=== PATIENT | female | born 1960 | race Caucasian/White ===

== ENCOUNTER 2018-04-06 11:15 | Outpatient (RCR) | payer OTHER, MEDICAID, SELFPAY ==
--- NOTE | 2018-02-08 11:19 | PT.OTN ---
Current Diagnoses Other intervertebral disc degeneration, lumbar region (02/08/18) Pain in left leg (02/08/18) Other abnormalities of gait and mobility (02/08/18) Repeated falls (02/08/18) Transition note: On February 06, 2018 our therapy services consisting of Speech, Occupational, and Physical Therapy transitioned from the [employer] electronic documentation system to a new [employer] electronic documentation system.?? All documentation prior to February 06 can be found under [employer] saved data. From February 06 forward all medical record documentation will be in [employer] 6.1.
--- NOTE | 2018-02-08 13:12 | PT.OTN ---
Current Diagnoses Other intervertebral disc degeneration, lumbar region (02/08/18) Pain in left leg (02/08/18) Other abnormalities of gait and mobility (02/08/18) Repeated falls (02/08/18) Physical Therapy Treatment Note PT-OP-A Visit Information Start: 02/08/18 12:54 Freq: Status: Active Protocol: Activity Type Activity Date Activity User E-Sign Co-Sign Detail Recorded Client Recorded Date Recorded By Document 02/08/18 11:45 [facility] [id number] 02/08/18 13:12 [facility] 02/08/18 11:45 Out-Patient Physical Therapy Visit Information [Visit Information] -Visit Type Treatment Note -Visit Start Time 11:15 -Visit Stop Time 12:00 -Total Visit Minutes 45 -Visit Number 4 -Number of CONSTRUCTION CARPENTER Visits 0 [Evaluation Information] -Evaluation Date 01/24/18 PT-OP-C Subjective Start: 02/08/18 12:54 Freq: Status: Active Protocol: Activity Type Activity Date Activity User E-Sign Co-Sign Detail Recorded Client Recorded Date Recorded By Document 02/08/18 11:45 [facility] [id number] 02/08/18 13:12 [facility] 02/08/18 11:45 OP-PT Subjective [Patient Comments] -Patient Comments My left leg hurt for about two days after my last visit, but I'm not sure if it was something we did here or not . It feels better now, though -Patient Reported Progress Improving PT-OP-Q Treatments Start: 02/08/18 12:54 Freq: Status: Active Protocol: Activity Type Activity Date Activity User E-Sign Co-Sign Detail Recorded Client Recorded Date Recorded By Document 02/08/18 11:45 [facility] [id number] 02/08/18 13:12 [facility] 02/08/18 11:45 Cardio Equipment [Recumbent Elliptical (Biode[employer])] -Duration (Minutes) 5 -Resistance 5 -Seat Position 4 Gym Equipment [Cable Column (Body Solid)] Hip Abduction -Resistance 4 plates -Reps/Time x40 Hip Adduction -Resistance 4 plates -Reps/Time x40 [Shuttle Recovery] Unilateral Squats -Resistance 50# -Shuttle Recovery Platform Stable -Reps/Time x40 Bilateral Squats -Resistance 87# -Shuttle Recovery Platform Stable -Reps/Time x40 Therapeutic Exercises [Supine Exercises] 4 -Supine Exercise Name PPT /c TrA activation - flexed knee raise-> extension-> flexion->down -Side bilateral -Reps/Minutes 2x15 3 -Supine Exercise Name PPT /c TrA activation - Marching in hook-lying -Side bilateral -Reps/Minutes 2x15 2 -Supine Exercise Name Adductor ball squeeze in hook -lying -Side bilateral -Equipment Used Small ball -Reps/Minutes 5 sec hold 1 -Supine Exercise Name Figure-4 Piriformis stretch -Side bilateral -Reps/Minutes 40 sec hold x3 [Sidelying Exercises] 1 -Sidelying Exercise Name SLR - Adduction -Side bilateral -Reps/Minutes 2x10 [Standing Exercises] 1 -Standing Exercise Name Hamstring step- stretch -Side left -Reps/Minutes 40 sec hold PT-OP-T Assessment and Plan Start: 02/08/18 12:54 Freq: Status: Active Protocol: Activity Type Activity Date Activity User E-Sign Co-Sign Detail Recorded Client Recorded Date Recorded By Document 02/08/18 11:45 [facility] [id number] 02/08/18 13:12 [facility] 02/08/18 11:45 Physical Therapy Assessment [Rehab Potential] -Rehabilitation Potential Good [Impairments] -Impairments Activity Tolerance Balance Functional Activities Pain ROM Soft Tissue Mobility Strength Tone [Progress Towards Goals] -Progress Towards Goals Progressing Toward Goals [Assessment Summary] -Assessment Patient's left knee pain, secondary to arthritis/DJD, limits her ability to tolerate to some TherEx. Pt reports she may be going to her PCP to get an injection she she can participate more fully in therapy. Physical Therapy Plan [Frequency and Duration] -Frequency of Treatment 2x/Week -Plan of Care Start Date 01/24/18 -Plan of Care End Date 04/03/18 [Therapeutic Interventions] -Therapeutic Interventions Aquatic Therapy Gait Training Home Exercise Program Joint Mobilizations Manual Therapy Neuromuscular Re-education Self-Care/Home Management Soft Tissue Mobilization Therapeutic Activities Therapeutic Exercises -Modalities Cold Pack/Ice Massage Electric Stimulation Hot Packs Ultrasound [Next Visit Focus/Plan] -Next Visit Plan Continued focus on strengthening and pain- control of her LE L>R, as well as core strengthening and balance training.
--- NOTE | 2018-02-12 12:07 | PT.OTN ---
Current Diagnoses Other intervertebral disc degeneration, lumbar region (02/12/18) Pain in left leg (02/12/18) Other abnormalities of gait and mobility (02/12/18) Repeated falls (02/12/18) Physical Therapy Treatment Note PT-OP-A Visit Information Start: 02/08/18 12:54 Freq: Status: Active Protocol: Activity Type Activity Date Activity User E-Sign Co-Sign Detail Recorded Client Recorded Date Recorded By Document 02/12/18 11:15 [facility] [id number] 02/12/18 12:07 [facility] 02/12/18 11:15 Out-Patient Physical Therapy Visit Information [Visit Information] -Visit Type Treatment Note -Visit Start Time 11:15 -Visit Stop Time 12:00 -Total Visit Minutes 45 -Visit Number 5 -Number of SAMPLE FINISHER Visits 0 [Evaluation Information] -Evaluation Date 01/24/18 PT-OP-C Subjective Start: 02/08/18 12:54 Freq: Status: Active Protocol: Activity Type Activity Date Activity User E-Sign Co-Sign Detail Recorded Client Recorded Date Recorded By Document 02/12/18 11:15 [facility] [id number] 02/12/18 12:07 [facility] 02/12/18 11:15 OP-PT Subjective [Patient Comments] -Patient Comments Both my knees really hurt today for some reason, so we need to take it easy. My right elbow has also been bothering me for some reason recently . -Patient Reported Progress Same PT-OP-Q Treatments Start: 02/08/18 12:54 Freq: Status: Active Protocol: Activity Type Activity Date Activity User E-Sign Co-Sign Detail Recorded Client Recorded Date Recorded By Document 02/12/18 11:15 [facility] [id number] 02/12/18 12:07 [facility] 02/12/18 11:15 Cardio Equipment [Recumbent Elliptical (Biodex)] -Duration (Minutes) 5 -Resistance 5 -Seat Position 4 Gym Equipment [Cable Column (Body Solid)] Hip Abduction -Resistance 4 plates -Reps/Time x40 Hip Adduction -Resistance 4 plates -Reps/Time x40 [Shuttle Recovery] Unilateral Squats -Resistance 50# -Shuttle Recovery Platform Stable -Reps/Time x40 Bilateral Squats -Resistance 87# -Shuttle Recovery Platform Stable -Reps/Time x40 [Shuttle Balance] 1 -Details Red - Wide JIMMY, Staggered Stance, Lateral Weight Shift -Reps/Duration 10 min Therapeutic Exercises [Supine Exercises] 5 -Supine Exercise Name PPT /c TrA activation - Air Bicycle -Side bilateral -Reps/Minutes 1x15 3 -Supine Exercise Name PPT /c TrA activation - Marching in hook-lying -Side bilateral -Reps/Minutes 2x15 [Sidelying Exercises] 2 -Sidelying Exercise Name [id number]-Iakl -Side bilateral -Reps/Minutes x10 each side [Standing Exercises] 1 -Standing Exercise Name Hamstring step- stretch -Side left -Reps/Minutes 40 sec hold PT-OP-T Assessment and Plan Start: 02/08/18 12:54 Freq: Status: Active Protocol: Activity Type Activity Date Activity User E-Sign Co-Sign Detail Recorded Client Recorded Date Recorded By Document 02/12/18 11:15 [facility] [id number] 02/12/18 12:07 [facility] 02/12/18 11:15 Physical Therapy Assessment [Rehab Potential] -Rehabilitation Potential Good [Impairments] -Impairments Activity Tolerance Balance Functional Activities Pain ROM Soft Tissue Mobility Strength Tone [Progress Towards Goals] -Progress Towards Goals Progressing Toward Goals [Assessment Summary] -Assessment Pt has not received her steroid injection for knee pain yet, although she is still planning to request one to help with her ongoing pain. This should allow pt to participate more fully in her therapy sessions. Physical Therapy Plan [Frequency and Duration] -Frequency of Treatment 2x/Week -Plan of Care Start Date 01/24/18 -Plan of Care End Date 04/03/18 [Therapeutic Interventions] -Therapeutic Interventions Aquatic Therapy Gait Training Home Exercise Program Joint Mobilizations Manual Therapy Neuromuscular Re-education Self-Care/Home Management Soft Tissue Mobilization Therapeutic Activities Therapeutic Exercises -Modalities Cold Pack/Ice Massage Electric Stimulation Hot Packs Ultrasound [Next Visit Focus/Plan] -Next Visit Plan Core strengthening, balance, LE strengthening.
--- NOTE | 2018-02-15 13:32 | PT.OTN ---
Current Diagnoses Other intervertebral disc degeneration, lumbar region (02/15/18) Pain in left leg (02/15/18) Other abnormalities of gait and mobility (02/15/18) Repeated falls (02/15/18) Physical Therapy Treatment Note PT-OP-A Visit Information Start: 02/08/18 12:54 Freq: Status: Active Protocol: Document 02/15/18 12:00 DCW (Rec: 02/15/18 13:32 DCW [id number]) Out-Patient Physical Therapy Visit Information Visit Information Visit Type Treatment Note Visit Start Time 12:00 Visit Stop Time 12:45 Total Visit Minutes 45 Visit Number 6 Number of SUPERVISOR TAN ROOM Visits 0 Evaluation Information Evaluation Date 01/24/18 PT-OP-C Subjective Start: 02/08/18 12:54 Freq: Status: Active Protocol: Document 02/15/18 12:00 DCW (Rec: 02/15/18 13:32 DCW [id number]) OP-PT Subjective Patient Comments Patient Comments Pt reports that she went to her doctor's office earlier this week, and was diagnosed with golfers elbow. PT-OP-Q Treatments Start: 02/08/18 12:54 Freq: Status: Active Protocol: Document 02/15/18 12:00 DCW (Rec: 02/15/18 13:32 DCW [id number]) Cardio Equipment Recumbent Elliptical (Biodex) Duration (Minutes) 5 Resistance 5 Seat Position 4 Gym Equipment Cable Column (Body Solid) Hip Abduction Resistance 4 plates Reps/Time x40 Hip Adduction Resistance 4 plates Reps/Time x40 Shuttle Recovery Unilateral Squats Resistance 50# Shuttle Recovery Platform Stable Reps/Time x40 Bilateral Squats Resistance 87# Shuttle Recovery Platform Stable Reps/Time x40 Shuttle Balance 1 Details Red - Wide JIMMY, Staggered Stance, Lateral Weight Shift Reps/Duration 10 min Therapeutic Exercises Supine Exercises 6 Supine Exercise Name Lower trunk rotation with T- ball under lower legs Side bilateral Equipment Used 45 cm T-ball Reps/Minutes x20 5 Supine Exercise Name PPT /c TrA activation - Air Bicycle Side bilateral Reps/Minutes 1x15 3 Supine Exercise Name PPT /c TrA activation - Marching in hook-lying Side bilateral Reps/Minutes 2x15 Sidelying Exercises 2 Sidelying Exercise Name Bqliu-tjo-Pqoh Side bilateral Reps/Minutes x10 each side Standing Exercises 2 Standing Exercise Name Gastroc Stretch Equipment Used FELTON PT-OP-T Assessment and Plan Start: 02/08/18 12:54 Freq: Status: Active Protocol: Document 02/15/18 12:00 DCW (Rec: 02/15/18 13:32 DCW [id number]) Physical Therapy Assessment Rehab Potential Rehabilitation Potential Good Impairments Impairments Activity Tolerance Balance Functional Activities Pain ROM Soft Tissue Mobility Strength Tone Progress Towards Goals Progress Towards Goals Progressing Toward Goals Assessment Summary Assessment Pt able to tolerate more core strengthening exercises today, however still experiences knee pain. Physical Therapy Plan Frequency and Duration Frequency of Treatment 2x/Week Plan of Care Start Date 01/24/18 Plan of Care End Date 04/03/18 Therapeutic Interventions Therapeutic Interventions Aquatic Therapy Gait Training Home Exercise Program Joint Mobilizations Manual Therapy Neuromuscular Re-education Self-Care/Home Management Soft Tissue Mobilization Therapeutic Activities Therapeutic Exercises Modalities Cold Pack/Ice Massage Electric Stimulation Hot Packs Ultrasound Next Visit Focus/Plan Next Visit Plan Core strengthening, balance, LE strengthening.
--- NOTE | 2018-02-26 11:57 | PT.OTN ---
Current Diagnoses Other intervertebral disc degeneration, lumbar region (02/26/18) Pain in left leg (02/26/18) Other abnormalities of gait and mobility (02/26/18) Repeated falls (02/26/18) Physical Therapy Treatment Note PT-OP-A Visit Information Start: 02/08/18 12:54 Freq: Status: Active Protocol: Document 02/26/18 11:15 DCW (Rec: 02/26/18 11:57 DCW [id number]) Out-Patient Physical Therapy Visit Information Visit Information Visit Type Treatment Note Visit Start Time 11:15 Visit Stop Time 12:00 Total Visit Minutes 45 Visit Number 7 Number of SUPERVISOR PREPRESS Visits 0 Evaluation Information Evaluation Date 01/24/18 PT-OP-C Subjective Start: 02/08/18 12:54 Freq: Status: Active Protocol: Document 02/26/18 11:15 DCW (Rec: 02/26/18 11:57 DCW [id number]) OP-PT Subjective Patient Comments Patient Comments Pt is feeling better after having a stomach bug last week . PT-OP-Q Treatments Start: 02/08/18 12:54 Freq: Status: Active Protocol: Document 02/26/18 11:15 DCW (Rec: 02/26/18 11:57 DCW [id number]) Cardio Equipment Recumbent Elliptical ([employer] Duration (Minutes) 5 Resistance 5 Seat Position 3 Gym Equipment Cable Column (Body Solid) Hip Abduction Resistance 4 plates Reps/Time x50 Hip Adduction Resistance 4 plates Reps/Time x50 Shuttle Recovery Unilateral Squats Resistance 50# Shuttle Recovery Platform Stable Reps/Time x40 Bilateral Squats Resistance 87# Shuttle Recovery Platform Stable Reps/Time x40 Shuttle Balance 1 Details Red - Wide JIMMY, Staggered Stance, Lateral Weight Shift Reps/Duration 10 min Therapeutic Exercises Supine Exercises 6 Supine Exercise Name Lower trunk rotation with T- ball under lower legs Side bilateral Equipment Used 45 cm T-ball Reps/Minutes x20 3 Supine Exercise Name PPT /c TrA activation - Marching in hook-lying Side bilateral Reps/Minutes 2x15 Sidelying Exercises 2 Sidelying Exercise Name Orcqi-evm-Vwfv Side bilateral Reps/Minutes x10 each side 1 Sidelying Exercise Name SLR - Adduction Side bilateral Reps/Minutes 2x10 Standing Exercises 2 Standing Exercise Name Gastroc Stretch Equipment Used FELTON 1 Standing Exercise Name Hamstring step-stretch Side left Reps/Minutes 40 sec hold PT-OP-T Assessment and Plan Start: 02/08/18 12:54 Freq: Status: Active Protocol: Document 02/26/18 11:15 DCW (Rec: 02/26/18 11:57 DCW [id number]) Physical Therapy Assessment Rehab Potential Rehabilitation Potential Good Impairments Impairments Activity Tolerance Balance Functional Activities Pain ROM Soft Tissue Mobility Strength Tone Progress Towards Goals Progress Towards Goals Progressing Toward Goals Assessment Summary Assessment Fewer complaints of knee pain today, able to tolerate more TherEx without taking a break. Physical Therapy Plan Frequency and Duration Frequency of Treatment 2x/Week Plan of Care Start Date 01/24/18 Plan of Care End Date 04/03/18 Therapeutic Interventions Therapeutic Interventions Aquatic Therapy Gait Training Home Exercise Program Joint Mobilizations Manual Therapy Neuromuscular Re-education Self-Care/Home Management Soft Tissue Mobilization Therapeutic Activities Therapeutic Exercises Modalities Cold Pack/Ice Massage Electric Stimulation Hot Packs Ultrasound Next Visit Focus/Plan Next Visit Plan Increased weight on weight machines, continued core strengthening.
--- NOTE | 2018-03-02 11:56 | PT.OTN ---
Current Diagnoses Other intervertebral disc degeneration, lumbar region (03/02/18) Pain in left leg (03/02/18) Other abnormalities of gait and mobility (03/02/18) Repeated falls (03/02/18) Physical Therapy Treatment Note PT-OP-A Visit Information Start: 02/08/18 12:54 Freq: Status: Active Protocol: Document 03/02/18 11:15 DCW (Rec: 03/02/18 11:56 DCW [id number]) Out-Patient Physical Therapy Visit Information Visit Information Visit Type Treatment Note Visit Start Time 11:15 Visit Stop Time 12:00 Total Visit Minutes 45 Visit Number 8 Number of PARAMEDIC RN Visits 0 Evaluation Information Evaluation Date 01/24/18 PT-OP-C Subjective Start: 02/08/18 12:54 Freq: Status: Active Protocol: Document 03/02/18 11:15 DCW (Rec: 03/02/18 11:56 DCW [id number]) OP-PT Subjective Patient Comments Patient Comments Pt notes that everything is feeling pretty good today. PT-OP-Q Treatments Start: 02/08/18 12:54 Freq: Status: Active Protocol: Document 03/02/18 11:15 DCW (Rec: 03/02/18 11:56 DCW [id number]) Cardio Equipment Recumbent Elliptical ([employer]) Duration (Minutes) 5 Resistance 5 Seat Position 4 Gym Equipment Cable Column (Body Solid) Hip Abduction Resistance 4 plates Reps/Time x50 Hip Adduction Resistance 4 plates Reps/Time x50 Shuttle Recovery Unilateral Squats Resistance 62# R, 50# L Shuttle Recovery Platform Stable Reps/Time x40 Bilateral Squats Resistance 100# Shuttle Recovery Platform Stable Reps/Time x40 Shuttle Balance 1 Details Red - Wide JIMMY, Staggered Stance, Lateral Weight Shift Reps/Duration 10 min Therapeutic Exercises Supine Exercises 6 Supine Exercise Name Lower trunk rotation with T- ball under lower legs Side bilateral Equipment Used 45 cm T-ball Reps/Minutes x20 3 Supine Exercise Name PPT /c TrA activation - Marching in hook-lying Side bilateral Reps/Minutes 2x15 Sidelying Exercises 2 Sidelying Exercise Name Ybpve-abi-Elsc Side bilateral Reps/Minutes x10 each side Standing Exercises 2 Standing Exercise Name Gastroc Stretch Equipment Used FELTON 1 Standing Exercise Name Hamstring step-stretch Side left Reps/Minutes 40 sec hold PT-OP-T Assessment and Plan Start: 02/08/18 12:54 Freq: Status: Active Protocol: Document 03/02/18 11:15 DCW (Rec: 03/02/18 11:56 DCW [id number]) Physical Therapy Assessment Rehab Potential Rehabilitation Potential Good Impairments Impairments Activity Tolerance Balance Functional Activities Pain ROM Soft Tissue Mobility Strength Tone Progress Towards Goals Progress Towards Goals Progressing Toward Goals Assessment Summary Assessment Pt continues to show progress, reports her back has not been hurting nearly as often. Physical Therapy Plan Frequency and Duration Frequency of Treatment 2x/Week Plan of Care Start Date 01/24/18 Plan of Care End Date 04/03/18 Therapeutic Interventions Therapeutic Interventions Aquatic Therapy Gait Training Home Exercise Program Joint Mobilizations Manual Therapy Neuromuscular Re-education Self-Care/Home Management Soft Tissue Mobilization Therapeutic Activities Therapeutic Exercises Modalities Cold Pack/Ice Massage Electric Stimulation Hot Packs Ultrasound Next Visit Focus/Plan Next Note Type Treatment Note Next Visit Plan Core strengthening, Balance training. Continue ongoing plan of care
--- NOTE | 2018-03-06 12:47 | PT.OTN ---
Current Diagnoses Other intervertebral disc degeneration, lumbar region (03/06/18) Pain in left leg (03/06/18) Other abnormalities of gait and mobility (03/06/18) Repeated falls (03/06/18) Physical Therapy Treatment Note PT-OP-A Visit Information Start: 02/08/18 12:54 Freq: Status: Active Protocol: Document 03/06/18 11:15 DCW (Rec: 03/06/18 12:47 DCW [id number]) Out-Patient Physical Therapy Visit Information Visit Information Visit Type Treatment Note Visit Start Time 11:15 Visit Stop Time 12:00 Total Visit Minutes 45 Visit Number 9 Number of CLOTH DOUBLING MACHINE OPERATOR Visits 0 Evaluation Information Evaluation Date 01/24/18 PT-OP-C Subjective Start: 02/08/18 12:54 Freq: Status: Active Protocol: Document 03/06/18 11:15 DCW (Rec: 03/06/18 12:47 DCW [id number]) OP-PT Subjective Patient Comments Patient Comments I feel fine today. PT-OP-Q Treatments Start: 02/08/18 12:54 Freq: Status: Active Protocol: Document 03/06/18 11:15 DCW (Rec: 03/06/18 12:47 DCW [id number]) Gym Equipment Cable Column (Body Solid) Hip Abduction Resistance 5 plates Reps/Time x40 Hip Adduction Resistance 5 plates Reps/Time x40 Shuttle Recovery Unilateral Squats Resistance 62# Shuttle Recovery Platform Stable Reps/Time x40 Bilateral Squats Resistance 100# Shuttle Recovery Platform Stable Reps/Time x40 Shuttle Balance 1 Details Red - Wide JIMMY, Staggered Stance, Lateral Weight Shift Reps/Duration 10 min Therapeutic Ball 1 Exercise Details T-ball - Hip/knee flexion and extension /c resistance Ball Size/Color Blue - 45 cm Body Position Supine Comments Lv 4 T-band resistance Therapeutic Exercises Supine Exercises 8 Supine Exercise Name Hamstring Stretch Side bilateral 7 Supine Exercise Name Piriformis Stretch Side bilateral 6 Supine Exercise Name Lower trunk rotation with T- ball under lower legs Side bilateral Equipment Used 45 cm T-ball Reps/Minutes x20 3 Supine Exercise Name PPT /c TrA activation - Marching in hook-lying Side bilateral Reps/Minutes 2x15 Sidelying Exercises 2 Sidelying Exercise Name Jkxna-rmx-Jbcs Side bilateral Reps/Minutes x10 each side Standing Exercises 5 Standing Exercise Name Resisted Walking - Backward Side bilateral Resistance Yellow Equipment Used T-band 4 Standing Exercise Name Resisted Walking - Forward Side bilateral Resistance Yellow Equipment Used T-band 3 Standing Exercise Name Resisted Walking - Side- stepping Side bilateral Resistance Yellow Equipment Used T-band 2 Standing Exercise Name Gastroc Stretch Equipment Used FELTON PT-OP-T Assessment and Plan Start: 02/08/18 12:54 Freq: Status: Active Protocol: Document 03/06/18 11:15 DCW (Rec: 03/06/18 12:47 DCW [id number]) Physical Therapy Assessment Rehab Potential Rehabilitation Potential Good Impairments Impairments Activity Tolerance Balance Functional Activities Pain ROM Soft Tissue Mobility Strength Tone Progress Towards Goals Progress Towards Goals Progressing Toward Goals Assessment Summary Assessment Pt had no complaints of back or leg pain during today's session Physical Therapy Plan Frequency and Duration Frequency of Treatment 2x/Week Plan of Care Start Date 01/24/18 Plan of Care End Date 04/03/18 Therapeutic Interventions Therapeutic Interventions Aquatic Therapy Gait Training Home Exercise Program Joint Mobilizations Manual Therapy Neuromuscular Re-education Self-Care/Home Management Soft Tissue Mobilization Therapeutic Activities Therapeutic Exercises Modalities Cold Pack/Ice Massage Electric Stimulation Hot Packs Ultrasound Next Visit Focus/Plan Next Note Type Treatment Note Next Visit Plan Core strengthening, Balance training. Continue ongoing plan of care
--- NOTE | 2018-03-09 12:01 | PT.OTN ---
Current Diagnoses Other intervertebral disc degeneration, lumbar region (03/09/18) Pain in left leg (03/09/18) Other abnormalities of gait and mobility (03/09/18) Repeated falls (03/09/18) Physical Therapy Treatment Note PT-OP-A Visit Information Start: 02/08/18 12:54 Freq: Status: Active Protocol: Document 03/09/18 11:15 DCW (Rec: 03/09/18 12:01 DCW [id number]) Out-Patient Physical Therapy Visit Information Visit Information Visit Type Treatment Note Visit Start Time 11:15 Visit Stop Time 12:00 Total Visit Minutes 45 Visit Number 10 Number of TAX ECONOMIST Visits 0 Evaluation Information Evaluation Date 01/24/18 PT-OP-C Subjective Start: 02/08/18 12:54 Freq: Status: Active Protocol: Document 03/09/18 11:15 DCW (Rec: 03/09/18 12:01 DCW [id number]) OP-PT Subjective Patient Comments Patient Comments My left side is hurting today . PT-OP-Q Treatments Start: 02/08/18 12:54 Freq: Status: Active Protocol: Document 03/09/18 11:15 DCW (Rec: 03/09/18 12:01 DCW [id number]) Cardio Equipment Recumbent Elliptical (Biodex) Duration (Minutes) 7 Resistance 5 Seat Position 4 Gym Equipment Cable Column (Body Solid) Hip Abduction Resistance 5 plates Reps/Time x30 Hip Adduction Resistance 5 plates Reps/Time x30 Shuttle Recovery Unilateral Squats Resistance 62# R, 50# L Shuttle Recovery Platform Stable Reps/Time x40 Bilateral Squats Resistance 100# Shuttle Recovery Platform Stable Reps/Time x40 Shuttle Balance 1 Details Red - Wide JIMMY, Staggered Stance, Lateral Weight Shift Reps/Duration 10 min Therapeutic Exercises Supine Exercises 8 Supine Exercise Name Hamstring Stretch Side bilateral 7 Supine Exercise Name Piriformis Stretch Side bilateral 6 Supine Exercise Name Lower trunk rotation with T- ball under lower legs Side bilateral Equipment Used 45 cm T-ball Reps/Minutes x20 Sidelying Exercises 2 Sidelying Exercise Name Niipy-wbf-Whwp Side bilateral Reps/Minutes x10 each side Standing Exercises 2 Standing Exercise Name Gastroc Stretch Equipment Used FELTON PT-OP-T Assessment and Plan Start: 02/08/18 12:54 Freq: Status: Active Protocol: Document 03/09/18 11:15 DCW (Rec: 03/09/18 12:01 DCW [id number]) Physical Therapy Assessment Rehab Potential Rehabilitation Potential Good Impairments Impairments Activity Tolerance Balance Functional Activities Pain ROM Soft Tissue Mobility Strength Tone Progress Towards Goals Progress Towards Goals Progressing Toward Goals Assessment Summary Assessment Pt felt her legs had loosened up quite a bit following treatment, reporting feeling much better. Physical Therapy Plan Frequency and Duration Frequency of Treatment 2x/Week Plan of Care Start Date 01/24/18 Plan of Care End Date 04/03/18 Therapeutic Interventions Therapeutic Interventions Aquatic Therapy Gait Training Home Exercise Program Joint Mobilizations Manual Therapy Neuromuscular Re-education Self-Care/Home Management Soft Tissue Mobilization Therapeutic Activities Therapeutic Exercises Modalities Cold Pack/Ice Massage Electric Stimulation Hot Packs Ultrasound Next Visit Focus/Plan Next Note Type Treatment Note Next Visit Plan Balance training. Continue ongoing plan of care
--- NOTE | 2018-03-14 16:45 | PT.OTN ---
Current Diagnoses Other intervertebral disc degeneration, lumbar region (03/14/18) Pain in left leg (03/14/18) Other abnormalities of gait and mobility (03/14/18) Repeated falls (03/14/18) Physical Therapy Treatment Note PT-OP-A Visit Information Start: 02/08/18 12:54 Freq: Status: Active Protocol: Document 03/14/18 16:00 DCW (Rec: 03/14/18 16:44 DCW [id number]) Out-Patient Physical Therapy Visit Information Visit Information Visit Type Treatment Note Visit Start Time 16:00 Visit Stop Time 16:45 Total Visit Minutes 45 Visit Number 11 Number of METAL TEMPERER Visits 0 Evaluation Information Evaluation Date 01/24/18 PT-OP-C Subjective Start: 02/08/18 12:54 Freq: Status: Active Protocol: Document 03/14/18 16:00 DCW (Rec: 03/14/18 16:44 DCW [id number]) OP-PT Subjective Patient Comments Patient Comments I've been taking it easy, so I'm feeling alright. PT-OP-Q Treatments Start: 02/08/18 12:54 Freq: Status: Active Protocol: Document 03/14/18 16:00 DCW (Rec: 03/14/18 16:44 DCW [id number]) Cardio Equipment Recumbent Elliptical (Biodex) Duration (Minutes) 6 Resistance 5 Seat Position 4 Gym Equipment Cable Column (Body Solid) Hip Abduction Resistance 5 plates Reps/Time x30 Hip Adduction Resistance 5 plates Reps/Time x30 Shuttle Recovery Unilateral Squats Resistance 62# R, 50# L Shuttle Recovery Platform Stable Reps/Time x40 Bilateral Squats Resistance 100# Shuttle Recovery Platform Stable Reps/Time x40 Shuttle Balance 1 Details Red - Wide JIMMY, Staggered Stance, Lateral Weight Shift Reps/Duration 10 min Therapeutic Exercises Supine Exercises 8 Supine Exercise Name Hamstring Stretch Side bilateral 7 Supine Exercise Name Piriformis Stretch Side bilateral 6 Supine Exercise Name Lower trunk rotation with T- ball under lower legs Side bilateral Equipment Used 45 cm T-ball Reps/Minutes x20 Sidelying Exercises 2 Sidelying Exercise Name Qzyjr-taf-Mhwt Side bilateral Reps/Minutes x10 each side Standing Exercises 2 Standing Exercise Name Gastroc Stretch Equipment Used FELTON PT-OP-T Assessment and Plan Start: 02/08/18 12:54 Freq: Status: Active Protocol: Document 03/14/18 16:00 DCW (Rec: 03/14/18 16:44 DCW [id number]) Physical Therapy Assessment Rehab Potential Rehabilitation Potential Good Impairments Impairments Activity Tolerance Balance Functional Activities Pain ROM Soft Tissue Mobility Strength Tone Progress Towards Goals Progress Towards Goals Progressing Toward Goals Assessment Summary Assessment Pt appeared to be more sore today, increased complaints with the higher-weight activities. Physical Therapy Plan Frequency and Duration Frequency of Treatment 2x/Week Plan of Care Start Date 01/24/18 Plan of Care End Date 04/03/18 Therapeutic Interventions Therapeutic Interventions Aquatic Therapy Gait Training Home Exercise Program Joint Mobilizations Manual Therapy Neuromuscular Re-education Self-Care/Home Management Soft Tissue Mobilization Therapeutic Activities Therapeutic Exercises Modalities Cold Pack/Ice Massage Electric Stimulation Hot Packs Ultrasound Next Visit Focus/Plan Next Note Type Treatment Note Next Visit Plan Balance training. Continue ongoing plan of care
--- NOTE | 2018-03-20 17:26 | PT.OTN ---
Current Diagnoses Other intervertebral disc degeneration, lumbar region (03/20/18) Pain in left leg (03/20/18) Other abnormalities of gait and mobility (03/20/18) Repeated falls (03/20/18) Physical Therapy Treatment Note PT-OP-A Visit Information Start: 02/08/18 12:54 Freq: Status: Active Protocol: Document 03/20/18 16:45 DCW (Rec: 03/20/18 17:26 DCW [id number]) Out-Patient Physical Therapy Visit Information Visit Information Visit Type Treatment Note Visit Start Time 16:45 Visit Stop Time 17:30 Total Visit Minutes 45 Visit Number 12 Number of VISUAL COMMUNICATIONS INSTRUCTOR Visits 0 Evaluation Information Evaluation Date 01/24/18 PT-OP-C Subjective Start: 02/08/18 12:54 Freq: Status: Active Protocol: Document 03/20/18 16:45 DCW (Rec: 03/20/18 17:26 DCW [id number]) OP-PT Subjective Patient Comments Patient Comments Everything is feeling better now, this morning I wasn't feeling so great. PT-OP-Q Treatments Start: 02/08/18 12:54 Freq: Status: Active Protocol: Document 03/20/18 16:45 DCW (Rec: 03/20/18 17:26 DCW [id number]) Cardio Equipment Recumbent Elliptical (BiodBomgar) Duration (Minutes) 6 Resistance 5 Seat Position 4 Gym Equipment Cable Column (Body Solid) Hip Abduction Resistance 5 plates Reps/Time x50 Hip Adduction Resistance 5 plates Reps/Time x50 Shuttle Recovery Unilateral Squats Resistance 62# R, 50# L Shuttle Recovery Platform Stable Reps/Time x40 Bilateral Squats Resistance 100# Shuttle Recovery Platform Stable Reps/Time x40 Therapeutic Ball 2 Exercise Details Bridging /c feet on ball Ball Size/Color Blue - 45 cm Body Position Supine 1 Exercise Details T-ball - Hip/knee flexion and extension /c resistance Ball Size/Color Blue - 45 cm Body Position Supine Comments Lv 4 T-band resistance Therapeutic Exercises Supine Exercises 8 Supine Exercise Name Hamstring Stretch Side bilateral 7 Supine Exercise Name Piriformis Stretch Side bilateral 6 Supine Exercise Name Lower trunk rotation with T- ball under lower legs Side bilateral Equipment Used 45 cm T-ball Reps/Minutes x20 Sidelying Exercises 2 Sidelying Exercise Name Dnssu-xep-Nhlm Side bilateral Reps/Minutes x10 each side Standing Exercises 5 Standing Exercise Name Resisted Walking - Backward Side bilateral Resistance Yellow Equipment Used T-band 4 Standing Exercise Name Resisted Walking - Forward Side bilateral Resistance Yellow Equipment Used T-band 3 Standing Exercise Name Resisted Walking - Side- stepping Side bilateral Resistance Yellow Equipment Used T-band 2 Standing Exercise Name Gastroc Stretch Equipment Used FELTON PT-OP-T Assessment and Plan Start: 02/08/18 12:54 Freq: Status: Active Protocol: Document 03/20/18 16:45 DCW (Rec: 03/20/18 17:26 DCW [id number]) Physical Therapy Assessment Rehab Potential Rehabilitation Potential Good Impairments Impairments Activity Tolerance Balance Functional Activities Pain ROM Soft Tissue Mobility Strength Tone Progress Towards Goals Progress Towards Goals Progressing Toward Goals Assessment Summary Assessment Pt improved today vs last week , increased reps with hip abd/ add and Shuttle Recovery. Physical Therapy Plan Frequency and Duration Frequency of Treatment 2x/Week Plan of Care Start Date 01/24/18 Plan of Care End Date 04/03/18 Therapeutic Interventions Therapeutic Interventions Aquatic Therapy Gait Training Home Exercise Program Joint Mobilizations Manual Therapy Neuromuscular Re-education Self-Care/Home Management Soft Tissue Mobilization Therapeutic Activities Therapeutic Exercises Modalities Cold Pack/Ice Massage Electric Stimulation Hot Packs Ultrasound Next Visit Focus/Plan Next Note Type Treatment Note Next Visit Plan Balance training. Continue ongoing plan of care
--- NOTE | 2018-04-03 17:59 | PT.OTN ---
Current Diagnoses Other intervertebral disc degeneration, lumbar region (04/03/18) Pain in left leg (04/03/18) Other abnormalities of gait and mobility (04/03/18) Repeated falls (04/03/18) Physical Therapy Treatment Note PT-OP-A Visit Information Start: 02/08/18 12:54 Freq: Status: Active Protocol: Document 04/03/18 13:45 DCW (Rec: 04/03/18 17:59 DCW [id number]) Out-Patient Physical Therapy Visit Information Visit Information Visit Type Progress Note Visit Start Time 13:45 Visit Stop Time 14:30 Total Visit Minutes 45 Visit Number 13 Number of OBSTETRICIAN GYNECOLOGIST Visits 0 Evaluation Information Evaluation Date 01/24/18 PT-OP-B Current Condition Start: 04/03/18 17:38 Freq: Status: Active Protocol: Document 04/03/18 13:45 DCW (Rec: 04/03/18 17:59 DCW [id number]) Current Condition History of Current Condition History of Current Condition Please see patient's chart in Therapy Source for complete history and initial evaluation Current Functional Impairments (Reported) Functional Limitations- ADL's Pt unable to stand for more than five minutes at sink to wash dishes Functional Limitations- Mobility/Gait Pt describes moderate difficulty getting off the floor by herself. PT-OP-C Subjective Start: 02/08/18 12:54 Freq: Status: Active Protocol: Document 04/03/18 13:45 DCW (Rec: 04/03/18 17:59 DCW [id number]) OP-PT Subjective Patient Comments Patient Comments I'm feeling much better than I was last week. The week off from therapy really helped. OP-PT Pain Assessment Location Lower Back Intensity 0 Scale Used Numeric (1 - 10) Left Knee Intensity 6 Scale Used Numeric (1 - 10) PT-OP-E Functional Tests Start: 04/03/18 17:38 Freq: Status: Active Protocol: Document 04/03/18 13:45 DCW (Rec: 04/03/18 17:59 DCW [id number]) Functional Tests 6 Minute Walk Test Distance 1077' Device Used none PT-OP-K Range of Motion Start: 04/03/18 17:38 Freq: Status: Active Protocol: Document 04/03/18 13:45 DCW (Rec: 04/03/18 17:59 DCW [id number]) Knee Goniometric Range of Motion Knee Measured in Degrees Right Patient Position Supine Flexion Active (degrees) 123 Flexion Passive (degrees) 128 Left Patient Position Supine Flexion Active (degrees) 115 Flexion Passive (degrees) 120 PT-OP-M Strength Start: 04/03/18 17:38 Freq: Status: Active Protocol: Document 04/03/18 13:45 DCW (Rec: 04/03/18 17:59 WIW [id number]) Trunk Strength Trunk Manual Muscle Testing Core Stabilization Transverse Abdominal: 4-/5 Hip Strength Hip Manual Muscle Testing Right Flexion (L2) 4+ Good+ Abduction 4 Good Adduction 5 Normal External Rotation 4 Good Internal Rotation 4 Good Left Flexion (L2) 4 Good Abduction 4 Good Adduction 5 Normal External Rotation 4 Good Internal Rotation 4 Good Knee Strength Knee Manual Muscle Testing Right Flexion (S2) 4 Good Extension (L3) 5 Normal Left Flexion (S2) 4 Good Extension (L3) 4+ Good+ PT-OP-Q Treatments Start: 02/08/18 12:54 Freq: Status: Active Protocol: Document 04/03/18 13:45 DCW (Rec: 04/03/18 17:59 DCW [id number]) Cardio Equipment Recumbent Elliptical (BiodStatus Overload) Duration (Minutes) 6 Resistance 5 Seat Position 4 Gym Equipment Shuttle Recovery Unilateral Squats Resistance 62# R, 50# L Shuttle Recovery Platform Stable Reps/Time x40 Bilateral Squats Resistance 100# Shuttle Recovery Platform Stable Reps/Time x40 PT-OP-T Assessment and Plan Start: 02/08/18 12:54 Freq: Status: Active Protocol: Document 04/03/18 13:45 DCW (Rec: 04/03/18 17:59 WIW [id number]) Physical Therapy Assessment Rehab Potential Rehabilitation Potential Good Impairments Impairments Activity Tolerance Balance Functional Activities Pain ROM Soft Tissue Mobility Strength Tone Goals Four Impairment 6 Minute Walk Test Short Term Goal (STG) Pt to ambulate 900 with least restrictive assistive device in six minutes STG Duration MET Three Impairment LE Strength Detention Goal (LTG) LE MMT Grossly 4/5 LTG Duration 05/08/18 Two Impairment Pain Short Term Goal (STG) Pt low back pain to 4/10 at worst - MET (0/10) Pt knee pain to 6/10 at worst - MET (6/10) STG Duration Met Detention Goal (LTG) Pt knee pain to 2/10 at worst LTG Duration 05/08/18 One Impairment Activity Participation Short Term Goal (STG) Pt to rise from floor with SBA without using object to pull herself up STG Duration 04/17/18 Entrance Guard Goal (LTG) Pt to stand at her sink for 35 minutes without increased back pain LTG Duration 05/08/18 Progress Towards Goals Progress Towards Goals Progressing Toward Goals Assessment Summary Assessment Pt progressed toward all goals , and met both her pain goals and her 6 MWT goals. Pt has an appointment with an orthopedic surgeon regarding her knee in two weeks, and is planning on scheduling more therapy sessions following that appointment, pending his recommendation Physical Therapy Plan Frequency and Duration Frequency of Treatment 2x/Week Duration of Treatment 12 weeks Plan of Care Start Date 04/03/18 Plan of Care End Date 06/26/18 Therapeutic Interventions Therapeutic Interventions Aquatic Therapy Gait Training Home Exercise Program Joint Mobilizations Manual Therapy Neuromuscular Re-education Self-Care/Home Management Soft Tissue Mobilization Therapeutic Activities Therapeutic Exercises Modalities Cold Pack/Ice Massage Electric Stimulation Hot Packs Ultrasound Next Visit Focus/Plan Next Note Type Treatment Note Next Visit Plan Balance training. Continue ongoing plan of care
--- NOTE | 2018-04-03 18:00 | PT.OPPOC ---
Current Diagnoses Other intervertebral disc degeneration, lumbar region (04/03/18) Pain in left leg (04/03/18) Other abnormalities of gait and mobility (04/03/18) Repeated falls (04/03/18) Provider Visit Care Team Role Provider Type Shalom Mari MD Family Provider Non-Staff Primary Care Provider Specialty: Medical Address: [address] [place] [address], [phone] Email: FOREST Bonilla Attending Provider Non-Staff Specialty: Medical Address: [address] [place], [address] Email: Plan Of Care PT-OP-T Assessment and Plan Start: 02/08/18 12:54 Freq: Status: Active Protocol: Document 04/03/18 13:45 DCW (Rec: 04/03/18 17:59 DCW [id number]) Physical Therapy Assessment Rehab Potential Rehabilitation Potential Good Impairments Impairments Activity Tolerance Balance Functional Activities Pain ROM Soft Tissue Mobility Strength Tone Goals Four Impairment 6 Minute Walk Test Short Term Goal (STG) Pt to ambulate 900 with least restrictive assistive device in six minutes STG Duration MET Three Impairment LE Strength Group Home Goal (LTG) LE MMT Grossly 4/5 LTG Duration 05/08/18 Two Impairment Pain Short Term Goal (STG) Pt low back pain to 4/10 at worst - MET (0/10) Pt knee pain to 6/10 at worst - MET (6/10) STG Duration Met Engineering Group Manager Goal (LTG) Pt knee pain to 2/10 at worst LTG Duration 05/08/18 One Impairment Activity Participation Short Term Goal (STG) Pt to rise from floor with SBA without using object to pull herself up STG Duration 04/17/18 Group Home Goal (LTG) Pt to stand at her sink for 35 minutes without increased back pain LTG Duration 05/08/18 Progress Towards Goals Progress Towards Goals Progressing Toward Goals Assessment Summary Assessment Pt progressed toward all goals , and met both her pain goals and her 6 MWT goals. Pt has an appointment with an orthopedic surgeon regarding her knee in two weeks, and is planning on scheduling more therapy sessions following that appointment, pending his recommendation Physical Therapy Plan Frequency and Duration Frequency of Treatment 2x/Week Duration of Treatment 12 weeks Plan of Care Start Date 04/03/18 Plan of Care End Date 06/26/18 Therapeutic Interventions Therapeutic Interventions Aquatic Therapy Gait Training Home Exercise Program Joint Mobilizations Manual Therapy Neuromuscular Re-education Self-Care/Home Management Soft Tissue Mobilization Therapeutic Activities Therapeutic Exercises Modalities Cold Pack/Ice Massage Electric Stimulation Hot Packs Ultrasound Next Visit Focus/Plan Next Note Type Treatment Note Next Visit Plan Balance training. Continue ongoing plan of care Plan of Care Dates Plan of Care Start Date 04/03/18 Plan of Care End Date 06/26/18 Please Sign and Return: I have reviewed this Plan of Care and certify that the skilled therapy services above are required to meet the patient?s needs. Physician Signature Date Printed Name and Credentials Clinical Instructor Signature Printed Name and Credentials
--- NOTE | 2018-04-06 11:59 | PT.OTN ---
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 Evaluation Information Evaluation Date 01/24/18 PT-OP-B Current Condition Start: 04/03/18 17:38 Freq: Status: Active Protocol: Document 04/03/18 13:45 DCW (Rec: 04/03/18 17:59 DCW [id number]) Current Condition History of Current Condition History of Current Condition Please see patient's chart in Therapy Source for complete history and initial evaluation Current Functional Impairments (Reported) Functional Limitations- ADL's Pt unable to stand for more than five minutes at sink to wash dishes Functional Limitations- Mobility/Gait Pt describes moderate difficulty getting off the floor by herself. PT-OP-C Subjective Start: 02/08/18 12:54 Freq: Status: Active Protocol: Document 04/06/18 11:20 DCW (Rec: 04/06/18 11:59 DCW [id number]) OP-PT Subjective Patient Comments Patient Comments Pt unsure if she will continue therapy, waiting to determine if she should continue after seeing her surgeon PT-OP-E Functional Tests Start: 04/03/18 17:38 Freq: Status: Active Protocol: Document 04/03/18 13:45 DCW (Rec: 04/03/18 17:59 DCW [id number]) Functional Tests 6 Minute Walk Test Distance 1077' Device Used none PT-OP-K Range of Motion Start: 04/03/18 17:38 Freq: Status: Active Protocol: Document 04/03/18 13:45 DCW (Rec: 04/03/18 17:59 DCW [id number]) Knee Goniometric Range of Motion Knee Measured in Degrees Right Patient Position Supine Flexion Active (degrees) 123 Flexion Passive (degrees) 128 Left Patient Position Supine Flexion Active (degrees) 115 Flexion Passive (degrees) 120 PT-OP-M Strength Start: 04/03/18 17:38 Freq: Status: Active Protocol: Document 04/03/18 13:45 DCW (Rec: 04/03/18 17:59 DCW [id number]) Trunk Strength Trunk Manual Muscle Testing Core Stabilization Transverse Abdominal: 4-/5 Hip Strength Hip Manual Muscle Testing Right Flexion (L2) 4+ Good+ Abduction 4 Good Adduction 5 Normal External Rotation 4 Good Internal Rotation 4 Good Left Flexion (L2) 4 Good Abduction 4 Good Adduction 5 Normal External Rotation 4 Good Internal Rotation 4 Good Knee Strength Knee Manual Muscle Testing Right Flexion (S2) 4 Good Extension (L3) 5 Normal Left Flexion (S2) 4 Good Extension (L3) 4+ Good+ PT-OP-Q Treatments Start: 02/08/18 12:54 Freq: Status: Active Protocol: Document 04/06/18 11:20 DCW (Rec: 04/06/18 11:59 DCW [id number]) Gym Equipment Cable Column (Body Solid) Hip Abduction Resistance 5 plates Reps/Time x50 Hip Adduction Resistance 6 plates Reps/Time x50 Shuttle Recovery Unilateral Squats Resistance 75# R, 62# L Shuttle Recovery Platform Stable Reps/Time x40 Bilateral Squats Resistance 125# Shuttle Recovery Platform Stable Reps/Time x40 Shuttle Balance 1 Details Red - Wide JIMMY, Staggered Stance, Lateral Weight Shift Reps/Duration 10 min Therapeutic Exercises Standing Exercises 6 Standing Exercise Name Lunge onto BOSU Equipment Used BOSU 5 Standing Exercise Name Resisted Walking - Backward Side bilateral Resistance Yellow Equipment Used T-band 4 Standing Exercise Name Resisted Walking - Forward Side bilateral Resistance Yellow Equipment Used T-band 3 Standing Exercise Name Resisted Walking - Side- stepping Side bilateral Resistance Yellow Equipment Used T-band 2 Standing Exercise Name Gastroc Stretch Equipment Used FELTON PT-OP-T Assessment and Plan Start: 02/08/18 12:54 Freq: Status: Active Protocol: Document 04/06/18 11:20 DCW (Rec: 04/06/18 11:59 DCW [id number]) Physical Therapy Assessment Rehab Potential Rehabilitation Potential Good Impairments Impairments Activity Tolerance Balance Functional Activities Pain ROM Soft Tissue Mobility Strength Tone Goals Four Impairment 6 Minute Walk Test Short Term Goal (STG) Pt to ambulate 900 with least restrictive assistive device in six minutes STG Duration MET Three Impairment LE Strength Consulting Services Project Manager Goal (LTG) LE MMT Grossly 4/5 LTG Duration 05/08/18 Two Impairment Pain Short Term Goal (STG) Pt low back pain to 4/10 at worst - MET (0/10) Pt knee pain to 6/10 at worst - MET (6/10) STG Duration Met Penitentiary Goal (LTG) Pt knee pain to 2/10 at worst LTG Duration 05/08/18 One Impairment Activity Participation Short Term Goal (STG) Pt to rise from floor with SBA without using object to pull herself up STG Duration 04/17/18 Consulting Services Project Manager Goal (LTG) Pt to stand at her sink for 35 minutes without increased back pain LTG Duration 05/08/18 Progress Towards Goals Progress Towards Goals Progressing Toward Goals Assessment Summary Assessment Pt should resume therapy per instructions from her surgeon following her appointment next week. Physical Therapy Plan Frequency and Duration Frequency of Treatment 2x/Week Duration of Treatment 12 weeks Plan of Care Start Date 04/03/18 Plan of Care End Date 06/26/18 Therapeutic Interventions Therapeutic Interventions Aquatic Therapy Gait Training Home Exercise Program Joint Mobilizations Manual Therapy Neuromuscular Re-education Self-Care/Home Management Soft Tissue Mobilization Therapeutic Activities Therapeutic Exercises Modalities Cold Pack/Ice Massage Electric Stimulation Hot Packs Ultrasound Next Visit Focus/Plan Next Note Type Treatment Note Next Visit Plan Balance training. Continue ongoing plan of care
--- NOTE | 2018-07-16 11:45 | PT.OPDS ---
Current Diagnoses Other intervertebral disc degeneration, lumbar region (04/06/18) Pain in left leg (04/06/18) Other abnormalities of gait and mobility (04/06/18) Repeated falls (04/06/18) Provider Visit Care Team Role Provider Type Shalom Mari MD Family Provider Non-Staff Primary Care Provider Specialty: Medical Address: [address] [place] [address], [phone] Email: FOREST Bonilla Attending Provider Non-Staff Specialty: Medical Address: [address] [place], [address] Email: Visit Number Visit Number 14 Discharge Summary PT-OP-B Current Condition Start: 04/03/18 17:38 Freq: Status: Active Protocol: Document 04/03/18 13:45 DCW (Rec: 04/03/18 17:59 DCW [id number]) Current Condition History of Current Condition History of Current Condition Please see patient's chart in Therapy Source for complete history and initial evaluation Current Functional Impairments (Reported) Functional Limitations- ADL's Pt unable to stand for more than five minutes at sink to wash dishes Functional Limitations- Mobility/Gait Pt describes moderate difficulty getting off the floor by herself. PT-OP-C Subjective Start: 02/08/18 12:54 Freq: Status: Active Protocol: Document 04/06/18 11:20 DCW (Rec: 04/06/18 11:59 DCW [id number]) OP-PT Subjective Patient Comments Patient Comments Pt unsure if she will continue therapy, waiting to determine if she should continue after seeing her surgeon PT-OP-E Functional Tests Start: 04/03/18 17:38 Freq: Status: Active Protocol: Document 04/03/18 13:45 DCW (Rec: 04/03/18 17:59 DCW [id number]) Functional Tests 6 Minute Walk Test Distance 1077' Device Used none PT-OP-K Range of Motion Start: 04/03/18 17:38 Freq: Status: Active Protocol: Document 04/03/18 13:45 DCW (Rec: 04/03/18 17:59 DCW [id number]) Knee Goniometric Range of Motion Knee Measured in Degrees Right Patient Position Supine Flexion Active (degrees) 123 Flexion Passive (degrees) 128 Left Patient Position Supine Flexion Active (degrees) 115 Flexion Passive (degrees) 120 PT-OP-M Strength Start: 04/03/18 17:38 Freq: Status: Active Protocol: Document 04/03/18 13:45 DCW (Rec: 04/03/18 17:59 [facility] [id number]) Trunk Strength Trunk Manual Muscle Testing Core Stabilization Transverse Abdominal: 4-/5 Hip Strength Hip Manual Muscle Testing Right Flexion (L2) 4+ Good+ Abduction 4 Good Adduction 5 Normal External Rotation 4 Good Internal Rotation 4 Good Left Flexion (L2) 4 Good Abduction 4 Good Adduction 5 Normal External Rotation 4 Good Internal Rotation 4 Good Knee Strength Knee Manual Muscle Testing Right Flexion (S2) 4 Good Extension (L3) 5 Normal Left Flexion (S2) 4 Good Extension (L3) 4+ Good+ PT-OP-T Assessment and Plan Start: 02/08/18 12:54 Freq: Status: Active Protocol: Document 07/16/18 11:43 DCW (Rec: 07/16/18 11:45 [facility] [id number]) Physical Therapy Assessment Goals Four Impairment 6 Minute Walk Test Short Term Goal (STG) Pt to ambulate 900 with least restrictive assistive device in six minutes STG Duration MET Three Impairment LE Strength Fdc Goal (LTG) LE MMT Grossly 4/5 LTG Duration 05/08/18 Two Impairment Pain Short Term Goal (STG) Pt low back pain to 4/10 at worst - MET (0/10) Pt knee pain to 6/10 at worst - MET (6/10) STG Duration Met Fdc Goal (LTG) Pt knee pain to 2/10 at worst LTG Duration 05/08/18 One Impairment Activity Participation Short Term Goal (STG) Pt to rise from floor with SBA without using object to pull herself up STG Duration 04/17/18 Machinery Repair Maintenance Supervisor Goal (LTG) Pt to stand at her sink for 35 minutes without increased back pain LTG Duration 05/08/18 Physical Therapy Plan Discharge Physical Therapy Discharge Reasons No Longer Attending PT Discharge Comments At pt's last appointment, she reported she was seeing a surgeon the following week, and would continue therapy based on their suggestion. Pt has now not been seen in more than three months, and has no upcoming appointments scheduled. Pt will be discharged from skilled therapy at this time.
== END 2018-07-19 15:20 ==
LOC: PHYS 11:15
PROVIDERS: Family Provider Family Medicine; PCP Family Medicine; Visit Provider Nurse Practitioner Family
DX: M51.36 Other intervertebral disc degeneration, lumbar region (principal); M79.605 Pain in left leg; R29.6 Repeated falls; R26.89 Other abnormalities of gait and mobility
CPT/HCPCS: 97110; 97112; 97530

== ENCOUNTER 2019-02-19 15:24 | Emergency (ER) | payer OTHER, MEDICAID, SELFPAY ==
[2019-02-19 15:30] VITALS: BP 121/79; PULSE 78; RESP 17; TEMP 36.4; O2SAT 96
--- NOTE | 2019-02-19 15:45 | DI.RAD.S_ITS ---
PROCEDURE: XR CHEST 1V INDICATIONS: CP TECHNIQUE: One view of the chest was acquired. COMPARISON: [facility], , CHEST 1 VIEW, 04/24/2017, 0:31. FINDINGS: Surgical changes and devices: None. Lungs and pleura: There is mild pulmonary vascular congestion. No pleural effusions or pneumothorax. Mediastinum: Mediastinal contours appear normal. Heart size is mildly enlarged. Bones and chest wall: No suspicious bony lesions. Overlying soft tissues appear unremarkable. IMPRESSION: Cardiomegaly and mild congestion. No definite focal infiltrate. Dictated by: Fred Nixon M.D. on 02/19/2019 at 16:00 Approved by: Fred Nixon M.D. on 02/19/2019 at 16:00
--- NOTE | 2019-02-19 15:49 | ED.CHESTPAIN ---
HPI - Chest Pain General Chief Complaint: Chest Pain Stated Complaint: CHEST PAINS ON RIGHT SIDE Time Seen by Provider: 02/19/19 15:43 Source: patient Mode of arrival: ambulatory Limitations: no limitations History of Present Illness HPI narrative: 58-year-old female with multiple noncontributory medical problems presents with a chief complaint of right-sided sharp and stabbing chest pain which radiates into her right shoulder and is worse with motion and deep breath. She denies any injury or overuse. She denies any shortness of breath, exertional pain, diaphoresis or vomiting. She has not been recently ill. She denies any sneezing or cough productive of sputum or blood. MD complaint: chest pain Onset (ago): day(s) Duration: intermittent Pain location: right chest Severity: moderate Quality: sharp Pain radiation: RUE Relieving factors: rest Exacerbating factors: inspiration Treatments prior to arrival chest pain: none Related Data On Oral Contraceptives: No Home Medications Medication Instructions Recorded Confirmed levothyroxine 88 mcg PO DAILY 02/19/19 02/19/19 sumatriptan succinate 50 mg PO PRN PRN 02/19/19 02/19/19 tizanidine 02/19/19 Allergies Allergy/AdvReac Type Severity Reaction Status Date / Time Penicillins Allergy Unknown Verified 02/19/19 15:37 Review of Systems Constitutional Denies chills, Denies fever(s), Denies lethargy and Denies weakness Eyes Denies change in vision, Denies eye discharge, Denies irritation and Denies loss of vision ENT Ears, Nose, Mouth, and Throat: Denies change in voice, Denies neck pain and Denies sore throat Cardiovascular Reports chest pain, Denies irregular heart rhythm, Denies lightheadedness, Denies palpitations, Denies dyspnea on exertion and Denies orthopnea Respiratory Denies cough, Denies dyspnea on exertion and Denies wheezing Gastrointestinal Gastrointestinal: Denies abdominal pain, Denies change in bowel habits, Denies diarrhea, Denies nausea and Denies vomiting Genitourinary Denies hematuria, Denies flank pain, Denies urinary incontinence and Denies urinary urgency Musculoskeletal Denies neck pain Integumentary/Breasts Denies pruritus, Denies erythema, Denies rash and Denies wounds Neurologic Denies confusion, Denies loss of vision and Denies weakness Psychiatric Denies anxiety, Denies confusion, Denies depression, Denies homicidal ideation and Denies suicidal ideation Endocrine Denies palpitations Hematologic/Lymphatic Denies easy bruising Allergic/Immunologic Denies wheezing PFSH Social History Smoking Status: Former smoker Social History Smoking Status: Former smoker Exam Narrative Exam Narrative: GENERAL: This is a well-nourished, well-developed patient, in mild distress. HEAD: Atraumatic. Normocephalic. No temporal or scalp tenderness. EYES: Pupils equal round and reactive. Extraocular motions intact. No scleral icterus. No injection or drainage. ENT: Nose without bleeding, purulent drainage or septal hematoma. Throat without erythema, tonsillar hypertrophy or exudate. Uvula midline. Airway patent. NECK: Trachea midline. No JVD or lymphadenopathy. Supple, nontender, no meningeal signs. CARDIOVASCULAR: Regular rate and rhythm without murmurs, gallops, or rubs. Reproducible sharp right anterior chest pain RESPIRATORY: Clear to auscultation. Breath sounds equal bilaterally. No wheezes, rales, or rhonchi. GASTROINTESTINAL: Abdomen soft, non-tender, nondistended. No hepato-splenomegaly, or palpable masses. No guarding. EXTREMITIES: No clubbing, cyanosis, or edema. No joint tenderness, effusion, or edema noted. BACK: Nontender without deformity or crepitance. No flank tenderness. NEURO: AOx3. SKIN: No rash or erythema. Initial Vital Signs Initial Vital Signs: Vital Signs Temperature 97.5 F L 02/19/19 15:30 Pulse Rate 78 02/19/19 15:30 Respiratory Rate 17 02/19/19 15:30 Blood Pressure 121/79 02/19/19 15:30 Pulse Oximetry 96 02/19/19 15:30 Scores HEART Score Heart Score history: Slightly Suspicious Heart Score EKG: Normal Heart Score Age: 45-64 years old Heart Score risk factors: 1-2 risk factors Heart Score troponin: < or = to normal limit Heart Score Total: 2 Course Orders Ordered: ED Orders 02/19/19 15:45 XR chest 1V Stat EKG-12 Lead Stat 02/19/19 16:10 Complete Blood Count AUTO DIFF Stat Comprehensive Metabolic Panel Stat Lipase Stat Troponin & CK Cardiac Panel Stat Discontinued Medications Aspirin (Aspirin Chew) 324 mg PO NOW ONE Stop: 02/19/19 15:46 Last Admin: 02/19/19 16:25 Dose: 324 mg Sodium Chloride (Normal Saline 0.9%) 1,000 mls @ 150 mls/hr IV CONT FAM Last Infusion: 02/19/19 17:26 Dose: 0 mls/hr Admin: 02/19/19 16:26 Dose: 150 mls/hr Ketorolac Tromethamine (Toradol) 15 mg IV NOW ONE Stop: 02/19/19 15:53 Last Admin: 02/19/19 16:26 Dose: 15 mg Vital Signs - 8 hr 02/19/19 15:30 02/19/19 17:00 Temperature 97.5 F L Pulse Rate 78 70 Respiratory Rate 17 13 Blood Pressure 121/79 Blood Pressure [Right Arm] 128/66 Pulse Oximetry 96 99 MDM - Chest Pain Medical Records Data Attestation: I reviewed the patient's medical records. Lab Data Result diagrams: 02/19/19 16:10 02/19/19 16:10 Lab Results 02/19/19 02/19/19 Range/Units 16:10 16:10 WBC 7.4 (4.5-11.0) X10^3/uL RBC 4.89 (4.0-5.2) X10^6/uL Hgb 14.1 (12.0-16.0) g/dL Hct 42.6 (36-46) % MCV 87.2 (80-100) fL MCH 28.8 (26-34) PG MCHC 33.0 (30-36) % RDW 13.9 (11.6-14.8) % Plt Count 191 (150-400) X10^3/uL Neut % (Auto) 53.6 (50-75) % Lymph % (Auto) 33.5 (25-40) % Boundary % (Auto) 7.9 (3-14) % Eos % (Auto) 4.2 H (2-4) % Baso % (Auto) 0.8 (0-2) % Neut # (Auto) 4000 (6283-4243) /uL Lymph # (Auto) 2500 (6857-6369) /uL Boundary # (Auto) 600 (0-900) /uL Eos # (Auto) 300 (0-450) /uL Baso # (Auto) 100 (0-100) /uL Sodium 140 (137-145) mmol/L Potassium 3.7 (3.4-5.1) mmol/L Chloride 104 (98-107) mmol/L Carbon Dioxide 26 (22-32) mmol/L BUN 18 H (7-17) mg/dL Creatinine 0.70 (0.52-1.04) mg/dL Estimated GFR > 60.0 (>60) mL/min BUN/Creatinine Ratio 25.7 H (6-22) Glucose 94 (80-110) mg/dL Calcium 9.5 (8.4-10.2) mg/dL Total Bilirubin 0.9 (0.2-1.3) mg/dL AST 55 H (14-36) IU/L ALT 71 H (9-52) IU/L Alkaline Phosphatase 71 (38-126) U/L Total Creatine Kinase 77 (30-135) U/L CK-MB (CK-2) TNP CK-MB (CK-2) Rel Index TNP Troponin I < 0.012 (0.01-0.034) ng/mL Total Protein 7.1 (6.3-8.2) g/dL Albumin 4.1 (3.5-5.0) g/dL Globulin 3.0 (1.7-4.1) g/dL Albumin/Globulin Ratio 1.4 (1.0-2.8) Lipase 131 (23-300) U/L ECG Data Attestation: I personally reviewed and interpreted this ECG as follows: Interpretation: EKG is normal sinus rhythm rate [76 ] and free of any signs of ischemia or ectopy. No ST segmental elevation or depression. No T wave inversions MDM Narrative Medical decision making narrative: Multiple causes of chest pain considered including GA, PE, pneumothorax, pneumonia, aortic dissection, and pleurisy. Patient reports no radiation, no diaphoresis, no provocation with exertion, and no vomiting. Pain is completely reproducible with range of motion and palpation. Heart score 2. EKG nonischemic and troponin normal greater than 6 hours into patient's symptoms Discharge Plan Departure Patient Disposition: Home Clinical Impression: Atypical chest pain, Acute costochondritis Discharge Date/Time: 02/19/19 17:25 Interventions: ED Discharge Assessment Last Done: 02/19/19 17:25 Instructions: DI for Atypical Chest Pain Activity Restrictions/Additional Instructions: *You have been diagnosed with [atypical chest pain, likely costochondritis] *What to do: *Take medications as directed: [id number] Tylenol and Motrin *Follow up with your primary care provider in 2-3 days, call for an appointment. Let them know you were seen in the Emergency Department and that we ask that you be seen in follow up *Return to ER if you should have any new, worsening or concerning symptoms Prescriptions: No Action tizanidine 2 mg tablet RF: 0 sumatriptan succinate 50 mg tablet 50 mg PO PRN PRN (Reason: Migraine Headache) RF: 0 levothyroxine 88 mcg tablet 88 mcg PO DAILY RF: 0 Referrals: Shalom Mari MD [Primary Care Provider] -
[2019-02-19 16:19] LABS: Add Manual Diff / Slide Review NO; Basophils Absolute Auto 100 /uL (0-100); Basophils Percent Auto 0.8 % (0-2); Eosinophils Absolute Auto 300 /uL (0-450); Eosinophils Percent Auto 4.2 % (2-4); Hematocrit 42.6 % (36-46); Hemoglobin 14.1 g/dL (12.0-16.0); Lymphocytes Absolute Auto 2500 /uL (1100-4500); Lymphocytes Percent Auto 33.5 % (25-40); Mean Corpuscular Hemoglobin 28.8 PG (26-34); Mean Corpuscular Volume 87.2 fL (80-100); Monocytes Absolute Auto 600 /uL (0-900); Monocytes Percent Auto 7.9 % (3-14); Neutrophils Absolute Auto 4000 /uL (1500-7000); Neutrophils Percent Auto 53.6 % (50-75); Platelet Count 191 X10^3/uL (150-400); Red Blood Cell Count 4.89 X10^6/uL (4.0-5.2); Red Cell Distribution Width 13.9 % (11.6-14.8); White Blood Cell Count 7.4 X10^3/uL (4.5-11.0)
[2019-02-19] MEDS: ASPIRIN 81 MG TAB 324 MG PO (16:25)
[2019-02-19] MEDS: SODIUM CHLORIDE 0.9% 1,000 ML 150 ML IV (16:26)
[2019-02-19] MEDS: KETOROLAC 60 MG/2 ML VIAL 15 MG IV (16:26)
[2019-02-19 16:33] LABS: Alanine Aminotransferase 71 IU/L (9-52); Albumin 4.1 g/dL (3.5-5.0); Albumin Globulin Ratio 1.4 (1.0-2.8); Alkaline Phosphatase 71 U/L (38-126); Aspartate Aminotransferase 55 IU/L (14-36); BUN Creatinine Ratio 25.7 (6-22); Bilirubin Total 0.9 mg/dL (0.2-1.3); Blood Urea Nitrogen 18 mg/dL (7-17); Calcium 9.5 mg/dL (8.4-10.2); Carbon Dioxide 26 mmol/L (22-32); Chloride 104 mmol/L (98-107); Creatine Kinase 77 U/L (30-135); Estimated Glomerular Filt Rate > 60.0 mL/min (>60); Glucose 94 mg/dL (80-110); HEMOLYSIS < 15 (0-50); Lipase 131 U/L (23-300); Potassium 3.7 mmol/L (3.4-5.1); Sodium 140 mmol/L (137-145); Total Protein 7.1 g/dL (6.3-8.2)
[2019-02-19 16:44] LABS: Troponin I < 0.012 ng/mL (0.01-0.034)
[2019-02-19 17:00] VITALS: BP 128/66; PULSE 70; RESP 13; O2SAT 99
== END 2019-02-19 17:25 | disposition home or self-care (01) ==
PROVIDERS: Emergency Provider Emergency Medicine; Family Provider Family Medicine; PCP Family Medicine
DX: R07.89 Other chest pain (principal); M94.0 Chondrocostal junction syndrome [Tietze]
CPT/HCPCS: 36591; 71045; 80053; 82550; 83690; 84484; 85025; 93005; 93010; 96361; 96374; 99283; 99285; J1885

== ENCOUNTER 2019-11-07 15:47 | Emergency (ER) | payer OTHER, MEDICAID, SELFPAY ==
[2019-11-07 15:56] VITALS: BP 119/80; PULSE 79; RESP 17; TEMP 36.6; O2SAT 98
--- NOTE | 2019-11-07 16:02 | DI.RAD.S_ITS ---
PROCEDURE: XR CHEST 1V INDICATIONS: chest pain TECHNIQUE: One view of the chest was acquired. COMPARISON: [facility], , XR CHEST 1V, 02/19/2019, 15:49. FINDINGS: Surgical changes and devices: Surgical clips in the lower neck are again noted. Lungs and pleura: Lungs are clear. No pleural effusions or pneumothorax. Mediastinum: Mediastinal contours appear normal. Heart size is normal. Bones and chest wall: No suspicious bony lesions. Overlying soft tissues appear unremarkable. IMPRESSION: Stable radiographic evaluation of the chest without acute cardiopulmonary abnormalities or focal airspace disease. Dictated by: Alexis West M.D. on 11/07/2019 at 17:35 Approved by: Alexis West M.D. on 11/07/2019 at 17:35
[2019-11-07 17:24] LABS: Basophils Absolute Auto 0 /uL (0-100); Eosinophils Absolute Auto 200 /uL (0-450); Lymphocytes Absolute Auto 1800 /uL (1100-4500); Monocytes Absolute Auto 500 /uL (0-900)
[2019-11-07 17:29] LABS: INR 1.1 (0.9-1.3); Prothrombin Time 12.5 SECONDS (10.1-12.7)
[2019-11-07 17:31] LABS: Add Manual Diff / Slide Review NO; Basophils Percent Auto 0.2 % (0-2); Eosinophils Percent Auto 3.2 % (2-4); Hematocrit 43.6 % (36-46); Hemoglobin 14.5 g/dL (12.0-16.0); Lymphocytes Percent Auto 26.7 % (25-40); Mean Corpuscular HGB Conc 33.2 % (30-36); Mean Corpuscular Hemoglobin 29.1 PG (26-34); Mean Corpuscular Volume 87.8 fL (80-100); Monocytes Percent Auto 7.7 % (3-14); Neutrophils Absolute Auto 4200 /uL (1500-7000); Neutrophils Percent Auto 62.2 % (50-75); Platelet Count 209 X10^3/uL (150-400); Red Blood Cell Count 4.96 X10^6/uL (4.0-5.2); Red Cell Distribution Width 14.1 % (11.6-14.8); White Blood Cell Count 6.8 X10^3/uL (4.5-11.0)
[2019-11-07 17:32] LABS: PTT Partial Thromboplastin Tim 34 SECONDS (26.4-36.2)
[2019-11-07 17:33] LABS: Alanine Aminotransferase 51 IU/L (<35); Albumin 4.2 g/dL (3.5-5.0); Albumin Globulin Ratio 1.2 (1.0-2.8); Alkaline Phosphatase 73 U/L (38-126); Aspartate Aminotransferase 51 IU/L (14-36); BUN Creatinine Ratio 21.4 (6-22); Bilirubin Total 1.4 mg/dL (0.2-1.3); Blood Urea Nitrogen 15 mg/dL (7-17); Calcium 9.9 mg/dL (8.4-10.2); Carbon Dioxide 29 mmol/L (22-32); Chloride 101 mmol/L (98-107); Creatine Kinase 84 U/L (30-135); Estimated Glomerular Filt Rate > 60.0 mL/min (>60); Globulin 3.6 g/dL (1.7-4.1); Glucose 101 mg/dL (80-110); HEMOLYSIS < 15 (0-50); Lipase 84 U/L (23-300); Potassium 4.4 mmol/L (3.4-5.1); Sodium 139 mmol/L (137-145); Total Protein 7.8 g/dL (6.3-8.2)
[2019-11-07 17:45] LABS: Troponin I < 0.012 ng/mL (0.01-0.034)
[2019-11-07 18:00] VITALS: BP 152/67; PULSE 63; O2SAT 95
[2019-11-07 18:30] VITALS: BP 188/80; PULSE 64; RESP 23; O2SAT 98
--- NOTE | 2019-11-07 19:14 | PC.NURSE ---
pt reports, left chest heaviness, with left forearm pain worsen when holding a phone, denies shortness of breath, denies traveling, denies hx of pe,dvt. +anxious for left knee replacement schedules for 06 december. denies fever,chills,coughing,uri sxs, denies nausea,vomiting, diarrhea, denies uti sxs.+bm yesterday, taking miralax. pt states, she is hungry and has not eaten. turkey sandwich and apple juice provided.
[2019-11-07 19:30] VITALS: BP 124/60; PULSE 68; RESP 18; O2SAT 98
--- NOTE | 2019-11-07 20:01 | ED_ITS ---
HPI - Chest Pain General Chief Complaint: Chest Pain Stated Complaint: chest pains Time Seen by Provider: 11/07/19 16:38 Source: patient Mode of arrival: Ambulatory Limitations: no limitations History of Present Illness HPI narrative: 59-year-old female comes in with complaint of chest pain. Patient states it started about 8 hours ago. She states just feels like someone is stepping on her chest it is a constant pressure and has not wax or wane and has been without change. She does not feel short of breath, she has not been sweaty, she has not been nauseated, she has not any vomiting. She does have any abdominal pain. Patient denies any back pain. She states she has had some tingling in her left arm but that is been intermittent for about a week and it is always when she lays on her back with her cellphone Um in her hands either texting or scrolling. The tingling does not seem to be associated with her chest discomfort. Patient has not had similar symptoms in the past. She takes medication for anxiety, depression and hypothyroid. She denies any diabetes, hypertension, dyslipidemia. She has had a stress test several years ago which she states was negative. Patient has had several abdominal surgeries including hysterectomy, tubal ligation, appendectomy. She does not smoke, she rarely has alcohol, no illicit. She has a half sister has a ?hole in her heart? but denies any other family history or medical issues. Dr. Mari is her primary care. Related Data Home Medications Medication Instructions Recorded Confirmed levothyroxine 88 mcg PO DAILY 02/19/19 02/19/19 sumatriptan succinate 50 mg PO PRN PRN 02/19/19 02/19/19 tizanidine 02/19/19 Allergies Allergy/AdvReac Type Severity Reaction Status Date / Time codeine AdvReac Mild Verified 11/07/19 16:01 Penicillins AdvReac Mild Nausea Verified 11/07/19 16:01 Review of Systems Review of Systems ROS Unobtainable: All systems reviewed & are unremarkable except as noted in HPI and below Patient History Medical History (Updated 11/07/19 @ 21:26 by Imani Marie DO) Hypothyroid (Acute) Social History Smoking Status: Former smoker Smoking Status: Former smoker alcohol intake frequency: holidays/special occasions only Substance Use Type: does not use Exam Narrative Exam Narrative: GENERAL: Alert and oriented x three, obese female in mild distress. HEENT: Head normocephalic, atraumatic, EOMI, pupils reactive, face symmetric, moist mucous membranes NECK: Supple, full range of motion CARDIOVASCULAR: Regular rate and rhythm without murmurs, rubs or gallops. No skin changes. No reproducible chest pain with palpation. RESPIRATORY: Breath sounds equal bilaterally, no wheezes rales or rhonchi. ABDOMEN: Soft, nontender. Normoactive bowel sounds all 4 quadrants. No guarding or rebound, rigidity, no mass : No CVA tenderness EXTREMITIES: Normal range of motion, no clubbing or edema. Neurovascularly intact NEUROLOGICAL: Cranial nerves II through XII grossly intact. Moving all extremities SKIN: Warm, dry, no petechiae, no rashes or lesions. Initial Vital Signs Initial Vital Signs: Vital Signs Temperature 97.8 F 11/07/19 15:56 Pulse Rate 79 11/07/19 15:56 Respiratory Rate 17 11/07/19 15:56 Blood Pressure 119/80 11/07/19 15:56 Pulse Oximetry 98 11/07/19 15:56 Scores HEART Score Heart Score history: Slightly Suspicious Heart Score EKG: Non-Specific repolarization disturbance Heart Score Age: 45-64 years old Heart Score risk factors: No known risk factors Heart Score troponin: < or = to normal limit Heart Score Total: 2 Course Orders Ordered: ED Orders 11/07/19 21:12 EKG-12 Lead Stat Discontinued Medications Aspirin (Aspirin Chew) 324 mg PO NOW ONE Stop: 11/07/19 20:21 Last Admin: 11/07/19 20:25 Dose: 324 mg [facility] Vital Signs Vital signs: Vital Signs - 8 hr 11/07/19 15:56 11/07/19 18:00 11/07/19 18:30 Temperature 97.8 F Pulse Rate 79 63 64 Respiratory Rate 17 23 Blood Pressure 119/80 Blood Pressure [Left Arm] 152/67 H 188/80 H Pulse Oximetry 98 95 98 11/07/19 19:30 11/07/19 20:40 Temperature Pulse Rate 68 66 Respiratory Rate 18 21 Blood Pressure Blood Pressure [Left Arm] 124/60 120/62 Pulse Oximetry 98 98 MDM - Chest Pain Lab Data Attestation: I reviewed the patient's lab results. Result diagrams: 11/07/19 17:15 11/07/19 17:15 Labs: Lab Results 11/07/19 11/07/19 11/07/19 Range/Units 17:15 17:15 17:15 WBC 6.8 (4.5-11.0) X10^3/uL RBC 4.96 (4.0-5.2) X10^6/uL Hgb 14.5 (12.0-16.0) g/dL Hct 43.6 (36-46) % MCV 87.8 (80-100) fL MCH 29.1 (26-34) PG MCHC 33.2 (30-36) % RDW 14.1 (11.6-14.8) % Plt Count 209 (150-400) X10^3/uL Neut % (Auto) 62.2 (50-75) % Lymph % (Auto) 26.7 (25-40) % [place] % (Auto) 7.7 (3-14) % Eos % (Auto) 3.2 (2-4) % Baso % (Auto) 0.2 (0-2) % Neut # (Auto) 4200 (7509-7624) /uL Lymph # (Auto) 1800 (8689-9410) /uL [place] # (Auto) 500 (0-900) /uL Eos # (Auto) 200 (0-450) /uL Baso # (Auto) 0 (0-100) /uL PT 12.5 (10.1-12.7) SECONDS INR 1.1 (0.9-1.3) APTT 34 (26.4-36.2) SECONDS Sodium 139 (137-145) mmol/L Potassium 4.4 (3.4-5.1) mmol/L Chloride 101 (98-107) mmol/L Carbon Dioxide 29 (22-32) mmol/L BUN 15 (7-17) mg/dL Creatinine 0.70 (0.52-1.04) mg/dL Estimated GFR > 60.0 (>60) mL/min BUN/Creatinine Ratio 21.4 (6-22) Glucose 101 (80-110) mg/dL Calcium 9.9 (8.4-10.2) mg/dL Total Bilirubin 1.4 H (0.2-1.3) mg/dL AST 51 H (14-36) IU/L ALT 51 H (<35) IU/L Alkaline Phosphatase 73 (38-126) U/L Total Creatine Kinase 84 (30-135) U/L CK-MB (CK-2) TNP CK-MB (CK-2) Rel Index TNP Troponin I < 0.012 (0.01-0.034) ng/mL Total Protein 7.8 (6.3-8.2) g/dL Albumin 4.2 (3.5-5.0) g/dL Globulin 3.6 (1.7-4.1) g/dL Albumin/Globulin Ratio 1.2 (1.0-2.8) Lipase 84 (23-300) U/L 11/07/19 Range/Units 20:30 WBC (4.5-11.0) X10^3/uL RBC (4.0-5.2) X10^6/uL Hgb (12.0-16.0) g/dL Hct (36-46) % MCV (80-100) fL MCH (26-34) PG MCHC (30-36) % RDW (11.6-14.8) % Plt Count (150-400) X10^3/uL Neut % (Auto) (50-75) % Lymph % (Auto) (25-40) % [place] % (Auto) (3-14) % Eos % (Auto) (2-4) % Baso % (Auto) (0-2) % Neut # (Auto) (2191-0403) /uL Lymph # (Auto) (1487-8194) /uL [place] # (Auto) (0-900) /uL Eos # (Auto) (0-450) /uL Baso # (Auto) (0-100) /uL PT (10.1-12.7) SECONDS INR (0.9-1.3) APTT (26.4-36.2) SECONDS Sodium (137-145) mmol/L Potassium (3.4-5.1) mmol/L Chloride (98-107) mmol/L Carbon Dioxide (22-32) mmol/L BUN (7-17) mg/dL Creatinine (0.52-1.04) mg/dL Estimated GFR (>60) mL/min BUN/Creatinine Ratio (6-22) Glucose (80-110) mg/dL Calcium (8.4-10.2) mg/dL Total Bilirubin (0.2-1.3) mg/dL AST (14-36) IU/L ALT (<35) IU/L Alkaline Phosphatase (38-126) U/L Total Creatine Kinase 75 (30-135) U/L CK-MB (CK-2) TNP CK-MB (CK-2) Rel Index TNP Troponin I < 0.012 (0.01-0.034) ng/mL Total Protein (6.3-8.2) g/dL Albumin (3.5-5.0) g/dL Globulin (1.7-4.1) g/dL Albumin/Globulin Ratio (1.0-2.8) Lipase (23-300) U/L Imaging Data Chest x-ray: Radiologist's Impression: [address] [address] XRay Report Signed Patient: Ada Iverson [facility]#: [id number] : 8Acct:[id number] Age/Sex: 59 / FDate of Service: 11/07/19 Loc: ED Accession Number: [id number] Procedure: XR chest 1V Ordering Provider: Dewayne Anderson MD PROCEDURE: XR CHEST 1V INDICATIONS: chest pain TECHNIQUE: One view of the chest was acquired. COMPARISON: [facility], , XR CHEST 1V, 02/19/2019, 15:49. FINDINGS: Surgical changes and devices: Surgical clips in the lower neck are again noted. Lungs and pleura: Lungs are clear. No pleural effusions or pneumothorax. Mediastinum: Mediastinal contours appear normal. Heart size is normal. Bones and chest wall: No suspicious bony lesions. Overlying soft tissues appear unremarkable. IMPRESSION: Stable radiographic evaluation of the chest without acute cardiopulmonary abnormalities or focal airspace disease. Dictated by: Alexis West M.D. on 11/07/2019 at 17:35 Approved by: Alexis West M.D. on 11/07/2019 at 17:35 ECG Data Attestation: I personally reviewed and interpreted this ECG as follows: Interpretation: Sinus rhythm. Rate of 74, MA 173 QRS of 94 the QTC of 421. No ST elevation or depression. Patient has a prior EKG from 02/19/2019 which appears similar. Sinus rhythm, rate of 65, P are 187 QRS 89 and QTC of 401. No ST elevation depression. EKG appears similar to prior from today and in February. MDM Narrative Medical decision making narrative: Patient comes in with complaint of chest pain as well as tingling in her left upper extremity. The tingling is very specifically associated with when she is lying on her back with her cell phones texting or scrolling. We discussed she may be getting a little ulnar nerve impingement causing the tingling in her fingers. Her chest pain has been constant with no EKG or troponin changes. Patient does have a slightly elevated bilirubin. Discussed I would recommend stress testing as an outpatient based on risk factors for age but she otherwise does not have any other medical risk factors, family history or clear cause is. Patient I discussed potential causes reasons to return if she is having any worsening or changing symptoms. We did discuss observation but she deferred this. Discharge Plan Departure Patient Disposition: Home Clinical Impression: Chest pain, Elevated bilirubin Discharge Date/Time: 11/07/19 21:39 Instructions: DI for Chest Pain Activity Restrictions/Additional Instructions: Follow-up with your primary care in the next 24 hours for recheck. Call for an appointment. Discussed with your physician regarding repeat stress testing. Continue home medications as prescribed. Your bilirubin and liver enzymes are slightly elevated today, discussed this with your physician so they may recheck. Return to the ER for new or worsening symptoms, lightheadedness, passing out, n ew shortness of breath, sweating, persistent nausea or vomiting, new or changing chest pain, swelling in your lower extremities or other new or concerning symptoms. Prescriptions: No Action tizanidine 2 mg tablet RF: 0 sumatriptan succinate 50 mg tablet 50 mg PO PRN PRN (Reason: Migraine Headache) RF: 0 levothyroxine 88 mcg tablet 88 mcg PO DAILY RF: 0 Referrals: Shalom Mari MD [Primary Care Provider] -
[2019-11-07] MEDS: ASPIRIN 81 MG CHEW TAB 324 MG PO (20:25)
[2019-11-07 20:40] VITALS: BP 120/62; PULSE 66; RESP 21; O2SAT 98
[2019-11-07 20:50] LABS: Creatine Kinase 75 U/L (30-135)
[2019-11-07 21:03] LABS: Troponin I < 0.012 ng/mL (0.01-0.034)
[2019-11-07 21:38] VITALS: BP 127/64; PULSE 65; O2SAT 95
== END 2019-11-07 21:39 | disposition home or self-care (01) ==
PROVIDERS: Emergency Medicine; Emergency Provider Emergency Medicine; PCP Family Medicine
DX: R07.9 Chest pain, unspecified (principal); R17 Unspecified jaundice; E03.9 Hypothyroidism, unspecified
CPT/HCPCS: 36415; 71045; 80053; 82550; 83690; 84484; 85025; 85610; 85730; 93005; 99284; 99285

== ENCOUNTER 2020-06-02 17:09 | Emergency (ER) | payer OTHER, MEDICAID, SELFPAY ==
[2020-06-02 17:31] VITALS: BP 129/72; PULSE 76; RESP 18; TEMP 36.6; O2SAT 96; BMI 41.0
--- NOTE | 2020-06-02 19:58 | ED_ITS ---
HPI - Headache General Chief Complaint: Headache Stated Complaint: MIGRAINE FOR 4 DAYS Time Seen by Provider: 06/02/20 19:29 Source: patient Mode of arrival: Ambulatory Limitations: no limitations History of Present Illness HPI Narrative: Patient complains of her typical migraine headache flaring up 4 days ago. Home migraine medication not helping. This is the same migraine pattern and intensity as in the past. Nothing different. Onset of migraine headaches in her 40s. Nausea but no vomiting. Light and sound sensitive. No neck pain. No recent illness. No fever chills. Patient agrees no CT scan or laboratory studies at this time as this is not any different from typical migraines. She usually gets Toradol intramuscular at the doctor's office or in the emergency department and discharged home. No numbness tingling or weakness. No neck pain. Related Data Home Medications Medication Instructions Recorded Confirmed levothyroxine 88 mcg PO DAILY 02/19/19 02/19/19 sumatriptan succinate 50 mg PO PRN PRN 02/19/19 02/19/19 tizanidine 02/19/19 Allergies Allergy/AdvReac Type Severity Reaction Status Date / Time codeine AdvReac Mild Verified 06/02/20 17:29 Penicillins AdvReac Mild Nausea Verified 06/02/20 17:29 Review of Systems Review of Systems Narrative: GENERAL: Denies chills, fatigue, malaise, fever, sweats. HEENT: Denies sinus pain, ear pain, sore throat, difficulty swallowing, dizz iness. RESPIRATORY: Denies dyspnea, cough, wheezing, hemoptysis, sputum. CARDIOVASCULAR: Denies chest pain, palpitations, orthopnea, edema, GASTROINTESTINAL: Complains of nausea, denies vomiting, abdominal pain, diarrhea, constipation, melena. : Denies dysuria, frequency, incontinence, hematuria, urinary retention. MUSCULOSKELETAL: denies weakness, joint pain, or bony pain SKIN: Denies rash, skin lesions, or other NEUROLOGIC: Denies weakness, complains headache, denies numbness, change in speech, confusion, seizures, incoordination. PSYCHIATRIC: No concerning psychosocial issues. ROS Unobtainable: All systems reviewed & are unremarkable except as noted in HPI and below Patient History Medical History Hypothyroid (Acute) Social History Smoking Status: Former smoker Smoking Status: Former smoker alcohol intake frequency: holidays/special occasions only Substance Use Type: does not use Exam Narrative Exam Narrative: GENERAL: patient appears stated age. Well-nourished, well- developed patient, in no distress, not toxic HEAD: Atraumatic. Normocephalic. EYES: Pupils equal round and reactive. Extraocular motions intact. No scleral icterus. No injection or drainage. No papilledema, no photophobia ENT: Nose without bleeding, purulent drainage. Throat without erythema, tonsillar hypertrophy or exudate. Airway patent. NECK: Trachea midline. Non tender no meningeal signs CARDIOVASCULAR: Regular rate and rhythm without murmurs, gallops, or rubs. RESPIRATORY: Clear to auscultation. Breath sounds equal bilaterally. No wheezes, rales, or rhonchi. GASTROINTESTINAL: Abdomen soft, non-tender, nondistended. EXTREMITIES: No edema or joint tenderness. BACK: Nontender without deformity or crepitance. No flank tenderness. NEURO: AOx4. Clear speech no facial droop light touch intact to bilateral face hands and legs with strong equal gas appliance installer. Studies of gait no ataxia. Strong bilateral patellar reflexes ankle flexion and extension. SKIN: No rash or erythema of visible areas PSYCH: Not anxious, is cooperative Initial Vital Signs Initial Vital Signs: Vital Signs Temperature 97.8 F 06/02/20 17:31 Pulse Rate 76 06/02/20 17:31 Respiratory Rate 18 06/02/20 17:31 Blood Pressure 129/72 06/02/20 17:31 Pulse Oximetry 96 06/02/20 17:31 Course Orders Ordered: Discontinued Medications Ketorolac Tromethamine (Toradol) 30 mg IM NOW ONE Stop: 06/02/20 19:58 Last Admin: 06/02/20 20:08 Dose: 30 mg Documented by: TIEN Ketorolac Tromethamine (Toradol) 30 mg IM NOW ONE Stop: 06/02/20 21:05 Last Admin: 06/02/20 21:08 Dose: 30 mg Documented by: TIEN Ondansetron HCl (Zofran Odt) 4 mg SL NOW ONE Stop: 06/02/20 19:58 Last Admin: 06/02/20 20:07 Dose: 4 mg Documented by: TIEN Reevaluation(s) Reevaluation #1: Patient feels much better now. Toradol given. Patient up and walking around. She states to pain is 2/10. She desires discharge home because it is loud here and her family keeps on calling her on the phone. She would like to go home and sleep Time: 22:02 Vital Signs Vital signs: Vital Signs - 8 hr 06/02/20 22:04 06/02/20 22:07 Pulse Rate 75 70 Blood Pressure 116/76 116/69 Pulse Oximetry 99 94 MDM - Headache MDM Narrative Medical decision making narrative: Appropriate for discharge home. Not toxic. No fever no recent illness. Patient states this is her typical migraine flare. She agrees no indication for laboratory studies or imaging. Discharge Plan Departure Patient Disposition: Home Clinical Impression: Migraine Qualifiers: Migraine type: unspecified Status migrainosus presence: without status migrainosus Intractability: not intractable Qualified Code(s): G43.909 - Migraine, unspecified, not intractable, without status migrainosus Discharge Date/Time: 06/02/20 22:08 Instructions: DI for Migraine Activity Restrictions/Additional Instructions: Return if worse or for any questions or concerns. See family doctor this week for recheck. Get plenty of sleep and rest Prescriptions: No Action tizanidine 2 mg tablet RF: 0 sumatriptan succinate 50 mg tablet 50 mg PO PRN PRN (Reason: Migraine Headache) RF: 0 levothyroxine 88 mcg tablet 88 mcg PO DAILY RF: 0 Referrals: Shalom Mari MD [Primary Care Provider] -
[2020-06-02] MEDS: ONDANSETRON 4 MG ODT SL (20:07)
[2020-06-02] MEDS: KETOROLAC 60 MG/2 ML VIAL 30 MG IM ×2 (20:08→21:08)
[2020-06-02 22:04] VITALS: BP 116/76; PULSE 75; O2SAT 99
[2020-06-02 22:07] VITALS: BP 116/69; PULSE 70; O2SAT 94
== END 2020-06-02 22:08 | disposition home or self-care (01) ==
PROVIDERS: Emergency Provider Emergency Medicine; PCP Family Medicine
DX: G43.909 Migraine, unspecified, not intractable, without status migrainosus (principal)
CPT/HCPCS: 96372; 99283; J1885

== ENCOUNTER 2021-02-15 05:01 | Emergency (ER) | payer OTHER, MEDICAID, SELFPAY ==
[2021-02-15] VITALS (7 sets, daily range): BP systolic 125–138; BP diastolic 70–76; PULSE 66–72; RESP 16–24; TEMP 36.8; O2SAT 93–98; BMI 41.1
--- NOTE | 2021-02-15 05:15 | ED.HA ---
HPI - Headache General Chief Complaint: Headache Stated Complaint: states nausea, vomiting, headache x 3 days Time Seen by Provider: 02/15/21 05:15 Source: patient Mode of arrival: Ambulatory Limitations: no limitations History of Present Illness HPI Narrative: This is a 60-year-old female comes with complaint of headache. Patient has a history of migraines. She states this is worse than her typical migraines but is not the worst headache of her life. She states it has been lasting 3 days which is atypical. Patient states she has had migraines in the past she did try her home migraine medication without any improvement. She denies any fevers or chills. She has not had any vision changes. She denies any chest pain or shortness of breath. No active vomiting currently but she has been nauseated and had vomiting last night. She has had some loud gurgling sounds on the left side of her abdomen and had some abdominal discomfort which she believes is unrelated. She denies any urinary symptoms. No black or bloody stools, no diarrhea constipation. 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 Patient states she has some decreased sensation of the foot and foot drop after her surgery 6 weeks ago but has not had any new changes Related Data Home Medications Medication Instructions Recorded Confirmed levothyroxine 88 mcg PO DAILY 02/19/19 02/19/19 sumatriptan succinate 50 mg PO PRN PRN 02/19/19 02/19/19 tizanidine 02/19/19 Allergies Allergy/AdvReac Type Severity Reaction Status Date / Time codeine AdvReac Mild Verified 06/02/20 17:29 Penicillins AdvReac Mild Nausea Verified 06/02/20 17:29 Review of Systems Review of Systems ROS Unobtainable: All systems reviewed & are unremarkable except as noted in HPI and below Patient History Medical History (Updated 02/15/21 @ 05:53 by Imani Marie DO) Hypothyroid Social History Smoking Status: Former smoker Smoking Status: Former smoker alcohol intake frequency: holidays/special occasions only Substance Use Type: does not use Exam Narrative Exam Narrative: GEN: well nourished, well appearing elderly female, alert and oriented x 3, patient appears to be in mild distress. HEENT: Atraumatic, pupils are equal round reactive to light, extraocular movements are intact, no photophobia, nares are clear, TMs are clear with no fluid, there is no conjunctival pallor. Throat is clear without any exudates, erythema, tonsillar enlargement or uvular deviation HEART: Regular rate and rhythm without murmur, clicks, rubs. LUNGS:Lungs clear to auscultation, no wheezes, rales, crackles, chest moves symmetrically ABD:bowel sounds normal, soft, non-tender, no guarding, rebound, rigidity, no masses noted, no hepatosplenomegaly :No CVA tenderness MSCL: Non-tender, no muscle atrophy, full range of motion of upper extremities. NEURO:CN 2-12 intact, sensation normal. SKIN: No rash, erythema other skin changes noted. Initial Vital Signs Initial Vital Signs: Vital Signs Temperature 98.3 F 02/15/21 05:11 Pulse Rate 70 02/15/21 05:11 Respiratory Rate 24 02/15/21 05:11 Blood Pressure 138/70 02/15/21 05:11 Pulse Oximetry 98 02/15/21 05:11 Scores GCS [place] coma scale eye opening: Spontaneous Romi coma scale verbal response: Orientated Romi coma scale motor response: Obey commands [place] coma scale total score: 15 Course Orders Ordered: Discontinued Medications Dexamethasone (Dexamethasone 10 Mg/Ml Vial) 10 mg IV NOW ONE Stop: 02/15/21 05:39 Last Admin: 02/15/21 05:46 Dose: 10 mg Documented by: NITHIN Sodium Chloride (Normal Saline 0.9%) 1,000 mls @ 1,000 mls/hr IV BOLUS ONE Stop: 02/15/21 08:50 Last Admin: 02/15/21 07:55 Dose: 1,000 mls/hr Documented by: DAVID Ketorolac Tromethamine (Ketorolac 30 Mg/Ml Vial) 15 mg IV NOW ONE Stop: 02/15/21 05:39 Last Admin: 02/15/21 05:45 Dose: 15 mg Documented by: NITHIN Ondansetron HCl (Ondansetron 4 Mg/2 Ml Inj) 4 mg IV NOW ONE Stop: 02/15/21 05:39 Last Admin: 02/15/21 05:45 Dose: 4 mg Documented by: NTIHIN Vital Signs Vital signs: Vital Signs - 8 hr 02/15/21 05:11 Temperature 98.3 F Pulse Rate 70 Respiratory Rate 24 Blood Pressure 138/70 Pulse Oximetry 98 MDM - Headache Lab Data Result diagrams: 02/15/21 05:13 02/15/21 05:13 Labs: Lab Results 02/15/21 02/15/21 02/15/21 Range/Units 05:13 05:13 05:13 WBC 8.7 (4.5-11.0) X10^3/uL RBC 4.52 (4.0-5.2) X10^6/uL Hgb 13.1 (12.0-16.0) g/dL Hct 40.2 (36-46) % MCV 89.0 (80-100) fL MCH 29.1 (26-34) PG MCHC 32.6 (30-36) % RDW 15.5 H (11.6-14.8) % Plt Count 219 (150-400) X10^3/uL Neut % (Auto) 58.4 (50-75) % Lymph % (Auto) 28.3 (25-40) % [place] % (Auto) 9.0 (3-14) % Eos % (Auto) 3.2 (2-4) % Baso % (Auto) 1.1 (0-2) % Neut # (Auto) 5100 (3430-6324) /uL Lymph # (Auto) 2500 (7363-8401) /uL [place] # (Auto) 800 (0-900) /uL Eos # (Auto) 300 (0-450) /uL Baso # (Auto) 100 (0-100) /uL PT 14.6 H (10.1-12.7) SECONDS INR 1.3 (0.9-1.3) APTT 36 (26.4-36.2) SECONDS Sodium 141 (137-145) mmol/L Potassium 3.7 (3.4-5.1) mmol/L Chloride 103 (98-107) mmol/L Carbon Dioxide 30 (22-32) mmol/L BUN 17 (7-17) mg/dL Creatinine 0.73 (0.52-1.04) mg/dL Estimated GFR > 60.0 (>60) mL/min BUN/Creatinine Ratio 23.3 H (6-22) Glucose 104 (80-110) mg/dL Calcium 9.7 (8.4-10.2) mg/dL Total Bilirubin 0.9 (0.2-1.3) mg/dL AST 53 H (14-36) IU/L ALT 53 H (<35) IU/L Alkaline Phosphatase 77 (38-126) U/L Total Protein 7.5 (6.3-8.2) g/dL Albumin 3.9 (3.5-5.0) g/dL Globulin 3.6 (1.7-4.1) g/dL Albumin/Globulin Ratio 1.1 (1.0-2.8) Lipase 107 (23-300) U/L SARS-CoV-2 (PCR) (Negative) 02/15/21 Range/Units 05:55 WBC (4.5-11.0) X10^3/uL RBC (4.0-5.2) X10^6/uL Hgb (12.0-16.0) g/dL Hct (36-46) % MCV (80-100) fL MCH (26-34) PG MCHC (30-36) % RDW (11.6-14.8) % Plt Count (150-400) X10^3/uL Neut % (Auto) (50-75) % Lymph % (Auto) (25-40) % [place] % (Auto) (3-14) % Eos % (Auto) (2-4) % Baso % (Auto) (0-2) % Neut # (Auto) (4646-1034) /uL Lymph # (Auto) (8964-5656) /uL [place] # (Auto) (0-900) /uL Eos # (Auto) (0-450) /uL Baso # (Auto) (0-100) /uL PT (10.1-12.7) SECONDS INR (0.9-1.3) APTT (26.4-36.2) SECONDS Sodium (137-145) mmol/L Potassium (3.4-5.1) mmol/L Chloride (98-107) mmol/L Carbon Dioxide (22-32) mmol/L BUN (7-17) mg/dL Creatinine (0.52-1.04) mg/dL Estimated GFR (>60) mL/min BUN/Creatinine Ratio (6-22) Glucose (80-110) mg/dL Calcium (8.4-10.2) mg/dL Total Bilirubin (0.2-1.3) mg/dL AST (14-36) IU/L ALT (<35) IU/L Alkaline Phosphatase (38-126) U/L Total Protein (6.3-8.2) g/dL Albumin (3.5-5.0) g/dL Globulin (1.7-4.1) g/dL Albumin/Globulin Ratio (1.0-2.8) Lipase (23-300) U/L SARS-CoV-2 (PCR) Negative (Negative) MDM Narrative Medical decision making narrative: 60-year-old female with headache x3 day with nausea and vomiting. Patient does have a history of migraines but she states this is lasting longer than her normal, not been responsive to her medications and she states it has been worse more in length but also intensity although she states this has not been the worst headache of her life. She is on Eliquis for a known DVT in her lower extremities status post lower extremity surgery 6 weeks ago. She has not had any new neurologic changes in last week. Patient has not had any trauma or head injuries. Head CT was obtained as patient is currently on anticoagulation. Patient is feeling improved after medications and would like to return home. Discharge Plan Departure Patient Disposition: Home Clinical Impression: Headache Instructions: DI for Headache Prescriptions: No Action tizanidine 2 mg tablet RF: 0 sumatriptan succinate 50 mg tablet 50 mg PO PRN PRN (Reason: Migraine Headache) RF: 0 levothyroxine 88 mcg tablet 88 mcg PO DAILY RF: 0 Referrals: Shalom Mari MD [Primary Care Provider] -
--- NOTE | 2021-02-15 05:39 | DI.CT.S_ITS ---
PROCEDURE: CT HEAD/BRAIN WO CON INDICATIONS: headache, different then usual migraine, +n/v TECHNIQUE: Noncontrast 4.5 mm thick angled axial sections acquired from the foramen magnum to the vertex, with coronal and sagittal reformats. For radiation dose reduction, the following was used: automated exposure control, adjustment of mA and/or kV according to patient size. COMPARISON: [facility], CT, HEAD WITHOUT CONTRAST, 09/19/2015, 15:15. FINDINGS: Image quality: Excellent. CSF spaces: Basal cisterns are patent. No extra-axial fluid collections. The ventricles are symmetric in size and shape. Brain: No intracranial bleeds or masses. There is cerebral volume loss for age, with resultant ventricular and sulcal prominence. There are periventricular and deep white matter chronic small vessel ischemic changes. There is intracranial internal carotid artery atherosclerosis. Skull and face: Calvarium and visualized facial bones appear intact, without suspicious lesions. Sinuses: Mucosal thickening noted in the anterior right ethmoid air cells. The mastoids are clear. IMPRESSION: No acute intracranial disease process. Dictated by: Shanta Jiménez MD, PhD on 02/15/2021 at 7:22 Approved by: Shanta Jiménez MD, PhD on 02/15/2021 at 7:23
[2021-02-15] MEDS: KETOROLAC 30 MG/ML VIAL 15 MG IV (05:45)
[2021-02-15] MEDS: ONDANSETRON 4 MG/2 ML INJ IV (05:45)
[2021-02-15] MEDS: DEXAMETHASONE 10 MG/ML VIAL IV (05:46)
[2021-02-15 05:53] LABS: Add Manual Diff / Slide Review NO; Basophils Absolute Auto 100 /uL (0-100); Basophils Percent Auto 1.1 % (0-2); Eosinophils Absolute Auto 300 /uL (0-450); Eosinophils Percent Auto 3.2 % (2-4); Hematocrit 40.2 % (36-46); Hemoglobin 13.1 g/dL (12.0-16.0); Lymphocytes Absolute Auto 2500 /uL (1100-4500); Lymphocytes Percent Auto 28.3 % (25-40); Mean Corpuscular HGB Conc 32.6 % (30-36); Mean Corpuscular Hemoglobin 29.1 PG (26-34); Monocytes Absolute Auto 800 /uL (0-900); Neutrophils Absolute Auto 5100 /uL (1500-7000); Neutrophils Percent Auto 58.4 % (50-75); Platelet Count 219 X10^3/uL (150-400); Red Blood Cell Count 4.52 X10^6/uL (4.0-5.2); Red Cell Distribution Width 15.5 % (11.6-14.8); White Blood Cell Count 8.7 X10^3/uL (4.5-11.0)
[2021-02-15 06:03] LABS: INR 1.3 (0.9-1.3); Prothrombin Time 14.6 SECONDS (10.1-12.7)
[2021-02-15 06:06] LABS: PTT Partial Thromboplastin Tim 36 SECONDS (26.4-36.2)
[2021-02-15 06:34] LABS: COVID19 -Nasal RAPID Negative (Negative)
[2021-02-15 07:05] LABS: Alanine Aminotransferase 53 IU/L (<35); Albumin 3.9 g/dL (3.5-5.0); Albumin Globulin Ratio 1.1 (1.0-2.8); Alkaline Phosphatase 77 U/L (38-126); Aspartate Aminotransferase 53 IU/L (14-36); BUN Creatinine Ratio 23.3 (6-22); Bilirubin Total 0.9 mg/dL (0.2-1.3); Blood Urea Nitrogen 17 mg/dL (7-17); Calcium 9.7 mg/dL (8.4-10.2); Carbon Dioxide 30 mmol/L (22-32); Chloride 103 mmol/L (98-107); Estimated Glomerular Filt Rate > 60.0 mL/min (>60); Globulin 3.6 g/dL (1.7-4.1); Glucose 104 mg/dL (80-110); HEMOLYSIS < 15 (0-50); Lipase 107 U/L (23-300); Potassium 3.7 mmol/L (3.4-5.1); Sodium 141 mmol/L (137-145); Total Protein 7.5 g/dL (6.3-8.2)
--- NOTE | 2021-02-15 07:52 | PC.NURSE ---
entered patient room to discharge. patient stated she did not receive any fluids. stated they were up there, pointing to the IV pole, but she never received it due to going to CT. There is an empty liter bag in the room garbage can. No NS ordered or in the MAR documented in intake. Provider notified and gave verbal order for one liter bolus Normal saline.
[2021-02-15] MEDS: SODIUM CHLORIDE 0.9% 1,000 ML 1000 ML IV (07:55)
--- NOTE | 2021-02-27 07:27 | PC.NURSE ---
late entry, one liter Normal Saline infused 1000.
== END 2021-02-15 09:14 | disposition home or self-care (01) ==
PROVIDERS: Emergency Provider Emergency Medicine; Family Provider Family Medicine; PCP Family Medicine
DX: R51.9 Headache, unspecified (principal); R11.2 Nausea with vomiting, unspecified; Z20.822 Contact with and (suspected) exposure to COVID-19
CPT/HCPCS: 36415; 70450; 80053; 83690; 85025; 85610; 85730; 87635; 96361; 96374; 96375; 99284; C9803; J1100; J1885; J2405

== ENCOUNTER 2021-05-24 12:00 | Outpatient (RCR) | payer OTHER, MEDICAID, SELFPAY ==
--- NOTE | 2021-01-05 16:00 | PT.OPPOC ---
Physical, Occupational & Speech Therapy At [facility] Current Diagnoses Unilateral primary osteoarthritis, left knee (01/05/21) Visit Care Team Role Provider Type Shalom Mari MD Family Provider Non-Staff Primary Care Provider Specialty: Medical Address: [address] [place] [address], [phone] Email: Quinn Carreon DO Attending Provider Non-Staff Referring Provider Specialty: Orthopedics Address: [address] [place] [address] [address], [place], [address] opt2 Email: Plan Of Care PT-OP-T Assessment and Plan Start: 01/05/21 17:54 Freq: Status: Active Protocol: Document 01/05/21 15:15 DCW (Rec: 01/06/21 10:10 DCW [id number]) Physical Therapy Assessment Rehab Potential Rehabilitation Potential Good Evaluation Complexity Number of Personal Factors/Comorbidities 1-2 Clinical Presentation at Evaluation Stable Impairments Impairments Activity Tolerance,Edema, Functional Activities, Functional Mobility,Gait,Pain, ROM,Strength Goals Four Impairment Knee ROM limited 16?-32? Mcc Goal (LTG) Pt to show improved ROM with < 3? extension and >116? flexion LTG Duration 03/07/21 Three Impairment Pt shows increased falls risk with time of 27.9 sec during TUG Infant Nanny Goal (LTG) Pt to complete TUG <13 seconds without an assistive device to demonstrate a decreased falls risk LTG Duration 03/07/21 Two Impairment Pt ambulates using FWW with step-to gait Mcc Goal (LTG) Pt to ambulate independently without an assistive device with a step-through gait pattern to improve community ambulation LTG Duration 03/07/21 One Impairment Pt does not have an appropriate home exercise program Short Term Goal (STG) Pt to be independent and compliant with an appropriate HEP STG Duration 02/05/21 Assessment Summary Assessment Pt presents as expected four days s/p left TKA. Unfortunately, pt reports she has not done any walking since discharging from the hospital , but has been compliant with her post-op HEP. Pt shows fairly expected left knee effusion and soft tissue edema , limited knee ROM 16?-91?, LE weakness, and difficulty walking following surgery. Pt should benefit from skilled therapy focusing on strengthening, ROM, and gait training. Physical Therapy Plan Frequency and Duration Frequency of Treatment 2x/Week Duration of Treatment Two months Plan of Care Start Date 01/05/21 Plan of Care End Date 03/07/21 Therapeutic Interventions Therapeutic Interventions Aquatic Therapy,Gait Training, Home Exercise Program,Joint Mobilizations,Manual Therapy, Neuromuscular Re-education, Patient/Caregiver Education, Self-Care/Home Management,Soft Tissue Mobilization, Therapeutic Activities, Therapeutic Exercises Modalities Cold Pack/Ice Massage,Electric Stimulation,Hot Packs, Ultrasound Next Visit Focus/Plan Next Note Type Treatment Note Next Visit Plan ROM, strengthening, gait, improving activity tolerance Plan of Care Dates Plan of Care Start Date 01/05/21 Plan of Care End Date 03/07/21 Electronically Signed by: Leobardo Rashid, PT 01/06/21 1011 Please Sign and Return: I have reviewed this Plan of Care and certify that the skilled therapy services above are required to meet the patient?s needs. Physician Signature Date Printed Name and Credentials Clinical Instructor Signature Printed Name and Credentials
--- NOTE | 2021-01-05 16:00 | PT.OIE ---
Current Diagnoses Unilateral primary osteoarthritis, left knee (01/05/21) Past Medical History (Last Reviewed 06/02/20 @ 20:00 by Graham Lowry MD) Hypothyroid Visit Care Team Role Provider Type Shalom Mari MD Family Provider Non-Staff Primary Care Provider Specialty: Medical Address: [address] [place] [address], [phone] Email: Quinn Carreon DO Attending Provider Non-Staff Referring Provider Specialty: Orthopedics Address: [address] [place] [address] [address], [place], [address] opt2 Email: Physical Therapy Initial Evaluation PT-OP-A Visit Information Start: 01/05/21 17:54 Freq: Status: Active Protocol: Document 01/05/21 15:15 DCW (Rec: 01/05/21 17:56 DCW [id number]) Out-Patient Physical Therapy Visit Information Visit Information Visit Type Initial Evaluation Visit Start Time 15:15 Visit Stop Time 15:55 Total Visit Minutes 40 Visit Number 1 Number of HR SYSTEMS ANALYST Visits 0 Evaluation Information Evaluation Date 01/05/21 PT-OP-B Current Condition Start: 01/05/21 17:54 Freq: Status: Active Protocol: Document 01/05/21 15:15 DCW (Rec: 01/06/21 10:10 DCW [id number]) Current Condition History of Current Condition Onset Date 01/01/21 Current Complaints L TKA History of Current Condition Pt is a 60 year old female presenting four days s/p left TKA. Pt was supposed to undergo this surgery ~1 year ago, until elective surgeries were stopped secondary to Covid-19 shut-down. Pt admits she has not walked since she was discharged from the hospital three days previous, because she lives alone and does not feel safe without someone there to help her use the walker. Pt notes her pain is a 2/10, and she only used a pain pill for the first time prior to her eval today. Pt has been doing well overall with her post-op home exercises. PT-OP-C Subjective Start: 01/05/21 17:54 Freq: Status: Active Protocol: Document 01/05/21 15:15 DCW (Rec: 01/06/21 10:10 DC [id number]) OP-PT Subjective Patient Comments Patient Comments Maybe I can get my neighbor's son to come help me walk. He' s 14, he should be able to keep ahold of me. Patient Questionnaires Lower Extremity Functional Scale LEFS Score 1580 = 18.75% LEFS Impairment 80 to 99% Impaired (Score 1-16 ) PT-OP-E Functional Tests Start: 01/05/21 17:54 Freq: Status: Active Protocol: Document 01/05/21 15:15 DCW (Rec: 01/06/21 10:10 DCW [id number]) Functional Tests Timed Up and Go (TUG) Score 27.9 seconds TUG Impairment Rating 100% Impaired (Score 20) PT-OP-F Manual Assessment Start: 01/05/21 17:54 Freq: Status: Active Protocol: Document 01/05/21 15:15 DCW (Rec: 01/06/21 10:10 [facility] [id number]) Manual Assessments Joint Mobility Assessment Joint Mobility Assessment Post-op joint effusion, joint stiffness PT-OP-G Mobility & Gait Start: 01/05/21 17:54 Freq: Status: Active Protocol: Document 01/05/21 15:15 DCW (Rec: 01/06/21 10:10 DC [id number]) OP Gait Assessment Gait Gait Assistance Required: Standby Assistance Distance (Feet) 40 Able to Maintain Weight Bearing Status Yes During Gait Assistive Devices Assistive Device Gait Belt,Front Wheeled Walker Orthotic/Prosthetic Devices or Brace: No Gait Deviations General Gait Pattern Antalgic,Decreased Stride Length,Decreased Feet Clearance,Step-to Gait Factors Limiting Gait Function Factors Limiting Gait Function Decreased Activity Tolerance, Decreased Strength,Limited Range of Motion,Pain PT-OP-J Posture/Palpation/Skin Start: 01/05/21 17:54 Freq: Status: Active Protocol: Document 01/05/21 15:15 DCW (Rec: 01/06/21 10:10 DCW [id number]) Skin Assessment Circumference Measurement 3 Location 10 cm superior of left joint line Measurement (Centimeters) 53.8 Comments 10 cm superior of right joint line: 48.4 cm 2 Location Left joint line Measurement (Centimeters) 44.2 Comments Right joint line: 40.0 cm 1 Location 10 cm inferior of left joint line Measurement (Centimeters) 45.6 Comments 10 cm inferior of right joint line: 40.9 cm PT-OP-K Range of Motion Start: 01/05/21 17:54 Freq: Status: Active Protocol: Document 01/05/21 15:15 DCW (Rec: 01/06/21 10:10 DCW [id number]) Knee Goniometric Range of Motion Knee Left Patient Position Supine Flexion Active (degrees) 91 Extension Active (degrees) 16 Comments 32? ext lag PT-OP-M Strength Start: 01/05/21 17:54 Freq: Status: Active Protocol: Document 01/05/21 15:15 DCW (Rec: 01/06/21 10:10 DCW [id number]) Knee Strength Knee Manual Muscle Testing Left Flexion (S2) 3 Fair Extension (L3) 3- Fair- PT-OP-Q Treatments Start: 01/05/21 17:54 Freq: Status: Active Protocol: Document 01/05/21 15:15 DCW (Rec: 01/06/21 10:10 DCW [id number]) Cardio Equipment Recumbent Bicycle Duration (Minutes) 5 Resistance 0 Seat Position 2 Therapeutic Exercises Supine Exercises 2 Supine Exercise Name Heel slide Side left 1 Supine Exercise Name SLR Side left PT-OP-T Assessment and Plan Start: 01/05/21 17:54 Freq: Status: Active Protocol: Document 01/05/21 15:15 DCW (Rec: 01/06/21 10:10 DCW [id number]) Physical Therapy Assessment Rehab Potential Rehabilitation Potential Good Evaluation Complexity Number of Personal Factors/Comorbidities 1-2 Clinical Presentation at Evaluation Stable Impairments Impairments Activity Tolerance,Edema, Functional Activities, Functional Mobility,Gait,Pain, ROM,Strength Goals Four Impairment Knee ROM limited 16?-32? Road Machine Operator Goal (LTG) Pt to show improved ROM with < 3? extension and >116? flexion LTG Duration 03/07/21 Three Impairment Pt shows increased falls risk with time of 27.9 sec during TUG Road Machine Operator Goal (LTG) Pt to complete TUG <13 seconds without an assistive device to demonstrate a decreased falls risk LTG Duration 03/07/21 Two Impairment Pt ambulates using FWW with step-to gait Road Machine Operator Goal (LTG) Pt to ambulate independently without an assistive device with a step-through gait pattern to improve community ambulation LTG Duration 03/07/21 One Impairment Pt does not have an appropriate home exercise program Short Term Goal (STG) Pt to be independent and compliant with an appropriate HEP STG Duration 02/05/21 Assessment Summary Assessment Pt presents as expected four days s/p left TKA. Unfortunately, pt reports she has not done any walking since discharging from the hospital , but has been compliant with her post-op HEP. Pt shows fairly expected left knee effusion and soft tissue edema , limited knee ROM 16?-91?, LE weakness, and difficulty walking following surgery. Pt should benefit from skilled therapy focusing on strengthening, ROM, and gait training. Physical Therapy Plan Frequency and Duration Frequency of Treatment 2x/Week Duration of Treatment Two months Plan of Care Start Date 01/05/21 Plan of Care End Date 03/07/21 Therapeutic Interventions Therapeutic Interventions Aquatic Therapy,Gait Training, Home Exercise Program,Joint Mobilizations,Manual Therapy, Neuromuscular Re-education, Patient/Caregiver Education, Self-Care/Home Management,Soft Tissue Mobilization, Therapeutic Activities, Therapeutic Exercises Modalities Cold Pack/Ice Massage,Electric Stimulation,Hot Packs, Ultrasound Next Visit Focus/Plan Next Note Type Treatment Note Next Visit Plan ROM, strengthening, gait, improving activity tolerance
--- NOTE | 2021-01-12 15:59 | PT.OTN ---
Current Diagnoses Unilateral primary osteoarthritis, left knee (01/12/21) Physical Therapy Treatment Note PT-OP-A Visit Information Start: 01/05/21 17:54 Freq: Status: Active Protocol: Document 01/12/21 15:15 DCW (Rec: 01/12/21 15:58 DCW [id number]) Out-Patient Physical Therapy Visit Information Visit Information Visit Type Treatment Note Visit Start Time 15:15 Visit Stop Time 16:00 Total Visit Minutes 45 Visit Number 2 Number of EMD TEACHER Visits 0 Evaluation Information Evaluation Date 01/05/21 PT-OP-B Current Condition Start: 01/05/21 17:54 Freq: Status: Active Protocol: Document 01/05/21 15:15 DCW (Rec: 01/06/21 10:10 DCW [id number]) Current Condition History of Current Condition Onset Date 01/01/21 Current Complaints L TKA History of Current Condition Pt is a 60 year old female presenting four days s/p left TKA. Pt was supposed to undergo this surgery ~1 year ago, until elective surgeries were stopped secondary to Covid-19 shut-down. Pt admits she has not walked since she was discharged from the hospital three days previous, because she lives alone and does not feel safe without someone there to help her use the walker. Pt notes her pain is a 2/10, and she only used a pain pill for the first time prior to her eval today. Pt has been doing well overall with her post-op home exercises. PT-OP-C Subjective Start: 01/05/21 17:54 Freq: Status: Active Protocol: Document 01/12/21 15:15 DCW (Rec: 01/12/21 15:58 DCW [id number]) OP-PT Subjective Patient Comments Patient Comments Pt notes that this knee replacement is hurting much more than her other surgery. Pt notes she was seen in the ER last week, had a blood clot in her knee and got placed on blood thinners. Pt cleared for return to PT. PT-OP-E Functional Tests Start: 01/05/21 17:54 Freq: Status: Active Protocol: Document 01/05/21 15:15 DCW (Rec: 01/06/21 10:10 DCW [id number]) Functional Tests Timed Up and Go (TUG) Score 27.9 seconds TUG Impairment Rating 100% Impaired (Score 20) PT-OP-F Manual Assessment Start: 01/05/21 17:54 Freq: Status: Active Protocol: Document 01/05/21 15:15 DCW (Rec: 01/06/21 10:10 DCW [id number]) Manual Assessments Joint Mobility Assessment Joint Mobility Assessment Post-op joint effusion, joint stiffness PT-OP-G Mobility & Gait Start: 01/05/21 17:54 Freq: Status: Active Protocol: Document 01/05/21 15:15 DCW (Rec: 01/06/21 10:10 DCW [id number]) OP Gait Assessment Gait Gait Assistance Required: Standby Assistance Distance (Feet) 40 Able to Maintain Weight Bearing Status Yes During Gait Assistive Devices Assistive Device Gait Belt,Front Wheeled Walker Orthotic/Prosthetic Devices or Brace: No Gait Deviations General Gait Pattern Antalgic,Decreased Stride Length,Decreased Feet Clearance,Step-to Gait Factors Limiting Gait Function Factors Limiting Gait Function Decreased Activity Tolerance, Decreased Strength,Limited Range of Motion,Pain PT-OP-J Posture/Palpation/Skin Start: 01/05/21 17:54 Freq: Status: Active Protocol: Document 01/05/21 15:15 DCW (Rec: 01/06/21 10:10 DCW [id number]) Skin Assessment Circumference Measurement 3 Location 10 cm superior of left joint line Measurement (Centimeters) 53.8 Comments 10 cm superior of right joint line: 48.4 cm 2 Location Left joint line Measurement (Centimeters) 44.2 Comments Right joint line: 40.0 cm 1 Location 10 cm inferior of left joint line Measurement (Centimeters) 45.6 Comments 10 cm inferior of right joint line: 40.9 cm PT-OP-K Range of Motion Start: 01/05/21 17:54 Freq: Status: Active Protocol: Document 01/05/21 15:15 DCW (Rec: 01/06/21 10:10 DCW [id number]) Knee Goniometric Range of Motion Knee Left Patient Position Supine Flexion Active (degrees) 91 Extension Active (degrees) 16 Comments 32? ext lag PT-OP-M Strength Start: 01/05/21 17:54 Freq: Status: Active Protocol: Document 01/05/21 15:15 DCW (Rec: 01/06/21 10:10 DCW [id number]) Knee Strength Knee Manual Muscle Testing Left Flexion (S2) 3 Fair Extension (L3) 3- Fair- PT-OP-Q Treatments Start: 01/05/21 17:54 Freq: Status: Active Protocol: Document 01/12/21 15:15 DCW (Rec: 01/12/21 15:58 DCW [id number]) Cardio Equipment Recumbent Bicycle Duration (Minutes) 5 Resistance 0 Seat Position 2 Therapeutic Exercises Supine Exercises 5 Supine Exercise Name Knee extension stretch Side left 4 Supine Exercise Name Heel slides 3 Supine Exercise Name SAQ Side left 1 Supine Exercise Name SLR Side left Sitting Exercises 2 Sitting Exercise Name LAQ Side left 1 Sitting Exercise Name Hamstring Curl Side left Resistance Lv 2 Equipment Used T-band Reps/Minutes x15 Standing Exercises 1 Standing Exercise Name TKA Side left Resistance Lv 2 Equipment Used T-band Gait Training Gait Activity 1 Description FWW Ambulation Device Used FWW Level of Assistance CGA Surface 150' PT-OP-R Modalities Start: 01/05/21 17:54 Freq: Status: Active Protocol: Document 01/12/21 15:15 DCW (Rec: 01/12/21 15:59 DCW [id number]) Hot Pack/Cold Pack Treatment Cold Pack Location Left Patient Position Hooklying Treatment Duration (minutes) 10 Patient Tolerance Good PT-OP-T Assessment and Plan Start: 01/05/21 17:54 Freq: Status: Active Protocol: Document 01/12/21 15:15 DCW (Rec: 01/12/21 15:58 DCW [id number]) Physical Therapy Assessment Impairments Impairments Activity Tolerance,Edema, Functional Activities, Functional Mobility,Gait,Pain, ROM,Strength Goals Four Impairment Knee ROM limited 16?-32? Manager Strategic Sourcing Goal (LTG) Pt to show improved ROM with < 3? extension and >116? flexion LTG Duration 03/07/21 Three Impairment Pt shows increased falls risk with time of 27.9 sec during TUG Manager Strategic Sourcing Goal (LTG) Pt to complete TUG <13 seconds without an assistive device to demonstrate a decreased falls risk LTG Duration 03/07/21 Two Impairment Pt ambulates using FWW with step-to gait Manager Strategic Sourcing Goal (LTG) Pt to ambulate independently without an assistive device with a step-through gait pattern to improve community ambulation LTG Duration 03/07/21 One Impairment Pt does not have an appropriate home exercise program Short Term Goal (STG) Pt to be independent and compliant with an appropriate HEP STG Duration 02/05/21 Assessment Summary Assessment Pt admits she has not been able to walk much, has no one to help her out. Doing pretty well overall, small improvements in extension. Physical Therapy Plan Frequency and Duration Frequency of Treatment 2x/Week Duration of Treatment Two months Plan of Care Start Date 01/05/21 Plan of Care End Date 03/07/21 Therapeutic Interventions Therapeutic Interventions Aquatic Therapy,Gait Training, Home Exercise Program,Joint Mobilizations,Manual Therapy, Neuromuscular Re-education, Patient/Caregiver Education, Self-Care/Home Management,Soft Tissue Mobilization, Therapeutic Activities, Therapeutic Exercises Modalities Cold Pack/Ice Massage,Electric Stimulation,Hot Packs, Ultrasound Next Visit Focus/Plan Next Note Type Treatment Note Next Visit Plan ROM, strengthening, gait, improving activity tolerance
--- NOTE | 2021-01-15 16:02 | PT.OTN ---
Current Diagnoses Unilateral primary osteoarthritis, left knee (01/15/21) Physical Therapy Treatment Note PT-OP-A Visit Information Start: 01/05/21 17:54 Freq: Status: Active Protocol: Document 01/15/21 15:15 DCW (Rec: 01/15/21 16:02 DCW [id number]) Out-Patient Physical Therapy Visit Information Visit Information Visit Type Treatment Note Visit Start Time 15:15 Visit Stop Time 16:00 Total Visit Minutes 45 Visit Number 3 Number of AUTO FORMER MACHINE OPERATOR Visits 0 Evaluation Information Evaluation Date 01/05/21 PT-OP-B Current Condition Start: 01/05/21 17:54 Freq: Status: Active Protocol: Document 01/05/21 15:15 DCW (Rec: 01/06/21 10:10 DCW [id number]) Current Condition History of Current Condition Onset Date 01/01/21 Current Complaints L TKA History of Current Condition Pt is a 60 year old female presenting four days s/p left TKA. Pt was supposed to undergo this surgery ~1 year ago, until elective surgeries were stopped secondary to Covid-19 shut-down. Pt admits she has not walked since she was discharged from the hospital three days previous, because she lives alone and does not feel safe without someone there to help her use the walker. Pt notes her pain is a 2/10, and she only used a pain pill for the first time prior to her eval today. Pt has been doing well overall with her post-op home exercises. PT-OP-C Subjective Start: 01/05/21 17:54 Freq: Status: Active Protocol: Document 01/15/21 15:15 DCW (Rec: 01/15/21 16:02 DCW [id number]) OP-PT Subjective Patient Comments Patient Comments Pt reports her knee pain at night is a killer. PT-OP-E Functional Tests Start: 01/05/21 17:54 Freq: Status: Active Protocol: Document 01/05/21 15:15 DCW (Rec: 01/06/21 10:10 DCW [id number]) Functional Tests Timed Up and Go (TUG) Score 27.9 seconds TUG Impairment Rating 100% Impaired (Score 20) PT-OP-F Manual Assessment Start: 01/05/21 17:54 Freq: Status: Active Protocol: Document 01/05/21 15:15 DCW (Rec: 01/06/21 10:10 DCW [id number]) Manual Assessments Joint Mobility Assessment Joint Mobility Assessment Post-op joint effusion, joint stiffness PT-OP-G Mobility & Gait Start: 01/05/21 17:54 Freq: Status: Active Protocol: Document 01/05/21 15:15 DCW (Rec: 01/06/21 10:10 DCW [id number]) OP Gait Assessment Gait Gait Assistance Required: Standby Assistance Distance (Feet) 40 Able to Maintain Weight Bearing Status Yes During Gait Assistive Devices Assistive Device Gait Belt,Front Wheeled Walker Orthotic/Prosthetic Devices or Brace: No Gait Deviations General Gait Pattern Antalgic,Decreased Stride Length,Decreased Feet Clearance,Step-to Gait Factors Limiting Gait Function Factors Limiting Gait Function Decreased Activity Tolerance, Decreased Strength,Limited Range of Motion,Pain PT-OP-J Posture/Palpation/Skin Start: 01/05/21 17:54 Freq: Status: Active Protocol: Document 01/05/21 15:15 DCW (Rec: 01/06/21 10:10 [facility] [id number]) Skin Assessment Circumference Measurement 3 Location 10 cm superior of left joint line Measurement (Centimeters) 53.8 Comments 10 cm superior of right joint line: 48.4 cm 2 Location Left joint line Measurement (Centimeters) 44.2 Comments Right joint line: 40.0 cm 1 Location 10 cm inferior of left joint line Measurement (Centimeters) 45.6 Comments 10 cm inferior of right joint line: 40.9 cm PT-OP-K Range of Motion Start: 01/05/21 17:54 Freq: Status: Active Protocol: Document 01/05/21 15:15 DCW (Rec: 01/06/21 10:10 [facility] [id number]) Knee Goniometric Range of Motion Knee Left Patient Position Supine Flexion Active (degrees) 91 Extension Active (degrees) 16 Comments 32? ext lag PT-OP-M Strength Start: 01/05/21 17:54 Freq: Status: Active Protocol: Document 01/05/21 15:15 DCW (Rec: 01/06/21 10:10 DCW [id number]) Knee Strength Knee Manual Muscle Testing Left Flexion (S2) 3 Fair Extension (L3) 3- Fair- PT-OP-Q Treatments Start: 01/05/21 17:54 Freq: Status: Active Protocol: Document 01/15/21 15:15 DCW (Rec: 01/15/21 16:02 DCW [id number]) Cardio Equipment Recumbent Bicycle Duration (Minutes) 5 Resistance 0 Seat Position 2 Therapeutic Exercises Sitting Exercises 1 Sitting Exercise Name Hamstring Curl Side left Resistance Lv 2 Equipment Used T-band Reps/Minutes x15 Standing Exercises 1 Standing Exercise Name TKA Side left Resistance Lv 2 Equipment Used T-band Gait Training Gait Activity 1 Description FWW Ambulation Device Used FWW Level of Assistance CGA Surface 150' PT-OP-R Modalities Start: 01/05/21 17:54 Freq: Status: Active Protocol: Document 01/12/21 15:15 DCW (Rec: 01/12/21 15:59 DCW [id number]) Hot Pack/Cold Pack Treatment Cold Pack Location Left Patient Position Hooklying Treatment Duration (minutes) 10 Patient Tolerance Good PT-OP-T Assessment and Plan Start: 01/05/21 17:54 Freq: Status: Active Protocol: Document 01/15/21 15:15 DCW (Rec: 01/15/21 16:02 DCW [id number]) Physical Therapy Assessment Assessment Summary Assessment During today's treatment session, pt noticed she had no left ankle dorsiflexion, which was a change since her last visit. Therapist decided to call to discuss with surgeon's office, had to leave message, and this took up remainder of session. Pt has a previously scheduled appointment with her surgeon on Monday. Will update as necessary. Physical Therapy Plan Frequency and Duration Frequency of Treatment 2x/Week Duration of Treatment Two months Plan of Care Start Date 01/05/21 Plan of Care End Date 03/07/21 Therapeutic Interventions Therapeutic Interventions Aquatic Therapy,Gait Training, Home Exercise Program,Joint Mobilizations,Manual Therapy, Neuromuscular Re-education, Patient/Caregiver Education, Self-Care/Home Management,Soft Tissue Mobilization, Therapeutic Activities, Therapeutic Exercises Modalities Cold Pack/Ice Massage,Electric Stimulation,Hot Packs, Ultrasound Next Visit Focus/Plan Next Note Type Treatment Note Next Visit Plan ROM, strengthening, gait, improving activity tolerance
--- NOTE | 2021-01-19 16:02 | PT.OTN ---
Current Diagnoses Unilateral primary osteoarthritis, left knee (01/19/21) Physical Therapy Treatment Note PT-OP-A Visit Information Start: 01/05/21 17:54 Freq: Status: Active Protocol: Document 01/19/21 15:15 DCW (Rec: 01/19/21 16:02 [facility] [id number]) Out-Patient Physical Therapy Visit Information Visit Information Visit Type Treatment Note Visit Start Time 15:15 Visit Stop Time 16:00 Total Visit Minutes 45 Visit Number 4 Number of TIN TIE MACHINE OPERATOR AUTOMATIC Visits 0 Evaluation Information Evaluation Date 01/05/21 PT-OP-B Current Condition Start: 01/05/21 17:54 Freq: Status: Active Protocol: Document 01/05/21 15:15 DCW (Rec: 01/06/21 10:10 [facility] [id number]) Current Condition History of Current Condition Onset Date 01/01/21 Current Complaints L TKA History of Current Condition Pt is a 60 year old female presenting four days s/p left TKA. Pt was supposed to undergo this surgery ~1 year ago, until elective surgeries were stopped secondary to Covid-19 shut-down. Pt admits she has not walked since she was discharged from the hospital three days previous, because she lives alone and does not feel safe without someone there to help her use the walker. Pt notes her pain is a 2/10, and she only used a pain pill for the first time prior to her eval today. Pt has been doing well overall with her post-op home exercises. PT-OP-C Subjective Start: 01/05/21 17:54 Freq: Status: Active Protocol: Document 01/19/21 15:15 DCW (Rec: 01/19/21 16:02 RIW [id number]) OP-PT Subjective Patient Comments Patient Comments Pt reports she saw both her surgeon and PCP yesterday, neither one was worried about her left leg, so she is ready to get to work PT-OP-E Functional Tests Start: 01/05/21 17:54 Freq: Status: Active Protocol: Document 01/05/21 15:15 DCW (Rec: 01/06/21 10:10 DCW [id number]) Functional Tests Timed Up and Go (TUG) Score 27.9 seconds TUG Impairment Rating 100% Impaired (Score 20) PT-OP-F Manual Assessment Start: 01/05/21 17:54 Freq: Status: Active Protocol: Document 01/05/21 15:15 DCW (Rec: 01/06/21 10:10 DCW [id number]) Manual Assessments Joint Mobility Assessment Joint Mobility Assessment Post-op joint effusion, joint stiffness PT-OP-G Mobility & Gait Start: 01/05/21 17:54 Freq: Status: Active Protocol: Document 01/05/21 15:15 DCW (Rec: 01/06/21 10:10 DCW [id number]) OP Gait Assessment Gait Gait Assistance Required: Standby Assistance Distance (Feet) 40 Able to Maintain Weight Bearing Status Yes During Gait Assistive Devices Assistive Device Gait Belt,Front Wheeled Walker Orthotic/Prosthetic Devices or Brace: No Gait Deviations General Gait Pattern Antalgic,Decreased Stride Length,Decreased Feet Clearance,Step-to Gait Factors Limiting Gait Function Factors Limiting Gait Function Decreased Activity Tolerance, Decreased Strength,Limited Range of Motion,Pain PT-OP-J Posture/Palpation/Skin Start: 01/05/21 17:54 Freq: Status: Active Protocol: Document 01/05/21 15:15 DCW (Rec: 01/06/21 10:10 DCW [id number]) Skin Assessment Circumference Measurement 3 Location 10 cm superior of left joint line Measurement (Centimeters) 53.8 Comments 10 cm superior of right joint line: 48.4 cm 2 Location Left joint line Measurement (Centimeters) 44.2 Comments Right joint line: 40.0 cm 1 Location 10 cm inferior of left joint line Measurement (Centimeters) 45.6 Comments 10 cm inferior of right joint line: 40.9 cm PT-OP-K Range of Motion Start: 01/05/21 17:54 Freq: Status: Active Protocol: Document 01/05/21 15:15 DCW (Rec: 01/06/21 10:10 DCW [id number]) Knee Goniometric Range of Motion Knee Left Patient Position Supine Flexion Active (degrees) 91 Extension Active (degrees) 16 Comments 32? ext lag PT-OP-M Strength Start: 01/05/21 17:54 Freq: Status: Active Protocol: Document 01/05/21 15:15 DCW (Rec: 01/06/21 10:10 DCW [id number]) Knee Strength Knee Manual Muscle Testing Left Flexion (S2) 3 Fair Extension (L3) 3- Fair- PT-OP-Q Treatments Start: 01/05/21 17:54 Freq: Status: Active Protocol: Document 01/19/21 15:15 DCW (Rec: 01/19/21 16:02 DCW [id number]) Cardio Equipment Recumbent Bicycle Duration (Minutes) 5 Resistance 0 Seat Position 2 Other Full rotation x1 Therapeutic Exercises Supine Exercises 5 Supine Exercise Name Knee extension stretch Side left 4 Supine Exercise Name Heel slides 3 Supine Exercise Name SAQ Side left 1 Supine Exercise Name SLR Side left Sitting Exercises 2 Sitting Exercise Name LAQ Side left Resistance 2# 1 Sitting Exercise Name Hamstring Curl Side left Resistance Lv 2 Equipment Used T-band Reps/Minutes x15 Standing Exercises 1 Standing Exercise Name TKA Side left Resistance Lv 2 Equipment Used T-band Gait Training Gait Activity 1 Description FWW Ambulation Device Used FWW Level of Assistance CGA Surface 150' Manual Therapy Treatment Joint Mobilizations 1 Joint L Knee Direction P->A Grade III Body Position Supine PT-OP-R Modalities Start: 01/05/21 17:54 Freq: Status: Active Protocol: Document 01/12/21 15:15 DCW (Rec: 01/12/21 15:59 DCW [id number]) Hot Pack/Cold Pack Treatment Cold Pack Location Left Patient Position Hooklying Treatment Duration (minutes) 10 Patient Tolerance Good PT-OP-T Assessment and Plan Start: 01/05/21 17:54 Freq: Status: Active Protocol: Document 01/19/21 15:15 DCW (Rec: 01/19/21 16:02 DCW [id number]) Physical Therapy Assessment Impairments Impairments Activity Tolerance,Edema, Functional Activities, Functional Mobility,Gait,Pain, ROM,Strength Goals Four Impairment Knee ROM limited 16?-32? Jail Goal (LTG) Pt to show improved ROM with < 3? extension and >116? flexion LTG Duration 03/07/21 Three Impairment Pt shows increased falls risk with time of 27.9 sec during TUG Jail Goal (LTG) Pt to complete TUG <13 seconds without an assistive device to demonstrate a decreased falls risk LTG Duration 03/07/21 Two Impairment Pt ambulates using FWW with step-to gait Gelatin Dynamite Packing Operator Goal (LTG) Pt to ambulate independently without an assistive device with a step-through gait pattern to improve community ambulation LTG Duration 03/07/21 One Impairment Pt does not have an appropriate home exercise program Short Term Goal (STG) Pt to be independent and compliant with an appropriate HEP STG Duration 02/05/21 Assessment Summary Assessment Pt struggled some today, but better than last week. Still limited with ROM and strength, improving gait with FWW. Physical Therapy Plan Frequency and Duration Frequency of Treatment 2x/Week Duration of Treatment Two months Plan of Care Start Date 01/05/21 Plan of Care End Date 03/07/21 Therapeutic Interventions Therapeutic Interventions Aquatic Therapy,Gait Training, Home Exercise Program,Joint Mobilizations,Manual Therapy, Neuromuscular Re-education, Patient/Caregiver Education, Self-Care/Home Management,Soft Tissue Mobilization, Therapeutic Activities, Therapeutic Exercises Modalities Cold Pack/Ice Massage,Electric Stimulation,Hot Packs, Ultrasound Next Visit Focus/Plan Next Note Type Treatment Note Next Visit Plan ROM, strengthening, gait, improving activity tolerance
--- NOTE | 2021-01-22 16:00 | PT.OTN ---
Current Diagnoses Unilateral primary osteoarthritis, left knee (01/22/21) Physical Therapy Treatment Note PT-OP-A Visit Information Start: 01/05/21 17:54 Freq: Status: Active Protocol: Document 01/22/21 15:15 DCW (Rec: 01/22/21 15:59 DCW [id number]) Out-Patient Physical Therapy Visit Information Visit Information Visit Type Treatment Note Visit Start Time 15:15 Visit Stop Time 16:05 Total Visit Minutes 50 Visit Number 5 Number of LACQUER SIZER Visits 0 Evaluation Information Evaluation Date 01/05/21 PT-OP-B Current Condition Start: 01/05/21 17:54 Freq: Status: Active Protocol: Document 01/05/21 15:15 DCW (Rec: 01/06/21 10:10 DCW [id number]) Current Condition History of Current Condition Onset Date 01/01/21 Current Complaints L TKA History of Current Condition Pt is a 60 year old female presenting four days s/p left TKA. Pt was supposed to undergo this surgery ~1 year ago, until elective surgeries were stopped secondary to Covid-19 shut-down. Pt admits she has not walked since she was discharged from the hospital three days previous, because she lives alone and does not feel safe without someone there to help her use the walker. Pt notes her pain is a 2/10, and she only used a pain pill for the first time prior to her eval today. Pt has been doing well overall with her post-op home exercises. PT-OP-C Subjective Start: 01/05/21 17:54 Freq: Status: Active Protocol: Document 01/22/21 15:15 DCW (Rec: 01/22/21 15:59 DCW [id number]) OP-PT Subjective Patient Comments Patient Comments Pt still using her wheelchair most of the time, has been having some opportunity to get up and walk with her FWW. PT-OP-E Functional Tests Start: 01/05/21 17:54 Freq: Status: Active Protocol: Document 01/05/21 15:15 DCW (Rec: 01/06/21 10:10 DCW [id number]) Functional Tests Timed Up and Go (TUG) Score 27.9 seconds TUG Impairment Rating 100% Impaired (Score 20) PT-OP-F Manual Assessment Start: 01/05/21 17:54 Freq: Status: Active Protocol: Document 01/05/21 15:15 DCW (Rec: 01/06/21 10:10 DCW [id number]) Manual Assessments Joint Mobility Assessment Joint Mobility Assessment Post-op joint effusion, joint stiffness PT-OP-G Mobility & Gait Start: 01/05/21 17:54 Freq: Status: Active Protocol: Document 01/05/21 15:15 DCW (Rec: 01/06/21 10:10 DCW [id number]) OP Gait Assessment Gait Gait Assistance Required: Standby Assistance Distance (Feet) 40 Able to Maintain Weight Bearing Status Yes During Gait Assistive Devices Assistive Device Gait Belt,Front Wheeled Walker Orthotic/Prosthetic Devices or Brace: No Gait Deviations General Gait Pattern Antalgic,Decreased Stride Length,Decreased Feet Clearance,Step-to Gait Factors Limiting Gait Function Factors Limiting Gait Function Decreased Activity Tolerance, Decreased Strength,Limited Range of Motion,Pain PT-OP-J Posture/Palpation/Skin Start: 01/05/21 17:54 Freq: Status: Active Protocol: Document 01/05/21 15:15 DCW (Rec: 01/06/21 10:10 DCW [id number]) Skin Assessment Circumference Measurement 3 Location 10 cm superior of left joint line Measurement (Centimeters) 53.8 Comments 10 cm superior of right joint line: 48.4 cm 2 Location Left joint line Measurement (Centimeters) 44.2 Comments Right joint line: 40.0 cm 1 Location 10 cm inferior of left joint line Measurement (Centimeters) 45.6 Comments 10 cm inferior of right joint line: 40.9 cm PT-OP-K Range of Motion Start: 01/05/21 17:54 Freq: Status: Active Protocol: Document 01/05/21 15:15 DCW (Rec: 01/06/21 10:10 DCW [id number]) Knee Goniometric Range of Motion Knee Left Patient Position Supine Flexion Active (degrees) 91 Extension Active (degrees) 16 Comments 32? ext lag PT-OP-M Strength Start: 01/05/21 17:54 Freq: Status: Active Protocol: Document 01/05/21 15:15 DCW (Rec: 01/06/21 10:10 DCW [id number]) Knee Strength Knee Manual Muscle Testing Left Flexion (S2) 3 Fair Extension (L3) 3- Fair- PT-OP-Q Treatments Start: 01/05/21 17:54 Freq: Status: Active Protocol: Document 01/22/21 15:15 DCW (Rec: 01/22/21 15:59 DCW [id number]) Cardio Equipment Recumbent Bicycle Duration (Minutes) 5 Resistance 0 Seat Position 2 Gym Equipment Shuttle Recovery Unilateral Squats Resistance 37# Shuttle Recovery Platform Stable Reps/Time x20 Bilateral Squats Resistance 75# Shuttle Recovery Platform Stable Reps/Time x25 Therapeutic Exercises Supine Exercises 5 Supine Exercise Name Knee extension stretch Side left 4 Supine Exercise Name Heel slides 3 Supine Exercise Name SAQ Side left Reps/Minutes x20 1 Supine Exercise Name SLR Side left Reps/Minutes x20 Sitting Exercises 2 Sitting Exercise Name LAQ Side bilateral Resistance 2# 1 Sitting Exercise Name Hamstring Curl Side bilateral Resistance Lv 2 Equipment Used T-band Reps/Minutes x15 Gait Training Gait Activity 1 Description FWW Ambulation Device Used FWW Level of Assistance CGA Surface 150' PT-OP-R Modalities Start: 01/05/21 17:54 Freq: Status: Active Protocol: Document 01/22/21 15:15 DCW (Rec: 01/22/21 16:00 DCW [id number]) Hot Pack/Cold Pack Treatment Cold Pack Location Left Patient Position Hooklying Treatment Duration (minutes) 10 Patient Tolerance Good PT-OP-T Assessment and Plan Start: 01/05/21 17:54 Freq: Status: Active Protocol: Document 01/22/21 15:15 DCW (Rec: 01/22/21 15:59 DCW [id number]) Physical Therapy Assessment Impairments Impairments Activity Tolerance,Edema, Functional Activities, Functional Mobility,Gait,Pain, ROM,Strength Goals Four Impairment Knee ROM limited 16?-32? Body Former Goal (LTG) Pt to show improved ROM with < 3? extension and >116? flexion LTG Duration 03/07/21 Three Impairment Pt shows increased falls risk with time of 27.9 sec during TUG Halfway Goal (LTG) Pt to complete TUG <13 seconds without an assistive device to demonstrate a decreased falls risk LTG Duration 03/07/21 Two Impairment Pt ambulates using FWW with step-to gait Body Former Goal (LTG) Pt to ambulate independently without an assistive device with a step-through gait pattern to improve community ambulation LTG Duration 03/07/21 One Impairment Pt does not have an appropriate home exercise program Short Term Goal (STG) Pt to be independent and compliant with an appropriate HEP STG Duration 02/05/21 Assessment Summary Assessment Pt doing somewhat better today with activity level and mobility, but still has no left dorsiflexion, and significant edema throughout her left leg. Physical Therapy Plan Frequency and Duration Frequency of Treatment 2x/Week Duration of Treatment Two months Plan of Care Start Date 01/05/21 Plan of Care End Date 03/07/21 Therapeutic Interventions Therapeutic Interventions Aquatic Therapy,Gait Training, Home Exercise Program,Joint Mobilizations,Manual Therapy, Neuromuscular Re-education, Patient/Caregiver Education, Self-Care/Home Management,Soft Tissue Mobilization, Therapeutic Activities, Therapeutic Exercises Modalities Cold Pack/Ice Massage,Electric Stimulation,Hot Packs, Ultrasound Next Visit Focus/Plan Next Note Type Treatment Note Next Visit Plan ROM, strengthening, gait, improving activity tolerance
--- NOTE | 2021-01-26 16:02 | PT.OTN ---
Current Diagnoses Unilateral primary osteoarthritis, left knee (01/26/21) Physical Therapy Treatment Note PT-OP-A Visit Information Start: 01/05/21 17:54 Freq: Status: Active Protocol: Document 01/26/21 15:15 DCW (Rec: 01/26/21 16:02 DCW [id number]) Out-Patient Physical Therapy Visit Information Visit Information Visit Type Treatment Note Visit Start Time 15:15 Visit Stop Time 16:00 Total Visit Minutes 45 Visit Number 6 Number of TRACK MOVING MACHINE OPERATOR Visits 0 Evaluation Information Evaluation Date 01/05/21 PT-OP-B Current Condition Start: 01/05/21 17:54 Freq: Status: Active Protocol: Document 01/05/21 15:15 DCW (Rec: 01/06/21 10:10 DCW [id number]) Current Condition History of Current Condition Onset Date 01/01/21 Current Complaints L TKA History of Current Condition Pt is a 60 year old female presenting four days s/p left TKA. Pt was supposed to undergo this surgery ~1 year ago, until elective surgeries were stopped secondary to Covid-19 shut-down. Pt admits she has not walked since she was discharged from the hospital three days previous, because she lives alone and does not feel safe without someone there to help her use the walker. Pt notes her pain is a 2/10, and she only used a pain pill for the first time prior to her eval today. Pt has been doing well overall with her post-op home exercises. PT-OP-C Subjective Start: 01/05/21 17:54 Freq: Status: Active Protocol: Document 01/26/21 15:15 DCW (Rec: 01/26/21 16:02 DCW [id number]) OP-PT Subjective Patient Comments Patient Comments Pt reports that her swelling seems to be reducing, has been able to get up and walk with her walker more frequently. Admits she still has no dorsiflexion in her left foot. PT-OP-E Functional Tests Start: 01/05/21 17:54 Freq: Status: Active Protocol: Document 01/05/21 15:15 DCW (Rec: 01/06/21 10:10 DCW [id number]) Functional Tests Timed Up and Go (TUG) Score 27.9 seconds TUG Impairment Rating 100% Impaired (Score 20) PT-OP-F Manual Assessment Start: 01/05/21 17:54 Freq: Status: Active Protocol: Document 01/05/21 15:15 DCW (Rec: 01/06/21 10:10 DCW [id number]) Manual Assessments Joint Mobility Assessment Joint Mobility Assessment Post-op joint effusion, joint stiffness PT-OP-G Mobility & Gait Start: 01/05/21 17:54 Freq: Status: Active Protocol: Document 01/05/21 15:15 DCW (Rec: 01/06/21 10:10 DCW [id number]) OP Gait Assessment Gait Gait Assistance Required: Standby Assistance Distance (Feet) 40 Able to Maintain Weight Bearing Status Yes During Gait Assistive Devices Assistive Device Gait Belt,Front Wheeled Walker Orthotic/Prosthetic Devices or Brace: No Gait Deviations General Gait Pattern Antalgic,Decreased Stride Length,Decreased Feet Clearance,Step-to Gait Factors Limiting Gait Function Factors Limiting Gait Function Decreased Activity Tolerance, Decreased Strength,Limited Range of Motion,Pain PT-OP-J Posture/Palpation/Skin Start: 01/05/21 17:54 Freq: Status: Active Protocol: Document 01/05/21 15:15 DCW (Rec: 01/06/21 10:10 DCW [id number]) Skin Assessment Circumference Measurement 3 Location 10 cm superior of left joint line Measurement (Centimeters) 53.8 Comments 10 cm superior of right joint line: 48.4 cm 2 Location Left joint line Measurement (Centimeters) 44.2 Comments Right joint line: 40.0 cm 1 Location 10 cm inferior of left joint line Measurement (Centimeters) 45.6 Comments 10 cm inferior of right joint line: 40.9 cm PT-OP-K Range of Motion Start: 01/05/21 17:54 Freq: Status: Active Protocol: Document 01/05/21 15:15 DCW (Rec: 01/06/21 10:10 DCW [id number]) Knee Goniometric Range of Motion Knee Left Patient Position Supine Flexion Active (degrees) 91 Extension Active (degrees) 16 Comments 32? ext lag PT-OP-M Strength Start: 01/05/21 17:54 Freq: Status: Active Protocol: Document 01/05/21 15:15 DCW (Rec: 01/06/21 10:10 DCW [id number]) Knee Strength Knee Manual Muscle Testing Left Flexion (S2) 3 Fair Extension (L3) 3- Fair- PT-OP-Q Treatments Start: 01/05/21 17:54 Freq: Status: Active Protocol: Document 01/26/21 15:15 DCW (Rec: 01/26/21 16:02 DCW [id number]) Cardio Equipment Recumbent Bicycle Duration (Minutes) 5 Resistance 0 Seat Position 2 Gym Equipment Shuttle Recovery Unilateral Squats Resistance 37# Shuttle Recovery Platform Stable Reps/Time x20 Bilateral Squats Resistance 75# Shuttle Recovery Platform Stable Reps/Time x25 Therapeutic Exercises Supine Exercises 5 Supine Exercise Name Knee extension stretch Side left Sitting Exercises 2 Sitting Exercise Name LAQ Side bilateral Resistance 4# 1 Sitting Exercise Name Hamstring Curl Side bilateral Resistance Lv 2 Equipment Used T-band Reps/Minutes x15 Standing Exercises 2 Standing Exercise Name Step-ups Side left Equipment Used 4 step 1 Standing Exercise Name TKE Side left Resistance Lv 2 Equipment Used T-band Gait Training Gait Activity 1 Description FWW Ambulation Device Used FWW Level of Assistance CGA Surface 150' Manual Therapy Treatment Joint Mobilizations 2 Joint L Patella Direction multidirectional Grade II Body Position Supine PT-OP-R Modalities Start: 01/05/21 17:54 Freq: Status: Active Protocol: Document 01/22/21 15:15 DCW (Rec: 01/22/21 16:00 DCW [id number]) Hot Pack/Cold Pack Treatment Cold Pack Location Left Patient Position Hooklying Treatment Duration (minutes) 10 Patient Tolerance Good PT-OP-T Assessment and Plan Start: 01/05/21 17:54 Freq: Status: Active Protocol: Document 01/26/21 15:15 DCW (Rec: 01/26/21 16:02 DCW [id number]) Physical Therapy Assessment Impairments Impairments Activity Tolerance,Edema, Functional Activities, Functional Mobility,Gait,Pain, ROM,Strength Goals Four Impairment Knee ROM limited 16?-32? [facility]ci Goal (LTG) Pt to show improved ROM with < 3? extension and >116? flexion LTG Duration 03/07/21 Three Impairment Pt shows increased falls risk with time of 27.9 sec during TUG Computer Forensic Examiner Goal (LTG) Pt to complete TUG <13 seconds without an assistive device to demonstrate a decreased falls risk LTG Duration 03/07/21 Two Impairment Pt ambulates using FWW with step-to gait Fci Goal (LTG) Pt to ambulate independently without an assistive device with a step-through gait pattern to improve community ambulation LTG Duration 03/07/21 One Impairment Pt does not have an appropriate home exercise program Short Term Goal (STG) Pt to be independent and compliant with an appropriate HEP STG Duration 02/05/21 Assessment Summary Assessment Pt functional mobility improving slightly, increased ability to ambulate with FWW, still very limited with foot and leg ROM, left dorsiflexion MMT still 0/5 Physical Therapy Plan Frequency and Duration Frequency of Treatment 2x/Week Duration of Treatment Two months Plan of Care Start Date 01/05/21 Plan of Care End Date 03/07/21 Therapeutic Interventions Therapeutic Interventions Aquatic Therapy,Gait Training, Home Exercise Program,Joint Mobilizations,Manual Therapy, Neuromuscular Re-education, Patient/Caregiver Education, Self-Care/Home Management,Soft Tissue Mobilization, Therapeutic Activities, Therapeutic Exercises Modalities Cold Pack/Ice Massage,Electric Stimulation,Hot Packs, Ultrasound Next Visit Focus/Plan Next Note Type Treatment Note Next Visit Plan ROM, strengthening, gait, improving activity tolerance
--- NOTE | 2021-01-29 15:58 | PT.OTN ---
Current Diagnoses Unilateral primary osteoarthritis, left knee (01/29/21) Physical Therapy Treatment Note PT-OP-A Visit Information Start: 01/05/21 17:54 Freq: Status: Active Protocol: Document 01/29/21 15:15 DCW (Rec: 01/29/21 15:58 DCW [id number]) Out-Patient Physical Therapy Visit Information Visit Information Visit Type Treatment Note Visit Start Time 15:15 Visit Stop Time 16:15 Total Visit Minutes 60 Visit Number 7 Number of TEXTILE TECHNOLOGIST Visits 0 Evaluation Information Evaluation Date 01/05/21 PT-OP-B Current Condition Start: 01/05/21 17:54 Freq: Status: Active Protocol: Document 01/05/21 15:15 DCW (Rec: 01/06/21 10:10 DCW [id number]) Current Condition History of Current Condition Onset Date 01/01/21 Current Complaints L TKA History of Current Condition Pt is a 60 year old female presenting four days s/p left TKA. Pt was supposed to undergo this surgery ~1 year ago, until elective surgeries were stopped secondary to Covid-19 shut-down. Pt admits she has not walked since she was discharged from the hospital three days previous, because she lives alone and does not feel safe without someone there to help her use the walker. Pt notes her pain is a 2/10, and she only used a pain pill for the first time prior to her eval today. Pt has been doing well overall with her post-op home exercises. PT-OP-C Subjective Start: 01/05/21 17:54 Freq: Status: Active Protocol: Document 01/29/21 15:15 DCW (Rec: 01/29/21 15:58 DCW [id number]) OP-PT Subjective Patient Comments Patient Comments Pt feels her leg is improving, still notes she has limited sensation in her right leg, admits the last three days have been kind of rough. PT-OP-E Functional Tests Start: 01/05/21 17:54 Freq: Status: Active Protocol: Document 01/05/21 15:15 DCW (Rec: 01/06/21 10:10 DCW [id number]) Functional Tests Timed Up and Go (TUG) Score 27.9 seconds TUG Impairment Rating 100% Impaired (Score 20) PT-OP-F Manual Assessment Start: 01/05/21 17:54 Freq: Status: Active Protocol: Document 01/05/21 15:15 DCW (Rec: 01/06/21 10:10 DCW [id number]) Manual Assessments Joint Mobility Assessment Joint Mobility Assessment Post-op joint effusion, joint stiffness PT-OP-G Mobility & Gait Start: 01/05/21 17:54 Freq: Status: Active Protocol: Document 01/05/21 15:15 DCW (Rec: 01/06/21 10:10 DCW [id number]) OP Gait Assessment Gait Gait Assistance Required: Standby Assistance Distance (Feet) 40 Able to Maintain Weight Bearing Status Yes During Gait Assistive Devices Assistive Device Gait Belt,Front Wheeled Walker Orthotic/Prosthetic Devices or Brace: No Gait Deviations General Gait Pattern Antalgic,Decreased Stride Length,Decreased Feet Clearance,Step-to Gait Factors Limiting Gait Function Factors Limiting Gait Function Decreased Activity Tolerance, Decreased Strength,Limited Range of Motion,Pain PT-OP-J Posture/Palpation/Skin Start: 01/05/21 17:54 Freq: Status: Active Protocol: Document 01/05/21 15:15 DCW (Rec: 01/06/21 10:10 DCW [id number]) Skin Assessment Circumference Measurement 3 Location 10 cm superior of left joint line Measurement (Centimeters) 53.8 Comments 10 cm superior of right joint line: 48.4 cm 2 Location Left joint line Measurement (Centimeters) 44.2 Comments Right joint line: 40.0 cm 1 Location 10 cm inferior of left joint line Measurement (Centimeters) 45.6 Comments 10 cm inferior of right joint line: 40.9 cm PT-OP-K Range of Motion Start: 01/05/21 17:54 Freq: Status: Active Protocol: Document 01/05/21 15:15 DCW (Rec: 01/06/21 10:10 DCW [id number]) Knee Goniometric Range of Motion Knee Left Patient Position Supine Flexion Active (degrees) 91 Extension Active (degrees) 16 Comments 32? ext lag PT-OP-M Strength Start: 01/05/21 17:54 Freq: Status: Active Protocol: Document 01/05/21 15:15 DCW (Rec: 01/06/21 10:10 DCW [id number]) Knee Strength Knee Manual Muscle Testing Left Flexion (S2) 3 Fair Extension (L3) 3- Fair- PT-OP-Q Treatments Start: 01/05/21 17:54 Freq: Status: Active Protocol: Document 01/29/21 15:15 DCW (Rec: 01/29/21 15:58 DCW [id number]) Cardio Equipment Recumbent Bicycle Duration (Minutes) 6 Resistance 1 Seat Position 2 /c added back rest Other 2.0 miles Therapeutic Exercises Supine Exercises 5 Supine Exercise Name Knee extension stretch Side left Sitting Exercises 1 Sitting Exercise Name Hamstring Curl Side bilateral Resistance Lv 2 Equipment Used T-band Reps/Minutes x15 Standing Exercises 1 Standing Exercise Name TKE Side left Resistance Lv 2 Equipment Used T-band Gait Training Gait Activity 1 Description FWW Ambulation Device Used FWW Level of Assistance CGA Surface 190' x1, 120' x1 Manual Therapy Treatment Joint Mobilizations 2 Joint L Patella Direction multidirectional Grade II Body Position Supine PT-OP-R Modalities Start: 01/05/21 17:54 Freq: Status: Active Protocol: Document 01/29/21 15:15 DCW (Rec: 01/29/21 15:58 DCW [id number]) Hot Pack/Cold Pack Treatment Cold Pack Location Left Patient Position Hooklying Treatment Duration (minutes) 15 Patient Tolerance Good PT-OP-T Assessment and Plan Start: 01/05/21 17:54 Freq: Status: Active Protocol: Document 01/29/21 15:15 DCW (Rec: 01/29/21 15:58 DCW [id number]) Physical Therapy Assessment Impairments Impairments Activity Tolerance,Edema, Functional Activities, Functional Mobility,Gait,Pain, ROM,Strength Goals Four Impairment Knee ROM limited 16?-32? Nurse Liaison Goal (LTG) Pt to show improved ROM with < 3? extension and >116? flexion LTG Duration 03/07/21 Three Impairment Pt shows increased falls risk with time of 27.9 sec during TUG Nurse Liaison Goal (LTG) Pt to complete TUG <13 seconds without an assistive device to demonstrate a decreased falls risk LTG Duration 03/07/21 Two Impairment Pt ambulates using FWW with step-to gait Nurse Liaison Goal (LTG) Pt to ambulate independently without an assistive device with a step-through gait pattern to improve community ambulation LTG Duration 03/07/21 One Impairment Pt does not have an appropriate home exercise program Short Term Goal (STG) Pt to be independent and compliant with an appropriate HEP STG Duration 02/05/21 Assessment Summary Assessment Pt continues to display 0/5 DF , but showing improved flexion , able to get fully around on bike regularly now. Pt's left calf still has strong pedal pulse and similar color to right, which decreases concern of compartment syndrome. Physical Therapy Plan Frequency and Duration Frequency of Treatment 2x/Week Duration of Treatment Two months Plan of Care Start Date 01/05/21 Plan of Care End Date 03/07/21 Therapeutic Interventions Therapeutic Interventions Aquatic Therapy,Gait Training, Home Exercise Program,Joint Mobilizations,Manual Therapy, Neuromuscular Re-education, Patient/Caregiver Education, Self-Care/Home Management,Soft Tissue Mobilization, Therapeutic Activities, Therapeutic Exercises Modalities Cold Pack/Ice Massage,Electric Stimulation,Hot Packs, Ultrasound Next Visit Focus/Plan Next Note Type Treatment Note Next Visit Plan ROM, strengthening, gait, improving activity tolerance
--- NOTE | 2021-02-02 15:56 | PT.OTN ---
Current Diagnoses Unilateral primary osteoarthritis, left knee (02/02/21) Physical Therapy Treatment Note PT-OP-A Visit Information Start: 01/05/21 17:54 Freq: Status: Active Protocol: Document 02/02/21 15:15 DCW (Rec: 02/02/21 15:56 DCW [id number]) Out-Patient Physical Therapy Visit Information Visit Information Visit Type Treatment Note Visit Start Time 15:15 Visit Stop Time 16:10 Total Visit Minutes 55 Visit Number 8 Number of FLAVORING OIL FILTERER Visits 0 Evaluation Information Evaluation Date 01/05/21 PT-OP-B Current Condition Start: 01/05/21 17:54 Freq: Status: Active Protocol: Document 01/05/21 15:15 DCW (Rec: 01/06/21 10:10 DCW [id number]) Current Condition History of Current Condition Onset Date 01/01/21 Current Complaints L TKA History of Current Condition Pt is a 60 year old female presenting four days s/p left TKA. Pt was supposed to undergo this surgery ~1 year ago, until elective surgeries were stopped secondary to Covid-19 shut-down. Pt admits she has not walked since she was discharged from the hospital three days previous, because she lives alone and does not feel safe without someone there to help her use the walker. Pt notes her pain is a 2/10, and she only used a pain pill for the first time prior to her eval today. Pt has been doing well overall with her post-op home exercises. PT-OP-C Subjective Start: 01/05/21 17:54 Freq: Status: Active Protocol: Document 02/02/21 15:15 DCW (Rec: 02/02/21 15:56 DCW [id number]) OP-PT Subjective Patient Comments Patient Comments Pt walked in today with her 4WW, reports she is done with her wheelchair. PT-OP-E Functional Tests Start: 01/05/21 17:54 Freq: Status: Active Protocol: Document 01/05/21 15:15 DCW (Rec: 01/06/21 10:10 DCW [id number]) Functional Tests Timed Up and Go (TUG) Score 27.9 seconds TUG Impairment Rating 100% Impaired (Score 20) PT-OP-F Manual Assessment Start: 01/05/21 17:54 Freq: Status: Active Protocol: Document 01/05/21 15:15 DCW (Rec: 01/06/21 10:10 DCW [id number]) Manual Assessments Joint Mobility Assessment Joint Mobility Assessment Post-op joint effusion, joint stiffness PT-OP-G Mobility & Gait Start: 01/05/21 17:54 Freq: Status: Active Protocol: Document 01/05/21 15:15 DCW (Rec: 01/06/21 10:10 DCW [id number]) OP Gait Assessment Gait Gait Assistance Required: Standby Assistance Distance (Feet) 40 Able to Maintain Weight Bearing Status Yes During Gait Assistive Devices Assistive Device Gait Belt,Front Wheeled Walker Orthotic/Prosthetic Devices or Brace: No Gait Deviations General Gait Pattern Antalgic,Decreased Stride Length,Decreased Feet Clearance,Step-to Gait Factors Limiting Gait Function Factors Limiting Gait Function Decreased Activity Tolerance, Decreased Strength,Limited Range of Motion,Pain PT-OP-J Posture/Palpation/Skin Start: 01/05/21 17:54 Freq: Status: Active Protocol: Document 01/05/21 15:15 DCW (Rec: 01/06/21 10:10 DCW [id number]) Skin Assessment Circumference Measurement 3 Location 10 cm superior of left joint line Measurement (Centimeters) 53.8 Comments 10 cm superior of right joint line: 48.4 cm 2 Location Left joint line Measurement (Centimeters) 44.2 Comments Right joint line: 40.0 cm 1 Location 10 cm inferior of left joint line Measurement (Centimeters) 45.6 Comments 10 cm inferior of right joint line: 40.9 cm PT-OP-K Range of Motion Start: 01/05/21 17:54 Freq: Status: Active Protocol: Document 01/05/21 15:15 DCW (Rec: 01/06/21 10:10 DCW [id number]) Knee Goniometric Range of Motion Knee Left Patient Position Supine Flexion Active (degrees) 91 Extension Active (degrees) 16 Comments 32? ext lag PT-OP-M Strength Start: 01/05/21 17:54 Freq: Status: Active Protocol: Document 01/05/21 15:15 DCW (Rec: 01/06/21 10:10 DCW [id number]) Knee Strength Knee Manual Muscle Testing Left Flexion (S2) 3 Fair Extension (L3) 3- Fair- PT-OP-Q Treatments Start: 01/05/21 17:54 Freq: Status: Active Protocol: Document 02/02/21 15:15 DCW (Rec: 02/02/21 15:56 DCW [id number]) Cardio Equipment Recumbent Bicycle Duration (Minutes) 6 Resistance 4 Seat Position 2 /c added back rest Other 2.0 miles Gym Equipment Shuttle Recovery Unilateral Squats Resistance 37# Shuttle Recovery Platform Stable Reps/Time x30 Bilateral Squats Resistance 75# Shuttle Recovery Platform Stable Reps/Time x30 Therapeutic Exercises Supine Exercises 5 Supine Exercise Name Knee extension stretch Side left Sitting Exercises 1 Sitting Exercise Name Hamstring Curl Side bilateral Resistance Lv 2 Equipment Used T-band Reps/Minutes x15 Standing Exercises 1 Standing Exercise Name TKE Side left Resistance Lv 2 Equipment Used T-band Manual Therapy Treatment Soft Tissue Mobilization 1 Body Location L knee Scar mobilization Joint Mobilizations 2 Joint L Patella Direction multidirectional Grade II Body Position Supine PT-OP-R Modalities Start: 01/05/21 17:54 Freq: Status: Active Protocol: Document 02/02/21 15:15 DCW (Rec: 02/02/21 15:56 DCW [id number]) Hot Pack/Cold Pack Treatment Cold Pack Location Left Patient Position Hooklying Treatment Duration (minutes) 15 Patient Tolerance Good PT-OP-T Assessment and Plan Start: 01/05/21 17:54 Freq: Status: Active Protocol: Document 02/02/21 15:15 DCW (Rec: 02/02/21 15:56 DCW [id number]) Physical Therapy Assessment Impairments Impairments Activity Tolerance,Edema, Functional Activities, Functional Mobility,Gait,Pain, ROM,Strength Goals Four Impairment Knee ROM limited 16?-32? Alf Goal (LTG) Pt to show improved ROM with < 3? extension and >116? flexion LTG Duration 03/07/21 Three Impairment Pt shows increased falls risk with time of 27.9 sec during TUG Nutrition Technician Goal (LTG) Pt to complete TUG <13 seconds without an assistive device to demonstrate a decreased falls risk LTG Duration 03/07/21 Two Impairment Pt ambulates using FWW with step-to gait Nutrition Technician Goal (LTG) Pt to ambulate independently without an assistive device with a step-through gait pattern to improve community ambulation LTG Duration 03/07/21 One Impairment Pt does not have an appropriate home exercise program Short Term Goal (STG) Pt to be independent and compliant with an appropriate HEP STG Duration 02/05/21 Assessment Summary Assessment Pt walking more with her 4WW now, no longer using w/c at all. Still shows foot drop on L, no dorsiflexion, which impacts gait pattern. Tolerated scar mob very well today, decreased puckering by end of session. Physical Therapy Plan Frequency and Duration Frequency of Treatment 2x/Week Duration of Treatment Two months Plan of Care Start Date 01/05/21 Plan of Care End Date 03/07/21 Therapeutic Interventions Therapeutic Interventions Aquatic Therapy,Gait Training, Home Exercise Program,Joint Mobilizations,Manual Therapy, Neuromuscular Re-education, Patient/Caregiver Education, Self-Care/Home Management,Soft Tissue Mobilization, Therapeutic Activities, Therapeutic Exercises Modalities Cold Pack/Ice Massage,Electric Stimulation,Hot Packs, Ultrasound Next Visit Focus/Plan Next Note Type Treatment Note Next Visit Plan ROM, strengthening, gait, improving activity tolerance
--- NOTE | 2021-02-05 16:02 | PT.OTN ---
Current Diagnoses Unilateral primary osteoarthritis, left knee (02/05/21) Physical Therapy Treatment Note PT-OP-A Visit Information Start: 01/05/21 17:54 Freq: Status: Active Protocol: Document 02/05/21 15:15 DCW (Rec: 02/05/21 16:02 DCW [id number]) Out-Patient Physical Therapy Visit Information Visit Information Visit Type Treatment Note Visit Start Time 15:15 Visit Stop Time 16:15 Total Visit Minutes 60 Visit Number 9 Number of GROUND OPERATIONS SUPERINTENDENT Visits 0 Evaluation Information Evaluation Date 01/05/21 PT-OP-B Current Condition Start: 01/05/21 17:54 Freq: Status: Active Protocol: Document 01/05/21 15:15 DCW (Rec: 01/06/21 10:10 DCW [id number]) Current Condition History of Current Condition Onset Date 01/01/21 Current Complaints L TKA History of Current Condition Pt is a 60 year old female presenting four days s/p left TKA. Pt was supposed to undergo this surgery ~1 year ago, until elective surgeries were stopped secondary to Covid-19 shut-down. Pt admits she has not walked since she was discharged from the hospital three days previous, because she lives alone and does not feel safe without someone there to help her use the walker. Pt notes her pain is a 2/10, and she only used a pain pill for the first time prior to her eval today. Pt has been doing well overall with her post-op home exercises. PT-OP-C Subjective Start: 01/05/21 17:54 Freq: Status: Active Protocol: Document 02/05/21 15:15 DCW (Rec: 02/05/21 16:02 DCW [id number]) OP-PT Subjective Patient Comments Patient Comments My knee is sore today, but I didn't take a pain pill. PT-OP-E Functional Tests Start: 01/05/21 17:54 Freq: Status: Active Protocol: Document 01/05/21 15:15 DCW (Rec: 01/06/21 10:10 DCW [id number]) Functional Tests Timed Up and Go (TUG) Score 27.9 seconds TUG Impairment Rating 100% Impaired (Score 20) PT-OP-F Manual Assessment Start: 01/05/21 17:54 Freq: Status: Active Protocol: Document 01/05/21 15:15 DCW (Rec: 01/06/21 10:10 DCW [id number]) Manual Assessments Joint Mobility Assessment Joint Mobility Assessment Post-op joint effusion, joint stiffness PT-OP-G Mobility & Gait Start: 01/05/21 17:54 Freq: Status: Active Protocol: Document 01/05/21 15:15 DCW (Rec: 01/06/21 10:10 DCW [id number]) OP Gait Assessment Gait Gait Assistance Required: Standby Assistance Distance (Feet) 40 Able to Maintain Weight Bearing Status Yes During Gait Assistive Devices Assistive Device Gait Belt,Front Wheeled Walker Orthotic/Prosthetic Devices or Brace: No Gait Deviations General Gait Pattern Antalgic,Decreased Stride Length,Decreased Feet Clearance,Step-to Gait Factors Limiting Gait Function Factors Limiting Gait Function Decreased Activity Tolerance, Decreased Strength,Limited Range of Motion,Pain PT-OP-J Posture/Palpation/Skin Start: 01/05/21 17:54 Freq: Status: Active Protocol: Document 01/05/21 15:15 DCW (Rec: 01/06/21 10:10 DCW [id number]) Skin Assessment Circumference Measurement 3 Location 10 cm superior of left joint line Measurement (Centimeters) 53.8 Comments 10 cm superior of right joint line: 48.4 cm 2 Location Left joint line Measurement (Centimeters) 44.2 Comments Right joint line: 40.0 cm 1 Location 10 cm inferior of left joint line Measurement (Centimeters) 45.6 Comments 10 cm inferior of right joint line: 40.9 cm PT-OP-K Range of Motion Start: 01/05/21 17:54 Freq: Status: Active Protocol: Document 01/05/21 15:15 DCW (Rec: 01/06/21 10:10 DCW [id number]) Knee Goniometric Range of Motion Knee Left Patient Position Supine Flexion Active (degrees) 91 Extension Active (degrees) 16 Comments 32? ext lag PT-OP-M Strength Start: 01/05/21 17:54 Freq: Status: Active Protocol: Document 01/05/21 15:15 DCW (Rec: 01/06/21 10:10 DCW [id number]) Knee Strength Knee Manual Muscle Testing Left Flexion (S2) 3 Fair Extension (L3) 3- Fair- PT-OP-Q Treatments Start: 01/05/21 17:54 Freq: Status: Active Protocol: Document 02/05/21 15:15 DCW (Rec: 02/05/21 16:02 DCW [id number]) Cardio Equipment Recumbent Bicycle Duration (Minutes) 5 Resistance 4 Seat Position 2 /c added back rest Other 2.0 miles Gym Equipment Shuttle Recovery Unilateral Squats Resistance 37# Shuttle Recovery Platform Stable Reps/Time x35 Bilateral Squats Resistance 75# Shuttle Recovery Platform Stable Reps/Time x35 Therapeutic Exercises Supine Exercises 5 Supine Exercise Name Knee extension stretch Side left Sitting Exercises 1 Sitting Exercise Name Hamstring Curl Side bilateral Resistance Lv 2 Equipment Used T-band Reps/Minutes x15 Standing Exercises 1 Standing Exercise Name TKE Side left Resistance Lv 2 Equipment Used T-band Manual Therapy Treatment Soft Tissue Mobilization 1 Body Location L knee Scar mobilization Joint Mobilizations 2 Joint L Patella Direction multidirectional Grade II Body Position Supine PT-OP-R Modalities Start: 01/05/21 17:54 Freq: Status: Active Protocol: Document 02/05/21 15:15 DCW (Rec: 02/05/21 16:02 DCW [id number]) Hot Pack/Cold Pack Treatment Cold Pack Location Left Patient Position Hooklying Treatment Duration (minutes) 20 Patient Tolerance Good PT-OP-T Assessment and Plan Start: 01/05/21 17:54 Freq: Status: Active Protocol: Document 02/05/21 15:15 DCW (Rec: 02/05/21 16:02 DCW [id number]) Physical Therapy Assessment Impairments Impairments Activity Tolerance,Edema, Functional Activities, Functional Mobility,Gait,Pain, ROM,Strength Goals Four Impairment Knee ROM limited 16?-32? Penitentiary Goal (LTG) Pt to show improved ROM with < 3? extension and >116? flexion LTG Duration 03/07/21 Three Impairment Pt shows increased falls risk with time of 27.9 sec during TUG Unix Analyst Goal (LTG) Pt to complete TUG <13 seconds without an assistive device to demonstrate a decreased falls risk LTG Duration 03/07/21 Two Impairment Pt ambulates using FWW with step-to gait Unix Analyst Goal (LTG) Pt to ambulate independently without an assistive device with a step-through gait pattern to improve community ambulation LTG Duration 03/07/21 One Impairment Pt does not have an appropriate home exercise program Short Term Goal (STG) Pt to be independent and compliant with an appropriate HEP STG Duration 02/05/21 Assessment Summary Assessment Pt continues with walk more, has returned to driving, so she is not using any pain pills, and is still doing well with pain-level. Physical Therapy Plan Frequency and Duration Frequency of Treatment 2x/Week Duration of Treatment Two months Plan of Care Start Date 01/05/21 Plan of Care End Date 03/07/21 Therapeutic Interventions Therapeutic Interventions Aquatic Therapy,Gait Training, Home Exercise Program,Joint Mobilizations,Manual Therapy, Neuromuscular Re-education, Patient/Caregiver Education, Self-Care/Home Management,Soft Tissue Mobilization, Therapeutic Activities, Therapeutic Exercises Modalities Cold Pack/Ice Massage,Electric Stimulation,Hot Packs, Ultrasound Next Visit Focus/Plan Next Note Type Treatment Note Next Visit Plan ROM, strengthening, gait, improving activity tolerance
--- NOTE | 2021-02-09 16:00 | PT.OTN ---
Current Diagnoses Unilateral primary osteoarthritis, left knee (02/09/21) Physical Therapy Treatment Note PT-OP-A Visit Information Start: 01/05/21 17:54 Freq: Status: Active Protocol: Document 02/09/21 15:15 DCW (Rec: 02/09/21 16:00 DCW [id number]) Out-Patient Physical Therapy Visit Information Visit Information Visit Type Treatment Note Visit Start Time 15:15 Visit Stop Time 16:10 Total Visit Minutes 55 Visit Number 10 Number of MERGERS AND ACQUISITIONS MANAGER Visits 0 Evaluation Information Evaluation Date 01/05/21 PT-OP-B Current Condition Start: 01/05/21 17:54 Freq: Status: Active Protocol: Document 01/05/21 15:15 DCW (Rec: 01/06/21 10:10 DCW [id number]) Current Condition History of Current Condition Onset Date 01/01/21 Current Complaints L TKA History of Current Condition Pt is a 60 year old female presenting four days s/p left TKA. Pt was supposed to undergo this surgery ~1 year ago, until elective surgeries were stopped secondary to Covid-19 shut-down. Pt admits she has not walked since she was discharged from the hospital three days previous, because she lives alone and does not feel safe without someone there to help her use the walker. Pt notes her pain is a 2/10, and she only used a pain pill for the first time prior to her eval today. Pt has been doing well overall with her post-op home exercises. PT-OP-C Subjective Start: 01/05/21 17:54 Freq: Status: Active Protocol: Document 02/09/21 15:15 DCW (Rec: 02/09/21 16:00 DCW [id number]) OP-PT Subjective Patient Comments Patient Comments I keep trying to move that foot, it's just not working. PT-OP-E Functional Tests Start: 01/05/21 17:54 Freq: Status: Active Protocol: Document 01/05/21 15:15 DCW (Rec: 01/06/21 10:10 DCW [id number]) Functional Tests Timed Up and Go (TUG) Score 27.9 seconds TUG Impairment Rating 100% Impaired (Score 20) PT-OP-F Manual Assessment Start: 01/05/21 17:54 Freq: Status: Active Protocol: Document 01/05/21 15:15 DCW (Rec: 01/06/21 10:10 DCW [id number]) Manual Assessments Joint Mobility Assessment Joint Mobility Assessment Post-op joint effusion, joint stiffness PT-OP-G Mobility & Gait Start: 01/05/21 17:54 Freq: Status: Active Protocol: Document 01/05/21 15:15 DCW (Rec: 01/06/21 10:10 DCW [id number]) OP Gait Assessment Gait Gait Assistance Required: Standby Assistance Distance (Feet) 40 Able to Maintain Weight Bearing Status Yes During Gait Assistive Devices Assistive Device Gait Belt,Front Wheeled Walker Orthotic/Prosthetic Devices or Brace: No Gait Deviations General Gait Pattern Antalgic,Decreased Stride Length,Decreased Feet Clearance,Step-to Gait Factors Limiting Gait Function Factors Limiting Gait Function Decreased Activity Tolerance, Decreased Strength,Limited Range of Motion,Pain PT-OP-J Posture/Palpation/Skin Start: 01/05/21 17:54 Freq: Status: Active Protocol: Document 01/05/21 15:15 DCW (Rec: 01/06/21 10:10 DC [id number]) Skin Assessment Circumference Measurement 3 Location 10 cm superior of left joint line Measurement (Centimeters) 53.8 Comments 10 cm superior of right joint line: 48.4 cm 2 Location Left joint line Measurement (Centimeters) 44.2 Comments Right joint line: 40.0 cm 1 Location 10 cm inferior of left joint line Measurement (Centimeters) 45.6 Comments 10 cm inferior of right joint line: 40.9 cm PT-OP-K Range of Motion Start: 01/05/21 17:54 Freq: Status: Active Protocol: Document 01/05/21 15:15 DCW (Rec: 01/06/21 10:10 DCW [id number]) Knee Goniometric Range of Motion Knee Left Patient Position Supine Flexion Active (degrees) 91 Extension Active (degrees) 16 Comments 32? ext lag PT-OP-M Strength Start: 01/05/21 17:54 Freq: Status: Active Protocol: Document 01/05/21 15:15 DCW (Rec: 01/06/21 10:10 DCW [id number]) Knee Strength Knee Manual Muscle Testing Left Flexion (S2) 3 Fair Extension (L3) 3- Fair- PT-OP-Q Treatments Start: 01/05/21 17:54 Freq: Status: Active Protocol: Document 02/09/21 15:15 DCW (Rec: 02/09/21 16:00 DCW [id number]) Cardio Equipment Recumbent Bicycle Duration (Minutes) 5 Resistance 4 Seat Position 2 Other 1.8 miles Gym Equipment Shuttle Recovery Unilateral Squats Resistance 50# Shuttle Recovery Platform Stable Reps/Time x35 Bilateral Squats Resistance 100# Shuttle Recovery Platform Stable Reps/Time x35 Therapeutic Exercises Sitting Exercises 2 Sitting Exercise Name LAQ Side bilateral Resistance 4# 1 Sitting Exercise Name Hamstring Curl Side bilateral Resistance Lv 2 Equipment Used T-band Reps/Minutes x15 Standing Exercises 1 Standing Exercise Name TKE Side left Resistance Lv 2 Equipment Used T-band Manual Therapy Treatment Soft Tissue Mobilization 1 Body Location L knee Scar mobilization Joint Mobilizations 2 Joint L Patella Direction multidirectional Grade II Body Position Supine PT-OP-R Modalities Start: 01/05/21 17:54 Freq: Status: Active Protocol: Document 02/09/21 15:15 DCW (Rec: 02/09/21 16:00 DCW [id number]) Hot Pack/Cold Pack Treatment Cold Pack Location Left Patient Position Hooklying Treatment Duration (minutes) 10 Patient Tolerance Good PT-OP-T Assessment and Plan Start: 01/05/21 17:54 Freq: Status: Active Protocol: Document 02/09/21 15:15 DCW (Rec: 02/09/21 16:00 DCW [id number]) Physical Therapy Assessment Impairments Impairments Activity Tolerance,Edema, Functional Activities, Functional Mobility,Gait,Pain, ROM,Strength Goals Four Impairment Knee ROM limited 16?-32? Application Integration Architect Goal (LTG) Pt to show improved ROM with < 3? extension and >116? flexion LTG Duration 03/07/21 Three Impairment Pt shows increased falls risk with time of 27.9 sec during TUG Application Integration Architect Goal (LTG) Pt to complete TUG <13 seconds without an assistive device to demonstrate a decreased falls risk LTG Duration 03/07/21 Two Impairment Pt ambulates using FWW with step-to gait Application Integration Architect Goal (LTG) Pt to ambulate independently without an assistive device with a step-through gait pattern to improve community ambulation LTG Duration 03/07/21 One Impairment Pt does not have an appropriate home exercise program Short Term Goal (STG) Pt to be independent and compliant with an appropriate HEP STG Duration 02/05/21 Assessment Summary Assessment Pt showing some very slight, trace 1/5 ankle dorsiflexion today. Improving activity tolerance and knee ROM. Physical Therapy Plan Frequency and Duration Frequency of Treatment 2x/Week Duration of Treatment Two months Plan of Care Start Date 01/05/21 Plan of Care End Date 03/07/21 Therapeutic Interventions Therapeutic Interventions Aquatic Therapy,Gait Training, Home Exercise Program,Joint Mobilizations,Manual Therapy, Neuromuscular Re-education, Patient/Caregiver Education, Self-Care/Home Management,Soft Tissue Mobilization, Therapeutic Activities, Therapeutic Exercises Modalities Cold Pack/Ice Massage,Electric Stimulation,Hot Packs, Ultrasound Next Visit Focus/Plan Next Note Type Treatment Note Next Visit Plan ROM, strengthening, gait, improving activity tolerance
--- NOTE | 2021-02-16 16:01 | PT.OTN ---
Current Diagnoses Unilateral primary osteoarthritis, left knee (02/16/21) Physical Therapy Treatment Note PT-OP-A Visit Information Start: 01/05/21 17:54 Freq: Status: Active Protocol: Document 02/16/21 15:15 DCW (Rec: 02/16/21 16:00 ORW [id number]) Out-Patient Physical Therapy Visit Information Visit Information Visit Type Treatment Note Visit Start Time 15:15 Visit Stop Time 16:10 Total Visit Minutes 55 Visit Number 10 Number of MASH FILTER OPERATOR Visits 0 Evaluation Information Evaluation Date 01/05/21 PT-OP-B Current Condition Start: 01/05/21 17:54 Freq: Status: Active Protocol: Document 01/05/21 15:15 DCW (Rec: 01/06/21 10:10 DCW [id number]) Current Condition History of Current Condition Onset Date 01/01/21 Current Complaints L TKA History of Current Condition Pt is a 60 year old female presenting four days s/p left TKA. Pt was supposed to undergo this surgery ~1 year ago, until elective surgeries were stopped secondary to Covid-19 shut-down. Pt admits she has not walked since she was discharged from the hospital three days previous, because she lives alone and does not feel safe without someone there to help her use the walker. Pt notes her pain is a 2/10, and she only used a pain pill for the first time prior to her eval today. Pt has been doing well overall with her post-op home exercises. PT-OP-C Subjective Start: 01/05/21 17:54 Freq: Status: Active Protocol: Document 02/16/21 15:15 DCW (Rec: 02/16/21 16:00 DCW [id number]) OP-PT Subjective Patient Comments Patient Comments I had a migraine Monday, that 's why I canceled my appointment. PT-OP-E Functional Tests Start: 01/05/21 17:54 Freq: Status: Active Protocol: Document 01/05/21 15:15 DCW (Rec: 01/06/21 10:10 DCW [id number]) Functional Tests Timed Up and Go (TUG) Score 27.9 seconds TUG Impairment Rating 100% Impaired (Score 20) PT-OP-F Manual Assessment Start: 01/05/21 17:54 Freq: Status: Active Protocol: Document 01/05/21 15:15 DCW (Rec: 01/06/21 10:10 DCW [id number]) Manual Assessments Joint Mobility Assessment Joint Mobility Assessment Post-op joint effusion, joint stiffness PT-OP-G Mobility & Gait Start: 01/05/21 17:54 Freq: Status: Active Protocol: Document 01/05/21 15:15 DCW (Rec: 01/06/21 10:10 DCW [id number]) OP Gait Assessment Gait Gait Assistance Required: Standby Assistance Distance (Feet) 40 Able to Maintain Weight Bearing Status Yes During Gait Assistive Devices Assistive Device Gait Belt,Front Wheeled Walker Orthotic/Prosthetic Devices or Brace: No Gait Deviations General Gait Pattern Antalgic,Decreased Stride Length,Decreased Feet Clearance,Step-to Gait Factors Limiting Gait Function Factors Limiting Gait Function Decreased Activity Tolerance, Decreased Strength,Limited Range of Motion,Pain PT-OP-J Posture/Palpation/Skin Start: 01/05/21 17:54 Freq: Status: Active Protocol: Document 01/05/21 15:15 DCW (Rec: 01/06/21 10:10 DCW [id number]) Skin Assessment Circumference Measurement 3 Location 10 cm superior of left joint line Measurement (Centimeters) 53.8 Comments 10 cm superior of right joint line: 48.4 cm 2 Location Left joint line Measurement (Centimeters) 44.2 Comments Right joint line: 40.0 cm 1 Location 10 cm inferior of left joint line Measurement (Centimeters) 45.6 Comments 10 cm inferior of right joint line: 40.9 cm PT-OP-K Range of Motion Start: 01/05/21 17:54 Freq: Status: Active Protocol: Document 01/05/21 15:15 DCW (Rec: 01/06/21 10:10 DCW [id number]) Knee Goniometric Range of Motion Knee Left Patient Position Supine Flexion Active (degrees) 91 Extension Active (degrees) 16 Comments 32? ext lag PT-OP-M Strength Start: 01/05/21 17:54 Freq: Status: Active Protocol: Document 01/05/21 15:15 DCW (Rec: 01/06/21 10:10 DCW [id number]) Knee Strength Knee Manual Muscle Testing Left Flexion (S2) 3 Fair Extension (L3) 3- Fair- PT-OP-Q Treatments Start: 01/05/21 17:54 Freq: Status: Active Protocol: Document 02/16/21 15:15 DCW (Rec: 02/16/21 16:00 DCW [id number]) Cardio Equipment Recumbent Bicycle Duration (Minutes) 5 Resistance 4 Seat Position 2 Other 2.0 miles Gym Equipment Shuttle Recovery Unilateral Squats Resistance 62# Shuttle Recovery Platform Stable Reps/Time x35 Bilateral Squats Resistance 100# Shuttle Recovery Platform Stable Reps/Time x35 Therapeutic Exercises Supine Exercises 5 Supine Exercise Name Knee extension stretch Side left Sitting Exercises 2 Sitting Exercise Name LAQ Side bilateral Resistance 4# 1 Sitting Exercise Name Hamstring Curl Side bilateral Resistance Lv 2 Equipment Used T-band Reps/Minutes x15 Standing Exercises 1 Standing Exercise Name TKE Side left Resistance Lv 2 Equipment Used T-band Manual Therapy Treatment Soft Tissue Mobilization 1 Body Location L knee Scar mobilization Joint Mobilizations 2 Joint L Patella Direction multidirectional Grade II Body Position Supine PT-OP-R Modalities Start: 01/05/21 17:54 Freq: Status: Active Protocol: Document 02/16/21 15:15 DCW (Rec: 02/16/21 16:00 DCW [id number]) Hot Pack/Cold Pack Treatment Cold Pack Location Left Patient Position Hooklying Treatment Duration (minutes) 15 Patient Tolerance Good PT-OP-T Assessment and Plan Start: 01/05/21 17:54 Freq: Status: Active Protocol: Document 02/16/21 15:15 DCW (Rec: 02/16/21 16:00 DCW [id number]) Physical Therapy Assessment Impairments Impairments Activity Tolerance,Edema, Functional Activities, Functional Mobility,Gait,Pain, ROM,Strength Goals Four Impairment Knee ROM limited 16?-32? Paleology Teacher Goal (LTG) Pt to show improved ROM with < 3? extension and >116? flexion LTG Duration 03/07/21 Three Impairment Pt shows increased falls risk with time of 27.9 sec during TUG Mcc Goal (LTG) Pt to complete TUG <13 seconds without an assistive device to demonstrate a decreased falls risk LTG Duration 03/07/21 Two Impairment Pt ambulates using FWW with step-to gait Paleology Teacher Goal (LTG) Pt to ambulate independently without an assistive device with a step-through gait pattern to improve community ambulation LTG Duration 03/07/21 One Impairment Pt does not have an appropriate home exercise program Short Term Goal (STG) Pt to be independent and compliant with an appropriate HEP STG Duration 02/05/21 Assessment Summary Assessment Pt knee ROM doing very well, currently flexion to 115 degrees, extension to 10 degree. Physical Therapy Plan Frequency and Duration Frequency of Treatment 2x/Week Duration of Treatment Two months Plan of Care Start Date 01/05/21 Plan of Care End Date 03/07/21 Therapeutic Interventions Therapeutic Interventions Aquatic Therapy,Gait Training, Home Exercise Program,Joint Mobilizations,Manual Therapy, Neuromuscular Re-education, Patient/Caregiver Education, Self-Care/Home Management,Soft Tissue Mobilization, Therapeutic Activities, Therapeutic Exercises Modalities Cold Pack/Ice Massage,Electric Stimulation,Hot Packs, Ultrasound Next Visit Focus/Plan Next Note Type Treatment Note Next Visit Plan ROM, strengthening, gait, improving activity tolerance
--- NOTE | 2021-02-19 15:59 | PT.OTN ---
Current Diagnoses Unilateral primary osteoarthritis, left knee (02/19/21) Physical Therapy Treatment Note PT-OP-A Visit Information Start: 01/05/21 17:54 Freq: Status: Active Protocol: Document 02/19/21 15:15 DCW (Rec: 02/19/21 15:59 DCW [id number]) Out-Patient Physical Therapy Visit Information Visit Information Visit Type Treatment Note Visit Start Time 15:15 Visit Stop Time 16:10 Total Visit Minutes 55 Visit Number 11 Number of FIELD CROP GROWER Visits 0 Evaluation Information Evaluation Date 01/05/21 PT-OP-B Current Condition Start: 01/05/21 17:54 Freq: Status: Active Protocol: Document 01/05/21 15:15 DCW (Rec: 01/06/21 10:10 DCW [id number]) Current Condition History of Current Condition Onset Date 01/01/21 Current Complaints L TKA History of Current Condition Pt is a 60 year old female presenting four days s/p left TKA. Pt was supposed to undergo this surgery ~1 year ago, until elective surgeries were stopped secondary to Covid-19 shut-down. Pt admits she has not walked since she was discharged from the hospital three days previous, because she lives alone and does not feel safe without someone there to help her use the walker. Pt notes her pain is a 2/10, and she only used a pain pill for the first time prior to her eval today. Pt has been doing well overall with her post-op home exercises. PT-OP-C Subjective Start: 01/05/21 17:54 Freq: Status: Active Protocol: Document 02/19/21 15:15 DCW (Rec: 02/19/21 15:59 DCW [id number]) OP-PT Subjective Patient Comments Patient Comments Pt notes that there has been no improvement with her foot, but it's not worse. PT-OP-E Functional Tests Start: 01/05/21 17:54 Freq: Status: Active Protocol: Document 01/05/21 15:15 DCW (Rec: 01/06/21 10:10 DCW [id number]) Functional Tests Timed Up and Go (TUG) Score 27.9 seconds TUG Impairment Rating 100% Impaired (Score 20) PT-OP-F Manual Assessment Start: 01/05/21 17:54 Freq: Status: Active Protocol: Document 01/05/21 15:15 DCW (Rec: 01/06/21 10:10 DCW [id number]) Manual Assessments Joint Mobility Assessment Joint Mobility Assessment Post-op joint effusion, joint stiffness PT-OP-G Mobility & Gait Start: 01/05/21 17:54 Freq: Status: Active Protocol: Document 01/05/21 15:15 DCW (Rec: 01/06/21 10:10 DCW [id number]) OP Gait Assessment Gait Gait Assistance Required: Standby Assistance Distance (Feet) 40 Able to Maintain Weight Bearing Status Yes During Gait Assistive Devices Assistive Device Gait Belt,Front Wheeled Walker Orthotic/Prosthetic Devices or Brace: No Gait Deviations General Gait Pattern Antalgic,Decreased Stride Length,Decreased Feet Clearance,Step-to Gait Factors Limiting Gait Function Factors Limiting Gait Function Decreased Activity Tolerance, Decreased Strength,Limited Range of Motion,Pain PT-OP-J Posture/Palpation/Skin Start: 01/05/21 17:54 Freq: Status: Active Protocol: Document 01/05/21 15:15 DCW (Rec: 01/06/21 10:10 DCW [id number]) Skin Assessment Circumference Measurement 3 Location 10 cm superior of left joint line Measurement (Centimeters) 53.8 Comments 10 cm superior of right joint line: 48.4 cm 2 Location Left joint line Measurement (Centimeters) 44.2 Comments Right joint line: 40.0 cm 1 Location 10 cm inferior of left joint line Measurement (Centimeters) 45.6 Comments 10 cm inferior of right joint line: 40.9 cm PT-OP-K Range of Motion Start: 01/05/21 17:54 Freq: Status: Active Protocol: Document 01/05/21 15:15 DCW (Rec: 01/06/21 10:10 DCW [id number]) Knee Goniometric Range of Motion Knee Left Patient Position Supine Flexion Active (degrees) 91 Extension Active (degrees) 16 Comments 32? ext lag PT-OP-M Strength Start: 01/05/21 17:54 Freq: Status: Active Protocol: Document 01/05/21 15:15 DCW (Rec: 01/06/21 10:10 DCW [id number]) Knee Strength Knee Manual Muscle Testing Left Flexion (S2) 3 Fair Extension (L3) 3- Fair- PT-OP-Q Treatments Start: 01/05/21 17:54 Freq: Status: Active Protocol: Document 02/19/21 15:15 DCW (Rec: 02/19/21 15:59 DCW [id number]) Cardio Equipment Recumbent Bicycle Duration (Minutes) 5 Resistance 5 Seat Position 2 Other 2.0 miles Gym Equipment Shuttle Recovery Unilateral Squats Resistance 62# Shuttle Recovery Platform Stable Reps/Time x35 Bilateral Squats Resistance 100# Shuttle Recovery Platform Stable Reps/Time x35 Therapeutic Exercises Supine Exercises 5 Supine Exercise Name Knee extension stretch Side left Standing Exercises 1 Standing Exercise Name TKE Side left Resistance Lv 2 Equipment Used T-band Therapeutic Activity Therapeutic Activity 1 Name Stairs Comments Ascend step-through Descend step-to Manual Therapy Treatment Soft Tissue Mobilization 1 Body Location L knee Scar mobilization Joint Mobilizations 2 Joint L Patella Direction multidirectional Grade II Body Position Supine PT-OP-R Modalities Start: 01/05/21 17:54 Freq: Status: Active Protocol: Document 02/19/21 15:15 DCW (Rec: 02/19/21 15:59 DCW [id number]) Hot Pack/Cold Pack Treatment Cold Pack Location Left Patient Position Hooklying Treatment Duration (minutes) 15 Patient Tolerance Good PT-OP-T Assessment and Plan Start: 01/05/21 17:54 Freq: Status: Active Protocol: Document 02/19/21 15:15 DCW (Rec: 02/19/21 15:59 DCW [id number]) Physical Therapy Assessment Impairments Impairments Activity Tolerance,Edema, Functional Activities, Functional Mobility,Gait,Pain, ROM,Strength Goals Four Impairment Knee ROM limited 16?-32? Long-Term Goal (LTG) Pt to show improved ROM with < 3? extension and >116? flexion LTG Duration 03/07/21 Three Impairment Pt shows increased falls risk with time of 27.9 sec during TUG Long-Term Goal (LTG) Pt to complete TUG <13 seconds without an assistive device to demonstrate a decreased falls risk LTG Duration 03/07/21 Two Impairment Pt ambulates using FWW with step-to gait Long-Term Goal (LTG) Pt to ambulate independently without an assistive device with a step-through gait pattern to improve community ambulation LTG Duration 03/07/21 One Impairment Pt does not have an appropriate home exercise program Short Term Goal (STG) Pt to be independent and compliant with an appropriate HEP STG Duration 02/05/21 Assessment Summary Assessment Pt continues to progress with her knee post TKA, however still very limited motor function in her anterior tib/ ankle dorsiflexion Physical Therapy Plan Frequency and Duration Frequency of Treatment 2x/Week Duration of Treatment Two months Plan of Care Start Date 01/05/21 Plan of Care End Date 03/07/21 Therapeutic Interventions Therapeutic Interventions Aquatic Therapy,Gait Training, Home Exercise Program,Joint Mobilizations,Manual Therapy, Neuromuscular Re-education, Patient/Caregiver Education, Self-Care/Home Management,Soft Tissue Mobilization, Therapeutic Activities, Therapeutic Exercises Modalities Cold Pack/Ice Massage,Electric Stimulation,Hot Packs, Ultrasound Next Visit Focus/Plan Next Note Type Treatment Note Next Visit Plan ROM, strengthening, gait, improving activity tolerance
--- NOTE | 2021-02-23 15:51 | PT.OTN ---
Current Diagnoses Unilateral primary osteoarthritis, left knee (02/23/21) Physical Therapy Treatment Note PT-OP-A Visit Information Start: 01/05/21 17:54 Freq: Status: Active Protocol: Document 02/23/21 15:00 DCW (Rec: 02/23/21 15:51 DCW [id number]) Out-Patient Physical Therapy Visit Information Visit Information Visit Type Treatment Note Visit Start Time 15:00 Visit Stop Time 16:00 Total Visit Minutes 60 Visit Number 12 Number of IMPLEMENTATION MANAGER Visits 0 Evaluation Information Evaluation Date 01/05/21 PT-OP-B Current Condition Start: 01/05/21 17:54 Freq: Status: Active Protocol: Document 01/05/21 15:15 DCW (Rec: 01/06/21 10:10 DCW [id number]) Current Condition History of Current Condition Onset Date 01/01/21 Current Complaints L TKA History of Current Condition Pt is a 60 year old female presenting four days s/p left TKA. Pt was supposed to undergo this surgery ~1 year ago, until elective surgeries were stopped secondary to Covid-19 shut-down. Pt admits she has not walked since she was discharged from the hospital three days previous, because she lives alone and does not feel safe without someone there to help her use the walker. Pt notes her pain is a 2/10, and she only used a pain pill for the first time prior to her eval today. Pt has been doing well overall with her post-op home exercises. PT-OP-C Subjective Start: 01/05/21 17:54 Freq: Status: Active Protocol: Document 02/23/21 15:00 DCW (Rec: 02/23/21 15:51 DCW [id number]) OP-PT Subjective Patient Comments Patient Comments Pt reports she is picking up her stablizing ankle brace tomorrow. PT-OP-E Functional Tests Start: 01/05/21 17:54 Freq: Status: Active Protocol: Document 01/05/21 15:15 DCW (Rec: 01/06/21 10:10 DCW [id number]) Functional Tests Timed Up and Go (TUG) Score 27.9 seconds TUG Impairment Rating 100% Impaired (Score 20) PT-OP-F Manual Assessment Start: 01/05/21 17:54 Freq: Status: Active Protocol: Document 01/05/21 15:15 DCW (Rec: 01/06/21 10:10 DCW [id number]) Manual Assessments Joint Mobility Assessment Joint Mobility Assessment Post-op joint effusion, joint stiffness PT-OP-G Mobility & Gait Start: 01/05/21 17:54 Freq: Status: Active Protocol: Document 01/05/21 15:15 DCW (Rec: 01/06/21 10:10 DCW [id number]) OP Gait Assessment Gait Gait Assistance Required: Standby Assistance Distance (Feet) 40 Able to Maintain Weight Bearing Status Yes During Gait Assistive Devices Assistive Device Gait Belt,Front Wheeled Walker Orthotic/Prosthetic Devices or Brace: No Gait Deviations General Gait Pattern Antalgic,Decreased Stride Length,Decreased Feet Clearance,Step-to Gait Factors Limiting Gait Function Factors Limiting Gait Function Decreased Activity Tolerance, Decreased Strength,Limited Range of Motion,Pain PT-OP-J Posture/Palpation/Skin Start: 01/05/21 17:54 Freq: Status: Active Protocol: Document 01/05/21 15:15 DCW (Rec: 01/06/21 10:10 DCW [id number]) Skin Assessment Circumference Measurement 3 Location 10 cm superior of left joint line Measurement (Centimeters) 53.8 Comments 10 cm superior of right joint line: 48.4 cm 2 Location Left joint line Measurement (Centimeters) 44.2 Comments Right joint line: 40.0 cm 1 Location 10 cm inferior of left joint line Measurement (Centimeters) 45.6 Comments 10 cm inferior of right joint line: 40.9 cm PT-OP-K Range of Motion Start: 01/05/21 17:54 Freq: Status: Active Protocol: Document 01/05/21 15:15 DCW (Rec: 01/06/21 10:10 DCW [id number]) Knee Goniometric Range of Motion Knee Left Patient Position Supine Flexion Active (degrees) 91 Extension Active (degrees) 16 Comments 32? ext lag PT-OP-M Strength Start: 01/05/21 17:54 Freq: Status: Active Protocol: Document 01/05/21 15:15 DCW (Rec: 01/06/21 10:10 DCW [id number]) Knee Strength Knee Manual Muscle Testing Left Flexion (S2) 3 Fair Extension (L3) 3- Fair- PT-OP-Q Treatments Start: 01/05/21 17:54 Freq: Status: Active Protocol: Document 02/23/21 15:00 DCW (Rec: 02/23/21 15:51 DCW [id number]) Cardio Equipment Recumbent Bicycle Duration (Minutes) 5 Resistance 5 Seat Position 2 Other 2.0 miles Gym Equipment Shuttle Recovery Unilateral Squats Resistance 62# Shuttle Recovery Platform Stable Reps/Time x30 Bilateral Squats Resistance 125# Shuttle Recovery Platform Stable Reps/Time x30 Therapeutic Exercises Supine Exercises 5 Supine Exercise Name Knee extension stretch Side left Sitting Exercises 2 Sitting Exercise Name LAQ Side bilateral Resistance 5# 1 Sitting Exercise Name Hamstring Curl Side bilateral Resistance Lv 2 Equipment Used T-band Reps/Minutes x15 Standing Exercises 1 Standing Exercise Name TKE Side left Resistance Lv 2 Equipment Used T-band Manual Therapy Treatment Soft Tissue Mobilization 1 Body Location L knee Scar mobilization Joint Mobilizations 2 Joint L Patella Direction multidirectional Grade II Body Position Supine PT-OP-R Modalities Start: 01/05/21 17:54 Freq: Status: Active Protocol: Document 02/23/21 15:00 DCW (Rec: 02/23/21 15:51 DCW [id number]) Hot Pack/Cold Pack Treatment Cold Pack Location Left Patient Position Hooklying Treatment Duration (minutes) 15 Patient Tolerance Good PT-OP-T Assessment and Plan Start: 01/05/21 17:54 Freq: Status: Active Protocol: Document 02/23/21 15:00 DCW (Rec: 02/23/21 15:51 DCW [id number]) Physical Therapy Assessment Impairments Impairments Activity Tolerance,Edema, Functional Activities, Functional Mobility,Gait,Pain, ROM,Strength Goals Four Impairment Knee ROM limited 16?-32? [employer] Goal (LTG) Pt to show improved ROM with < 3? extension and >116? flexion LTG Duration 03/07/21 Three Impairment Pt shows increased falls risk with time of 27.9 sec during TUG [employer] Goal (LTG) Pt to complete TUG <13 seconds without an assistive device to demonstrate a decreased falls risk LTG Duration 03/07/21 Two Impairment Pt ambulates using FWW with step-to gait Intermediate Goal (LTG) Pt to ambulate independently without an assistive device with a step-through gait pattern to improve community ambulation LTG Duration 03/07/21 One Impairment Pt does not have an appropriate home exercise program Short Term Goal (STG) Pt to be independent and compliant with an appropriate HEP STG Duration 02/05/21 Assessment Summary Assessment Pt doing well today, ROM continuing to improve. Hopeful pt's new brace will help with ambulation. Physical Therapy Plan Frequency and Duration Frequency of Treatment 2x/Week Duration of Treatment Two months Plan of Care Start Date 01/05/21 Plan of Care End Date 03/07/21 Therapeutic Interventions Therapeutic Interventions Aquatic Therapy,Gait Training, Home Exercise Program,Joint Mobilizations,Manual Therapy, Neuromuscular Re-education, Patient/Caregiver Education, Self-Care/Home Management,Soft Tissue Mobilization, Therapeutic Activities, Therapeutic Exercises Modalities Cold Pack/Ice Massage,Electric Stimulation,Hot Packs, Ultrasound Next Visit Focus/Plan Next Note Type Treatment Note Next Visit Plan ROM, strengthening, gait, improving activity tolerance
--- NOTE | 2021-02-26 15:59 | PT.OTN ---
Current Diagnoses Unilateral primary osteoarthritis, left knee (02/26/21) Physical Therapy Treatment Note PT-OP-A Visit Information Start: 01/05/21 17:54 Freq: Status: Active Protocol: Document 02/26/21 15:15 DCW (Rec: 02/26/21 15:59 DCW [id number]) Out-Patient Physical Therapy Visit Information Visit Information Visit Type Treatment Note Visit Start Time 15:15 Visit Stop Time 16:10 Total Visit Minutes 55 Visit Number 13 Number of FINANCIAL CENTER MANAGER Visits 0 Evaluation Information Evaluation Date 01/05/21 PT-OP-B Current Condition Start: 01/05/21 17:54 Freq: Status: Active Protocol: Document 01/05/21 15:15 DCW (Rec: 01/06/21 10:10 DCW [id number]) Current Condition History of Current Condition Onset Date 01/01/21 Current Complaints L TKA History of Current Condition Pt is a 60 year old female presenting four days s/p left TKA. Pt was supposed to undergo this surgery ~1 year ago, until elective surgeries were stopped secondary to Covid-19 shut-down. Pt admits she has not walked since she was discharged from the hospital three days previous, because she lives alone and does not feel safe without someone there to help her use the walker. Pt notes her pain is a 2/10, and she only used a pain pill for the first time prior to her eval today. Pt has been doing well overall with her post-op home exercises. PT-OP-C Subjective Start: 01/05/21 17:54 Freq: Status: Active Protocol: Document 02/26/21 15:15 DCW (Rec: 02/26/21 15:59 DCW [id number]) OP-PT Subjective Patient Comments Patient Comments Pt reports she did not have a good experience trying to seed cone picker her ankle brace earlier this week, and does not want to go back to that location. Pt reports she is going to speak with her surgeon next week to try to get a referral somewhere local. PT-OP-E Functional Tests Start: 01/05/21 17:54 Freq: Status: Active Protocol: Document 01/05/21 15:15 DCW (Rec: 01/06/21 10:10 DCW [id number]) Functional Tests Timed Up and Go (TUG) Score 27.9 seconds TUG Impairment Rating 100% Impaired (Score 20) PT-OP-F Manual Assessment Start: 01/05/21 17:54 Freq: Status: Active Protocol: Document 01/05/21 15:15 DCW (Rec: 01/06/21 10:10 DCW [id number]) Manual Assessments Joint Mobility Assessment Joint Mobility Assessment Post-op joint effusion, joint stiffness PT-OP-G Mobility & Gait Start: 01/05/21 17:54 Freq: Status: Active Protocol: Document 01/05/21 15:15 DCW (Rec: 01/06/21 10:10 DCW [id number]) OP Gait Assessment Gait Gait Assistance Required: Standby Assistance Distance (Feet) 40 Able to Maintain Weight Bearing Status Yes During Gait Assistive Devices Assistive Device Gait Belt,Front Wheeled Walker Orthotic/Prosthetic Devices or Brace: No Gait Deviations General Gait Pattern Antalgic,Decreased Stride Length,Decreased Feet Clearance,Step-to Gait Factors Limiting Gait Function Factors Limiting Gait Function Decreased Activity Tolerance, Decreased Strength,Limited Range of Motion,Pain PT-OP-J Posture/Palpation/Skin Start: 01/05/21 17:54 Freq: Status: Active Protocol: Document 01/05/21 15:15 DCW (Rec: 01/06/21 10:10 DCW [id number]) Skin Assessment Circumference Measurement 3 Location 10 cm superior of left joint line Measurement (Centimeters) 53.8 Comments 10 cm superior of right joint line: 48.4 cm 2 Location Left joint line Measurement (Centimeters) 44.2 Comments Right joint line: 40.0 cm 1 Location 10 cm inferior of left joint line Measurement (Centimeters) 45.6 Comments 10 cm inferior of right joint line: 40.9 cm PT-OP-K Range of Motion Start: 01/05/21 17:54 Freq: Status: Active Protocol: Document 01/05/21 15:15 DCW (Rec: 01/06/21 10:10 DCW [id number]) Knee Goniometric Range of Motion Knee Left Patient Position Supine Flexion Active (degrees) 91 Extension Active (degrees) 16 Comments 32? ext lag PT-OP-M Strength Start: 01/05/21 17:54 Freq: Status: Active Protocol: Document 01/05/21 15:15 DCW (Rec: 01/06/21 10:10 DCW [id number]) Knee Strength Knee Manual Muscle Testing Left Flexion (S2) 3 Fair Extension (L3) 3- Fair- PT-OP-Q Treatments Start: 01/05/21 17:54 Freq: Status: Active Protocol: Document 02/26/21 15:15 DCW (Rec: 02/26/21 15:59 DCW [id number]) Cardio Equipment Recumbent Bicycle Duration (Minutes) 5 Resistance 5 Seat Position 2 Other 2.0 miles Gym Equipment Shuttle Recovery Unilateral Squats Resistance 75# Shuttle Recovery Platform Stable Reps/Time x30 Bilateral Squats Resistance 125# Shuttle Recovery Platform Stable Reps/Time x30 Therapeutic Exercises Supine Exercises 5 Supine Exercise Name Knee extension stretch Side left Sitting Exercises 2 Sitting Exercise Name LAQ Side bilateral Resistance 5# 1 Sitting Exercise Name Hamstring Curl Side bilateral Resistance Lv 2 Equipment Used T-band Reps/Minutes x15 Standing Exercises 1 Standing Exercise Name TKE Side left Resistance Lv 2 Equipment Used T-band Manual Therapy Treatment Soft Tissue Mobilization 1 Body Location L knee Scar mobilization Joint Mobilizations 2 Joint L Patella Direction multidirectional Grade II Body Position Supine PT-OP-R Modalities Start: 01/05/21 17:54 Freq: Status: Active Protocol: Document 02/26/21 15:15 DCW (Rec: 02/26/21 15:59 DCW [id number]) Hot Pack/Cold Pack Treatment Cold Pack Location Left Patient Position Hooklying Treatment Duration (minutes) 15 Patient Tolerance Good PT-OP-T Assessment and Plan Start: 01/05/21 17:54 Freq: Status: Active Protocol: Document 02/26/21 15:15 DCW (Rec: 02/26/21 15:59 DCW [id number]) Physical Therapy Assessment Impairments Impairments Activity Tolerance,Edema, Functional Activities, Functional Mobility,Gait,Pain, ROM,Strength Goals Four Impairment Knee ROM limited 16?-32? Snf Goal (LTG) Pt to show improved ROM with < 3? extension and >116? flexion LTG Duration 03/07/21 Three Impairment Pt shows increased falls risk with time of 27.9 sec during TUG Snf Goal (LTG) Pt to complete TUG <13 seconds without an assistive device to demonstrate a decreased falls risk LTG Duration 03/07/21 Two Impairment Pt ambulates using FWW with step-to gait Snf Goal (LTG) Pt to ambulate independently without an assistive device with a step-through gait pattern to improve community ambulation LTG Duration 03/07/21 One Impairment Pt does not have an appropriate home exercise program Short Term Goal (STG) Pt to be independent and compliant with an appropriate HEP STG Duration 02/05/21 Assessment Summary Assessment Pt knee ROM and mobility doing well, still limited with her lack of ankle dorsiflexion, however has improved some, MMT now 2-/5. Physical Therapy Plan Frequency and Duration Frequency of Treatment 2x/Week Duration of Treatment Two months Plan of Care Start Date 01/05/21 Plan of Care End Date 03/07/21 Therapeutic Interventions Therapeutic Interventions Aquatic Therapy,Gait Training, Home Exercise Program,Joint Mobilizations,Manual Therapy, Neuromuscular Re-education, Patient/Caregiver Education, Self-Care/Home Management,Soft Tissue Mobilization, Therapeutic Activities, Therapeutic Exercises Modalities Cold Pack/Ice Massage,Electric Stimulation,Hot Packs, Ultrasound Next Visit Focus/Plan Next Note Type Treatment Note Next Visit Plan ROM, strengthening, gait, improving activity tolerance
--- NOTE | 2021-03-03 15:59 | PT.OTN ---
Current Diagnoses Unilateral primary osteoarthritis, left knee (03/03/21) Physical Therapy Treatment Note PT-OP-A Visit Information Start: 01/05/21 17:54 Freq: Status: Active Protocol: Document 03/03/21 15:15 DCW (Rec: 03/03/21 15:59 DCW [id number]) Out-Patient Physical Therapy Visit Information Visit Information Visit Type Treatment Note Visit Start Time 15:15 Visit Stop Time 16:10 Total Visit Minutes 55 Visit Number 14 Number of BASIC SCIENCES PROFESSOR Visits 0 Evaluation Information Evaluation Date 01/05/21 PT-OP-B Current Condition Start: 01/05/21 17:54 Freq: Status: Active Protocol: Document 01/05/21 15:15 DCW (Rec: 01/06/21 10:10 DCW [id number]) Current Condition History of Current Condition Onset Date 01/01/21 Current Complaints L TKA History of Current Condition Pt is a 60 year old female presenting four days s/p left TKA. Pt was supposed to undergo this surgery ~1 year ago, until elective surgeries were stopped secondary to Covid-19 shut-down. Pt admits she has not walked since she was discharged from the hospital three days previous, because she lives alone and does not feel safe without someone there to help her use the walker. Pt notes her pain is a 2/10, and she only used a pain pill for the first time prior to her eval today. Pt has been doing well overall with her post-op home exercises. PT-OP-C Subjective Start: 01/05/21 17:54 Freq: Status: Active Protocol: Document 03/03/21 15:15 DCW (Rec: 03/03/21 15:59 DCW [id number]) OP-PT Subjective Patient Comments Patient Comments My back hurts today. PT-OP-E Functional Tests Start: 01/05/21 17:54 Freq: Status: Active Protocol: Document 01/05/21 15:15 DCW (Rec: 01/06/21 10:10 DCW [id number]) Functional Tests Timed Up and Go (TUG) Score 27.9 seconds TUG Impairment Rating 100% Impaired (Score 20) PT-OP-F Manual Assessment Start: 01/05/21 17:54 Freq: Status: Active Protocol: Document 01/05/21 15:15 DCW (Rec: 01/06/21 10:10 [facility] [id number]) Manual Assessments Joint Mobility Assessment Joint Mobility Assessment Post-op joint effusion, joint stiffness PT-OP-G Mobility & Gait Start: 01/05/21 17:54 Freq: Status: Active Protocol: Document 01/05/21 15:15 DCW (Rec: 01/06/21 10:10 [facility] [id number]) OP Gait Assessment Gait Gait Assistance Required: Standby Assistance Distance (Feet) 40 Able to Maintain Weight Bearing Status Yes During Gait Assistive Devices Assistive Device Gait Belt,Front Wheeled Walker Orthotic/Prosthetic Devices or Brace: No Gait Deviations General Gait Pattern Antalgic,Decreased Stride Length,Decreased Feet Clearance,Step-to Gait Factors Limiting Gait Function Factors Limiting Gait Function Decreased Activity Tolerance, Decreased Strength,Limited Range of Motion,Pain PT-OP-J Posture/Palpation/Skin Start: 01/05/21 17:54 Freq: Status: Active Protocol: Document 01/05/21 15:15 DCW (Rec: 01/06/21 10:10 [facility] [id number]) Skin Assessment Circumference Measurement 3 Location 10 cm superior of left joint line Measurement (Centimeters) 53.8 Comments 10 cm superior of right joint line: 48.4 cm 2 Location Left joint line Measurement (Centimeters) 44.2 Comments Right joint line: 40.0 cm 1 Location 10 cm inferior of left joint line Measurement (Centimeters) 45.6 Comments 10 cm inferior of right joint line: 40.9 cm PT-OP-K Range of Motion Start: 01/05/21 17:54 Freq: Status: Active Protocol: Document 01/05/21 15:15 DCW (Rec: 01/06/21 10:10 [facility] [id number]) Knee Goniometric Range of Motion Knee Left Patient Position Supine Flexion Active (degrees) 91 Extension Active (degrees) 16 Comments 32? ext lag PT-OP-M Strength Start: 01/05/21 17:54 Freq: Status: Active Protocol: Document 01/05/21 15:15 DCW (Rec: 01/06/21 10:10 DC [id number]) Knee Strength Knee Manual Muscle Testing Left Flexion (S2) 3 Fair Extension (L3) 3- Fair- PT-OP-Q Treatments Start: 01/05/21 17:54 Freq: Status: Active Protocol: Document 03/03/21 15:15 DCW (Rec: 03/03/21 15:59 DCW [id number]) Cardio Equipment Recumbent Bicycle Duration (Minutes) 5 Resistance 5 Seat Position 2 Other 1.7 miles Gym Equipment Shuttle Recovery Unilateral Squats Resistance 75# Shuttle Recovery Platform Stable Reps/Time x30 Bilateral Squats Resistance 125# Shuttle Recovery Platform Stable Reps/Time x30 Therapeutic Exercises Supine Exercises 5 Supine Exercise Name Knee extension stretch Side left Sitting Exercises 2 Sitting Exercise Name LAQ Side bilateral Resistance 5# 1 Sitting Exercise Name Hamstring Curl Side bilateral Resistance Lv 2 Equipment Used T-band Reps/Minutes x15 Standing Exercises 1 Standing Exercise Name TKE Side left Resistance Lv 2 Equipment Used T-band Manual Therapy Treatment Soft Tissue Mobilization 1 Body Location L knee Scar mobilization Joint Mobilizations 2 Joint L Patella Direction multidirectional Grade II Body Position Supine PT-OP-R Modalities Start: 01/05/21 17:54 Freq: Status: Active Protocol: Document 03/03/21 15:15 DCW (Rec: 03/03/21 15:59 DCW [id number]) Hot Pack/Cold Pack Treatment Cold Pack Location Left Patient Position Hooklying Treatment Duration (minutes) 15 Patient Tolerance Good PT-OP-T Assessment and Plan Start: 01/05/21 17:54 Freq: Status: Active Protocol: Document 03/03/21 15:15 DCW (Rec: 03/03/21 15:59 DCW [id number]) Physical Therapy Assessment Impairments Impairments Activity Tolerance,Edema, Functional Activities, Functional Mobility,Gait,Pain, ROM,Strength Goals Four Impairment Knee ROM limited 16?-32? Detention Goal (LTG) Pt to show improved ROM with < 3? extension and >116? flexion LTG Duration 03/07/21 Three Impairment Pt shows increased falls risk with time of 27.9 sec during TUG Aquaculture Director Goal (LTG) Pt to complete TUG <13 seconds without an assistive device to demonstrate a decreased falls risk LTG Duration 03/07/21 Two Impairment Pt ambulates using FWW with step-to gait Aquaculture Director Goal (LTG) Pt to ambulate independently without an assistive device with a step-through gait pattern to improve community ambulation LTG Duration 03/07/21 One Impairment Pt does not have an appropriate home exercise program Short Term Goal (STG) Pt to be independent and compliant with an appropriate HEP STG Duration 02/05/21 Assessment Summary Assessment Pt doing well today, incision looking good, improving gait/ mobility. Physical Therapy Plan Frequency and Duration Frequency of Treatment 2x/Week Duration of Treatment Two months Plan of Care Start Date 01/05/21 Plan of Care End Date 03/07/21 Therapeutic Interventions Therapeutic Interventions Aquatic Therapy,Gait Training, Home Exercise Program,Joint Mobilizations,Manual Therapy, Neuromuscular Re-education, Patient/Caregiver Education, Self-Care/Home Management,Soft Tissue Mobilization, Therapeutic Activities, Therapeutic Exercises Modalities Cold Pack/Ice Massage,Electric Stimulation,Hot Packs, Ultrasound Next Visit Focus/Plan Next Note Type Treatment Note Next Visit Plan ROM, strengthening, gait, improving activity tolerance
--- NOTE | 2021-03-05 15:57 | PT.OTN ---
Current Diagnoses Unilateral primary osteoarthritis, left knee (03/05/21) Physical Therapy Treatment Note PT-OP-A Visit Information Start: 01/05/21 17:54 Freq: Status: Active Protocol: Document 03/05/21 15:15 DCW (Rec: 03/05/21 15:57 DCW [id number]) Out-Patient Physical Therapy Visit Information Visit Information Visit Type Treatment Note Visit Start Time 15:15 Visit Stop Time 16:10 Total Visit Minutes 55 Visit Number 15 Number of CASTINGS DRAFTER Visits 0 Evaluation Information Evaluation Date 01/05/21 PT-OP-B Current Condition Start: 01/05/21 17:54 Freq: Status: Active Protocol: Document 01/05/21 15:15 DCW (Rec: 01/06/21 10:10 DCW [id number]) Current Condition History of Current Condition Onset Date 01/01/21 Current Complaints L TKA History of Current Condition Pt is a 60 year old female presenting four days s/p left TKA. Pt was supposed to undergo this surgery ~1 year ago, until elective surgeries were stopped secondary to Covid-19 shut-down. Pt admits she has not walked since she was discharged from the hospital three days previous, because she lives alone and does not feel safe without someone there to help her use the walker. Pt notes her pain is a 2/10, and she only used a pain pill for the first time prior to her eval today. Pt has been doing well overall with her post-op home exercises. PT-OP-C Subjective Start: 01/05/21 17:54 Freq: Status: Active Protocol: Document 03/05/21 15:15 DCW (Rec: 03/05/21 15:57 DCW [id number]) OP-PT Subjective Patient Comments Patient Comments Pt reports her back is much better today. PT-OP-E Functional Tests Start: 01/05/21 17:54 Freq: Status: Active Protocol: Document 01/05/21 15:15 DCW (Rec: 01/06/21 10:10 DCW [id number]) Functional Tests Timed Up and Go (TUG) Score 27.9 seconds TUG Impairment Rating 100% Impaired (Score 20) PT-OP-F Manual Assessment Start: 01/05/21 17:54 Freq: Status: Active Protocol: Document 01/05/21 15:15 DCW (Rec: 01/06/21 10:10 DC [id number]) Manual Assessments Joint Mobility Assessment Joint Mobility Assessment Post-op joint effusion, joint stiffness PT-OP-G Mobility & Gait Start: 01/05/21 17:54 Freq: Status: Active Protocol: Document 01/05/21 15:15 DCW (Rec: 01/06/21 10:10 DCW [id number]) OP Gait Assessment Gait Gait Assistance Required: Standby Assistance Distance (Feet) 40 Able to Maintain Weight Bearing Status Yes During Gait Assistive Devices Assistive Device Gait Belt,Front Wheeled Walker Orthotic/Prosthetic Devices or Brace: No Gait Deviations General Gait Pattern Antalgic,Decreased Stride Length,Decreased Feet Clearance,Step-to Gait Factors Limiting Gait Function Factors Limiting Gait Function Decreased Activity Tolerance, Decreased Strength,Limited Range of Motion,Pain PT-OP-J Posture/Palpation/Skin Start: 01/05/21 17:54 Freq: Status: Active Protocol: Document 01/05/21 15:15 DCW (Rec: 01/06/21 10:10 [facility] [id number]) Skin Assessment Circumference Measurement 3 Location 10 cm superior of left joint line Measurement (Centimeters) 53.8 Comments 10 cm superior of right joint line: 48.4 cm 2 Location Left joint line Measurement (Centimeters) 44.2 Comments Right joint line: 40.0 cm 1 Location 10 cm inferior of left joint line Measurement (Centimeters) 45.6 Comments 10 cm inferior of right joint line: 40.9 cm PT-OP-K Range of Motion Start: 01/05/21 17:54 Freq: Status: Active Protocol: Document 01/05/21 15:15 DCW (Rec: 01/06/21 10:10 DC [id number]) Knee Goniometric Range of Motion Knee Left Patient Position Supine Flexion Active (degrees) 91 Extension Active (degrees) 16 Comments 32? ext lag PT-OP-M Strength Start: 01/05/21 17:54 Freq: Status: Active Protocol: Document 01/05/21 15:15 DCW (Rec: 01/06/21 10:10 DCW [id number]) Knee Strength Knee Manual Muscle Testing Left Flexion (S2) 3 Fair Extension (L3) 3- Fair- PT-OP-Q Treatments Start: 01/05/21 17:54 Freq: Status: Active Protocol: Document 03/05/21 15:15 DCW (Rec: 03/05/21 15:57 DCW [id number]) Cardio Equipment Recumbent Bicycle Duration (Minutes) 5 Resistance 5 Seat Position 2 Other 1.7 miles Gym Equipment Shuttle Recovery Unilateral Squats Resistance 75# Shuttle Recovery Platform Stable Reps/Time x30 Bilateral Squats Resistance 125# Shuttle Recovery Platform Stable Reps/Time x30 Therapeutic Exercises Sitting Exercises 2 Sitting Exercise Name LAQ Side bilateral Resistance 5# 1 Sitting Exercise Name Hamstring Curl Side bilateral Resistance Lv 2 Equipment Used T-band Reps/Minutes x15 Standing Exercises 1 Standing Exercise Name TKE Side left Resistance Lv 2 Equipment Used T-band Manual Therapy Treatment Joint Mobilizations 2 Joint L Patella Direction multidirectional Grade II Body Position Supine PT-OP-R Modalities Start: 01/05/21 17:54 Freq: Status: Active Protocol: Document 03/05/21 15:15 DCW (Rec: 03/05/21 15:57 DCW [id number]) Hot Pack/Cold Pack Treatment Cold Pack Location Left Patient Position Hooklying Treatment Duration (minutes) 15 Patient Tolerance Good PT-OP-T Assessment and Plan Start: 01/05/21 17:54 Freq: Status: Active Protocol: Document 03/05/21 15:15 DCW (Rec: 03/05/21 15:57 DCW [id number]) Physical Therapy Assessment Impairments Impairments Activity Tolerance,Edema, Functional Activities, Functional Mobility,Gait,Pain, ROM,Strength Goals Four Impairment Knee ROM limited 16?-32? Food Service Manager Goal (LTG) Pt to show improved ROM with < 3? extension and >116? flexion LTG Duration 03/07/21 Three Impairment Pt shows increased falls risk with time of 27.9 sec during TUG Fdc Goal (LTG) Pt to complete TUG <13 seconds without an assistive device to demonstrate a decreased falls risk LTG Duration 03/07/21 Two Impairment Pt ambulates using FWW with step-to gait Food Service Manager Goal (LTG) Pt to ambulate independently without an assistive device with a step-through gait pattern to improve community ambulation LTG Duration 03/07/21 One Impairment Pt does not have an appropriate home exercise program Short Term Goal (STG) Pt to be independent and compliant with an appropriate HEP STG Duration 02/05/21 Assessment Summary Assessment Pt continuing to progress with recovery from L TKA. Physical Therapy Plan Frequency and Duration Frequency of Treatment 2x/Week Duration of Treatment Two months Plan of Care Start Date 01/05/21 Plan of Care End Date 03/07/21 Therapeutic Interventions Therapeutic Interventions Aquatic Therapy,Gait Training, Home Exercise Program,Joint Mobilizations,Manual Therapy, Neuromuscular Re-education, Patient/Caregiver Education, Self-Care/Home Management,Soft Tissue Mobilization, Therapeutic Activities, Therapeutic Exercises Modalities Cold Pack/Ice Massage,Electric Stimulation,Hot Packs, Ultrasound Next Visit Focus/Plan Next Note Type Treatment Note Next Visit Plan ROM, strengthening, gait, improving activity tolerance
--- NOTE | 2021-03-09 15:27 | PT.OTN ---
Current Diagnoses Unilateral primary osteoarthritis, left knee (03/09/21) Physical Therapy Treatment Note PT-OP-A Visit Information Start: 01/05/21 17:54 Freq: Status: Active Protocol: Document 03/09/21 14:30 DCW (Rec: 03/09/21 15:27 DCW [id number]) Out-Patient Physical Therapy Visit Information Visit Information Visit Type Progress Note Visit Start Time 14:30 Visit Stop Time 15:25 Total Visit Minutes 55 Visit Number 16 Number of PRICING CONSULTANT Visits 0 Evaluation Information Evaluation Date 01/05/21 PT-OP-B Current Condition Start: 01/05/21 17:54 Freq: Status: Active Protocol: Document 01/05/21 15:15 DCW (Rec: 01/06/21 10:10 DCW [id number]) Current Condition History of Current Condition Onset Date 01/01/21 Current Complaints L TKA History of Current Condition Pt is a 60 year old female presenting four days s/p left TKA. Pt was supposed to undergo this surgery ~1 year ago, until elective surgeries were stopped secondary to Covid-19 shut-down. Pt admits she has not walked since she was discharged from the hospital three days previous, because she lives alone and does not feel safe without someone there to help her use the walker. Pt notes her pain is a 2/10, and she only used a pain pill for the first time prior to her eval today. Pt has been doing well overall with her post-op home exercises. PT-OP-C Subjective Start: 01/05/21 17:54 Freq: Status: Active Protocol: Document 03/09/21 14:30 DCW (Rec: 03/09/21 15:27 DCW [id number]) OP-PT Subjective Patient Comments Patient Comments Pt notes she is walking better , spending less time using the walker. PT-OP-E Functional Tests Start: 01/05/21 17:54 Freq: Status: Active Protocol: Document 03/09/21 14:30 DCW (Rec: 03/09/21 15:03 DCW [id number]) Functional Tests Timed Up and Go (TUG) Score 12.32 Comments 3-trial average (12.88, 12.11, 11.96) TUG Impairment Rating 20 to <40% Impaired (Score 12- 13) PT-OP-F Manual Assessment Start: 01/05/21 17:54 Freq: Status: Active Protocol: Document 03/09/21 14:30 DCW (Rec: 03/09/21 15:03 DCW [id number]) Manual Assessments Joint Mobility Assessment Joint Mobility Assessment Mild stiffness, minimal effusion PT-OP-G Mobility & Gait Start: 01/05/21 17:54 Freq: Status: Active Protocol: Document 03/09/21 14:30 DCW (Rec: 03/09/21 15:03 DCW [id number]) OP Gait Assessment Assistive Devices Assistive Device None Orthotic/Prosthetic Devices or Brace: No Gait Deviations General Gait Pattern Antalgic,Narrow Based Gait Factors Limiting Gait Function Factors Limiting Gait Function Decreased Strength,Limited Range of Motion,Pain,Poor Balance,Poor Safety Awareness PT-OP-J Posture/Palpation/Skin Start: 01/05/21 17:54 Freq: Status: Active Protocol: Document 03/09/21 14:30 DCW (Rec: 03/09/21 15:03 DCW [id number]) Skin Assessment Circumference Measurement 3 Location 10 cm superior of left joint line Measurement (Centimeters) 50.3 Comments 10 cm superior of right joint line: 48.4 cm 2 Location Left joint line Measurement (Centimeters) 42.9 Comments Right joint line: 40.0 cm 1 Location 10 cm inferior of left joint line Measurement (Centimeters) 42.0 Comments 10 cm inferior of right joint line: 40.9 cm PT-OP-K Range of Motion Start: 01/05/21 17:54 Freq: Status: Active Protocol: Document 03/09/21 14:30 DCW (Rec: 03/09/21 15:03 DCW [id number]) Knee Goniometric Range of Motion Knee Left Patient Position Supine Flexion Active (degrees) 110 Flexion Passive (degrees) 116 Extension Active (degrees) 10 Comments 16? ext lag PT-OP-M Strength Start: 01/05/21 17:54 Freq: Status: Active Protocol: Document 03/09/21 14:30 DCW (Rec: 03/09/21 15:03 DCW [id number]) Knee Strength Knee Manual Muscle Testing Left Flexion (S2) 4 Good Extension (L3) 4 Good PT-OP-Q Treatments Start: 01/05/21 17:54 Freq: Status: Active Protocol: Document 03/09/21 14:30 DCW (Rec: 03/09/21 15:27 DCW [id number]) Gym Equipment Shuttle Recovery Unilateral Squats Resistance 75# Shuttle Recovery Platform Stable Reps/Time x30 Bilateral Squats Resistance 125# Shuttle Recovery Platform Stable Reps/Time x30 Therapeutic Exercises Sitting Exercises 2 Sitting Exercise Name LAQ Side bilateral Resistance 5# 1 Sitting Exercise Name Hamstring Curl Side bilateral Resistance Lv 2 Equipment Used T-band Reps/Minutes x15 Standing Exercises 1 Standing Exercise Name TKE Side left Resistance Lv 2 Equipment Used T-band Manual Therapy Treatment Soft Tissue Mobilization 1 Body Location L knee Scar mobilization Joint Mobilizations 2 Joint L Patella Direction multidirectional Grade II Body Position Supine PT-OP-R Modalities Start: 01/05/21 17:54 Freq: Status: Active Protocol: Document 03/09/21 14:30 DCW (Rec: 03/09/21 15:27 DCW [id number]) Hot Pack/Cold Pack Treatment Cold Pack Location Left Patient Position Hooklying Treatment Duration (minutes) 15 Patient Tolerance Good PT-OP-T Assessment and Plan Start: 01/05/21 17:54 Freq: Status: Active Protocol: Document 03/09/21 14:30 DCW (Rec: 03/09/21 15:27 DCW [id number]) Physical Therapy Assessment Impairments Impairments Activity Tolerance,Edema, Functional Activities, Functional Mobility,Gait,Pain, ROM,Strength Goals Four Impairment Knee ROM limited 16?-32? Avionics System Engineer Goal (LTG) Pt to show improved ROM with < 3? extension and >116? flexion LTG Duration 04/08/21 Three Impairment Pt shows increased falls risk with time of 27.9 sec during TUG Avionics System Engineer Goal (LTG) Pt to complete TUG <13 seconds without an assistive device to demonstrate a decreased falls risk LTG Duration Met Two Impairment Pt ambulates using FWW with step-to gait Avionics System Engineer Goal (LTG) Pt to ambulate independently without an assistive device with a step-through gait pattern to improve community ambulation LTG Duration 05/09/21 One Impairment Pt does not have an appropriate home exercise program Short Term Goal (STG) Pt to be independent and compliant with an appropriate HEP STG Duration 04/08/21 Assessment Summary Assessment Pt progressing well, improved gait, doing well with knee strength. Still limited ROM, and additionally is limited with her left foot drop. Physical Therapy Plan Frequency and Duration Frequency of Treatment 2x/Week Duration of Treatment Two months Plan of Care Start Date 03/09/21 Plan of Care End Date 05/09/21 Therapeutic Interventions Therapeutic Interventions Aquatic Therapy,Gait Training, Home Exercise Program,Joint Mobilizations,Manual Therapy, Neuromuscular Re-education, Patient/Caregiver Education, Self-Care/Home Management,Soft Tissue Mobilization, Therapeutic Activities, Therapeutic Exercises Modalities Cold Pack/Ice Massage,Electric Stimulation,Hot Packs, Ultrasound Next Visit Focus/Plan Next Note Type Treatment Note Next Visit Plan ROM, strengthening, gait, improving activity tolerance
--- NOTE | 2021-03-09 15:28 | PT.OPPOC ---
Physical, Occupational & Speech Therapy At [facility] Current Diagnoses Unilateral primary osteoarthritis, left knee (03/09/21) Visit Care Team Role Provider Type Shalom Mari MD Family Provider Non-Staff Primary Care Provider Specialty: Medical Address: [address] [place] [address], [phone] Email: Quinn Carreon DO Attending Provider Non-Staff Referring Provider Specialty: Orthopedics Address: [address] [place] [address] [address], [place], [address] opt2 Email: Plan Of Care PT-OP-T Assessment and Plan Start: 01/05/21 17:54 Freq: Status: Active Protocol: Document 03/09/21 14:30 DCW (Rec: 03/09/21 15:27 DCW [id number]) Physical Therapy Assessment Impairments Impairments Activity Tolerance,Edema, Functional Activities, Functional Mobility,Gait,Pain, ROM,Strength Goals Four Impairment Knee ROM limited 16?-32? Skilled Nursing Goal (LTG) Pt to show improved ROM with < 3? extension and >116? flexion LTG Duration 04/08/21 Three Impairment Pt shows increased falls risk with time of 27.9 sec during TUG Skilled Nursing Goal (LTG) Pt to complete TUG <13 seconds without an assistive device to demonstrate a decreased falls risk LTG Duration Met Two Impairment Pt ambulates using FWW with step-to gait Corrections Officer Goal (LTG) Pt to ambulate independently without an assistive device with a step-through gait pattern to improve community ambulation LTG Duration 05/09/21 One Impairment Pt does not have an appropriate home exercise program Short Term Goal (STG) Pt to be independent and compliant with an appropriate HEP STG Duration 04/08/21 Assessment Summary Assessment Pt progressing well, improved gait, doing well with knee strength. Still limited ROM, and additionally is limited with her left foot drop. Physical Therapy Plan Frequency and Duration Frequency of Treatment 2x/Week Duration of Treatment Two months Plan of Care Start Date 03/09/21 Plan of Care End Date 05/09/21 Therapeutic Interventions Therapeutic Interventions Aquatic Therapy,Gait Training, Home Exercise Program,Joint Mobilizations,Manual Therapy, Neuromuscular Re-education, Patient/Caregiver Education, Self-Care/Home Management,Soft Tissue Mobilization, Therapeutic Activities, Therapeutic Exercises Modalities Cold Pack/Ice Massage,Electric Stimulation,Hot Packs, Ultrasound Next Visit Focus/Plan Next Note Type Treatment Note Next Visit Plan ROM, strengthening, gait, improving activity tolerance Plan of Care Dates Plan of Care Start Date 03/09/21 Plan of Care End Date 05/09/21 Electronically Signed by: Leobardo Rashid, PT 03/09/21 [id number] Please Sign and Return: I have reviewed this Plan of Care and certify that the skilled therapy services above are required to meet the patient?s needs. Physician Signature Date Printed Name and Credentials Clinical Instructor Signature Printed Name and Credentials
--- NOTE | 2021-03-12 12:44 | PT.OTN ---
Current Diagnoses Unilateral primary osteoarthritis, left knee (03/12/21) Physical Therapy Treatment Note PT-OP-A Visit Information Start: 01/05/21 17:54 Freq: Status: Active Protocol: Document 03/12/21 12:02 DCW (Rec: 03/12/21 12:44 DCW [id number]) Out-Patient Physical Therapy Visit Information Visit Information Visit Type Treatment Note Visit Start Time 12:02 Visit Stop Time 12:55 Total Visit Minutes 53 Visit Number 17 Number of MASON LINER Visits 0 Evaluation Information Evaluation Date 01/05/21 PT-OP-B Current Condition Start: 01/05/21 17:54 Freq: Status: Active Protocol: Document 01/05/21 15:15 DCW (Rec: 01/06/21 10:10 DCW [id number]) Current Condition History of Current Condition Onset Date 01/01/21 Current Complaints L TKA History of Current Condition Pt is a 60 year old female presenting four days s/p left TKA. Pt was supposed to undergo this surgery ~1 year ago, until elective surgeries were stopped secondary to Covid-19 shut-down. Pt admits she has not walked since she was discharged from the hospital three days previous, because she lives alone and does not feel safe without someone there to help her use the walker. Pt notes her pain is a 2/10, and she only used a pain pill for the first time prior to her eval today. Pt has been doing well overall with her post-op home exercises. PT-OP-C Subjective Start: 01/05/21 17:54 Freq: Status: Active Protocol: Document 03/12/21 12:02 DCW (Rec: 03/12/21 12:44 DCW [id number]) OP-PT Subjective Patient Comments Patient Comments Pt reports her knee feels fine today. PT-OP-E Functional Tests Start: 01/05/21 17:54 Freq: Status: Active Protocol: Document 03/09/21 14:30 DCW (Rec: 03/09/21 15:03 DCW [id number]) Functional Tests Timed Up and Go (TUG) Score 12.32 Comments 3-trial average (12.88, 12.11, 11.96) TUG Impairment Rating 20 to <40% Impaired (Score 12- 13) PT-OP-F Manual Assessment Start: 01/05/21 17:54 Freq: Status: Active Protocol: Document 03/09/21 14:30 DCW (Rec: 03/09/21 15:03 DCW [id number]) Manual Assessments Joint Mobility Assessment Joint Mobility Assessment Mild stiffness, minimal effusion PT-OP-G Mobility & Gait Start: 01/05/21 17:54 Freq: Status: Active Protocol: Document 03/09/21 14:30 DCW (Rec: 03/09/21 15:03 DCW [id number]) OP Gait Assessment Assistive Devices Assistive Device None Orthotic/Prosthetic Devices or Brace: No Gait Deviations General Gait Pattern Antalgic,Narrow Based Gait Factors Limiting Gait Function Factors Limiting Gait Function Decreased Strength,Limited Range of Motion,Pain,Poor Balance,Poor Safety Awareness PT-OP-J Posture/Palpation/Skin Start: 01/05/21 17:54 Freq: Status: Active Protocol: Document 03/09/21 14:30 DCW (Rec: 03/09/21 15:03 DCW [id number]) Skin Assessment Circumference Measurement 3 Location 10 cm superior of left joint line Measurement (Centimeters) 50.3 Comments 10 cm superior of right joint line: 48.4 cm 2 Location Left joint line Measurement (Centimeters) 42.9 Comments Right joint line: 40.0 cm 1 Location 10 cm inferior of left joint line Measurement (Centimeters) 42.0 Comments 10 cm inferior of right joint line: 40.9 cm PT-OP-K Range of Motion Start: 01/05/21 17:54 Freq: Status: Active Protocol: Document 03/09/21 14:30 DCW (Rec: 03/09/21 15:03 DCW [id number]) Knee Goniometric Range of Motion Knee Left Patient Position Supine Flexion Active (degrees) 110 Flexion Passive (degrees) 116 Extension Active (degrees) 10 Comments 16? ext lag PT-OP-M Strength Start: 01/05/21 17:54 Freq: Status: Active Protocol: Document 03/09/21 14:30 DCW (Rec: 03/09/21 15:03 DCW [id number]) Knee Strength Knee Manual Muscle Testing Left Flexion (S2) 4 Good Extension (L3) 4 Good PT-OP-Q Treatments Start: 01/05/21 17:54 Freq: Status: Active Protocol: Document 03/12/21 12:02 DCW (Rec: 03/12/21 12:44 DCW [id number]) Cardio Equipment Recumbent Bicycle Duration (Minutes) 5 Resistance 5 Seat Position 2 Other 2.0 miles Gym Equipment Shuttle Recovery Unilateral Squats Resistance 75# Shuttle Recovery Platform Stable Reps/Time x30 Bilateral Squats Resistance 125# Shuttle Recovery Platform Stable Reps/Time x30 Therapeutic Exercises Sitting Exercises 2 Sitting Exercise Name LAQ Side bilateral Resistance 5# 1 Sitting Exercise Name Hamstring Curl Side bilateral Resistance Lv 2 Equipment Used T-band Reps/Minutes x15 Standing Exercises 2 Standing Exercise Name Step flexion stretch 1 Standing Exercise Name TKE Side left Resistance Lv 2 Equipment Used T-band Manual Therapy Treatment Soft Tissue Mobilization 1 Body Location L knee Scar mobilization Joint Mobilizations 2 Joint L Patella Direction multidirectional Grade II Body Position Supine Other Other Manual Treatments PROM Flexion /c over pressure PT-OP-R Modalities Start: 01/05/21 17:54 Freq: Status: Active Protocol: Document 03/12/21 12:02 DCW (Rec: 03/12/21 12:44 DCW [id number]) Hot Pack/Cold Pack Treatment Cold Pack Location Left Patient Position Hooklying Treatment Duration (minutes) 15 Patient Tolerance Good PT-OP-T Assessment and Plan Start: 01/05/21 17:54 Freq: Status: Active Protocol: Document 03/12/21 12:02 DCW (Rec: 03/12/21 12:44 DCW [id number]) Physical Therapy Assessment Impairments Impairments Activity Tolerance,Edema, Functional Activities, Functional Mobility,Gait,Pain, ROM,Strength Goals Four Impairment Knee ROM limited 16?-32? Svp Programmatic Tv Goal (LTG) Pt to show improved ROM with < 3? extension and >116? flexion LTG Duration 04/08/21 Three Impairment Pt shows increased falls risk with time of 27.9 sec during TUG Svp Programmatic Tv Goal (LTG) Pt to complete TUG <13 seconds without an assistive device to demonstrate a decreased falls risk LTG Duration Met Two Impairment Pt ambulates using FWW with step-to gait Svp Programmatic Tv Goal (LTG) Pt to ambulate independently without an assistive device with a step-through gait pattern to improve community ambulation LTG Duration 05/09/21 One Impairment Pt does not have an appropriate home exercise program Short Term Goal (STG) Pt to be independent and compliant with an appropriate HEP STG Duration 04/08/21 Assessment Summary Assessment Pt actually showing increased strength/mobility of left dorsiflexion today, although still limited, able to lift against gravity. Physical Therapy Plan Frequency and Duration Frequency of Treatment 2x/Week Duration of Treatment Two months Plan of Care Start Date 03/09/21 Plan of Care End Date 05/09/21 Therapeutic Interventions Therapeutic Interventions Aquatic Therapy,Gait Training, Home Exercise Program,Joint Mobilizations,Manual Therapy, Neuromuscular Re-education, Patient/Caregiver Education, Self-Care/Home Management,Soft Tissue Mobilization, Therapeutic Activities, Therapeutic Exercises Modalities Cold Pack/Ice Massage,Electric Stimulation,Hot Packs, Ultrasound Next Visit Focus/Plan Next Note Type Treatment Note Next Visit Plan ROM, strengthening, gait, improving activity tolerance
--- NOTE | 2021-03-16 15:16 | PT.OTN ---
Current Diagnoses Unilateral primary osteoarthritis, left knee (03/16/21) Physical Therapy Treatment Note PT-OP-A Visit Information Start: 01/05/21 17:54 Freq: Status: Active Protocol: Document 03/16/21 14:30 DCW (Rec: 03/16/21 15:16 DCW [id number]) Out-Patient Physical Therapy Visit Information Visit Information Visit Type Treatment Note Visit Start Time 14:30 Visit Stop Time 15:25 Total Visit Minutes 55 Visit Number 18 Number of FINISHING AREA OPERATOR Visits 0 Evaluation Information Evaluation Date 01/05/21 PT-OP-B Current Condition Start: 01/05/21 17:54 Freq: Status: Active Protocol: Document 01/05/21 15:15 DCW (Rec: 01/06/21 10:10 DCW [id number]) Current Condition History of Current Condition Onset Date 01/01/21 Current Complaints L TKA History of Current Condition Pt is a 60 year old female presenting four days s/p left TKA. Pt was supposed to undergo this surgery ~1 year ago, until elective surgeries were stopped secondary to Covid-19 shut-down. Pt admits she has not walked since she was discharged from the hospital three days previous, because she lives alone and does not feel safe without someone there to help her use the walker. Pt notes her pain is a 2/10, and she only used a pain pill for the first time prior to her eval today. Pt has been doing well overall with her post-op home exercises. PT-OP-C Subjective Start: 01/05/21 17:54 Freq: Status: Active Protocol: Document 03/16/21 14:30 DCW (Rec: 03/16/21 15:16 DCW [id number]) OP-PT Subjective Patient Comments Patient Comments I twisted my left ankle today trying to push the emergency break off on my car. It didn't feel good. PT-OP-E Functional Tests Start: 01/05/21 17:54 Freq: Status: Active Protocol: Document 03/09/21 14:30 DCW (Rec: 03/09/21 15:03 DCW [id number]) Functional Tests Timed Up and Go (TUG) Score 12.32 Comments 3-trial average (12.88, 12.11, 11.96) TUG Impairment Rating 20 to <40% Impaired (Score 12- 13) PT-OP-F Manual Assessment Start: 01/05/21 17:54 Freq: Status: Active Protocol: Document 03/09/21 14:30 DCW (Rec: 03/09/21 15:03 DCW [id number]) Manual Assessments Joint Mobility Assessment Joint Mobility Assessment Mild stiffness, minimal effusion PT-OP-G Mobility & Gait Start: 01/05/21 17:54 Freq: Status: Active Protocol: Document 03/09/21 14:30 DCW (Rec: 03/09/21 15:03 DCW [id number]) OP Gait Assessment Assistive Devices Assistive Device None Orthotic/Prosthetic Devices or Brace: No Gait Deviations General Gait Pattern Antalgic,Narrow Based Gait Factors Limiting Gait Function Factors Limiting Gait Function Decreased Strength,Limited Range of Motion,Pain,Poor Balance,Poor Safety Awareness PT-OP-J Posture/Palpation/Skin Start: 01/05/21 17:54 Freq: Status: Active Protocol: Document 03/09/21 14:30 DCW (Rec: 03/09/21 15:03 DCW [id number]) Skin Assessment Circumference Measurement 3 Location 10 cm superior of left joint line Measurement (Centimeters) 50.3 Comments 10 cm superior of right joint line: 48.4 cm 2 Location Left joint line Measurement (Centimeters) 42.9 Comments Right joint line: 40.0 cm 1 Location 10 cm inferior of left joint line Measurement (Centimeters) 42.0 Comments 10 cm inferior of right joint line: 40.9 cm PT-OP-K Range of Motion Start: 01/05/21 17:54 Freq: Status: Active Protocol: Document 03/09/21 14:30 DCW (Rec: 03/09/21 15:03 DCW [id number]) Knee Goniometric Range of Motion Knee Left Patient Position Supine Flexion Active (degrees) 110 Flexion Passive (degrees) 116 Extension Active (degrees) 10 Comments 16? ext lag PT-OP-M Strength Start: 01/05/21 17:54 Freq: Status: Active Protocol: Document 03/09/21 14:30 DCW (Rec: 03/09/21 15:03 DCW [id number]) Knee Strength Knee Manual Muscle Testing Left Flexion (S2) 4 Good Extension (L3) 4 Good PT-OP-Q Treatments Start: 01/05/21 17:54 Freq: Status: Active Protocol: Document 03/16/21 14:30 DCW (Rec: 03/16/21 15:16 DCW [id number]) Cardio Equipment Recumbent Bicycle Duration (Minutes) 5 Resistance 5 Seat Position 2 Other 2.0 miles Gym Equipment Shuttle Recovery Unilateral Squats Resistance 75# Shuttle Recovery Platform Stable Reps/Time x30 Bilateral Squats Resistance 125# Shuttle Recovery Platform Stable Reps/Time x30 Therapeutic Exercises Sitting Exercises 2 Sitting Exercise Name LAQ Side bilateral Resistance 5# 1 Sitting Exercise Name Hamstring Curl Side bilateral Resistance Lv 2 Equipment Used T-band Reps/Minutes x15 Standing Exercises 2 Standing Exercise Name Step flexion stretch 1 Standing Exercise Name TKE Side left Resistance Lv 2 Equipment Used T-band Manual Therapy Treatment Soft Tissue Mobilization 1 Body Location L knee Scar mobilization Joint Mobilizations 2 Joint L Patella Direction multidirectional Grade II Body Position Supine Other Other Manual Treatments PROM Flexion /c over pressure PT-OP-R Modalities Start: 01/05/21 17:54 Freq: Status: Active Protocol: Document 03/16/21 14:30 DCW (Rec: 03/16/21 15:16 DCW [id number]) Hot Pack/Cold Pack Treatment Cold Pack Location Left Patient Position Hooklying Treatment Duration (minutes) 15 Patient Tolerance Good PT-OP-T Assessment and Plan Start: 01/05/21 17:54 Freq: Status: Active Protocol: Document 03/16/21 14:30 DCW (Rec: 03/16/21 15:16 DCW [id number]) Physical Therapy Assessment Impairments Impairments Activity Tolerance,Edema, Functional Activities, Functional Mobility,Gait,Pain, ROM,Strength Goals Four Impairment Knee ROM limited 16?-32? Alf Goal (LTG) Pt to show improved ROM with < 3? extension and >116? flexion LTG Duration 04/08/21 Three Impairment Pt shows increased falls risk with time of 27.9 sec during TUG Chemistry Teacher Goal (LTG) Pt to complete TUG <13 seconds without an assistive device to demonstrate a decreased falls risk LTG Duration Met Two Impairment Pt ambulates using FWW with step-to gait Alf Goal (LTG) Pt to ambulate independently without an assistive device with a step-through gait pattern to improve community ambulation LTG Duration 05/09/21 One Impairment Pt does not have an appropriate home exercise program Short Term Goal (STG) Pt to be independent and compliant with an appropriate HEP STG Duration 04/08/21 Assessment Summary Assessment Pt tolerated treatment well today, improving ROM and stability through knee. some mild continued improvement with ankle DF. Physical Therapy Plan Frequency and Duration Frequency of Treatment 2x/Week Duration of Treatment Two months Plan of Care Start Date 03/09/21 Plan of Care End Date 05/09/21 Therapeutic Interventions Therapeutic Interventions Aquatic Therapy,Gait Training, Home Exercise Program,Joint Mobilizations,Manual Therapy, Neuromuscular Re-education, Patient/Caregiver Education, Self-Care/Home Management,Soft Tissue Mobilization, Therapeutic Activities, Therapeutic Exercises Modalities Cold Pack/Ice Massage,Electric Stimulation,Hot Packs, Ultrasound Next Visit Focus/Plan Next Note Type Treatment Note Next Visit Plan ROM, strengthening, gait, improving activity tolerance
--- NOTE | 2021-03-18 12:42 | PT.OTN ---
Current Diagnoses Unilateral primary osteoarthritis, left knee (03/18/21) Physical Therapy Treatment Note PT-OP-A Visit Information Start: 01/05/21 17:54 Freq: Status: Active Protocol: Document 03/18/21 12:00 DCW (Rec: 03/18/21 12:42 DCW [id number]) Out-Patient Physical Therapy Visit Information Visit Information Visit Type Treatment Note Visit Start Time 12:00 Visit Stop Time 12:55 Total Visit Minutes 55 Visit Number 19 Number of EYEGLASS MAKER Visits 0 Evaluation Information Evaluation Date 01/05/21 PT-OP-B Current Condition Start: 01/05/21 17:54 Freq: Status: Active Protocol: Document 01/05/21 15:15 DCW (Rec: 01/06/21 10:10 DCW [id number]) Current Condition History of Current Condition Onset Date 01/01/21 Current Complaints L TKA History of Current Condition Pt is a 60 year old female presenting four days s/p left TKA. Pt was supposed to undergo this surgery ~1 year ago, until elective surgeries were stopped secondary to Covid-19 shut-down. Pt admits she has not walked since she was discharged from the hospital three days previous, because she lives alone and does not feel safe without someone there to help her use the walker. Pt notes her pain is a 2/10, and she only used a pain pill for the first time prior to her eval today. Pt has been doing well overall with her post-op home exercises. PT-OP-C Subjective Start: 01/05/21 17:54 Freq: Status: Active Protocol: Document 03/18/21 12:00 DCW (Rec: 03/18/21 12:42 DCW [id number]) OP-PT Subjective Patient Comments Patient Comments Pt notes she will try again to get her brace next week. PT-OP-E Functional Tests Start: 01/05/21 17:54 Freq: Status: Active Protocol: Document 03/09/21 14:30 DCW (Rec: 03/09/21 15:03 DCW [id number]) Functional Tests Timed Up and Go (TUG) Score 12.32 Comments 3-trial average (12.88, 12.11, 11.96) TUG Impairment Rating 20 to <40% Impaired (Score 12- 13) PT-OP-F Manual Assessment Start: 01/05/21 17:54 Freq: Status: Active Protocol: Document 03/09/21 14:30 DCW (Rec: 03/09/21 15:03 DCW [id number]) Manual Assessments Joint Mobility Assessment Joint Mobility Assessment Mild stiffness, minimal effusion PT-OP-G Mobility & Gait Start: 01/05/21 17:54 Freq: Status: Active Protocol: Document 03/09/21 14:30 DCW (Rec: 03/09/21 15:03 DCW [id number]) OP Gait Assessment Assistive Devices Assistive Device None Orthotic/Prosthetic Devices or Brace: No Gait Deviations General Gait Pattern Antalgic,Narrow Based Gait Factors Limiting Gait Function Factors Limiting Gait Function Decreased Strength,Limited Range of Motion,Pain,Poor Balance,Poor Safety Awareness PT-OP-J Posture/Palpation/Skin Start: 01/05/21 17:54 Freq: Status: Active Protocol: Document 03/09/21 14:30 DCW (Rec: 03/09/21 15:03 DCW [id number]) Skin Assessment Circumference Measurement 3 Location 10 cm superior of left joint line Measurement (Centimeters) 50.3 Comments 10 cm superior of right joint line: 48.4 cm 2 Location Left joint line Measurement (Centimeters) 42.9 Comments Right joint line: 40.0 cm 1 Location 10 cm inferior of left joint line Measurement (Centimeters) 42.0 Comments 10 cm inferior of right joint line: 40.9 cm PT-OP-K Range of Motion Start: 01/05/21 17:54 Freq: Status: Active Protocol: Document 03/09/21 14:30 DCW (Rec: 03/09/21 15:03 DCW [id number]) Knee Goniometric Range of Motion Knee Left Patient Position Supine Flexion Active (degrees) 110 Flexion Passive (degrees) 116 Extension Active (degrees) 10 Comments 16? ext lag PT-OP-M Strength Start: 01/05/21 17:54 Freq: Status: Active Protocol: Document 03/09/21 14:30 DCW (Rec: 03/09/21 15:03 DCW [id number]) Knee Strength Knee Manual Muscle Testing Left Flexion (S2) 4 Good Extension (L3) 4 Good PT-OP-Q Treatments Start: 01/05/21 17:54 Freq: Status: Active Protocol: Document 03/18/21 12:00 DCW (Rec: 03/18/21 12:42 DCW [id number]) Cardio Equipment Recumbent Bicycle Duration (Minutes) 5 Resistance 5 Seat Position 2 Other 2.0 miles Gym Equipment Shuttle Recovery Unilateral Squats Resistance 75# Shuttle Recovery Platform Stable Reps/Time x30 Bilateral Squats Resistance 125# Shuttle Recovery Platform Stable Reps/Time x30 Therapeutic Exercises Sitting Exercises 2 Sitting Exercise Name LAQ Side bilateral Resistance 5# 1 Sitting Exercise Name Hamstring Curl Side bilateral Resistance Lv 2 Equipment Used T-band Reps/Minutes x15 Standing Exercises 2 Standing Exercise Name Step flexion stretch 1 Standing Exercise Name TKE Side left Resistance Lv 2 Equipment Used T-band Manual Therapy Treatment Soft Tissue Mobilization 1 Body Location L knee Scar mobilization Joint Mobilizations 2 Joint L Patella Direction multidirectional Grade II Body Position Supine Other Other Manual Treatments PROM Flexion /c over pressure PT-OP-R Modalities Start: 01/05/21 17:54 Freq: Status: Active Protocol: Document 03/18/21 12:00 DCW (Rec: 03/18/21 12:42 DCW [id number]) Hot Pack/Cold Pack Treatment Cold Pack Location Left Patient Position Hooklying Treatment Duration (minutes) 15 Patient Tolerance Good PT-OP-T Assessment and Plan Start: 01/05/21 17:54 Freq: Status: Active Protocol: Document 03/18/21 12:00 DCW (Rec: 03/18/21 12:42 DCW [id number]) Physical Therapy Assessment Impairments Impairments Activity Tolerance,Edema, Functional Activities, Functional Mobility,Gait,Pain, ROM,Strength Goals Four Impairment Knee ROM limited 16?-32? Tech Writer Goal (LTG) Pt to show improved ROM with < 3? extension and >116? flexion LTG Duration 04/08/21 Three Impairment Pt shows increased falls risk with time of 27.9 sec during TUG Tech Writer Goal (LTG) Pt to complete TUG <13 seconds without an assistive device to demonstrate a decreased falls risk LTG Duration Met Two Impairment Pt ambulates using FWW with step-to gait Tech Writer Goal (LTG) Pt to ambulate independently without an assistive device with a step-through gait pattern to improve community ambulation LTG Duration 05/09/21 One Impairment Pt does not have an appropriate home exercise program Short Term Goal (STG) Pt to be independent and compliant with an appropriate HEP STG Duration 7/1/21 Assessment Summary Assessment Pt working on finally getting her ankle brace to limit foot drop. Improved knee ROM Physical Therapy Plan Frequency and Duration Frequency of Treatment 2x/Week Duration of Treatment Two months Plan of Care Start Date 03/09/21 Plan of Care End Date 05/09/21 Therapeutic Interventions Therapeutic Interventions Aquatic Therapy,Gait Training, Home Exercise Program,Joint Mobilizations,Manual Therapy, Neuromuscular Re-education, Patient/Caregiver Education, Self-Care/Home Management,Soft Tissue Mobilization, Therapeutic Activities, Therapeutic Exercises Modalities Cold Pack/Ice Massage,Electric Stimulation,Hot Packs, Ultrasound Next Visit Focus/Plan Next Note Type Treatment Note Next Visit Plan ROM, strengthening, gait, improving activity tolerance
--- NOTE | 2021-03-30 15:56 | PT.OTN ---
Current Diagnoses Unilateral primary osteoarthritis, left knee (03/30/21) Physical Therapy Treatment Note PT-OP-A Visit Information Start: 01/05/21 17:54 Freq: Status: Active Protocol: Document 03/30/21 15:15 DCW (Rec: 03/30/21 15:56 DCW [id number]) Out-Patient Physical Therapy Visit Information Visit Information Visit Type Treatment Note Visit Start Time 15:15 Visit Stop Time 16:10 Total Visit Minutes 55 Visit Number 20 Number of NEWSPERSON Visits 0 Evaluation Information Evaluation Date 01/05/21 PT-OP-B Current Condition Start: 01/05/21 17:54 Freq: Status: Active Protocol: Document 01/05/21 15:15 DCW (Rec: 01/06/21 10:10 DCW [id number]) Current Condition History of Current Condition Onset Date 01/01/21 Current Complaints L TKA History of Current Condition Pt is a 60 year old female presenting four days s/p left TKA. Pt was supposed to undergo this surgery ~1 year ago, until elective surgeries were stopped secondary to Covid-19 shut-down. Pt admits she has not walked since she was discharged from the hospital three days previous, because she lives alone and does not feel safe without someone there to help her use the walker. Pt notes her pain is a 2/10, and she only used a pain pill for the first time prior to her eval today. Pt has been doing well overall with her post-op home exercises. PT-OP-C Subjective Start: 01/05/21 17:54 Freq: Status: Active Protocol: Document 03/30/21 15:15 DCW (Rec: 03/30/21 15:56 DCW [id number]) OP-PT Subjective Patient Comments Patient Comments Pt attends today's appointment wearing her new AFO. PT-OP-E Functional Tests Start: 01/05/21 17:54 Freq: Status: Active Protocol: Document 03/09/21 14:30 DCW (Rec: 03/09/21 15:03 DCW [id number]) Functional Tests Timed Up and Go (TUG) Score 12.32 Comments 3-trial average (12.88, 12.11, 11.96) TUG Impairment Rating 20 to <40% Impaired (Score 12- 13) PT-OP-F Manual Assessment Start: 01/05/21 17:54 Freq: Status: Active Protocol: Document 03/09/21 14:30 DCW (Rec: 03/09/21 15:03 DCW [id number]) Manual Assessments Joint Mobility Assessment Joint Mobility Assessment Mild stiffness, minimal effusion PT-OP-G Mobility & Gait Start: 01/05/21 17:54 Freq: Status: Active Protocol: Document 03/09/21 14:30 DCW (Rec: 03/09/21 15:03 DCW [id number]) OP Gait Assessment Assistive Devices Assistive Device None Orthotic/Prosthetic Devices or Brace: No Gait Deviations General Gait Pattern Antalgic,Narrow Based Gait Factors Limiting Gait Function Factors Limiting Gait Function Decreased Strength,Limited Range of Motion,Pain,Poor Balance,Poor Safety Awareness PT-OP-J Posture/Palpation/Skin Start: 01/05/21 17:54 Freq: Status: Active Protocol: Document 03/09/21 14:30 DCW (Rec: 03/09/21 15:03 DCW [id number]) Skin Assessment Circumference Measurement 3 Location 10 cm superior of left joint line Measurement (Centimeters) 50.3 Comments 10 cm superior of right joint line: 48.4 cm 2 Location Left joint line Measurement (Centimeters) 42.9 Comments Right joint line: 40.0 cm 1 Location 10 cm inferior of left joint line Measurement (Centimeters) 42.0 Comments 10 cm inferior of right joint line: 40.9 cm PT-OP-K Range of Motion Start: 01/05/21 17:54 Freq: Status: Active Protocol: Document 03/09/21 14:30 DCW (Rec: 03/09/21 15:03 DCW [id number]) Knee Goniometric Range of Motion Knee Left Patient Position Supine Flexion Active (degrees) 110 Flexion Passive (degrees) 116 Extension Active (degrees) 10 Comments 16? ext lag PT-OP-M Strength Start: 01/05/21 17:54 Freq: Status: Active Protocol: Document 03/09/21 14:30 DCW (Rec: 03/09/21 15:03 DCW [id number]) Knee Strength Knee Manual Muscle Testing Left Flexion (S2) 4 Good Extension (L3) 4 Good PT-OP-Q Treatments Start: 01/05/21 17:54 Freq: Status: Active Protocol: Document 03/30/21 15:15 DCW (Rec: 03/30/21 15:56 DCW [id number]) Cardio Equipment Recumbent Bicycle Duration (Minutes) 5 Resistance 5 Seat Position 2 Other 2.0 miles Gym Equipment Shuttle Recovery Unilateral Squats Resistance 75# Shuttle Recovery Platform Stable Reps/Time x30 Bilateral Squats Resistance 125# Shuttle Recovery Platform Stable Reps/Time x30 Therapeutic Exercises Sitting Exercises 2 Sitting Exercise Name LAQ Side bilateral Resistance 5# 1 Sitting Exercise Name Hamstring Curl Side bilateral Resistance Lv 2 Equipment Used T-band Reps/Minutes x15 Standing Exercises 2 Standing Exercise Name Step flexion stretch 1 Standing Exercise Name TKE Side left Resistance Lv 2 Equipment Used T-band Manual Therapy Treatment Soft Tissue Mobilization 1 Body Location L knee Scar mobilization Joint Mobilizations 2 Joint L Patella Direction multidirectional Grade II Body Position Supine Other Other Manual Treatments PROM Flexion /c over pressure PT-OP-R Modalities Start: 01/05/21 17:54 Freq: Status: Active Protocol: Document 03/30/21 15:15 DCW (Rec: 03/30/21 15:56 DCW [id number]) Hot Pack/Cold Pack Treatment Cold Pack Location Left Patient Position Hooklying Treatment Duration (minutes) 15 Patient Tolerance Good PT-OP-T Assessment and Plan Start: 01/05/21 17:54 Freq: Status: Active Protocol: Document 03/30/21 15:15 DCW (Rec: 03/30/21 15:56 DCW [id number]) Physical Therapy Assessment Impairments Impairments Activity Tolerance,Edema, Functional Activities, Functional Mobility,Gait,Pain, ROM,Strength Goals Four Impairment Knee ROM limited 16?-32? Skilled Nursing Goal (LTG) Pt to show improved ROM with < 3? extension and >116? flexion LTG Duration 04/08/21 Three Impairment Pt shows increased falls risk with time of 27.9 sec during TUG [employer] Goal (LTG) Pt to complete TUG <13 seconds without an assistive device to demonstrate a decreased falls risk LTG Duration Met Two Impairment Pt ambulates using FWW with step-to gait Skilled Nursing Goal (LTG) Pt to ambulate independently without an assistive device with a step-through gait pattern to improve community ambulation LTG Duration 05/09/21 One Impairment Pt does not have an appropriate home exercise program Short Term Goal (STG) Pt to be independent and compliant with an appropriate HEP STG Duration 04/08/21 Assessment Summary Assessment Pt doing well overall, using her brace regularly since obtaining it last week. Physical Therapy Plan Frequency and Duration Frequency of Treatment 2x/Week Duration of Treatment Two months Plan of Care Start Date 03/09/21 Plan of Care End Date 05/09/21 Therapeutic Interventions Therapeutic Interventions Aquatic Therapy,Gait Training, Home Exercise Program,Joint Mobilizations,Manual Therapy, Neuromuscular Re-education, Patient/Caregiver Education, Self-Care/Home Management,Soft Tissue Mobilization, Therapeutic Activities, Therapeutic Exercises Modalities Cold Pack/Ice Massage,Electric Stimulation,Hot Packs, Ultrasound Next Visit Focus/Plan Next Note Type Treatment Note Next Visit Plan ROM, strengthening, gait, improving activity tolerance
--- NOTE | 2021-04-20 15:57 | PT.OTN ---
Current Diagnoses Unilateral primary osteoarthritis, left knee (04/20/21) Physical Therapy Treatment Note PT-OP-A Visit Information Start: 01/05/21 17:54 Freq: Status: Active Protocol: Document 04/20/21 15:15 DCW (Rec: 04/20/21 15:57 [facility] [id number]) Out-Patient Physical Therapy Visit Information Visit Information Visit Type Treatment Note Visit Start Time 15:15 Visit Stop Time 16:10 Total Visit Minutes 55 Visit Number 21 Number of AUTOMOBILE BODY REPAIR CHIEF Visits 0 Evaluation Information Evaluation Date 01/05/21 PT-OP-B Current Condition Start: 01/05/21 17:54 Freq: Status: Active Protocol: Document 01/05/21 15:15 DCW (Rec: 01/06/21 10:10 DCW [id number]) Current Condition History of Current Condition Onset Date 01/01/21 Current Complaints L TKA History of Current Condition Pt is a 60 year old female presenting four days s/p left TKA. Pt was supposed to undergo this surgery ~1 year ago, until elective surgeries were stopped secondary to Covid-19 shut-down. Pt admits she has not walked since she was discharged from the hospital three days previous, because she lives alone and does not feel safe without someone there to help her use the walker. Pt notes her pain is a 2/10, and she only used a pain pill for the first time prior to her eval today. Pt has been doing well overall with her post-op home exercises. PT-OP-C Subjective Start: 01/05/21 17:54 Freq: Status: Active Protocol: Document 04/20/21 15:15 DCW (Rec: 04/20/21 15:57 DCW [id number]) OP-PT Subjective Patient Comments Patient Comments Pt reports she is going to have a nerve study May 05, and then has a follow-up with Dr Carreon May 10. PT-OP-E Functional Tests Start: 01/05/21 17:54 Freq: Status: Active Protocol: Document 03/09/21 14:30 DCW (Rec: 03/09/21 15:03 DCW [id number]) Functional Tests Timed Up and Go (TUG) Score 12.32 Comments 3-trial average (12.88, 12.11, 11.96) TUG Impairment Rating 20 to <40% Impaired (Score 12- 13) PT-OP-F Manual Assessment Start: 01/05/21 17:54 Freq: Status: Active Protocol: Document 03/09/21 14:30 DCW (Rec: 03/09/21 15:03 DCW [id number]) Manual Assessments Joint Mobility Assessment Joint Mobility Assessment Mild stiffness, minimal effusion PT-OP-G Mobility & Gait Start: 01/05/21 17:54 Freq: Status: Active Protocol: Document 03/09/21 14:30 DCW (Rec: 03/09/21 15:03 DCW [id number]) OP Gait Assessment Assistive Devices Assistive Device None Orthotic/Prosthetic Devices or Brace: No Gait Deviations General Gait Pattern Antalgic,Narrow Based Gait Factors Limiting Gait Function Factors Limiting Gait Function Decreased Strength,Limited Range of Motion,Pain,Poor Balance,Poor Safety Awareness PT-OP-J Posture/Palpation/Skin Start: 01/05/21 17:54 Freq: Status: Active Protocol: Document 03/09/21 14:30 DCW (Rec: 03/09/21 15:03 DCW [id number]) Skin Assessment Circumference Measurement 3 Location 10 cm superior of left joint line Measurement (Centimeters) 50.3 Comments 10 cm superior of right joint line: 48.4 cm 2 Location Left joint line Measurement (Centimeters) 42.9 Comments Right joint line: 40.0 cm 1 Location 10 cm inferior of left joint line Measurement (Centimeters) 42.0 Comments 10 cm inferior of right joint line: 40.9 cm PT-OP-K Range of Motion Start: 01/05/21 17:54 Freq: Status: Active Protocol: Document 03/09/21 14:30 DCW (Rec: 03/09/21 15:03 DCW [id number]) Knee Goniometric Range of Motion Knee Left Patient Position Supine Flexion Active (degrees) 110 Flexion Passive (degrees) 116 Extension Active (degrees) 10 Comments 16? ext lag PT-OP-M Strength Start: 01/05/21 17:54 Freq: Status: Active Protocol: Document 03/09/21 14:30 DCW (Rec: 03/09/21 15:03 DCW [id number]) Knee Strength Knee Manual Muscle Testing Left Flexion (S2) 4 Good Extension (L3) 4 Good PT-OP-Q Treatments Start: 01/05/21 17:54 Freq: Status: Active Protocol: Document 04/20/21 15:15 DCW (Rec: 04/20/21 15:57 [facility] [id number]) Cardio Equipment Recumbent Bicycle Duration (Minutes) 5 Resistance 5 Seat Position 2 Other 2.0 miles Gym Equipment Shuttle Recovery Unilateral Squats Resistance 75# Shuttle Recovery Platform Stable Reps/Time x30 Bilateral Squats Resistance 125# Shuttle Recovery Platform Stable Reps/Time x30 Therapeutic Exercises Sitting Exercises 2 Sitting Exercise Name LAQ Side bilateral Resistance 5# 1 Sitting Exercise Name Hamstring Curl Side bilateral Resistance Lv 3 Equipment Used T-band Reps/Minutes x15 Standing Exercises 1 Standing Exercise Name TKE Side left Resistance Lv 3 Equipment Used T-band Manual Therapy Treatment Soft Tissue Mobilization 1 Body Location L knee Scar mobilization Joint Mobilizations 2 Joint L Patella Direction multidirectional Grade II Body Position Supine Other Other Manual Treatments PROM Flexion /c over pressure PT-OP-R Modalities Start: 01/05/21 17:54 Freq: Status: Active Protocol: Document 04/20/21 15:15 DCW (Rec: 04/20/21 15:57 [facility] [id number]) Hot Pack/Cold Pack Treatment Cold Pack Location Left Patient Position Hooklying Treatment Duration (minutes) 15 Patient Tolerance Good PT-OP-T Assessment and Plan Start: 01/05/21 17:54 Freq: Status: Active Protocol: Document 04/20/21 15:15 DCW (Rec: 04/20/21 15:57 [facility] [id number]) Physical Therapy Assessment Impairments Impairments Activity Tolerance,Edema, Functional Activities, Functional Mobility,Gait,Pain, ROM,Strength Goals Four Impairment Knee ROM limited 16?-32? Fdc Goal (LTG) Pt to show improved ROM with < 3? extension and >116? flexion LTG Duration 04/08/21 Three Impairment Pt shows increased falls risk with time of 27.9 sec during TUG [employer] Goal (LTG) Pt to complete TUG <13 seconds without an assistive device to demonstrate a decreased falls risk LTG Duration Met Two Impairment Pt ambulates using FWW with step-to gait Fdc Goal (LTG) Pt to ambulate independently without an assistive device with a step-through gait pattern to improve community ambulation LTG Duration 05/09/21 One Impairment Pt does not have an appropriate home exercise program Short Term Goal (STG) Pt to be independent and compliant with an appropriate HEP STG Duration 04/08/21 Assessment Summary Assessment Pt continues to do well following her vacation, progressing well, however still limited with her dorsiflexion. Physical Therapy Plan Frequency and Duration Frequency of Treatment 2x/Week Duration of Treatment Two months Plan of Care Start Date 03/09/21 Plan of Care End Date 05/09/21 Therapeutic Interventions Therapeutic Interventions Aquatic Therapy,Gait Training, Home Exercise Program,Joint Mobilizations,Manual Therapy, Neuromuscular Re-education, Patient/Caregiver Education, Self-Care/Home Management,Soft Tissue Mobilization, Therapeutic Activities, Therapeutic Exercises Modalities Cold Pack/Ice Massage,Electric Stimulation,Hot Packs, Ultrasound Next Visit Focus/Plan Next Note Type Treatment Note Next Visit Plan ROM, strengthening, gait, improving activity tolerance
--- NOTE | 2021-04-23 15:55 | PT.OTN ---
Current Diagnoses Unilateral primary osteoarthritis, left knee (04/23/21) Physical Therapy Treatment Note PT-OP-A Visit Information Start: 01/05/21 17:54 Freq: Status: Active Protocol: Document 04/23/21 15:17 DCW (Rec: 04/23/21 15:55 DCW [id number]) Out-Patient Physical Therapy Visit Information Visit Information Visit Type Treatment Note Visit Start Time 15:17 Visit Stop Time 16:10 Total Visit Minutes 53 Visit Number 22 Number of CHUCKING MACHINE SET UP OPERATOR Visits 0 Evaluation Information Evaluation Date 01/05/21 PT-OP-B Current Condition Start: 01/05/21 17:54 Freq: Status: Active Protocol: Document 01/05/21 15:15 DCW (Rec: 01/06/21 10:10 DCW [id number]) Current Condition History of Current Condition Onset Date 01/01/21 Current Complaints L TKA History of Current Condition Pt is a 60 year old female presenting four days s/p left TKA. Pt was supposed to undergo this surgery ~1 year ago, until elective surgeries were stopped secondary to Covid-19 shut-down. Pt admits she has not walked since she was discharged from the hospital three days previous, because she lives alone and does not feel safe without someone there to help her use the walker. Pt notes her pain is a 2/10, and she only used a pain pill for the first time prior to her eval today. Pt has been doing well overall with her post-op home exercises. PT-OP-C Subjective Start: 01/05/21 17:54 Freq: Status: Active Protocol: Document 04/23/21 15:17 DCW (Rec: 04/23/21 15:55 DCW [id number]) OP-PT Subjective Patient Comments Patient Comments Pt excited today, she just got two new cats. PT-OP-E Functional Tests Start: 01/05/21 17:54 Freq: Status: Active Protocol: Document 03/09/21 14:30 DCW (Rec: 03/09/21 15:03 DCW [id number]) Functional Tests Timed Up and Go (TUG) Score 12.32 Comments 3-trial average (12.88, 12.11, 11.96) TUG Impairment Rating 20 to <40% Impaired (Score 12- 13) PT-OP-F Manual Assessment Start: 01/05/21 17:54 Freq: Status: Active Protocol: Document 03/09/21 14:30 DCW (Rec: 03/09/21 15:03 DCW [id number]) Manual Assessments Joint Mobility Assessment Joint Mobility Assessment Mild stiffness, minimal effusion PT-OP-G Mobility & Gait Start: 01/05/21 17:54 Freq: Status: Active Protocol: Document 03/09/21 14:30 DCW (Rec: 03/09/21 15:03 DCW [id number]) OP Gait Assessment Assistive Devices Assistive Device None Orthotic/Prosthetic Devices or Brace: No Gait Deviations General Gait Pattern Antalgic,Narrow Based Gait Factors Limiting Gait Function Factors Limiting Gait Function Decreased Strength,Limited Range of Motion,Pain,Poor Balance,Poor Safety Awareness PT-OP-J Posture/Palpation/Skin Start: 01/05/21 17:54 Freq: Status: Active Protocol: Document 03/09/21 14:30 DCW (Rec: 03/09/21 15:03 DCW [id number]) Skin Assessment Circumference Measurement 3 Location 10 cm superior of left joint line Measurement (Centimeters) 50.3 Comments 10 cm superior of right joint line: 48.4 cm 2 Location Left joint line Measurement (Centimeters) 42.9 Comments Right joint line: 40.0 cm 1 Location 10 cm inferior of left joint line Measurement (Centimeters) 42.0 Comments 10 cm inferior of right joint line: 40.9 cm PT-OP-K Range of Motion Start: 01/05/21 17:54 Freq: Status: Active Protocol: Document 03/09/21 14:30 DCW (Rec: 03/09/21 15:03 DCW [id number]) Knee Goniometric Range of Motion Knee Left Patient Position Supine Flexion Active (degrees) 110 Flexion Passive (degrees) 116 Extension Active (degrees) 10 Comments 16? ext lag PT-OP-M Strength Start: 01/05/21 17:54 Freq: Status: Active Protocol: Document 03/09/21 14:30 DCW (Rec: 03/09/21 15:03 DCW [id number]) Knee Strength Knee Manual Muscle Testing Left Flexion (S2) 4 Good Extension (L3) 4 Good PT-OP-Q Treatments Start: 01/05/21 17:54 Freq: Status: Active Protocol: Document 04/23/21 15:17 DCW (Rec: 04/23/21 15:55 DCW [id number]) Cardio Equipment Recumbent Bicycle Duration (Minutes) 5 Resistance 5 Seat Position 2 Other 2.0 miles Gym Equipment Shuttle Recovery Unilateral Squats Resistance 75# Shuttle Recovery Platform Stable Reps/Time x30 Bilateral Squats Resistance 137# Shuttle Recovery Platform Stable Reps/Time x40 Therapeutic Exercises Sitting Exercises 2 Sitting Exercise Name LAQ Side bilateral Resistance 5# 1 Sitting Exercise Name Hamstring Curl Side bilateral Resistance Lv 2 Equipment Used T-band Reps/Minutes x15 Standing Exercises 2 Standing Exercise Name Step flexion stretch Equipment Used 6 step 1 Standing Exercise Name TKE Side left Resistance Lv 2 Equipment Used T-band Manual Therapy Treatment Joint Mobilizations 2 Joint L Patella Direction multidirectional Grade II Body Position Supine Other Other Manual Treatments PROM Flexion /c over pressure PT-OP-R Modalities Start: 01/05/21 17:54 Freq: Status: Active Protocol: Document 04/23/21 15:17 DCW (Rec: 04/23/21 15:55 DCW [id number]) Hot Pack/Cold Pack Treatment Cold Pack Location Left Patient Position Hooklying Treatment Duration (minutes) 15 Patient Tolerance Good PT-OP-T Assessment and Plan Start: 01/05/21 17:54 Freq: Status: Active Protocol: Document 04/23/21 15:17 DCW (Rec: 04/23/21 15:55 DCW [id number]) Physical Therapy Assessment Impairments Impairments Activity Tolerance,Edema, Functional Activities, Functional Mobility,Gait,Pain, ROM,Strength Goals Four Impairment Knee ROM limited 16?-32? Longterm Goal (LTG) Pt to show improved ROM with < 3? extension and >116? flexion LTG Duration 04/08/21 Three Impairment Pt shows increased falls risk with time of 27.9 sec during TUG Longterm Goal (LTG) Pt to complete TUG <13 seconds without an assistive device to demonstrate a decreased falls risk LTG Duration Met Two Impairment Pt ambulates using FWW with step-to gait Longterm Goal (LTG) Pt to ambulate independently without an assistive device with a step-through gait pattern to improve community ambulation LTG Duration 05/09/21 One Impairment Pt does not have an appropriate home exercise program Short Term Goal (STG) Pt to be independent and compliant with an appropriate HEP STG Duration 04/08/21 Assessment Summary Assessment Pt feeling that her knee is doing well, but still bothered by her limited dorsiflexion. Physical Therapy Plan Frequency and Duration Frequency of Treatment 2x/Week Duration of Treatment Two months Plan of Care Start Date 03/09/21 Plan of Care End Date 05/09/21 Therapeutic Interventions Therapeutic Interventions Aquatic Therapy,Gait Training, Home Exercise Program,Joint Mobilizations,Manual Therapy, Neuromuscular Re-education, Patient/Caregiver Education, Self-Care/Home Management,Soft Tissue Mobilization, Therapeutic Activities, Therapeutic Exercises Modalities Cold Pack/Ice Massage,Electric Stimulation,Hot Packs, Ultrasound Next Visit Focus/Plan Next Note Type Treatment Note Next Visit Plan ROM, strengthening, gait, improving activity tolerance
--- NOTE | 2021-05-24 12:45 | PT.OTN ---
Current Diagnoses Unilateral primary osteoarthritis, left knee (05/24/21) Physical Therapy Treatment Note PT-OP-A Visit Information Start: 01/05/21 17:54 Freq: Status: Active Protocol: Document 05/24/21 12:00 DCW (Rec: 05/24/21 12:45 DCW [id number]) Out-Patient Physical Therapy Visit Information Visit Information Visit Type Progress Note Visit Start Time 12:00 Visit Stop Time 12:45 Total Visit Minutes 45 Visit Number 23 Number of CERTIFIED OPHTHALMIC SURGICAL ASSISTANT Visits 0 Evaluation Information Evaluation Date 01/05/21 PT-OP-B Current Condition Start: 01/05/21 17:54 Freq: Status: Active Protocol: Document 01/05/21 15:15 DCW (Rec: 01/06/21 10:10 DCW [id number]) Current Condition History of Current Condition Onset Date 01/01/21 Current Complaints L TKA History of Current Condition Pt is a 60 year old female presenting four days s/p left TKA. Pt was supposed to undergo this surgery ~1 year ago, until elective surgeries were stopped secondary to Covid-19 shut-down. Pt admits she has not walked since she was discharged from the hospital three days previous, because she lives alone and does not feel safe without someone there to help her use the walker. Pt notes her pain is a 2/10, and she only used a pain pill for the first time prior to her eval today. Pt has been doing well overall with her post-op home exercises. PT-OP-C Subjective Start: 01/05/21 17:54 Freq: Status: Active Protocol: Document 05/24/21 12:00 DCW (Rec: 05/24/21 12:45 DCW [id number]) OP-PT Subjective Patient Comments Patient Comments Pt having difficulty with her ankle, but is still doing well with her knee. PT-OP-E Functional Tests Start: 01/05/21 17:54 Freq: Status: Active Protocol: Document 05/24/21 12:00 DCW (Rec: 05/24/21 12:21 DCW [id number]) Functional Tests Timed Up and Go (TUG) Score 11.94 seconds Comments 3-trial average (12.57, 11.54, 11.70) TUG Impairment Rating 20 to <40% Impaired (Score 12- 13) PT-OP-F Manual Assessment Start: 01/05/21 17:54 Freq: Status: Active Protocol: Document 05/24/21 12:00 DCW (Rec: 05/24/21 12:21 DCW [id number]) Manual Assessments Joint Mobility Assessment Joint Mobility Assessment Mild stiffness, minimal effusion PT-OP-G Mobility & Gait Start: 01/05/21 17:54 Freq: Status: Active Protocol: Document 05/24/21 12:00 DCW (Rec: 05/24/21 12:21 DCW [id number]) OP Gait Assessment Assistive Devices Assistive Device None Orthotic/Prosthetic Devices or Brace: No Gait Deviations General Gait Pattern Antalgic,Narrow Based Gait Factors Limiting Gait Function Factors Limiting Gait Function Pain,Poor Balance,Poor Safety Awareness PT-OP-J Posture/Palpation/Skin Start: 01/05/21 17:54 Freq: Status: Active Protocol: Document 05/24/21 12:00 DCW (Rec: 05/24/21 12:21 DCW [id number]) Skin Assessment Circumference Measurement 3 Location 10 cm superior of left joint line Measurement (Centimeters) 49.8 Comments 10 cm superior of right joint line: 49.4 cm 2 Location Left joint line Measurement (Centimeters) 42.9 Comments Right joint line: 42.0 cm 1 Location 10 cm inferior of left joint line Measurement (Centimeters) 41.6 Comments 10 cm inferior of right joint line: 40.9 cm PT-OP-K Range of Motion Start: 01/05/21 17:54 Freq: Status: Active Protocol: Document 05/24/21 12:00 DCW (Rec: 05/24/21 12:21 DCW [id number]) Knee Goniometric Range of Motion Knee Left Patient Position Supine Flexion Active (degrees) 122 Flexion Passive (degrees) 122 Extension Active (degrees) 2 Comments 8? ext lag PT-OP-M Strength Start: 01/05/21 17:54 Freq: Status: Active Protocol: Document 05/24/21 12:00 DCW (Rec: 05/24/21 12:21 DCW [id number]) Knee Strength Knee Manual Muscle Testing Left Flexion (S2) 4+ Good+ Extension (L3) 4+ Good+ Ankle/Foot Strength Ankle and Foot Manual Muscle Testing Left Dorsiflexion (L4) 3 Fair Plantarflexion (S1) 4 Good Inversion 4 Good Eversion (S1) 3- Fair- PT-OP-Q Treatments Start: 01/05/21 17:54 Freq: Status: Active Protocol: Document 05/24/21 12:00 DCW (Rec: 05/24/21 12:45 DCW [id number]) Gym Equipment Shuttle Recovery Unilateral Squats Resistance 75# Shuttle Recovery Platform Stable Reps/Time x30 Bilateral Squats Resistance 125# Shuttle Recovery Platform Stable Reps/Time x30 Therapeutic Exercises Standing Exercises 3 Standing Exercise Name Hamstring curl Side bilateral Resistance 5# 2 Standing Exercise Name Step flexion stretch Equipment Used 6 step Manual Therapy Treatment Other Other Manual Treatments Testing PT-OP-R Modalities Start: 01/05/21 17:54 Freq: Status: Active Protocol: Document 04/23/21 15:17 DCW (Rec: 04/23/21 15:55 DCW [id number]) Hot Pack/Cold Pack Treatment Cold Pack Location Left Patient Position Hooklying Treatment Duration (minutes) 15 Patient Tolerance Good PT-OP-T Assessment and Plan Start: 01/05/21 17:54 Freq: Status: Active Protocol: Document 05/24/21 12:00 DCW (Rec: 05/24/21 12:45 DCW [id number]) Physical Therapy Assessment Impairments Impairments Activity Tolerance,Edema, Functional Activities, Functional Mobility,Gait,Pain, ROM,Strength Goals Five Impairment Ankle MMT less than 3+/5 /c DF and Ev Distribution Transformer Assembler Goal (LTG) Pt to increase left ankle strength to at least 4-/5 to eliminate foot drop during gait. Four Impairment Knee ROM limited 16?-32? Nursing Home Goal (LTG) Pt to show improved ROM with < 3? extension and >116? flexion LTG Duration Met Three Impairment Pt shows increased falls risk with time of 27.9 sec during TUG Nursing Home Goal (LTG) Pt to complete TUG <13 seconds without an assistive device to demonstrate a decreased falls risk LTG Duration Met Two Impairment Pt ambulates using FWW with step-to gait Nursing Home Goal (LTG) Pt to ambulate independently without an assistive device with a step-through gait pattern to improve community ambulation LTG Duration 07/24/21 - Improving One Impairment Pt does not have an appropriate home exercise program Short Term Goal (STG) Pt to be independent and compliant with an appropriate HEP STG Duration Met Assessment Summary Assessment Pt's knee doing very well, has largely met all post-TKA goals. However, pt continues to be significantly limited with her left foot drop following her TKA, and will greatly benefit from continued skilled therapy. Unclear at the moment if pt will have insurance authorization for more PT, but is hopeful with recent nerve conduction study that more will be approved. Physical Therapy Plan Frequency and Duration Frequency of Treatment 2x/Week Duration of Treatment Two months Plan of Care Start Date 05/24/21 Plan of Care End Date 07/24/21 Therapeutic Interventions Therapeutic Interventions Aquatic Therapy,Gait Training, Home Exercise Program,Joint Mobilizations,Manual Therapy, Neuromuscular Re-education, Patient/Caregiver Education, Self-Care/Home Management,Soft Tissue Mobilization, Therapeutic Activities, Therapeutic Exercises Modalities Cold Pack/Ice Massage,Electric Stimulation,Hot Packs, Ultrasound Next Visit Focus/Plan Next Note Type Treatment Note Next Visit Plan ROM, strengthening, gait, improving activity tolerance
--- NOTE | 2021-05-24 12:45 | PT.OPPOC ---
Physical, Occupational & Speech Therapy At [facility] Current Diagnoses Unilateral primary osteoarthritis, left knee (05/24/21) Visit Care Team Role Provider Type Shalom Mari MD Family Provider Non-Staff Primary Care Provider Specialty: Medical Address: [address] [place] [address], [phone] Email: Quinn Carreon DO Attending Provider Non-Staff Referring Provider Specialty: Orthopedics Address: [address] [place] [address] [address], [place], [address] opt2 Email: Plan Of Care PT-OP-T Assessment and Plan Start: 01/05/21 17:54 Freq: Status: Active Protocol: Document 05/24/21 12:00 DCW (Rec: 05/24/21 12:45 DCW [id number]) Physical Therapy Assessment Impairments Impairments Activity Tolerance,Edema, Functional Activities, Functional Mobility,Gait,Pain, ROM,Strength Goals Five Impairment Ankle MMT less than 3+/5 /c DF and Ev Laboratory Veterinarian Goal (LTG) Pt to increase left ankle strength to at least 4-/5 to eliminate foot drop during gait. Four Impairment Knee ROM limited 16?-32? Laboratory Veterinarian Goal (LTG) Pt to show improved ROM with < 3? extension and >116? flexion LTG Duration Met Three Impairment Pt shows increased falls risk with time of 27.9 sec during TUG Fpc Goal (LTG) Pt to complete TUG <13 seconds without an assistive device to demonstrate a decreased falls risk LTG Duration Met Two Impairment Pt ambulates using FWW with step-to gait Fpc Goal (LTG) Pt to ambulate independently without an assistive device with a step-through gait pattern to improve community ambulation LTG Duration 07/24/21 - Improving One Impairment Pt does not have an appropriate home exercise program Short Term Goal (STG) Pt to be independent and compliant with an appropriate HEP STG Duration Met Assessment Summary Assessment Pt's knee doing very well, has largely met all post-TKA goals. However, pt continues to be significantly limited with her left foot drop following her TKA, and will greatly benefit from continued skilled therapy. Unclear at the moment if pt will have insurance authorization for more PT, but is hopeful with recent nerve conduction study that more will be approved. Physical Therapy Plan Frequency and Duration Frequency of Treatment 2x/Week Duration of Treatment Two months Plan of Care Start Date 05/24/21 Plan of Care End Date 07/24/21 Therapeutic Interventions Therapeutic Interventions Aquatic Therapy,Gait Training, Home Exercise Program,Joint Mobilizations,Manual Therapy, Neuromuscular Re-education, Patient/Caregiver Education, Self-Care/Home Management,Soft Tissue Mobilization, Therapeutic Activities, Therapeutic Exercises Modalities Cold Pack/Ice Massage,Electric Stimulation,Hot Packs, Ultrasound Next Visit Focus/Plan Next Note Type Treatment Note Next Visit Plan ROM, strengthening, gait, improving activity tolerance Plan of Care Dates Plan of Care Start Date 05/24/21 Plan of Care End Date 07/24/21 Electronically Signed by: Leobardo Rashid, PT 05/24/21 9311 Please Sign and Return: I have reviewed this Plan of Care and certify that the skilled therapy services above are required to meet the patient?s needs. Physician Signature Date Printed Name and Credentials Clinical Instructor Signature Printed Name and Credentials
--- NOTE | 2021-08-09 11:45 | PT.OPDS ---
Current Diagnoses Unilateral primary osteoarthritis, left knee (05/24/21) Visit Care Team Role Provider Type Shalom Mari MD Family Provider Non-Staff Primary Care Provider Specialty: Medical Address: [facility] [place], [address] Email: Quinn Carreon DO Attending Provider Non-Staff Referring Provider Specialty: Orthopedics Address: [address] [place] [address] [address], [place], [address] opt2 Email: Visit Number Visit Number 23 Discharge Summary PT-OP-B Current Condition Start: 01/05/21 17:54 Freq: Status: Active Protocol: Document 01/05/21 15:15 DCW (Rec: 01/06/21 10:10 DCW [id number]) Current Condition History of Current Condition Onset Date 01/01/21 Current Complaints L TKA History of Current Condition Pt is a 60 year old female presenting four days s/p left TKA. Pt was supposed to undergo this surgery ~1 year ago, until elective surgeries were stopped secondary to Covid-19 shut-down. Pt admits she has not walked since she was discharged from the hospital three days previous, because she lives alone and does not feel safe without someone there to help her use the walker. Pt notes her pain is a 2/10, and she only used a pain pill for the first time prior to her eval today. Pt has been doing well overall with her post-op home exercises. PT-OP-C Subjective Start: 01/05/21 17:54 Freq: Status: Active Protocol: Document 05/24/21 12:00 DCW (Rec: 05/24/21 12:45 DCW [id number]) OP-PT Subjective Patient Comments Patient Comments Pt having difficulty with her ankle, but is still doing well with her knee. PT-OP-E Functional Tests Start: 01/05/21 17:54 Freq: Status: Active Protocol: Document 05/24/21 12:00 DCW (Rec: 05/24/21 12:21 DCW [id number]) Functional Tests Timed Up and Go (TUG) Score 11.94 seconds Comments 3-trial average (12.57, 11.54, 11.70) TUG Impairment Rating 20 to <40% Impaired (Score 12- 13) PT-OP-F Manual Assessment Start: 01/05/21 17:54 Freq: Status: Active Protocol: Document 05/24/21 12:00 DCW (Rec: 05/24/21 12:21 DCW [id number]) Manual Assessments Joint Mobility Assessment Joint Mobility Assessment Mild stiffness, minimal effusion PT-OP-G Mobility & Gait Start: 01/05/21 17:54 Freq: Status: Active Protocol: Document 05/24/21 12:00 DCW (Rec: 05/24/21 12:21 DCW [id number]) OP Gait Assessment Assistive Devices Assistive Device None Orthotic/Prosthetic Devices or Brace: No Gait Deviations General Gait Pattern Antalgic,Narrow Based Gait Factors Limiting Gait Function Factors Limiting Gait Function Pain,Poor Balance,Poor Safety Awareness PT-OP-J Posture/Palpation/Skin Start: 01/05/21 17:54 Freq: Status: Active Protocol: Document 05/24/21 12:00 DCW (Rec: 05/24/21 12:21 DCW [id number]) Skin Assessment Circumference Measurement 3 Location 10 cm superior of left joint line Measurement (Centimeters) 49.8 Comments 10 cm superior of right joint line: 49.4 cm 2 Location Left joint line Measurement (Centimeters) 42.9 Comments Right joint line: 42.0 cm 1 Location 10 cm inferior of left joint line Measurement (Centimeters) 41.6 Comments 10 cm inferior of right joint line: 40.9 cm PT-OP-K Range of Motion Start: 01/05/21 17:54 Freq: Status: Active Protocol: Document 05/24/21 12:00 DCW (Rec: 05/24/21 12:21 DCW [id number]) Knee Goniometric Range of Motion Knee Left Patient Position Supine Flexion Active (degrees) 122 Flexion Passive (degrees) 122 Extension Active (degrees) 2 Comments 8? ext lag PT-OP-M Strength Start: 01/05/21 17:54 Freq: Status: Active Protocol: Document 05/24/21 12:00 DCW (Rec: 05/24/21 12:21 DCW [id number]) Knee Strength Knee Manual Muscle Testing Left Flexion (S2) 4+ Good+ Extension (L3) 4+ Good+ Ankle/Foot Strength Ankle and Foot Manual Muscle Testing Left Dorsiflexion (L4) 3 Fair Plantarflexion (S1) 4 Good Inversion 4 Good Eversion (S1) 3- Fair- PT-OP-T Assessment and Plan Start: 01/05/21 17:54 Freq: Status: Active Protocol: Document 08/09/21 11:44 DCW (Rec: 08/09/21 11:45 DCW [id number]) Physical Therapy Assessment Assessment Summary Assessment Pt discharging from skilled PT at this time, wants to return for therapy for foot drop, need exemption for second evaluation for the year. Physical Therapy Plan Discharge Physical Therapy Discharge Reasons No Longer Attending PT Next Visit Focus/Plan Next Note Type Discharge Summary
== END 2021-08-19 13:18 ==
LOC: PHYS 12:00
PROVIDERS: Family Provider Family Medicine; PCP Family Medicine; Referring Provider Orthopaedic Surgery; Visit Provider Orthopaedic Surgery
DX: M17.12 Unilateral primary osteoarthritis, left knee (principal)
CPT/HCPCS: 97010; 97110; 97116; 97140; 97161

== ENCOUNTER 2021-12-23 11:15 | Outpatient (RCR) | payer OTHER, MEDICAID, SELFPAY ==
--- NOTE | 2021-11-15 11:15 | PT.OPPOC ---
Physical, Occupational & Speech Therapy At [facility] Current Diagnoses Other chronic pain (11/15/21) Foot drop, left foot (11/15/21) Spondylosis without myelopathy or radiculopathy, lumbar region (11/15/21) Low back pain, unspecified (11/15/21) Pain in thoracic spine (11/15/21) Presence of left artificial knee joint (11/15/21) Visit Care Team Role Provider Type Quinn Carreon DO Non-Staff Specialty: Orthopedics Address: [address] [place] [address] [address], [place], [address] opt2 Email: Shalom Mari MD Attending Provider Non-Staff Family Provider Primary Care Provider Referring Provider Specialty: Medical Address: [address] [place] [address], [phone] Email: Plan Of Care PT-OP-T Assessment and Plan Start: 11/15/21 17:34 Freq: Status: Active Protocol: Document 11/15/21 11:15 DCW (Rec: 11/15/21 17:56 DCW [id number]) Physical Therapy Assessment Rehab Potential Rehabilitation Potential Good Evaluation Complexity Number of Personal Factors/Comorbidities 3 or More Number of Body Systems Impaired 3 Clinical Presentation at Evaluation Evolving Impairments Impairments Functional Activities, Functional Mobility,Pain,ROM, Soft Tissue Mobility,Strength, Tone Goals Two Impairment Pt unable to stand longer than 20 minutes without increased pain [employer] Counter Person Goal (LTG) Pt to demonstrate ability to stand pain-free for 40 minutes without a break in order to enable her to perform cleaning dishes or cooking. 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 Pt demonstrates general loss of vertebral mobility, pain with sustained standing or sitting, and core weakness, as well as continued LE weakness secondary to bilateral TKAs and L nerve damage/foot drop. Pt should benefit from skilled therapy focusing on thoracolumbar mobility, core and LE strengthening, manual therapeutic intervention, and gait training. Physical Therapy Plan Frequency and Duration Frequency of Treatment 2x/Week Duration of Treatment Three months Plan of Care Start Date 11/15/21 Plan of Care End Date 02/12/22 Therapeutic Interventions Therapeutic Interventions Gait Training,Home Exercise Program,Joint Mobilizations, Manual Therapy,Neuromuscular Re-education,Patient/Caregiver Education,Self-Care/Home Management,Soft Tissue Mobilization,Therapeutic Activities,Therapeutic Exercises Modalities Cold Pack/Ice Massage,Electric Stimulation,Hot Packs, Ultrasound Next Visit Focus/Plan Next Note Type Treatment Note Next Visit Plan LE/core strengthening, STM Plan of Care Dates Plan of Care Start Date 11/15/21 Plan of Care End Date 02/12/22 Electronically Signed by: Leobardo Rashid, PT 11/16/21 0938 Please Sign and Return: I have reviewed this Plan of Care and certify that the skilled therapy services above are required to meet the patient?s needs. Physician Signature Date Printed Name and Credentials Clinical Instructor Signature Printed Name and Credentials
--- NOTE | 2021-11-15 12:00 | PT.OIE ---
Current Diagnoses Other chronic pain (11/15/21) Foot drop, left foot (11/15/21) Spondylosis without myelopathy or radiculopathy, lumbar region (11/15/21) Low back pain, unspecified (11/15/21) Pain in thoracic spine (11/15/21) Presence of left artificial knee joint (11/15/21) Past Medical History (Last Reviewed 02/15/21 @ 05:51 by Imani Marie DO) Hypothyroid Visit Care Team Role Provider Type Quinn Carreon DO Non-Staff Specialty: Orthopedics Address: [address] [place] [address] [address], [place], [address] opt2 Email: Shalom Mari MD Attending Provider Non-Staff Family Provider Primary Care Provider Referring Provider Specialty: Medical Address: [address] [place] [address], [phone] Email: Physical Therapy Initial Evaluation PT-OP-A Visit Information Start: 11/15/21 17:34 Freq: Status: Active Protocol: Document 11/15/21 11:15 DCW (Rec: 11/15/21 17:48 DCW [id number]) Out-Patient Physical Therapy Visit Information Visit Information Visit Type Initial Evaluation Visit Start Time 11:15 Visit Stop Time 11:50 Total Visit Minutes 35 Visit Number 1 Number of NETWORK OPERATIONS PROJECT MANAGER Visits 0 Evaluation Information Evaluation Date 11/15/21 PT-OP-B Current Condition Start: 11/15/21 17:34 Freq: Status: Active Protocol: Document 11/15/21 11:15 DCW (Rec: 11/15/21 17:48 DCW [id number]) Current Condition History of Current Condition Onset Date Multi-year history Current Complaints T/L back pain, L foot drop History of Current Condition Pt is a 61 year old female very well known to this clinic presenting with a long- standing history of low back pain. Pt has been seen at this clinic for multiple different injuries, most recently last year following a L TKA. Unfortunately, pt also suffered a nerve injury at that time, which resulted in left foot drop. Currently, pt complains of worsening back pain. Notes she is currently unable to stand longer than 15 -20 minutes at a time. Has been using a SPC when out in the store. Notes she currently has to sit on a stool when washing dishes. Personal Factors Other Personal Factors That May Effect B TKA, L foot drop Therapy/Recovery PT-OP-C Subjective Start: 11/15/21 17:34 Freq: Status: Active Protocol: Document 11/15/21 11:15 DCW (Rec: 11/15/21 17:48 DCW [id number]) OP-PT Subjective Patient Comments Patient Comments I just work until I hurt, but that's only about 15 minutes. Patient Reported Progress Worse PT-OP-F Manual Assessment Start: 11/15/21 17:34 Freq: Status: Active Protocol: Document 11/15/21 11:15 DCW (Rec: 11/16/21 09:37 DCW [id number]) Manual Assessments Soft Tissue Assessment Soft Tissue Mobility Assessment Mild hypertonia along thoracolumbar paraspinals Joint Mobility Assessment Joint Mobility Assessment Joint hypomobility from T8-L5, minimal movement with vertebrae with spinal flexion/ extension, most movement comes from from hips PT-OP-G Mobility & Gait Start: 11/16/21 09:37 Freq: Status: Active Protocol: Document 11/15/21 11:15 DCW (Rec: 11/16/21 09:38 DCW [id number]) OP Gait Assessment Gait Gait Assistance Required: Independent Assistive Devices Assistive Device None Gait Deviations General Gait Pattern Antalgic,Decreased Stride Length,Decreased Feet Clearance,Lateral Trunk Lean, Wide Based Gait PT-OP-K Range of Motion Start: 11/15/21 17:34 Freq: Status: Active Protocol: Document 11/15/21 11:15 DCW (Rec: 11/16/21 09:37 DCW [id number]) Lumbar Spine Range of Motion Lumbar Spine Active Degrees Testing Position Standing Flexion 13 Extension 5 ROM Limitations Bony Restriction,Muscle Weakness PT-OP-L Special Tests Start: 11/15/21 17:34 Freq: Status: Active Protocol: Document 11/15/21 11:15 DCW (Rec: 11/16/21 09:37 DCW [id number]) Special Tests Lumbar Spine Special Tests Vertical Spine Loading Test Results Negative CARLOS Test Results Negative Straight Leg Raise Test Results L HS tightness Slump Test Results L HS tightness A-P Shearing Test Results Negative PT-OP-M Strength Start: 11/15/21 17:34 Freq: Status: Active Protocol: Document 11/15/21 11:15 DCW (Rec: 11/16/21 09:37 DCW [id number]) Trunk Strength Trunk Manual Muscle Testing Core Stabilization Difficulty juan or holding TrA, MMT = 3+/5 Hip Strength Hip Manual Muscle Testing Right Flexion (L2) 4 Good Abduction 4 Good Adduction 4 Good Left Flexion (L2) 4 Good Abduction 4- Good- Adduction 4 Good Knee Strength Knee Manual Muscle Testing Right Flexion (S2) 4- Good- Extension (L3) 4- Good- Left Flexion (S2) 3+ Fair+ Extension (L3) 4- Good- Ankle/Foot Strength Ankle and Foot Manual Muscle Testing Right Dorsiflexion (L4) 4 Good Plantarflexion (S1) 4 Good Left Dorsiflexion (L4) 4 Good Plantarflexion (S1) 4 Good PT-OP-Q Treatments Start: 11/15/21 17:34 Freq: Status: Active Protocol: Document 11/15/21 11:15 DCW (Rec: 11/15/21 17:49 DCW [id number]) Therapeutic Exercises Supine Exercises 2 Supine Exercise Name TrA /c Marching 1 Supine Exercise Name PPT /c TrA PT-OP-T Assessment and Plan Start: 11/15/21 17:34 Freq: Status: Active Protocol: Document 11/15/21 11:15 DCW (Rec: 11/15/21 17:56 DC [id number]) Physical Therapy Assessment Rehab Potential Rehabilitation Potential Good Evaluation Complexity Number of Personal Factors/Comorbidities 3 or More Number of Body Systems Impaired 3 Clinical Presentation at Evaluation Evolving Impairments Impairments Functional Activities, Functional Mobility,Pain,ROM, Soft Tissue Mobility,Strength, Tone Goals Two Impairment Pt unable to stand longer than 20 minutes without increased pain Boiler Inspector Goal (LTG) Pt to demonstrate ability to stand pain-free for 40 minutes without a break in order to enable her to perform cleaning dishes or cooking. 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 Pt demonstrates general loss of vertebral mobility, pain with sustained standing or sitting, and core weakness, as well as continued LE weakness secondary to bilateral TKAs and L nerve damage/foot drop. Pt should benefit from skilled therapy focusing on thoracolumbar mobility, core and LE strengthening, manual therapeutic intervention, and gait training. Physical Therapy Plan Frequency and Duration Frequency of Treatment 2x/Week Duration of Treatment Three months Plan of Care Start Date 11/15/21 Plan of Care End Date 02/12/22 Therapeutic Interventions Therapeutic Interventions Gait Training,Home Exercise Program,Joint Mobilizations, Manual Therapy,Neuromuscular Re-education,Patient/Caregiver Education,Self-Care/Home Management,Soft Tissue Mobilization,Therapeutic Activities,Therapeutic Exercises Modalities Cold Pack/Ice Massage,Electric Stimulation,Hot Packs, Ultrasound Next Visit Focus/Plan Next Note Type Treatment Note Next Visit Plan LE/core strengthening, STM
--- NOTE | 2021-11-19 11:56 | PT.OTN ---
Current Diagnoses Other chronic pain (11/19/21) Foot drop, left foot (11/19/21) Spondylosis without myelopathy or radiculopathy, lumbar region (11/19/21) Low back pain, unspecified (11/19/21) Pain in thoracic spine (11/19/21) Presence of left artificial knee joint (11/19/21) Physical Therapy Treatment Note PT-OP-A Visit Information Start: 11/15/21 17:34 Freq: Status: Active Protocol: Document 11/19/21 11:15 DCW (Rec: 11/19/21 11:55 DCW [id number]) Out-Patient Physical Therapy Visit Information Visit Information Visit Type Treatment Note Visit Start Time 11:15 Visit Stop Time 12:00 Total Visit Minutes 45 Visit Number 2 Number of REHABILITATION AIDE Visits 0 Evaluation Information Evaluation Date 11/15/21 PT-OP-B Current Condition Start: 11/15/21 17:34 Freq: Status: Active Protocol: Document 11/15/21 11:15 DCW (Rec: 11/15/21 17:48 DCW [id number]) Current Condition History of Current Condition Onset Date Multi-year history Current Complaints T/L back pain, L foot drop History of Current Condition Pt is a 61 year old female very well known to this clinic presenting with a long- standing history of low back pain. Pt has been seen at this clinic for multiple different injuries, most recently last year following a L TKA. Unfortunately, pt also suffered a nerve injury at that time, which resulted in left foot drop. Currently, pt complains of worsening back pain. Notes she is currently unable to stand longer than 15 -20 minutes at a time. Has been using a SPC when out in the store. Notes she currently has to sit on a stool when washing dishes. Personal Factors Other Personal Factors That May Effect B TKA, L foot drop Therapy/Recovery PT-OP-C Subjective Start: 11/15/21 17:34 Freq: Status: Active Protocol: Document 11/19/21 11:15 DCW (Rec: 11/19/21 11:55 DCW [id number]) OP-PT Subjective Patient Comments Patient Comments I brought my cane just in case I get unstable after working out. PT-OP-F Manual Assessment Start: 11/15/21 17:34 Freq: Status: Active Protocol: Document 11/15/21 11:15 DCW (Rec: 11/16/21 09:37 DCW [id number]) Manual Assessments Soft Tissue Assessment Soft Tissue Mobility Assessment Mild hypertonia along thoracolumbar paraspinals Joint Mobility Assessment Joint Mobility Assessment Joint hypomobility from T8-L5, minimal movement with vertebrae with spinal flexion/ extension, most movement comes from from hips PT-OP-G Mobility & Gait Start: 11/16/21 09:37 Freq: Status: Active Protocol: Document 11/15/21 11:15 DCW (Rec: 11/16/21 09:38 DCW [id number]) OP Gait Assessment Gait Gait Assistance Required: Independent Assistive Devices Assistive Device None Gait Deviations General Gait Pattern Antalgic,Decreased Stride Length,Decreased Feet Clearance,Lateral Trunk Lean, Wide Based Gait PT-OP-K Range of Motion Start: 11/15/21 17:34 Freq: Status: Active Protocol: Document 11/15/21 11:15 DCW (Rec: 11/16/21 09:37 DCW [id number]) Lumbar Spine Range of Motion Lumbar Spine Active Degrees Testing Position Standing Flexion 13 Extension 5 ROM Limitations Bony Restriction,Muscle Weakness PT-OP-L Special Tests Start: 11/15/21 17:34 Freq: Status: Active Protocol: Document 11/15/21 11:15 DCW (Rec: 11/16/21 09:37 DCW [id number]) Special Tests Lumbar Spine Special Tests Vertical Spine Loading Test Results Negative CARLOS Test Results Negative Straight Leg Raise Test Results L HS tightness Slump Test Results L HS tightness A-P Shearing Test Results Negative PT-OP-M Strength Start: 11/15/21 17:34 Freq: Status: Active Protocol: Document 11/15/21 11:15 DCW (Rec: 11/16/21 09:37 DCW [id number]) Trunk Strength Trunk Manual Muscle Testing Core Stabilization Difficulty juan or holding TrA, MMT = 3+/5 Hip Strength Hip Manual Muscle Testing Right Flexion (L2) 4 Good Abduction 4 Good Adduction 4 Good Left Flexion (L2) 4 Good Abduction 4- Good- Adduction 4 Good Knee Strength Knee Manual Muscle Testing Right Flexion (S2) 4- Good- Extension (L3) 4- Good- Left Flexion (S2) 3+ Fair+ Extension (L3) 4- Good- Ankle/Foot Strength Ankle and Foot Manual Muscle Testing Right Dorsiflexion (L4) 4 Good Plantarflexion (S1) 4 Good Left Dorsiflexion (L4) 4 Good Plantarflexion (S1) 4 Good PT-OP-Q Treatments Start: 11/15/21 17:34 Freq: Status: Active Protocol: Document 11/19/21 11:15 DCW (Rec: 11/19/21 11:55 DCW [id number]) Cardio Equipment Recumbent Elliptical (Biodex) Duration (Minutes) 5 Resistance 4 Seat Position 6 Gym Equipment Therapeutic Ball 2 Exercise Details Bridging /c feet on ball Ball Size/Color Blue - 45 cm Body Position Supine 1 Exercise Details LTR Ball Size/Color Blue - 45 cm Body Position Supine Manual Therapy Treatment Soft Tissue Mobilization 1 Body Location T/L paraspinals Mobilization Type Strumming,Sustained Pressure Intensity/Depth Superficial Body Position Prone Joint Mobilizations 1 Joint T/L vertebral mobs Direction P->A Grade III Body Position Prone PT-OP-R Modalities Start: 11/19/21 11:55 Freq: Status: Active Protocol: Document 11/19/21 11:15 DCW (Rec: 11/19/21 11:56 DCW [id number]) Electric Stimulation Electric Stimulation Interferential Current (IFC) Body Location Lumbar Duration (Minutes) 15 Cycle Continuous Patient Position Prone Combined With Heat/Cold Hot Pack PT-OP-T Assessment and Plan Start: 11/15/21 17:34 Freq: Status: Active Protocol: Document 11/19/21 11:15 DCW (Rec: 11/19/21 11:55 DCW [id number]) Physical Therapy Assessment Impairments Impairments Functional Activities, Functional Mobility,Pain,ROM, Soft Tissue Mobility,Strength, Tone Goals Two Impairment Pt unable to stand longer than 20 minutes without increased pain Mcfp Goal (LTG) Pt to demonstrate ability to stand pain-free for 40 minutes without a break in order to enable her to perform cleaning dishes or cooking. LTG Duration 02/12/22 One Impairment Pt does not have an appropriate home exercise program Short Term Goal (STG) Pt to be independent and compliant with an appropriate HEP STG Duration 12/13/21 Assessment Summary Assessment Pt tolerated treatment very well today, some improved mobility following STM and joint mobilizations. Physical Therapy Plan Frequency and Duration Frequency of Treatment 2x/Week Duration of Treatment Three months Plan of Care Start Date 11/15/21 Plan of Care End Date 02/12/22 Therapeutic Interventions Therapeutic Interventions Gait Training,Home Exercise Program,Joint Mobilizations, Manual Therapy,Neuromuscular Re-education,Patient/Caregiver Education,Self-Care/Home Management,Soft Tissue Mobilization,Therapeutic Activities,Therapeutic Exercises Modalities Cold Pack/Ice Massage,Electric Stimulation,Hot Packs, Ultrasound Next Visit Focus/Plan Next Note Type Treatment Note Next Visit Plan LE/core strengthening, STM
--- NOTE | 2021-11-25 10:25 | PT.OTN ---
Current Diagnoses Other chronic pain (11/25/21) Foot drop, left foot (11/25/21) Spondylosis without myelopathy or radiculopathy, lumbar region (11/25/21) Low back pain, unspecified (11/25/21) Pain in thoracic spine (11/25/21) Presence of left artificial knee joint (11/25/21) Physical Therapy Treatment Note PT-OP-A Visit Information Start: 11/15/21 17:34 Freq: Status: Active Protocol: Document 11/25/21 09:45 DCW (Rec: 11/25/21 10:25 DCW [id number]) Out-Patient Physical Therapy Visit Information Visit Information Visit Type Treatment Note Visit Start Time 09:45 Visit Stop Time 10:30 Total Visit Minutes 45 Visit Number 3 Number of FIELD SUPERINTENDENT Visits 0 Evaluation Information Evaluation Date 11/15/21 PT-OP-B Current Condition Start: 11/15/21 17:34 Freq: Status: Active Protocol: Document 11/15/21 11:15 DCW (Rec: 11/15/21 17:48 DCW [id number]) Current Condition History of Current Condition Onset Date Multi-year history Current Complaints T/L back pain, L foot drop History of Current Condition Pt is a 61 year old female very well known to this clinic presenting with a long- standing history of low back pain. Pt has been seen at this clinic for multiple different injuries, most recently last year following a L TKA. Unfortunately, pt also suffered a nerve injury at that time, which resulted in left foot drop. Currently, pt complains of worsening back pain. Notes she is currently unable to stand longer than 15 -20 minutes at a time. Has been using a SPC when out in the store. Notes she currently has to sit on a stool when washing dishes. Personal Factors Other Personal Factors That May Effect B TKA, L foot drop Therapy/Recovery PT-OP-C Subjective Start: 11/15/21 17:34 Freq: Status: Active Protocol: Document 11/25/21 09:45 DCW (Rec: 11/25/21 10:25 DCW [id number]) OP-PT Subjective Patient Comments Patient Comments Pt reports she feels fine, she took a muscle relaxer prior to coming in. [place] the e-stim was very beneficial last week, but does not have time for it today. PT-OP-F Manual Assessment Start: 11/15/21 17:34 Freq: Status: Active Protocol: Document 11/15/21 11:15 DCW (Rec: 11/16/21 09:37 DCW [id number]) Manual Assessments Soft Tissue Assessment Soft Tissue Mobility Assessment Mild hypertonia along thoracolumbar paraspinals Joint Mobility Assessment Joint Mobility Assessment Joint hypomobility from T8-L5, minimal movement with vertebrae with spinal flexion/ extension, most movement comes from from hips PT-OP-G Mobility & Gait Start: 11/16/21 09:37 Freq: Status: Active Protocol: Document 11/15/21 11:15 DCW (Rec: 11/16/21 09:38 DCW [id number]) OP Gait Assessment Gait Gait Assistance Required: Independent Assistive Devices Assistive Device None Gait Deviations General Gait Pattern Antalgic,Decreased Stride Length,Decreased Feet Clearance,Lateral Trunk Lean, Wide Based Gait PT-OP-K Range of Motion Start: 11/15/21 17:34 Freq: Status: Active Protocol: Document 11/15/21 11:15 DCW (Rec: 11/16/21 09:37 DCW [id number]) Lumbar Spine Range of Motion Lumbar Spine Active Degrees Testing Position Standing Flexion 13 Extension 5 ROM Limitations Bony Restriction,Muscle Weakness PT-OP-L Special Tests Start: 11/15/21 17:34 Freq: Status: Active Protocol: Document 11/15/21 11:15 DCW (Rec: 11/16/21 09:37 DCW [id number]) Special Tests Lumbar Spine Special Tests Vertical Spine Loading Test Results Negative CARLOS Test Results Negative Straight Leg Raise Test Results L HS tightness Slump Test Results L HS tightness A-P Shearing Test Results Negative PT-OP-M Strength Start: 11/15/21 17:34 Freq: Status: Active Protocol: Document 11/15/21 11:15 DCW (Rec: 11/16/21 09:37 DCW [id number]) Trunk Strength Trunk Manual Muscle Testing Core Stabilization Difficulty juan or holding TrA, MMT = 3+/5 Hip Strength Hip Manual Muscle Testing Right Flexion (L2) 4 Good Abduction 4 Good Adduction 4 Good Left Flexion (L2) 4 Good Abduction 4- Good- Adduction 4 Good Knee Strength Knee Manual Muscle Testing Right Flexion (S2) 4- Good- Extension (L3) 4- Good- Left Flexion (S2) 3+ Fair+ Extension (L3) 4- Good- Ankle/Foot Strength Ankle and Foot Manual Muscle Testing Right Dorsiflexion (L4) 4 Good Plantarflexion (S1) 4 Good Left Dorsiflexion (L4) 4 Good Plantarflexion (S1) 4 Good PT-OP-Q Treatments Start: 11/15/21 17:34 Freq: Status: Active Protocol: Document 11/25/21 09:45 DCW (Rec: 11/25/21 10:25 DCW [id number]) Cardio Equipment Recumbent Elliptical (Biodex) Duration (Minutes) 7 Resistance 4 Seat Position 6 Gym Equipment Therapeutic Ball 2 Exercise Details Bridging /c feet on ball Ball Size/Color Blue - 45 cm Body Position Supine 1 Exercise Details LTR Ball Size/Color Blue - 45 cm Body Position Supine Manual Therapy Treatment Soft Tissue Mobilization 1 Body Location T/L paraspinals Mobilization Type Strumming,Sustained Pressure Intensity/Depth Superficial Body Position Prone Joint Mobilizations 1 Joint T/L vertebral mobs Direction P->A Grade III Body Position Prone PT-OP-R Modalities Start: 11/19/21 11:55 Freq: Status: Active Protocol: Document 11/19/21 11:15 DCW (Rec: 11/19/21 11:56 DCW [id number]) Electric Stimulation Electric Stimulation Interferential Current (IFC) Body Location Lumbar Duration (Minutes) 15 Cycle Continuous Patient Position Prone Combined With Heat/Cold Hot Pack PT-OP-T Assessment and Plan Start: 11/15/21 17:34 Freq: Status: Active Protocol: Document 11/25/21 09:45 DCW (Rec: 11/25/21 10:25 DCW [id number]) Physical Therapy Assessment Impairments Impairments Functional Activities, Functional Mobility,Pain,ROM, Soft Tissue Mobility,Strength, Tone Goals Two Impairment Pt unable to stand longer than 20 minutes without increased pain Certified Nurse Operating Room Goal (LTG) Pt to demonstrate ability to stand pain-free for 40 minutes without a break in order to enable her to perform cleaning dishes or cooking. LTG Duration 02/12/22 One Impairment Pt does not have an appropriate home exercise program Short Term Goal (STG) Pt to be independent and compliant with an appropriate HEP STG Duration 12/13/21 Assessment Summary Assessment Pt showing good improvement so far, tolerating treatment well. Physical Therapy Plan Frequency and Duration Frequency of Treatment 2x/Week Duration of Treatment Three months Plan of Care Start Date 11/15/21 Plan of Care End Date 02/12/22 Therapeutic Interventions Therapeutic Interventions Gait Training,Home Exercise Program,Joint Mobilizations, Manual Therapy,Neuromuscular Re-education,Patient/Caregiver Education,Self-Care/Home Management,Soft Tissue Mobilization,Therapeutic Activities,Therapeutic Exercises Modalities Cold Pack/Ice Massage,Electric Stimulation,Hot Packs, Ultrasound Next Visit Focus/Plan Next Note Type Treatment Note Next Visit Plan LE/core strengthening, STM
--- NOTE | 2021-11-30 11:54 | PT.OTN ---
Current Diagnoses Other chronic pain (11/30/21) Foot drop, left foot (11/30/21) Spondylosis without myelopathy or radiculopathy, lumbar region (11/30/21) Low back pain, unspecified (11/30/21) Pain in thoracic spine (11/30/21) Presence of left artificial knee joint (11/30/21) Physical Therapy Treatment Note PT-OP-A Visit Information Start: 11/15/21 17:34 Freq: Status: Active Protocol: Document 11/30/21 11:15 DCW (Rec: 11/30/21 11:54 DCW [id number]) Out-Patient Physical Therapy Visit Information Visit Information Visit Type Treatment Note Visit Start Time 11:15 Visit Stop Time 12:10 Total Visit Minutes 55 Visit Number 4 Number of ASSISTANT PLANT CONTROL OPERATOR Visits 0 Evaluation Information Evaluation Date 11/15/21 PT-OP-B Current Condition Start: 11/15/21 17:34 Freq: Status: Active Protocol: Document 11/15/21 11:15 DCW (Rec: 11/15/21 17:48 DCW [id number]) Current Condition History of Current Condition Onset Date Multi-year history Current Complaints T/L back pain, L foot drop History of Current Condition Pt is a 61 year old female very well known to this clinic presenting with a long- standing history of low back pain. Pt has been seen at this clinic for multiple different injuries, most recently last year following a L TKA. Unfortunately, pt also suffered a nerve injury at that time, which resulted in left foot drop. Currently, pt complains of worsening back pain. Notes she is currently unable to stand longer than 15 -20 minutes at a time. Has been using a SPC when out in the store. Notes she currently has to sit on a stool when washing dishes. Personal Factors Other Personal Factors That May Effect B TKA, L foot drop Therapy/Recovery PT-OP-C Subjective Start: 11/15/21 17:34 Freq: Status: Active Protocol: Document 11/30/21 11:15 DCW (Rec: 11/30/21 11:54 DCW [id number]) OP-PT Subjective Patient Comments Patient Comments Pt feeling fine, I'm just a little cold. PT-OP-F Manual Assessment Start: 11/15/21 17:34 Freq: Status: Active Protocol: Document 11/15/21 11:15 DCW (Rec: 11/16/21 09:37 DCW [id number]) Manual Assessments Soft Tissue Assessment Soft Tissue Mobility Assessment Mild hypertonia along thoracolumbar paraspinals Joint Mobility Assessment Joint Mobility Assessment Joint hypomobility from T8-L5, minimal movement with vertebrae with spinal flexion/ extension, most movement comes from from hips PT-OP-G Mobility & Gait Start: 11/16/21 09:37 Freq: Status: Active Protocol: Document 11/15/21 11:15 DCW (Rec: 11/16/21 09:38 DCW [id number]) OP Gait Assessment Gait Gait Assistance Required: Independent Assistive Devices Assistive Device None Gait Deviations General Gait Pattern Antalgic,Decreased Stride Length,Decreased Feet Clearance,Lateral Trunk Lean, Wide Based Gait PT-OP-K Range of Motion Start: 11/15/21 17:34 Freq: Status: Active Protocol: Document 11/15/21 11:15 DCW (Rec: 11/16/21 09:37 DCW [id number]) Lumbar Spine Range of Motion Lumbar Spine Active Degrees Testing Position Standing Flexion 13 Extension 5 ROM Limitations Bony Restriction,Muscle Weakness PT-OP-L Special Tests Start: 11/15/21 17:34 Freq: Status: Active Protocol: Document 11/15/21 11:15 DCW (Rec: 11/16/21 09:37 DCW [id number]) Special Tests Lumbar Spine Special Tests Vertical Spine Loading Test Results Negative CARLOS Test Results Negative Straight Leg Raise Test Results L HS tightness Slump Test Results L HS tightness A-P Shearing Test Results Negative PT-OP-M Strength Start: 11/15/21 17:34 Freq: Status: Active Protocol: Document 11/15/21 11:15 DCW (Rec: 11/16/21 09:37 DCW [id number]) Trunk Strength Trunk Manual Muscle Testing Core Stabilization Difficulty juan or holding TrA, MMT = 3+/5 Hip Strength Hip Manual Muscle Testing Right Flexion (L2) 4 Good Abduction 4 Good Adduction 4 Good Left Flexion (L2) 4 Good Abduction 4- Good- Adduction 4 Good Knee Strength Knee Manual Muscle Testing Right Flexion (S2) 4- Good- Extension (L3) 4- Good- Left Flexion (S2) 3+ Fair+ Extension (L3) 4- Good- Ankle/Foot Strength Ankle and Foot Manual Muscle Testing Right Dorsiflexion (L4) 4 Good Plantarflexion (S1) 4 Good Left Dorsiflexion (L4) 4 Good Plantarflexion (S1) 4 Good PT-OP-Q Treatments Start: 11/15/21 17:34 Freq: Status: Active Protocol: Document 11/30/21 11:15 DCW (Rec: 11/30/21 11:54 DCW [id number]) Cardio Equipment Recumbent Elliptical (Biodex) Duration (Minutes) 6 Resistance 6 Seat Position 6 Gym Equipment Shuttle Recovery Unilateral Squats Resistance 75# Shuttle Recovery Platform Stable Reps/Time x30 Bilateral Squats Resistance 125# Shuttle Recovery Platform Stable Reps/Time x30 Therapeutic Ball 2 Exercise Details Bridging /c feet on ball Ball Size/Color Blue - 45 cm Body Position Supine 1 Exercise Details LTR Ball Size/Color Blue - 45 cm Body Position Supine Manual Therapy Treatment Soft Tissue Mobilization 1 Body Location T/L paraspinals Mobilization Type Strumming,Sustained Pressure Intensity/Depth Superficial Body Position Prone Joint Mobilizations 1 Joint T/L vertebral mobs Direction P->A Grade III Body Position Prone PT-OP-R Modalities Start: 11/19/21 11:55 Freq: Status: Active Protocol: Document 11/30/21 11:15 DCW (Rec: 11/30/21 11:54 DCW [id number]) Electric Stimulation Electric Stimulation Interferential Current (IFC) Body Location Lumbar Duration (Minutes) 15 Cycle Continuous Patient Position Prone PT-OP-T Assessment and Plan Start: 11/15/21 17:34 Freq: Status: Active Protocol: Document 11/30/21 11:15 DCW (Rec: 11/30/21 11:54 DCW [id number]) Physical Therapy Assessment Impairments Impairments Functional Activities, Functional Mobility,Pain,ROM, Soft Tissue Mobility,Strength, Tone Goals Two Impairment Pt unable to stand longer than 20 minutes without increased pain Halfway Goal (LTG) Pt to demonstrate ability to stand pain-free for 40 minutes without a break in order to enable her to perform cleaning dishes or cooking. LTG Duration 02/12/22 One Impairment Pt does not have an appropriate home exercise program Short Term Goal (STG) Pt to be independent and compliant with an appropriate HEP STG Duration 12/13/21 Assessment Summary Assessment Pt feels e-stim is greatly beneficial, moving better today. Has decided to stop going to her jain to work after her PT appointments, because it just screws everything back up. Physical Therapy Plan Frequency and Duration Frequency of Treatment 2x/Week Duration of Treatment Three months Plan of Care Start Date 11/15/21 Plan of Care End Date 02/12/22 Therapeutic Interventions Therapeutic Interventions Gait Training,Home Exercise Program,Joint Mobilizations, Manual Therapy,Neuromuscular Re-education,Patient/Caregiver Education,Self-Care/Home Management,Soft Tissue Mobilization,Therapeutic Activities,Therapeutic Exercises Modalities Cold Pack/Ice Massage,Electric Stimulation,Hot Packs, Ultrasound Next Visit Focus/Plan Next Note Type Treatment Note Next Visit Plan LE/core strengthening, STM
--- NOTE | 2021-12-02 10:28 | PT.OTN ---
Current Diagnoses Other chronic pain (12/02/21) Foot drop, left foot (12/02/21) Spondylosis without myelopathy or radiculopathy, lumbar region (12/02/21) Low back pain, unspecified (12/02/21) Pain in thoracic spine (12/02/21) Presence of left artificial knee joint (12/02/21) Physical Therapy Treatment Note PT-OP-A Visit Information Start: 11/15/21 17:34 Freq: Status: Active Protocol: Document 12/02/21 09:58 DCW (Rec: 12/02/21 10:28 DCW [id number]) Out-Patient Physical Therapy Visit Information Visit Information Visit Type Treatment Note Visit Start Time 09:58 Visit Stop Time 10:40 Total Visit Minutes 42 Visit Number 5 Number of FRUIT BUYER Visits 0 Evaluation Information Evaluation Date 11/15/21 PT-OP-B Current Condition Start: 11/15/21 17:34 Freq: Status: Active Protocol: Document 11/15/21 11:15 DCW (Rec: 11/15/21 17:48 DCW [id number]) Current Condition History of Current Condition Onset Date Multi-year history Current Complaints T/L back pain, L foot drop History of Current Condition Pt is a 61 year old female very well known to this clinic presenting with a long- standing history of low back pain. Pt has been seen at this clinic for multiple different injuries, most recently last year following a L TKA. Unfortunately, pt also suffered a nerve injury at that time, which resulted in left foot drop. Currently, pt complains of worsening back pain. Notes she is currently unable to stand longer than 15 -20 minutes at a time. Has been using a SPC when out in the store. Notes she currently has to sit on a stool when washing dishes. Personal Factors Other Personal Factors That May Effect B TKA, L foot drop Therapy/Recovery PT-OP-C Subjective Start: 11/15/21 17:34 Freq: Status: Active Protocol: Document 12/02/21 09:58 DCW (Rec: 12/02/21 10:28 DCW [id number]) OP-PT Subjective Patient Comments Patient Comments Pt reports she feels fine, doing minimal stuff on her PT days, allowing herself to relax, which has been helping. PT-OP-F Manual Assessment Start: 11/15/21 17:34 Freq: Status: Active Protocol: Document 11/15/21 11:15 DCW (Rec: 11/16/21 09:37 DCW [id number]) Manual Assessments Soft Tissue Assessment Soft Tissue Mobility Assessment Mild hypertonia along thoracolumbar paraspinals Joint Mobility Assessment Joint Mobility Assessment Joint hypomobility from T8-L5, minimal movement with vertebrae with spinal flexion/ extension, most movement comes from from hips PT-OP-G Mobility & Gait Start: 11/16/21 09:37 Freq: Status: Active Protocol: Document 11/15/21 11:15 DCW (Rec: 11/16/21 09:38 DCW [id number]) OP Gait Assessment Gait Gait Assistance Required: Independent Assistive Devices Assistive Device None Gait Deviations General Gait Pattern Antalgic,Decreased Stride Length,Decreased Feet Clearance,Lateral Trunk Lean, Wide Based Gait PT-OP-K Range of Motion Start: 11/15/21 17:34 Freq: Status: Active Protocol: Document 11/15/21 11:15 DCW (Rec: 11/16/21 09:37 DCW [id number]) Lumbar Spine Range of Motion Lumbar Spine Active Degrees Testing Position Standing Flexion 13 Extension 5 ROM Limitations Bony Restriction,Muscle Weakness PT-OP-L Special Tests Start: 11/15/21 17:34 Freq: Status: Active Protocol: Document 11/15/21 11:15 DCW (Rec: 11/16/21 09:37 DCW [id number]) Special Tests Lumbar Spine Special Tests Vertical Spine Loading Test Results Negative CARLOS Test Results Negative Straight Leg Raise Test Results L HS tightness Slump Test Results L HS tightness A-P Shearing Test Results Negative PT-OP-M Strength Start: 11/15/21 17:34 Freq: Status: Active Protocol: Document 11/15/21 11:15 DCW (Rec: 11/16/21 09:37 DCW [id number]) Trunk Strength Trunk Manual Muscle Testing Core Stabilization Difficulty juan or holding TrA, MMT = 3+/5 Hip Strength Hip Manual Muscle Testing Right Flexion (L2) 4 Good Abduction 4 Good Adduction 4 Good Left Flexion (L2) 4 Good Abduction 4- Good- Adduction 4 Good Knee Strength Knee Manual Muscle Testing Right Flexion (S2) 4- Good- Extension (L3) 4- Good- Left Flexion (S2) 3+ Fair+ Extension (L3) 4- Good- Ankle/Foot Strength Ankle and Foot Manual Muscle Testing Right Dorsiflexion (L4) 4 Good Plantarflexion (S1) 4 Good Left Dorsiflexion (L4) 4 Good Plantarflexion (S1) 4 Good PT-OP-Q Treatments Start: 11/15/21 17:34 Freq: Status: Active Protocol: Document 12/02/21 09:58 DCW (Rec: 12/02/21 10:28 DCW [id number]) Cardio Equipment Recumbent Stepper (Sci-Fit) Duration (Minutes) 6 Resistance 3 Seat Position 10 Gym Equipment Shuttle Recovery Unilateral Squats Resistance 75# Shuttle Recovery Platform Stable Reps/Time x30 Bilateral Squats Resistance 125# Shuttle Recovery Platform Stable Reps/Time x30 Manual Therapy Treatment Soft Tissue Mobilization 1 Body Location T/L paraspinals Mobilization Type Strumming,Sustained Pressure Intensity/Depth Superficial Body Position Prone Joint Mobilizations 1 Joint T/L vertebral mobs Direction P->A Grade III Body Position Prone PT-OP-R Modalities Start: 11/19/21 11:55 Freq: Status: Active Protocol: Document 12/02/21 09:58 DCW (Rec: 12/02/21 10:28 DCW [id number]) Electric Stimulation Electric Stimulation Interferential Current (IFC) Body Location Lumbar Duration (Minutes) 15 Cycle Continuous Patient Position Prone PT-OP-T Assessment and Plan Start: 11/15/21 17:34 Freq: Status: Active Protocol: Document 12/02/21 09:58 DCW (Rec: 12/02/21 10:28 DCW [id number]) Physical Therapy Assessment Impairments Impairments Functional Activities, Functional Mobility,Pain,ROM, Soft Tissue Mobility,Strength, Tone Goals Two Impairment Pt unable to stand longer than 20 minutes without increased pain Management Lecturer Goal (LTG) Pt to demonstrate ability to stand pain-free for 40 minutes without a break in order to enable her to perform cleaning dishes or cooking. LTG Duration 02/12/22 One Impairment Pt does not have an appropriate home exercise program Short Term Goal (STG) Pt to be independent and compliant with an appropriate HEP STG Duration 12/13/21 Assessment Summary Assessment Pt doing well today, minimal pain and discomfort with activity. Shortened session due to late arrival. Physical Therapy Plan Frequency and Duration Frequency of Treatment 2x/Week Duration of Treatment Three months Plan of Care Start Date 11/15/21 Plan of Care End Date 02/12/22 Therapeutic Interventions Therapeutic Interventions Gait Training,Home Exercise Program,Joint Mobilizations, Manual Therapy,Neuromuscular Re-education,Patient/Caregiver Education,Self-Care/Home Management,Soft Tissue Mobilization,Therapeutic Activities,Therapeutic Exercises Modalities Cold Pack/Ice Massage,Electric Stimulation,Hot Packs, Ultrasound Next Visit Focus/Plan Next Note Type Treatment Note Next Visit Plan LE/core strengthening, STM
--- NOTE | 2021-12-07 13:46 | PT.OTN ---
Current Diagnoses Other chronic pain (12/07/21) Foot drop, left foot (12/07/21) Spondylosis without myelopathy or radiculopathy, lumbar region (12/07/21) Low back pain, unspecified (12/07/21) Pain in thoracic spine (12/07/21) Presence of left artificial knee joint (12/07/21) Physical Therapy Treatment Note PT-OP-A Visit Information Start: 11/15/21 17:34 Freq: Status: Active Protocol: Document 12/07/21 11:15 DCW (Rec: 12/07/21 11:59 DCW [id number]) Out-Patient Physical Therapy Visit Information Visit Information Visit Type Treatment Note Visit Start Time 11:15 Visit Stop Time 12:10 Total Visit Minutes 55 Visit Number 6 Number of MINERAL SURVEYOR Visits 0 Evaluation Information Evaluation Date 11/15/21 PT-OP-B Current Condition Start: 11/15/21 17:34 Freq: Status: Active Protocol: Document 11/15/21 11:15 DCW (Rec: 11/15/21 17:48 DCW [id number]) Current Condition History of Current Condition Onset Date Multi-year history Current Complaints T/L back pain, L foot drop History of Current Condition Pt is a 61 year old female very well known to this clinic presenting with a long- standing history of low back pain. Pt has been seen at this clinic for multiple different injuries, most recently last year following a L TKA. Unfortunately, pt also suffered a nerve injury at that time, which resulted in left foot drop. Currently, pt complains of worsening back pain. Notes she is currently unable to stand longer than 15 -20 minutes at a time. Has been using a SPC when out in the store. Notes she currently has to sit on a stool when washing dishes. Personal Factors Other Personal Factors That May Effect B TKA, L foot drop Therapy/Recovery PT-OP-C Subjective Start: 11/15/21 17:34 Freq: Status: Active Protocol: Document 12/07/21 11:15 DCW (Rec: 12/07/21 11:59 DCW [id number]) OP-PT Subjective Patient Comments Patient Comments My back has been fine, unless I try to do dishes. Over the weekend, my right knee was really bad, I almost went to the ER, but now it feels much better. PT-OP-F Manual Assessment Start: 11/15/21 17:34 Freq: Status: Active Protocol: Document 11/15/21 11:15 DCW (Rec: 11/16/21 09:37 DCW [id number]) Manual Assessments Soft Tissue Assessment Soft Tissue Mobility Assessment Mild hypertonia along thoracolumbar paraspinals Joint Mobility Assessment Joint Mobility Assessment Joint hypomobility from T8-L5, minimal movement with vertebrae with spinal flexion/ extension, most movement comes from from hips PT-OP-G Mobility & Gait Start: 11/16/21 09:37 Freq: Status: Active Protocol: Document 11/15/21 11:15 DCW (Rec: 11/16/21 09:38 DCW [id number]) OP Gait Assessment Gait Gait Assistance Required: Independent Assistive Devices Assistive Device None Gait Deviations General Gait Pattern Antalgic,Decreased Stride Length,Decreased Feet Clearance,Lateral Trunk Lean, Wide Based Gait PT-OP-K Range of Motion Start: 11/15/21 17:34 Freq: Status: Active Protocol: Document 11/15/21 11:15 DCW (Rec: 11/16/21 09:37 DCW [id number]) Lumbar Spine Range of Motion Lumbar Spine Active Degrees Testing Position Standing Flexion 13 Extension 5 ROM Limitations Bony Restriction,Muscle Weakness PT-OP-L Special Tests Start: 11/15/21 17:34 Freq: Status: Active Protocol: Document 11/15/21 11:15 DCW (Rec: 11/16/21 09:37 DCW [id number]) Special Tests Lumbar Spine Special Tests Vertical Spine Loading Test Results Negative CARLOS Test Results Negative Straight Leg Raise Test Results L HS tightness Slump Test Results L HS tightness A-P Shearing Test Results Negative PT-OP-M Strength Start: 11/15/21 17:34 Freq: Status: Active Protocol: Document 11/15/21 11:15 DCW (Rec: 11/16/21 09:37 DCW [id number]) Trunk Strength Trunk Manual Muscle Testing Core Stabilization Difficulty juan or holding TrA, MMT = 3+/5 Hip Strength Hip Manual Muscle Testing Right Flexion (L2) 4 Good Abduction 4 Good Adduction 4 Good Left Flexion (L2) 4 Good Abduction 4- Good- Adduction 4 Good Knee Strength Knee Manual Muscle Testing Right Flexion (S2) 4- Good- Extension (L3) 4- Good- Left Flexion (S2) 3+ Fair+ Extension (L3) 4- Good- Ankle/Foot Strength Ankle and Foot Manual Muscle Testing Right Dorsiflexion (L4) 4 Good Plantarflexion (S1) 4 Good Left Dorsiflexion (L4) 4 Good Plantarflexion (S1) 4 Good PT-OP-Q Treatments Start: 11/15/21 17:34 Freq: Status: Active Protocol: Document 12/07/21 11:15 DCW (Rec: 12/07/21 11:59 DCW [id number]) Cardio Equipment Recumbent Elliptical (Biodex) Duration (Minutes) 6 Resistance 6 Seat Position 7 Gym Equipment Shuttle Recovery Unilateral Squats Resistance 75# Shuttle Recovery Platform Stable Reps/Time x30 Bilateral Squats Resistance 125# Shuttle Recovery Platform Stable Reps/Time x30 Therapeutic Ball 2 Exercise Details Bridging /c feet on ball Ball Size/Color Blue - 45 cm Body Position Supine 1 Exercise Details LTR Ball Size/Color Blue - 45 cm Body Position Supine Manual Therapy Treatment Soft Tissue Mobilization 1 Body Location T/L paraspinals Mobilization Type Strumming,Sustained Pressure Intensity/Depth Superficial Body Position Prone Joint Mobilizations 1 Joint T/L vertebral mobs Direction P->A Grade III Body Position Prone PT-OP-R Modalities Start: 11/19/21 11:55 Freq: Status: Active Protocol: Document 12/07/21 11:15 DCW (Rec: 12/07/21 11:59 DCW [id number]) Electric Stimulation Electric Stimulation Interferential Current (IFC) Body Location Lumbar Duration (Minutes) 15 Cycle Continuous Patient Position Prone PT-OP-T Assessment and Plan Start: 11/15/21 17:34 Freq: Status: Active Protocol: Document 12/07/21 11:15 DCW (Rec: 12/07/21 11:59 DCW [id number]) Physical Therapy Assessment Impairments Impairments Functional Activities, Functional Mobility,Pain,ROM, Soft Tissue Mobility,Strength, Tone Goals Two Impairment Pt unable to stand longer than 20 minutes without increased pain Nursing Home Goal (LTG) Pt to demonstrate ability to stand pain-free for 40 minutes without a break in order to enable her to perform cleaning dishes or cooking. LTG Duration 02/12/22 One Impairment Pt does not have an appropriate home exercise program Short Term Goal (STG) Pt to be independent and compliant with an appropriate HEP STG Duration 12/13/21 Assessment Summary Assessment Pt tolerated treatment very well today, had some increased paraspinal tone today, but responded well to STM Physical Therapy Plan Frequency and Duration Frequency of Treatment 2x/Week Duration of Treatment Three months Plan of Care Start Date 11/15/21 Plan of Care End Date 02/12/22 Therapeutic Interventions Therapeutic Interventions Gait Training,Home Exercise Program,Joint Mobilizations, Manual Therapy,Neuromuscular Re-education,Patient/Caregiver Education,Self-Care/Home Management,Soft Tissue Mobilization,Therapeutic Activities,Therapeutic Exercises Modalities Cold Pack/Ice Massage,Electric Stimulation,Hot Packs, Ultrasound Next Visit Focus/Plan Next Note Type Treatment Note Next Visit Plan LE/core strengthening, STM
--- NOTE | 2021-12-09 12:02 | PT.OTN ---
Current Diagnoses Other chronic pain (12/09/21) Foot drop, left foot (12/09/21) Spondylosis without myelopathy or radiculopathy, lumbar region (12/09/21) Low back pain, unspecified (12/09/21) Pain in thoracic spine (12/09/21) Presence of left artificial knee joint (12/09/21) Physical Therapy Treatment Note PT-OP-A Visit Information Start: 11/15/21 17:34 Freq: Status: Active Protocol: Document 12/09/21 11:15 DCW (Rec: 12/09/21 12:01 DCW [id number]) Out-Patient Physical Therapy Visit Information Visit Information Visit Type Treatment Note Visit Start Time 11:15 Visit Stop Time 12:10 Total Visit Minutes 55 Visit Number 7 Number of WOOD CRAFTSMAN Visits 0 Evaluation Information Evaluation Date 11/15/21 PT-OP-B Current Condition Start: 11/15/21 17:34 Freq: Status: Active Protocol: Document 11/15/21 11:15 DCW (Rec: 11/15/21 17:48 DCW [id number]) Current Condition History of Current Condition Onset Date Multi-year history Current Complaints T/L back pain, L foot drop History of Current Condition Pt is a 61 year old female very well known to this clinic presenting with a long- standing history of low back pain. Pt has been seen at this clinic for multiple different injuries, most recently last year following a L TKA. Unfortunately, pt also suffered a nerve injury at that time, which resulted in left foot drop. Currently, pt complains of worsening back pain. Notes she is currently unable to stand longer than 15 -20 minutes at a time. Has been using a SPC when out in the store. Notes she currently has to sit on a stool when washing dishes. Personal Factors Other Personal Factors That May Effect B TKA, L foot drop Therapy/Recovery PT-OP-C Subjective Start: 11/15/21 17:34 Freq: Status: Active Protocol: Document 12/09/21 11:15 DCW (Rec: 12/09/21 12:01 DCW [id number]) OP-PT Subjective Patient Comments Patient Comments I'm not really having any pain today. PT-OP-F Manual Assessment Start: 11/15/21 17:34 Freq: Status: Active Protocol: Document 11/15/21 11:15 DCW (Rec: 11/16/21 09:37 DCW [id number]) Manual Assessments Soft Tissue Assessment Soft Tissue Mobility Assessment Mild hypertonia along thoracolumbar paraspinals Joint Mobility Assessment Joint Mobility Assessment Joint hypomobility from T8-L5, minimal movement with vertebrae with spinal flexion/ extension, most movement comes from from hips PT-OP-G Mobility & Gait Start: 11/16/21 09:37 Freq: Status: Active Protocol: Document 11/15/21 11:15 DCW (Rec: 11/16/21 09:38 DCW [id number]) OP Gait Assessment Gait Gait Assistance Required: Independent Assistive Devices Assistive Device None Gait Deviations General Gait Pattern Antalgic,Decreased Stride Length,Decreased Feet Clearance,Lateral Trunk Lean, Wide Based Gait PT-OP-K Range of Motion Start: 11/15/21 17:34 Freq: Status: Active Protocol: Document 11/15/21 11:15 DCW (Rec: 11/16/21 09:37 DCW [id number]) Lumbar Spine Range of Motion Lumbar Spine Active Degrees Testing Position Standing Flexion 13 Extension 5 ROM Limitations Bony Restriction,Muscle Weakness PT-OP-L Special Tests Start: 11/15/21 17:34 Freq: Status: Active Protocol: Document 11/15/21 11:15 DCW (Rec: 11/16/21 09:37 DCW [id number]) Special Tests Lumbar Spine Special Tests Vertical Spine Loading Test Results Negative CARLOS Test Results Negative Straight Leg Raise Test Results L HS tightness Slump Test Results L HS tightness A-P Shearing Test Results Negative PT-OP-M Strength Start: 11/15/21 17:34 Freq: Status: Active Protocol: Document 11/15/21 11:15 DCW (Rec: 11/16/21 09:37 DCW [id number]) Trunk Strength Trunk Manual Muscle Testing Core Stabilization Difficulty juan or holding TrA, MMT = 3+/5 Hip Strength Hip Manual Muscle Testing Right Flexion (L2) 4 Good Abduction 4 Good Adduction 4 Good Left Flexion (L2) 4 Good Abduction 4- Good- Adduction 4 Good Knee Strength Knee Manual Muscle Testing Right Flexion (S2) 4- Good- Extension (L3) 4- Good- Left Flexion (S2) 3+ Fair+ Extension (L3) 4- Good- Ankle/Foot Strength Ankle and Foot Manual Muscle Testing Right Dorsiflexion (L4) 4 Good Plantarflexion (S1) 4 Good Left Dorsiflexion (L4) 4 Good Plantarflexion (S1) 4 Good PT-OP-Q Treatments Start: 11/15/21 17:34 Freq: Status: Active Protocol: Document 12/09/21 11:15 DCW (Rec: 12/09/21 12:01 DCW [id number]) Cardio Equipment Recumbent Elliptical (Biodex) Duration (Minutes) 6 Resistance 6 Seat Position 7 Gym Equipment Shuttle Recovery Unilateral Squats Resistance 75# Shuttle Recovery Platform Stable Reps/Time x30 Bilateral Squats Resistance 125# Shuttle Recovery Platform Stable Reps/Time x30 Therapeutic Ball 2 Exercise Details Bridging /c feet on ball Ball Size/Color Blue - 45 cm Body Position Supine 1 Exercise Details LTR Ball Size/Color Blue - 45 cm Body Position Supine Manual Therapy Treatment Soft Tissue Mobilization 1 Body Location T/L paraspinals Mobilization Type Strumming,Sustained Pressure Intensity/Depth Superficial Body Position Prone Joint Mobilizations 1 Joint T/L vertebral mobs Direction P->A Grade III Body Position Prone PT-OP-R Modalities Start: 11/19/21 11:55 Freq: Status: Active Protocol: Document 12/09/21 11:15 DCW (Rec: 12/09/21 12:01 DCW [id number]) Electric Stimulation Electric Stimulation Interferential Current (IFC) Body Location Lumbar Duration (Minutes) 15 Cycle Continuous Patient Position Prone PT-OP-T Assessment and Plan Start: 11/15/21 17:34 Freq: Status: Active Protocol: Document 12/09/21 11:15 DCW (Rec: 12/09/21 12:01 DCW [id number]) Physical Therapy Assessment Impairments Impairments Functional Activities, Functional Mobility,Pain,ROM, Soft Tissue Mobility,Strength, Tone Goals Two Impairment Pt unable to stand longer than 20 minutes without increased pain Chain Hooker Goal (LTG) Pt to demonstrate ability to stand pain-free for 40 minutes without a break in order to enable her to perform cleaning dishes or cooking. LTG Duration 02/12/22 One Impairment Pt does not have an appropriate home exercise program Short Term Goal (STG) Pt to be independent and compliant with an appropriate HEP STG Duration 12/13/21 Assessment Summary Assessment Pt brought her some in today to learn her electrode placement for her new TENS unit. Overall, pt seems to be progressing well, limited pain , mainly still with extended standing. Physical Therapy Plan Frequency and Duration Frequency of Treatment 2x/Week Duration of Treatment Three months Plan of Care Start Date 11/15/21 Plan of Care End Date 02/12/22 Therapeutic Interventions Therapeutic Interventions Gait Training,Home Exercise Program,Joint Mobilizations, Manual Therapy,Neuromuscular Re-education,Patient/Caregiver Education,Self-Care/Home Management,Soft Tissue Mobilization,Therapeutic Activities,Therapeutic Exercises Modalities Cold Pack/Ice Massage,Electric Stimulation,Hot Packs, Ultrasound Next Visit Focus/Plan Next Note Type Treatment Note Next Visit Plan LE/core strengthening, STM
--- NOTE | 2021-12-14 14:28 | PT.OTN ---
Current Diagnoses Other chronic pain (12/14/21) Foot drop, left foot (12/14/21) Spondylosis without myelopathy or radiculopathy, lumbar region (12/14/21) Low back pain, unspecified (12/14/21) Pain in thoracic spine (12/14/21) Presence of left artificial knee joint (12/14/21) Physical Therapy Treatment Note PT-OP-A Visit Information Start: 11/15/21 17:34 Freq: Status: Active Protocol: Document 12/14/21 13:45 DCW (Rec: 12/14/21 14:28 DCW [id number]) Out-Patient Physical Therapy Visit Information Visit Information Visit Type Treatment Note Visit Start Time 13:45 Visit Stop Time 14:40 Total Visit Minutes 55 Visit Number 8 Number of SENIOR IT PROJECT MANAGER Visits 0 Evaluation Information Evaluation Date 11/15/21 PT-OP-B Current Condition Start: 11/15/21 17:34 Freq: Status: Active Protocol: Document 11/15/21 11:15 DCW (Rec: 11/15/21 17:48 DCW [id number]) Current Condition History of Current Condition Onset Date Multi-year history Current Complaints T/L back pain, L foot drop History of Current Condition Pt is a 61 year old female very well known to this clinic presenting with a long- standing history of low back pain. Pt has been seen at this clinic for multiple different injuries, most recently last year following a L TKA. Unfortunately, pt also suffered a nerve injury at that time, which resulted in left foot drop. Currently, pt complains of worsening back pain. Notes she is currently unable to stand longer than 15 -20 minutes at a time. Has been using a SPC when out in the store. Notes she currently has to sit on a stool when washing dishes. Personal Factors Other Personal Factors That May Effect B TKA, L foot drop Therapy/Recovery PT-OP-C Subjective Start: 11/15/21 17:34 Freq: Status: Active Protocol: Document 12/14/21 13:45 DCW (Rec: 12/14/21 14:28 DCW [id number]) OP-PT Subjective Patient Comments Patient Comments I hurt my back on Monday moving furniture, but I'm feeling okay today. PT-OP-F Manual Assessment Start: 11/15/21 17:34 Freq: Status: Active Protocol: Document 11/15/21 11:15 DCW (Rec: 11/16/21 09:37 DCW [id number]) Manual Assessments Soft Tissue Assessment Soft Tissue Mobility Assessment Mild hypertonia along thoracolumbar paraspinals Joint Mobility Assessment Joint Mobility Assessment Joint hypomobility from T8-L5, minimal movement with vertebrae with spinal flexion/ extension, most movement comes from from hips PT-OP-G Mobility & Gait Start: 11/16/21 09:37 Freq: Status: Active Protocol: Document 11/15/21 11:15 DCW (Rec: 11/16/21 09:38 DCW [id number]) OP Gait Assessment Gait Gait Assistance Required: Independent Assistive Devices Assistive Device None Gait Deviations General Gait Pattern Antalgic,Decreased Stride Length,Decreased Feet Clearance,Lateral Trunk Lean, Wide Based Gait PT-OP-K Range of Motion Start: 11/15/21 17:34 Freq: Status: Active Protocol: Document 11/15/21 11:15 DCW (Rec: 11/16/21 09:37 DCW [id number]) Lumbar Spine Range of Motion Lumbar Spine Active Degrees Testing Position Standing Flexion 13 Extension 5 ROM Limitations Bony Restriction,Muscle Weakness PT-OP-L Special Tests Start: 11/15/21 17:34 Freq: Status: Active Protocol: Document 11/15/21 11:15 DCW (Rec: 11/16/21 09:37 DCW [id number]) Special Tests Lumbar Spine Special Tests Vertical Spine Loading Test Results Negative CARLOS Test Results Negative Straight Leg Raise Test Results L HS tightness Slump Test Results L HS tightness A-P Shearing Test Results Negative PT-OP-M Strength Start: 11/15/21 17:34 Freq: Status: Active Protocol: Document 11/15/21 11:15 DCW (Rec: 11/16/21 09:37 DCW [id number]) Trunk Strength Trunk Manual Muscle Testing Core Stabilization Difficulty juan or holding TrA, MMT = 3+/5 Hip Strength Hip Manual Muscle Testing Right Flexion (L2) 4 Good Abduction 4 Good Adduction 4 Good Left Flexion (L2) 4 Good Abduction 4- Good- Adduction 4 Good Knee Strength Knee Manual Muscle Testing Right Flexion (S2) 4- Good- Extension (L3) 4- Good- Left Flexion (S2) 3+ Fair+ Extension (L3) 4- Good- Ankle/Foot Strength Ankle and Foot Manual Muscle Testing Right Dorsiflexion (L4) 4 Good Plantarflexion (S1) 4 Good Left Dorsiflexion (L4) 4 Good Plantarflexion (S1) 4 Good PT-OP-Q Treatments Start: 11/15/21 17:34 Freq: Status: Active Protocol: Document 12/14/21 13:45 DCW (Rec: 12/14/21 14:28 DCW [id number]) Cardio Equipment Recumbent Elliptical (Biodex) Duration (Minutes) 6 Resistance 6 Seat Position 7 Gym Equipment Shuttle Recovery Unilateral Squats Resistance 75# Shuttle Recovery Platform Stable Reps/Time x30 Bilateral Squats Resistance 125# Shuttle Recovery Platform Stable Reps/Time x30 Therapeutic Ball 2 Exercise Details Bridging /c feet on ball Ball Size/Color Blue - 45 cm Body Position Supine 1 Exercise Details LTR Ball Size/Color Blue - 45 cm Body Position Supine Manual Therapy Treatment Soft Tissue Mobilization 1 Body Location T/L paraspinals Mobilization Type Strumming,Sustained Pressure Intensity/Depth Superficial Body Position Prone Joint Mobilizations 1 Joint T/L vertebral mobs Direction P->A Grade III Body Position Prone PT-OP-R Modalities Start: 11/19/21 11:55 Freq: Status: Active Protocol: Document 12/14/21 13:45 DCW (Rec: 12/14/21 14:28 DCW [id number]) Electric Stimulation Electric Stimulation Interferential Current (IFC) Body Location Lumbar Duration (Minutes) 15 Cycle Continuous Patient Position Prone PT-OP-T Assessment and Plan Start: 11/15/21 17:34 Freq: Status: Active Protocol: Document 12/14/21 13:45 DCW (Rec: 12/14/21 14:28 DCW [id number]) Physical Therapy Assessment Impairments Impairments Functional Activities, Functional Mobility,Pain,ROM, Soft Tissue Mobility,Strength, Tone Goals Two Impairment Pt unable to stand longer than 20 minutes without increased pain Custodial Goal (LTG) Pt to demonstrate ability to stand pain-free for 40 minutes without a break in order to enable her to perform cleaning dishes or cooking. LTG Duration 02/12/22 One Impairment Pt does not have an appropriate home exercise program Short Term Goal (STG) Pt to be independent and compliant with an appropriate HEP STG Duration 12/13/21 Assessment Summary Assessment Pt did well, not experiencing much pain today after a flair- up this weekend. Tolerates treatment very well. Physical Therapy Plan Frequency and Duration Frequency of Treatment 2x/Week Duration of Treatment Three months Plan of Care Start Date 11/15/21 Plan of Care End Date 02/12/22 Therapeutic Interventions Therapeutic Interventions Gait Training,Home Exercise Program,Joint Mobilizations, Manual Therapy,Neuromuscular Re-education,Patient/Caregiver Education,Self-Care/Home Management,Soft Tissue Mobilization,Therapeutic Activities,Therapeutic Exercises Modalities Cold Pack/Ice Massage,Electric Stimulation,Hot Packs, Ultrasound Next Visit Focus/Plan Next Note Type Treatment Note Next Visit Plan LE/core strengthening, STM
--- NOTE | 2021-12-21 11:55 | PT.OTN ---
Current Diagnoses Other chronic pain (12/21/21) Foot drop, left foot (12/21/21) Spondylosis without myelopathy or radiculopathy, lumbar region (12/21/21) Low back pain, unspecified (12/21/21) Pain in thoracic spine (12/21/21) Presence of left artificial knee joint (12/21/21) Physical Therapy Treatment Note PT-OP-A Visit Information Start: 11/15/21 17:34 Freq: Status: Active Protocol: Document 12/21/21 11:15 DCW (Rec: 12/21/21 11:55 DCW [id number]) Out-Patient Physical Therapy Visit Information Visit Information Visit Type Treatment Note Visit Start Time 11:15 Visit Stop Time 12:10 Total Visit Minutes 55 Visit Number 9 Number of LINE MAINTENANCE SUPERVISOR Visits 0 Evaluation Information Evaluation Date 11/15/21 PT-OP-B Current Condition Start: 11/15/21 17:34 Freq: Status: Active Protocol: Document 11/15/21 11:15 DCW (Rec: 11/15/21 17:48 DCW [id number]) Current Condition History of Current Condition Onset Date Multi-year history Current Complaints T/L back pain, L foot drop History of Current Condition Pt is a 61 year old female very well known to this clinic presenting with a long- standing history of low back pain. Pt has been seen at this clinic for multiple different injuries, most recently last year following a L TKA. Unfortunately, pt also suffered a nerve injury at that time, which resulted in left foot drop. Currently, pt complains of worsening back pain. Notes she is currently unable to stand longer than 15 -20 minutes at a time. Has been using a SPC when out in the store. Notes she currently has to sit on a stool when washing dishes. Personal Factors Other Personal Factors That May Effect B TKA, L foot drop Therapy/Recovery PT-OP-C Subjective Start: 11/15/21 17:34 Freq: Status: Active Protocol: Document 12/21/21 11:15 DCW (Rec: 12/21/21 11:55 DCW [id number]) OP-PT Subjective Patient Comments Patient Comments Pt a little sore today, but feels like she has been doing well enough she feels discharge will be appropriate following her next visit. PT-OP-F Manual Assessment Start: 02/07/22 17:34 Freq: Status: Active Protocol: Document 11/15/21 11:15 DCW (Rec: 11/16/21 09:37 DCW [id number]) Manual Assessments Soft Tissue Assessment Soft Tissue Mobility Assessment Mild hypertonia along thoracolumbar paraspinals Joint Mobility Assessment Joint Mobility Assessment Joint hypomobility from T8-L5, minimal movement with vertebrae with spinal flexion/ extension, most movement comes from from hips PT-OP-G Mobility & Gait Start: 11/16/21 09:37 Freq: Status: Active Protocol: Document 11/15/21 11:15 DCW (Rec: 11/16/21 09:38 DCW [id number]) OP Gait Assessment Gait Gait Assistance Required: Independent Assistive Devices Assistive Device None Gait Deviations General Gait Pattern Antalgic,Decreased Stride Length,Decreased Feet Clearance,Lateral Trunk Lean, Wide Based Gait PT-OP-K Range of Motion Start: 11/15/21 17:34 Freq: Status: Active Protocol: Document 11/15/21 11:15 DCW (Rec: 11/16/21 09:37 DCW [place] [id number]) Lumbar Spine Range of Motion Lumbar Spine Active Degrees Testing Position Standing Flexion 13 Extension 5 ROM Limitations Bony Restriction,Muscle Weakness PT-OP-L Special Tests Start: 11/15/21 17:34 Freq: Status: Active Protocol: Document 11/15/21 11:15 DCW (Rec: 11/16/21 09:37 DCW [place] [id number]) Special Tests Lumbar Spine Special Tests Vertical Spine Loading Test Results Negative CARLOS Test Results Negative Straight Leg Raise Test Results L HS tightness Slump Test Results L HS tightness A-P Shearing Test Results Negative PT-OP-M Strength Start: 11/15/21 17:34 Freq: Status: Active Protocol: Document 11/15/21 11:15 DCW (Rec: 11/16/21 09:37 DCW [id number]) Trunk Strength Trunk Manual Muscle Testing Core Stabilization Difficulty juan or holding TrA, MMT = 3+/5 Hip Strength Hip Manual Muscle Testing Right Flexion (L2) 4 Good Abduction 4 Good Adduction 4 Good Left Flexion (L2) 4 Good Abduction 4- Good- Adduction 4 Good Knee Strength Knee Manual Muscle Testing Right Flexion (S2) 4- Good- Extension (L3) 4- Good- Left Flexion (S2) 3+ Fair+ Extension (L3) 4- Good- Ankle/Foot Strength Ankle and Foot Manual Muscle Testing Right Dorsiflexion (L4) 4 Good Plantarflexion (S1) 4 Good Left Dorsiflexion (L4) 4 Good Plantarflexion (S1) 4 Good PT-OP-Q Treatments Start: 11/15/21 17:34 Freq: Status: Active Protocol: Document 12/21/21 11:15 DCW (Rec: 12/21/21 11:55 DCW [id number]) Cardio Equipment Recumbent Elliptical (Biodex) Duration (Minutes) 6 Resistance 6 Seat Position 7 Gym Equipment Shuttle Recovery Unilateral Squats Resistance 75# Shuttle Recovery Platform Stable Reps/Time x30 Bilateral Squats Resistance 125# Shuttle Recovery Platform Stable Reps/Time x30 Therapeutic Ball 2 Exercise Details Bridging /c feet on ball Ball Size/Color Blue - 45 cm Body Position Supine 1 Exercise Details LTR Ball Size/Color Blue - 45 cm Body Position Supine Manual Therapy Treatment Soft Tissue Mobilization 1 Body Location T/L paraspinals Mobilization Type Strumming,Sustained Pressure Intensity/Depth Superficial Body Position Prone Joint Mobilizations 1 Joint T/L vertebral mobs Direction P->A Grade III Body Position Prone PT-OP-R Modalities Start: 11/19/21 11:55 Freq: Status: Active Protocol: Document 12/21/21 11:15 DCW (Rec: 12/21/21 11:55 DCW [id number]) Electric Stimulation Electric Stimulation Interferential Current (IFC) Body Location Lumbar Duration (Minutes) 15 Cycle Continuous Patient Position Prone PT-OP-T Assessment and Plan Start: 11/15/21 17:34 Freq: Status: Active Protocol: Document 12/21/21 11:15 DCW (Rec: 12/21/21 11:55 DCW [id number]) Physical Therapy Assessment Impairments Impairments Functional Activities, Functional Mobility,Pain,ROM, Soft Tissue Mobility,Strength, Tone Goals Two Impairment Pt unable to stand longer than 20 minutes without increased pain Wire Photo Operator News Goal (LTG) Pt to demonstrate ability to stand pain-free for 40 minutes without a break in order to enable her to perform cleaning dishes or cooking. LTG Duration 02/12/22 One Impairment Pt does not have an appropriate home exercise program Short Term Goal (STG) Pt to be independent and compliant with an appropriate HEP STG Duration 12/13/21 Assessment Summary Assessment Pt will likely be appropriate for discharge following her last scheduled appointment. Her knee and foot have been functioning much better over the last few weeks. Physical Therapy Plan Frequency and Duration Frequency of Treatment 2x/Week Duration of Treatment Three months Plan of Care Start Date 11/15/21 Plan of Care End Date 02/12/22 Therapeutic Interventions Therapeutic Interventions Gait Training,Home Exercise Program,Joint Mobilizations, Manual Therapy,Neuromuscular Re-education,Patient/Caregiver Education,Self-Care/Home Management,Soft Tissue Mobilization,Therapeutic Activities,Therapeutic Exercises Modalities Cold Pack/Ice Massage,Electric Stimulation,Hot Packs, Ultrasound Next Visit Focus/Plan Next Note Type Discharge Summary Next Visit Plan LE/core strengthening, STM
--- NOTE | 2021-12-23 11:46 | PT.OTN ---
Current Diagnoses Other chronic pain (12/23/21) Foot drop, left foot (12/23/21) Spondylosis without myelopathy or radiculopathy, lumbar region (12/23/21) Low back pain, unspecified (12/23/21) Pain in thoracic spine (12/23/21) Presence of left artificial knee joint (12/23/21) Physical Therapy Treatment Note PT-OP-A Visit Information Start: 11/15/21 17:34 Freq: Status: Active Protocol: Document 12/23/21 11:15 DCW (Rec: 12/23/21 11:46 DCW [id number]) Out-Patient Physical Therapy Visit Information Visit Information Visit Type Treatment Note Visit Start Time 11:15 Visit Stop Time 12:00 Total Visit Minutes 45 Visit Number 10 Number of CAMPUS REP Visits 0 Evaluation Information Evaluation Date 11/15/21 PT-OP-B Current Condition Start: 11/15/21 17:34 Freq: Status: Active Protocol: Document 11/15/21 11:15 DCW (Rec: 11/15/21 17:48 DCW [id number]) Current Condition History of Current Condition Onset Date Multi-year history Current Complaints T/L back pain, L foot drop History of Current Condition Pt is a 61 year old female very well known to this clinic presenting with a long- standing history of low back pain. Pt has been seen at this clinic for multiple different injuries, most recently last year following a L TKA. Unfortunately, pt also suffered a nerve injury at that time, which resulted in left foot drop. Currently, pt complains of worsening back pain. Notes she is currently unable to stand longer than 15 -20 minutes at a time. Has been using a SPC when out in the store. Notes she currently has to sit on a stool when washing dishes. Personal Factors Other Personal Factors That May Effect B TKA, L foot drop Therapy/Recovery PT-OP-C Subjective Start: 11/15/21 17:34 Freq: Status: Active Protocol: Document 12/23/21 11:15 DCW (Rec: 12/23/21 11:46 DCW [id number]) OP-PT Subjective Patient Comments Patient Comments Pt having some increased thoracic pain, but is walking around significantly better, minimal pain or discomfort from gait. PT-OP-F Manual Assessment Start: 11/15/21 17:34 Freq: Status: Active Protocol: Document 12/23/21 11:15 DCW (Rec: 12/23/21 11:29 DCW [id number]) Manual Assessments Soft Tissue Assessment Soft Tissue Mobility Assessment Mild hypertonia along thoracolumbar paraspinals Joint Mobility Assessment Joint Mobility Assessment Joint hypomobility from T8-L5, improved from eval, better mobility through intervertebral joints. PT-OP-G Mobility & Gait Start: 11/16/21 09:37 Freq: Status: Active Protocol: Document 12/23/21 11:15 DCW (Rec: 12/23/21 11:29 DCW [id number]) OP Gait Assessment Gait Gait Assistance Required: Independent Assistive Devices Assistive Device Small Based Quad Cane Gait Deviations General Gait Pattern Antalgic PT-OP-K Range of Motion Start: 11/15/21 17:34 Freq: Status: Active Protocol: Document 12/23/21 11:15 DCW (Rec: 12/23/21 11:29 DCW [id number]) Lumbar Spine Range of Motion Lumbar Spine Active Degrees Testing Position Standing Flexion 55 Extension 30 PT-OP-L Special Tests Start: 11/15/21 17:34 Freq: Status: Active Protocol: Document 12/23/21 11:15 DCW (Rec: 12/23/21 11:29 DCW [id number]) Special Tests Lumbar Spine Special Tests Vertical Spine Loading Test Results Negative CARLOS Test Results Negative Straight Leg Raise Test Results Negative Slump Test Results Negative A-P Shearing Test Results Negative PT-OP-M Strength Start: 11/15/21 17:34 Freq: Status: Active Protocol: Document 12/23/21 11:15 DCW (Rec: 12/23/21 11:29 DCW [id number]) Trunk Strength Trunk Manual Muscle Testing Core Stabilization Core stability improved, still fatigues quickly. 4/5 Hip Strength Hip Manual Muscle Testing Right Flexion (L2) 4+ Good+ Abduction 4+ Good+ Adduction 4+ Good+ Left Flexion (L2) 4+ Good+ Abduction 4+ Good+ Adduction 4+ Good+ Knee Strength Knee Manual Muscle Testing Right Flexion (S2) 4+ Good+ Extension (L3) 5 Normal Left Flexion (S2) 4+ Good+ Extension (L3) 4+ Good+ Ankle/Foot Strength Ankle and Foot Manual Muscle Testing Right Dorsiflexion (L4) 4+ Good+ Plantarflexion (S1) 4+ Good+ Left Dorsiflexion (L4) 4+ Good+ Plantarflexion (S1) 4+ Good+ PT-OP-Q Treatments Start: 11/15/21 17:34 Freq: Status: Active Protocol: Document 12/23/21 11:15 DCW (Rec: 12/23/21 11:46 DCW [id number]) Cardio Equipment Recumbent Elliptical (Biodex) Duration (Minutes) 6 Resistance 6 Seat Position 7 Manual Therapy Treatment Soft Tissue Mobilization 1 Body Location T/L paraspinals Mobilization Type Strumming,Sustained Pressure Intensity/Depth Superficial Body Position Prone Joint Mobilizations 1 Joint T/L vertebral mobs Direction P->A Grade III Body Position Prone Other Other Manual Treatments Testing PT-OP-R Modalities Start: 11/19/21 11:55 Freq: Status: Active Protocol: Document 12/23/21 11:15 DCW (Rec: 12/23/21 11:46 DCW [id number]) Electric Stimulation Electric Stimulation Interferential Current (IFC) Body Location Lumbar Duration (Minutes) 15 Cycle Continuous Patient Position Prone PT-OP-T Assessment and Plan Start: 11/15/21 17:34 Freq: Status: Active Protocol: Document 12/23/21 11:15 DCW (Rec: 12/23/21 11:46 DCW [id number]) Physical Therapy Assessment Impairments Impairments Functional Activities, Functional Mobility,Pain,ROM, Soft Tissue Mobility,Strength, Tone Goals Two Impairment Pt unable to stand longer than 20 minutes without increased pain Outsole Leveler Goal (LTG) Pt to demonstrate ability to stand pain-free for 40 minutes without a break in order to enable her to perform cleaning dishes or cooking. LTG Duration Met One Impairment Pt does not have an appropriate home exercise program Short Term Goal (STG) Pt to be independent and compliant with an appropriate HEP STG Duration Met Assessment Summary Assessment Pt appropriate for discharge at this time. Pt doing well with ambulation and knee pain. Is having a slight increase in thoracic pain today. Significant improvement in LE strength, lumbar mobility, and gait. Physical Therapy Plan Frequency and Duration Frequency of Treatment 2x/Week Duration of Treatment Three months Plan of Care Start Date 11/15/21 Plan of Care End Date 02/12/22 Therapeutic Interventions Therapeutic Interventions Gait Training,Home Exercise Program,Joint Mobilizations, Manual Therapy,Neuromuscular Re-education,Patient/Caregiver Education,Self-Care/Home Management,Soft Tissue Mobilization,Therapeutic Activities,Therapeutic Exercises Modalities Cold Pack/Ice Massage,Electric Stimulation,Hot Packs, Ultrasound Discharge Physical Therapy Discharge Reasons Goals Met Next Visit Focus/Plan Next Note Type Discharge Summary
== END 2021-12-27 14:27 ==
LOC: PHYS 11:15
PROVIDERS: Absent Provider Orthopaedic Surgery; Family Provider Family Medicine; PCP Family Medicine; Referring Provider Family Medicine; Visit Provider Family Medicine
DX: M54.6 Pain in thoracic spine (principal); G89.29 Other chronic pain; M21.372 Foot drop, left foot; Z96.652 Presence of left artificial knee joint; M47.816 Spondylosis without myelopathy or radiculopathy, lumbar region; M54.50 Low back pain, unspecified
CPT/HCPCS: 97014; 97110; 97140; 97162; G0283

== ENCOUNTER 2022-02-10 21:38 | Emergency (ER) | payer OTHER, MEDICAID, SELFPAY ==
[2022-02-10 21:51] VITALS: BP 151/70; PULSE 77; RESP 17; TEMP 36.6; O2SAT 97; BMI 41.3
--- NOTE | 2022-02-10 23:16 | ED.GENADULT ---
HPI - General Adult General Chief complaint: Vaginal Bleeding Stated complaint: bleeding, had hyst about 20 yrs ago Time Seen by Provider: 02/10/22 21:51 Source: patient Mode of arrival: Ambulatory History of Present Illness HPI narrative: 61-year-old female who is here for evaluation of vaginal bleeding. States that earlier this evening she went to use the restroom. She urinated. When she wiped she noticed blood on the paper and also in the toilet. She states that she is fairly certain it is coming from her vagina. She did have hysterectomy 20 years ago. She denies any bleeding in her urine. Denies any GI bleeding. No blood in her stool. No change in bowel habits. Is having some abdominal cramping. Related Data Home Medications Medication Instructions Recorded Confirmed levothyroxine 88 mcg tablet 88 mcg PO DAILY 02/19/19 02/19/19 sumatriptan succinate 50 mg tablet 50 mg PO PRN PRN 02/19/19 02/19/19 tizanidine 2 mg tablet 02/19/19 Allergies Allergy/AdvReac Type Severity Reaction Status Date / Time codeine AdvReac Mild Verified 06/02/20 17:29 Penicillins AdvReac Mild Nausea Verified 06/02/20 17:29 Review of Systems Constitutional Constitutional: Denies fever(s) Gastrointestinal Gastrointestinal: Reports as per HPI and Reports system reviewed and no additional complaints, except as documented Genitourinary Genitourinary: Reports system reviewed and no additional complaints, except as documented and Reports as per HPI Integumentary/Breasts Skin/Breast: Reports system reviewed and no additional complaints, except as documented Neurologic Neurologic: Reports system reviewed and no additional complaints, except as documented Hematologic/Lymphatic On Anticoagulants: No Patient History Medical History Hypothyroid Social History Smoking Status: Former smoker Smoking Status: Former smoker alcohol intake frequency: holidays/special occasions only Substance Use Type: does not use Exam Initial Vital Signs Initial Vital Signs: Vital Signs Temperature 97.9 F 02/10/22 21:51 Pulse Rate 77 02/10/22 21:51 Respiratory Rate 17 02/10/22 21:51 Blood Pressure 151/70 H 02/10/22 21:51 Pulse Oximetry 97 02/10/22 21:51 Const General: cooperative, comfortable and well developed [facility] Head: normal to inspection and normocephalic GI Inspection: normal to inspection Palpation: soft and No firm External Female Exam: normal external appearance Speculum Exam - Vagina: normal appearance of the vagina, not erythematous, no foreign bodies and No vaginal bleeding OB/External & Speculum: no foreign bodies and No vaginal bleeding Skin General: no rashes or lesions noted Neuro General: patient alert, patient awake and moves all extremities Extrem General: normal to inspection Course Orders Ordered: ED Orders 02/10/22 23:20 Basic Metabolic Panel Stat Complete Blood Count AUTO DIFF Stat Vital Signs Vital signs: Vital Signs - 8 hr 02/10/22 21:51 02/11/22 00:16 Temperature 97.9 F Pulse Rate 77 68 Respiratory Rate 17 Blood Pressure 151/70 H 153/72 H Pulse Oximetry 97 97 Medical Decision Making Lab Data Result diagrams: 02/10/22 23:20 02/10/22 23:20 Labs: Lab Results 02/10/22 02/10/22 Range/Units 23:20 23:20 WBC 7.1 (4.5-11.0) X10^3/uL RBC 4.73 (4.0-5.2) X10^6/uL Hgb 13.7 (12.0-16.0) g/dL Hct 40.7 (36-46) % MCV 86.0 (80-100) fL MCH 28.9 (26-34) PG MCHC 33.6 (30-36) % RDW 13.9 (11.6-14.8) % Plt Count 177 (150-400) X10^3/uL Neut % (Auto) 52.5 (50-75) % Lymph % (Auto) 30.5 (25-40) % [place] % (Auto) 9.7 (3-14) % Eos % (Auto) 4.8 H (2-4) % Baso % (Auto) 2.5 H (0-2) % Neut # (Auto) 3700 (2379-3584) /uL Lymph # (Auto) 2200 (8654-1125) /uL [place] # (Auto) 700 (0-900) /uL Eos # (Auto) 300 (0-450) /uL Baso # (Auto) 200 H (0-100) /uL Sodium 142 (137-145) mmol/L Potassium 3.4 (3.4-5.1) mmol/L Chloride 104 (98-107) mmol/L Carbon Dioxide 29 (22-32) mmol/L BUN 17 (7-17) mg/dL Creatinine 0.70 (0.52-1.04) mg/dL Estimated GFR > 60 (>60) mL/min BUN/Creatinine Ratio 24.3 H (6-22) Glucose 95 (80-110) mg/dL Calcium 8.8 (8.4-10.2) mg/dL Urine Dip Bedside Urine Glucose Negative Bedside Urine Bilirubin - Negative Bedside Urine Ketone - Negative Urine Specific [place] 1.030 Bedside Urine Occult Blood +++ Bedside Urine pH 6.0 Bedside Urine Protein - Negative Bedside Urine Urobilinogen - Negative Bedside Urine Nitrite - Negative Bedside Urine Leukocytes - Negative Esterase Point of care testing: Urine Dip Bedside Urine Glucose Negative Bedside Urine Bilirubin - Negative Bedside Urine Ketone - Negative Urine Specific [place] 1.030 Bedside Urine Occult Blood +++ Bedside Urine pH 6.0 Bedside Urine Protein - Negative Bedside Urine Urobilinogen - Negative Bedside Urine Nitrite - Negative Bedside Urine Leukocytes - Negative Esterase MDM Narrative Medical decision making narrative: Vital signs and labs are unremarkable. Neck exam performed with android platform developer nursing in the room does not show any signs of bleeding. Does appear that she has had a total hysterectomy to include her cervix. There are no other lesions noted. She denies any change in bowel habits. She is certain that she is not having any blood in her stool. She does have blood in her urine. No other signs of a urinary tract infection. I feel that the bleeding is most likely coming from either her urine or GI tract. Will have her contact her primary doctor for a follow-up. No indication for CT scanning here in the ER as I feel that an acute surgical or infectious pathology in her abdomen is unlikely. I feel the kidney stones are unlikely based on her presentation as well. She was given return precautions. She expressed understanding and agreement. Discharge Plan Departure Patient Disposition: Home Clinical Impression: Hematuria Activity Restrictions/Additional Instructions: Your blood counts and kidney function are all normal today. No recommend that you contact your primary doctor for a follow-up. Return to the emergency department for any new or worsening symptoms. Prescriptions: No Action tizanidine 2 mg tablet 0RF sumatriptan succinate 50 mg tablet 50 mg PO PRN PRN (Reason: Migraine Headache) 0RF levothyroxine 88 mcg tablet 88 mcg PO DAILY 0RF Referrals: Shalom Mari MD [Primary Care Provider] -
[2022-02-10 23:36] LABS: Add Manual Diff / Slide Review NO; Basophils Absolute Auto 200 /uL (0-100); Basophils Percent Auto 2.5 % (0-2); Eosinophils Absolute Auto 300 /uL (0-450); Eosinophils Percent Auto 4.8 % (2-4); Hematocrit 40.7 % (36-46); Hemoglobin 13.7 g/dL (12.0-16.0); Lymphocytes Absolute Auto 2200 /uL (1100-4500); Lymphocytes Percent Auto 30.5 % (25-40); Mean Corpuscular HGB Conc 33.6 % (30-36); Mean Corpuscular Hemoglobin 28.9 PG (26-34); Monocytes Absolute Auto 700 /uL (0-900); Monocytes Percent Auto 9.7 % (3-14); Neutrophils Absolute Auto 3700 /uL (1500-7000); Neutrophils Percent Auto 52.5 % (50-75); Platelet Count 177 X10^3/uL (150-400); Red Blood Cell Count 4.73 X10^6/uL (4.0-5.2); Red Cell Distribution Width 13.9 % (11.6-14.8); White Blood Cell Count 7.1 X10^3/uL (4.5-11.0)
[2022-02-11 00:03] LABS: BUN Creatinine Ratio 24.3 (6-22); Blood Urea Nitrogen 17 mg/dL (7-17); Calcium 8.8 mg/dL (8.4-10.2); Carbon Dioxide 29 mmol/L (22-32); Chloride 104 mmol/L (98-107); Estimated Glomerular Filt Rate > 60 mL/min (>60); Glucose 95 mg/dL (80-110); HEMOLYSIS < 15 (0-50); Potassium 3.4 mmol/L (3.4-5.1); Sodium 142 mmol/L (137-145)
[2022-02-11 00:16] VITALS: BP 153/72; PULSE 68; O2SAT 97
== END 2022-02-11 00:21 | disposition home or self-care (01) ==
PROVIDERS: Emergency Provider Emergency Medicine; Family Provider Family Medicine; PCP Family Medicine
DX: R31.9 Hematuria, unspecified (principal)
CPT/HCPCS: 80048; 81003; 85025; 99282

== ENCOUNTER 2022-08-09 22:06 | Emergency (ER) | payer OTHER, MEDICAID, SELFPAY ==
[2022-08-09 22:14] VITALS: BP 130/64; PULSE 82; RESP 18; TEMP 35.7; O2SAT 97; BMI 41.3
[2022-08-09 22:49] LABS: Add Manual Diff / Slide Review NO; Basophils Absolute Auto 100 /uL (0-100); Basophils Percent Auto 0.8 % (0-2); Eosinophils Absolute Auto 200 /uL (0-450); Eosinophils Percent Auto 2.7 % (2-4); Hematocrit 42.5 % (36-46); Hemoglobin 14.2 g/dL (12.0-16.0); Lymphocytes Absolute Auto 2000 /uL (1100-4500); Lymphocytes Percent Auto 26.6 % (25-40); Mean Corpuscular HGB Conc 33.5 % (30-36); Mean Corpuscular Hemoglobin 29.1 PG (26-34); Mean Corpuscular Volume 86.9 fL (80-100); Monocytes Absolute Auto 700 /uL (0-900); Monocytes Percent Auto 9.5 % (3-14); Neutrophils Absolute Auto 4400 /uL (1500-7000); Neutrophils Percent Auto 60.4 % (50-75); Platelet Count 220 X10^3/uL (150-400); Red Blood Cell Count 4.89 X10^6/uL (4.0-5.2); Red Cell Distribution Width 14.4 % (11.6-14.8); White Blood Cell Count 7.4 X10^3/uL (4.5-11.0)
[2022-08-09 22:56] LABS: Alanine Aminotransferase 41 IU/L (<35); Albumin 4.2 g/dL (3.5-5.0); Albumin Globulin Ratio 1.2 (1.0-2.8); Alkaline Phosphatase 73 U/L (38-126); Aspartate Aminotransferase 34 IU/L (14-36); BUN Creatinine Ratio 24.2 (6-22); Bilirubin Total 1.4 mg/dL (0.2-1.3); Blood Urea Nitrogen 15 mg/dL (7-17); Calcium 9.2 mg/dL (8.4-10.2); Carbon Dioxide 29 mmol/L (22-32); Chloride 102 mmol/L (98-107); Estimated Glomerular Filt Rate > 60 mL/min (>60); Globulin 3.5 g/dL (1.7-4.1); Glucose 101 mg/dL (80-110); HEMOLYSIS < 15 (0-50); Lipase 65 U/L (23-300); Sodium 139 mmol/L (137-145); Total Protein 7.7 g/dL (6.3-8.2)
--- NOTE | 2022-08-10 04:41 | ED.ABDPAIN ---
HPI - Abdominal Pain General Chief Complaint: Abdominal Pain Stated Complaint: lt sided pain with deep breath Time Seen by Provider: 08/10/22 03:57 Source: patient Mode of arrival: Ambulatory History of Present Illness HPI narrative: Patient is a 62-year-old female history of hypothyroid and migraines presenting today with left-sided pain ongoing for the last 4 days. It does not radiate or migrate. She takes Tylenol and it seems to help. She does not remember injuring it. It is not going down to her groin. She denies any nausea or vomiting or fevers. No changes in bowel or bladder habits. Denies any rash. Related Data Home Medications Medication Instructions Recorded Confirmed levothyroxine 88 mcg tablet 88 mcg PO DAILY 02/19/19 02/19/19 sumatriptan succinate 50 mg tablet 50 mg PO PRN PRN Migraine Headache 02/19/19 02/19/19 tizanidine 2 mg tablet 02/19/19 Previous Rx's Medication Instructions Recorded hydrocodone 5 mg-acetaminophen 325 1 tab PO Q6H PRN pain #10 tabs 08/10/22 mg tablet Allergies Allergy/AdvReac Type Severity Reaction Status Date / Time codeine AdvReac Mild Verified 06/02/20 17:29 Penicillins AdvReac Mild Nausea Verified 06/02/20 17:29 Review of Systems Review of Systems Narrative: GENERAL: Denies chills, fatigue, malaise, fever, sweats, travel HEENT: Denies sinus pain, ear pain, sore throat, difficulty swallowing, neck pain RESPIRATORY: Denies dyspnea, cough, wheezing, hemoptysis, sputum. CARDIOVASCULAR: Denies chest pain, palpitations, orthopnea, edema GASTROINTESTINAL: See HPI : Denies dysuria, frequency, incontinence, hematuria, urinary retention, flank pain. MUSCULOSKELETAL: Denies weakness, joint pain, or bony pain SKIN: No rash, no erythema, no pruritus NEUROLOGIC: Denies weakness, dizziness, headache, numbness, change in speech, confusion PSYCHIATRIC: No concerning psychosocial issues. 12 point review of systems is negative except for those stated above and HPI Patient History Medical History (Updated 08/10/22 @ 06:31 by Cherrie Maria DO) Hypothyroid Social History Smoking Status: Former smoker Smoking Status: Former smoker alcohol intake frequency: holidays/special occasions only Substance Use Type: does not use Exam Initial Vital Signs Initial Vital Signs: Vital Signs Temperature 96.3 F L 08/09/22 22:14 Pulse Rate 82 08/09/22 22:14 Respiratory Rate 18 08/09/22 22:14 Blood Pressure 130/64 08/09/22 22:14 Pulse Oximetry 97 08/09/22 22:14 Oxygen Delivery Method 08/09/22 22:14 GENERAL: Pleasant 62-year-old female and in [no acute] distress. HEENT: Head atraumatic,EOMI, pupils reactive, face symmetric, [moist] mucous membranes CARDIOVASCULAR: Regular rate and rhythm without murmurs, rubs or gallops. RESPIRATORY: Breath sounds equal bilaterally, no wheezes rales or rhonchi. ABDOMEN: Soft, nontender. Normoactive bowel sounds all 4 quadrants. No guarding or rebound. Mild left-sided lateral pain no left lower quadrant pain no flank pain no CVA tenderness EXTREMITIES: Normal range of motion, no clubbing or edema. Neurovascularly intact NEUROLOGICAL: Alert and oriented x4.Normal gait and speech. SKIN: Warm, dry, no laceration, no petechiae, no rashes or lesions. Course Orders Ordered: ED Orders 08/10/22 04:46 CT abdomen pelvis w con Stat Discontinued Medications Ketorolac Tromethamine (Ketorolac 30 Mg/Ml Vial) 15 mg IV NOW ONE Stop: 08/10/22 04:47 Last Admin: 08/10/22 04:52 Dose: 15 mg Documented By: JAREN Vital Signs Vital signs: Vital Signs - 8 hr 08/10/22 05:19 08/10/22 06:42 Pulse Rate 68 72 Respiratory Rate 18 14 Blood Pressure 123/56 L 125/64 Pulse Oximetry 98 97 Oxygen Delivery Method Room Air Room Air MDM - Abdominal Pain Lab Data Result diagrams: 08/09/22 22:24 08/09/22 22:24 Labs: Lab Results 08/09/22 08/09/22 Range/Units 22:24 22:24 WBC 7.4 (4.5-11.0) X10^3/uL RBC 4.89 (4.0-5.2) X10^6/uL Hgb 14.2 (12.0-16.0) g/dL Hct 42.5 (36-46) % MCV 86.9 (80-100) fL MCH 29.1 (26-34) PG MCHC 33.5 (30-36) % RDW 14.4 (11.6-14.8) % Plt Count 220 (150-400) X10^3/uL Neut % (Auto) 60.4 (50-75) % Lymph % (Auto) 26.6 (25-40) % [place] % (Auto) 9.5 (3-14) % Eos % (Auto) 2.7 (2-4) % Baso % (Auto) 0.8 (0-2) % Neut # (Auto) 4400 (2920-1410) /uL Lymph # (Auto) 2000 (8052-0765) /uL [place] # (Auto) 700 (0-900) /uL Eos # (Auto) 200 (0-450) /uL Baso # (Auto) 100 (0-100) /uL Sodium 139 (137-145) mmol/L Potassium 4.0 (3.4-5.1) mmol/L Chloride 102 (98-107) mmol/L Carbon Dioxide 29 (22-32) mmol/L BUN 15 (7-17) mg/dL Creatinine 0.62 (0.52-1.04) mg/dL Estimated GFR > 60 (>60) mL/min BUN/Creatinine Ratio 24.2 H (6-22) Glucose 101 (80-110) mg/dL Calcium 9.2 (8.4-10.2) mg/dL Total Bilirubin 1.4 H (0.2-1.3) mg/dL AST 34 (14-36) IU/L ALT 41 H (<35) IU/L Alkaline Phosphatase 73 (38-126) U/L Total Protein 7.7 (6.3-8.2) g/dL Albumin 4.2 (3.5-5.0) g/dL Globulin 3.5 (1.7-4.1) g/dL Albumin/Globulin Ratio 1.2 (1.0-2.8) Lipase 65 (23-300) U/L Point of care testing: Urine Dip Bedside Urine Glucose Negative Bedside Urine Bilirubin - Negative Bedside Urine Ketone - Negative Urine Specific [place] 1.025 Bedside Urine Occult Blood - Negative Bedside Urine pH 6.0 Bedside Urine Protein - Negative Bedside Urine Urobilinogen 2+ 4mg Bedside Urine Nitrite - Negative Bedside Urine Leukocytes - Negative Esterase Imaging Data CT scan - abdomen/pelvis: Radiologist's Impression: Preliminary report epiploic appendagitis involving the proximal descending colon. Ill-defined stranding noted at root of mesentery with associated prominent yet subcentimeter mesenteric lymph nodes. This is a nonspecific finding but can be seen in the setting of mesenteric panniculitis. No evidence of colitis diverticulitis bowel obstruction or obstructive uropathy. Nodule within left adrenal gland measuring 1.3 cm. Recommended adrenal mass protocol CT or MRI for further evaluation MDM Narrative Medical decision making narrative: The patient overall appears well. Not in severe pain. Blood work is reassuring. CT does find o'clock appendagitis which is treated with conservative treatment only. There is no evidence of shingles or rash. Patient overall appears comfortable not needing anything for pain at this time. Discharge Plan Departure Patient Disposition: Home Clinical Impression: Epiploic appendagitis Instructions: DI for Mesenteric Adenitis-Adult Activity Restrictions/Additional Instructions: *You have been diagnosed with epiploic appendagitis *What to do: This time pain management only. This should improve no surgery or antibiotics needed at this time *Continue to take medications as directed Ibuprofen 600 mg every 6 hours needed for [id number] [place] 1 tablet every 6 hours if needed for severe pain--SENT TO [facility] *Follow up with your primary care provider in 2-3 days or call [phone] *Return to ER if you should have increasing pain persistent vomiting or any new, worsening or concerning symptoms CONTROLLED SUBSTANCE DISCHARGE (Narcotoic/benzodiazepine/Flexeril/Phenergan) 1. You have been prescribed narcotic medications, it does have acetaminophen/Tylenol/paracetamol in it, DO NOT TAKE MORE THAN 4,00mg in 24 hours of Tylenol. TRAMADOL DOES NOT CONTAIN TYLENOL 2. Please understand that we cannot provide further refills of narcotics, benzodiazepines or controlled substances through the ED and her pain management will need to be through your provider. 3. While on these medications you cannot drive or operate heavy machinery. 4. You cannot sign legal documents or perform any duties such as this. 5. As long as you're taking opiate pain medications he should also be taking a stool softener such as Colace, Dulcolax, MiraLAX or prune juice, to help avoid constipation. Prescriptions: New hydrocodone-acetaminophen 5-325 mg tablet 1 tab PO Q6H PRN (Reason: pain) Qty: 10 0RF No Action tizanidine 2 mg tablet sumatriptan succinate 50 mg tablet 50 mg PO PRN PRN (Reason: Migraine Headache) levothyroxine 88 mcg tablet 88 mcg PO DAILY Referrals: Shalom Mari MD [Primary Care Provider] - Visit Report Forms: Patient Portal/API
--- NOTE | 2022-08-10 04:46 | DI.CT.S_ITS ---
PROCEDURE: CT ABDOMEN PELVIS W CON INDICATIONS: left sided pain TECHNIQUE: After the administration of intravenous contrast, axial sections acquired from the lung bases to the pubic symphysis. Coronal and sagittal reformats were performed. For radiation dose reduction, the following was used: automated exposure control, adjustment of mA and/or kV according to patient size. COMPARISON: None. FINDINGS: Image quality: Excellent. Lung bases: Unremarkable. Heart: No significant findings. ABDOMEN: Liver: Moderate diffuse hepatic steatosis. Gallbladder: Surgically absent Biliary ducts: Unremarkable. Pancreas: Unremarkable. Spleen: Unremarkable. Adrenal Glands: Indeterminate 1 cm left adrenal nodule, possibly an adrenal adenoma.. Kidneys and Ureters: Unremarkable. Stomach and Bowel: Moderate hiatal hernia. There is inflammatory change in the fat subjacent to the descending colon without obvious associated presence of diverticulosis. Differential diagnosis is epiploic appendagitis versus diverticulitis. Stomach, small bowel loops, and colon are otherwise unremarkable. Peritoneum: No abnormal intraperitoneal fluid. No free air. As stated above, there is focal inflammatory change in the fat subjacent to the descending colon. Ventral Wall: Fat containing periumbilical hernia. Abdominal Nodes: No retroperitoneal or mesenteric adenopathy by size criteria. Vessels: Aorta and inferior vena cava are normal in size. PELVIS: Pelvic Organs: Unremarkable. Bladder: Unremarkable. Pelvic Nodes: No enlarged lymph nodes. Miscellaneous: No hernias are seen. Bones: Unremarkable. IMPRESSION: 1. There is focal inflammatory change in the fat subjacent to the descending colon without obvious present of associated diverticuli. Differential diagnosis is epiploic appendagitis versus diverticulitis. 2. 1 cm indeterminate adrenal nodule. This most likely represents an adenoma. This could be evaluated on future studies. 3. Moderate hiatal hernia. 4. Moderate diffuse hepatic steatosis. Comment: Final report is concordant with preliminary interpretation provided by [facility]. Dictated by: Alxe Soriano M.D. on 08/10/2022 at 8:04 Approved by: Alex Soriano M.D. on 08/10/2022 at 8:18
[2022-08-10] MEDS: KETOROLAC 30 MG/ML VIAL 15 MG IV (04:52)
[2022-08-10 05:19] VITALS: BP 123/56; PULSE 68; RESP 18; O2SAT 98
[2022-08-10 06:42] VITALS: BP 125/64; PULSE 72; RESP 14; O2SAT 97
== END 2022-08-10 06:57 | disposition home or self-care (01) ==
PROVIDERS: Emergency Provider Emergency Medicine; Family Provider Family Medicine; PCP Family Medicine
DX: K63.89 Other specified diseases of intestine (principal); R10.9 Unspecified abdominal pain
CPT/HCPCS: 36415; 74177; 80053; 81003; 83690; 85025; 93005; 96374; 99284; J1885; Q9967

== ENCOUNTER → 2023-03-15 13:19 | Outpatient (CLI) | payer OTHER, MEDICAID, SELFPAY | PROVIDERS: Family Provider Family Medicine; PCP Family Medicine; Visit Provider Nurse Practitioner Family | DX: R30.0 Dysuria (principal) | CPT/HCPCS: 81002; 87077; 87086; 87186 ==

== ENCOUNTER 2023-03-28 16:30 | Outpatient (RCR) | payer OTHER, MEDICAID, SELFPAY ==
--- NOTE | 2022-12-30 12:24 | PT.OIE ---
Current Diagnoses Spondylosis, unspecified (12/30/22) Low back pain, unspecified (12/30/22) Past Medical History (Last Reviewed 08/10/22 @ 04:49 by Cherrie Maria DO) Hypothyroid Visit Care Team Role Provider Type FOREST Garcia Referring Provider Advanced Ancillary Services Manager Therapy Specialty: Emergency Medicine Address: [address] [place] [address], [id number] Email: Shalom Mari MD Attending Provider Non-Staff Family Provider Primary Care Provider Specialty: Medical Address: [address] [place] [address], [phone] Email: Physical Therapy Initial Evaluation PT-OP-A Visit Information Start: 12/30/22 16:08 Freq: Status: Active Protocol: Document 12/30/22 11:15 DCW (Rec: 12/30/22 16:51 DCW [id number]) Out-Patient Physical Therapy Visit Information Visit Information Visit Type Initial Evaluation Visit Start Time 11:15 Visit Stop Time 12:00 Total Visit Minutes 45 Visit Number 1 Number of NUTRITION TEACHER Visits 0 Evaluation Information Evaluation Date 12/30/22 PT-OP-B Current Condition Start: 12/30/22 16:08 Freq: Status: Active Protocol: Document 12/30/22 11:15 DCW (Rec: 12/30/22 16:51 DCW [id number]) Current Condition History of Current Condition Onset Date Long-standing history Current Complaints Mid- and low-back pain, lumbar stiffness, decreased activity tolerance History of Current Condition Pt is a 62 year old female well known to this clinic presenting with a long- standing history of thoracic and lumbar back pain. 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 Reports pain is constant, she is unable to get any relief. PT-OP-C Subjective Start: 12/30/22 16:08 Freq: Status: Active Protocol: Document 12/30/22 11:15 DCW (Rec: 12/30/22 16:51 DCW [id number]) OP-PT Subjective Patient Comments Patient Comments I've been dealing with back pain for as long as I can remember, but now it's limiting how long I can stand. Patient Reported Progress Worse PT-OP-E Functional Tests Start: 12/30/22 16:08 Freq: Status: Active Protocol: Document 12/30/22 11:15 DCW (Rec: 12/30/22 16:57 DCW [id number]) Functional Tests Five Times Sit to Stand Test Score 15.00 seconds Comments uncontrolled descent Timed Up and Go (TUG) Score 13.35 Comments Three-trial average (12.50, 13 .22, 14.34) PT-OP-F Manual Assessment Start: 12/30/22 16:08 Freq: Status: Active Protocol: Document 12/30/22 11:15 DCW (Rec: 12/30/22 17:01 DCW [id number]) Manual Assessments Soft Tissue Assessment Soft Tissue Mobility Assessment Tenderness to palpation 3/4: wincing and withdraw along bilateral thoracolumbar paraspinals, QL, glute med PT-OP-K Range of Motion Start: 12/30/22 16:08 Freq: Status: Active Protocol: Document 12/30/22 11:15 DCW (Rec: 12/30/22 16:57 DCW [id number]) Lumbar Spine Range of Motion Lumbar Spine Active Degrees Testing Position Standing Flexion 50 Extension 20 Lateral Flexion Left 43 Lateral Flexion Right 48 ROM Limitations Soft Tissue Tightness,Muscle Tone,Pain Comments Lateral flexion measured in cm from fingertips to floor PT-OP-L Special Tests Start: 12/30/22 16:08 Freq: Status: Active Protocol: Document 12/30/22 11:15 DCW (Rec: 12/30/22 17:01 DCW [id number]) Special Tests Lumbar Spine Special Tests Vertical Spine Loading Test Results Negative CARLOS Test Results Negative Straight Leg Raise Test Results Negative Slump Test Results Negative A-P Shearing Test Results Negative PT-OP-M Strength Start: 12/30/22 16:08 Freq: Status: Active Protocol: Document 12/30/22 11:15 DCW (Rec: 12/30/22 17:01 DCW [id number]) Hip Strength Hip Manual Muscle Testing Right Flexion (L2) 4 Good Extension (S1) 4 Good Abduction 4 Good Adduction 4- Good- External Rotation 4 Good Internal Rotation 4 Good Left Flexion (L2) 4 Good Extension (S1) 4 Good Abduction 4- Good- Adduction 4- Good- External Rotation 4- Good- Internal Rotation 4- Good- Knee Strength Knee Manual Muscle Testing Right Flexion (S2) 4+ Good+ Extension (L3) 4+ Good+ Left Flexion (S2) 4+ Good+ Extension (L3) 4+ Good+ Ankle/Foot Strength Ankle and Foot Manual Muscle Testing Right Dorsiflexion (L4) 5 Normal Left Dorsiflexion (L4) 4+ Good+ PT-OP-T Assessment and Plan Start: 12/30/22 16:08 Freq: Status: Active Protocol: Document 12/30/22 11:15 DCW (Rec: 01/02/23 09:45 DC [id number]) Physical Therapy Assessment Rehab Potential Rehabilitation Potential Good Evaluation Complexity Number of Personal Factors/Comorbidities 3 or More Number of Body Systems Impaired 4 or More Clinical Presentation at Evaluation Evolving Impairments Impairments Activity Tolerance,Functional Activities,Functional Mobility ,Pain,Posture,ROM,Soft Tissue Mobility,Strength Goals Four Impairment Pt unable to stand to do dishes longer than 5 minutes [facility]ci Goal (LTG) Pt to demonstrate ability to stand for at least 20 minutes without pain while performing house chores like dishes and vacuuming. LTG Duration 03/30/23 Three Impairment Pt presents with hip weakness, left worse than right [facility]ci Goal (LTG) Pt to increase bilateral hip MMT to at least 4/5 in all planes in order to improve stability of her hips and low back LTG Duration 03/30/23 Two Impairment Pt completed a 5x Sit to robotics testing technician 15.00 with uncontrolled descent [facility]ci Goal (LTG) Pt to improve 5xStS score by at least 3 seconds to =12 seconds with a controlled descent LTG Duration 03/30/23 One Impairment Pt does not have an appropriate home exercise program Short Term Goal (STG) Pt to be independent and compliant with an appropriate HEP STG Duration 01/30/23 Assessment Summary Assessment Pt presents with signs and symptoms consistent with referring diagnosis of lumbar DJD, pt presents with limited mobility, LE weakness, lumbar hypertonia, and vertebral hypomobility. Pt has a long history of lumbar and LE pain and surgical intervention, which has resulted in increased sedentary lifestyle and decline in functional mobility. Pt should benefit from skilled therapy focusing on improving lumbar ROM, LE and core strengthening, STM for tone management, and increased activity tolerance. Currently unable to stand for chores longer than five minutes, which impacts her ability to participate in her daily activities. Physical Therapy Plan Frequency and Duration Frequency of Treatment 2x/Week Plan of Care Start Date 12/30/22 Plan of Care End Date 03/30/23 Therapeutic Interventions Therapeutic Interventions Home Exercise Program,Joint Mobilizations,Manual Therapy, Neuromuscular Re-education, Patient/Caregiver Education, Self-Care/Home Management,Soft Tissue Mobilization, Therapeutic Activities, Therapeutic Exercises Next Visit Focus/Plan Next Note Type Treatment Note Next Visit Plan Hip and core strengthening, activity tolerance, STM of lumbar musculature
--- NOTE | 2022-12-30 12:24 | PT.OPPOC ---
Physical, Occupational & Speech Therapy At [facility] Current Diagnoses Spondylosis, unspecified (12/30/22) Low back pain, unspecified (12/30/22) Visit Care Team Role Provider Type FOREST Garcia Referring Provider Advanced Director Hardware Specialty: Emergency Medicine Address: [address] [place] [address], [id number] Email: Shalom Mari MD Attending Provider Non-Staff Family Provider Primary Care Provider Specialty: Medical Address: [address] [place] [address], [phone] Email: Plan Of Care PT-OP-T Assessment and Plan Start: 12/30/22 16:08 Freq: Status: Active Protocol: Document 12/30/22 11:15 DCW (Rec: 01/02/23 09:45 DCW [id number]) Physical Therapy Assessment Rehab Potential Rehabilitation Potential Good Evaluation Complexity Number of Personal Factors/Comorbidities 3 or More Number of Body Systems Impaired 4 or More Clinical Presentation at Evaluation Evolving Impairments Impairments Activity Tolerance,Functional Activities,Functional Mobility ,Pain,Posture,ROM,Soft Tissue Mobility,Strength Goals Four Impairment Pt unable to stand to do dishes longer than 5 minutes Detention Goal (LTG) Pt to demonstrate ability to stand for at least 20 minutes without pain while performing house chores like dishes and vacuuming. LTG Duration 03/30/23 Three Impairment Pt presents with hip weakness, left worse than right Detention Goal (LTG) Pt to increase bilateral hip MMT to at least 4/5 in all planes in order to improve stability of her hips and low back LTG Duration 03/30/23 Two Impairment Pt completed a 5x Sit to bin worker 15.00 with uncontrolled descent Detention Goal (LTG) Pt to improve 5xStS score by at least 3 seconds to =12 seconds with a controlled descent LTG Duration 03/30/23 One Impairment Pt does not have an appropriate home exercise program Short Term Goal (STG) Pt to be independent and compliant with an appropriate HEP STG Duration 01/30/23 Assessment Summary Assessment Pt presents with signs and symptoms consistent with referring diagnosis of lumbar DJD, pt presents with limited mobility, LE weakness, lumbar hypertonia, and vertebral hypomobility. Pt has a long history of lumbar and LE pain and surgical intervention, which has resulted in increased sedentary lifestyle and decline in functional mobility. Pt should benefit from skilled therapy focusing on improving lumbar ROM, LE and core strengthening, STM for tone management, and increased activity tolerance. Currently unable to stand for chores longer than five minutes, which impacts her ability to participate in her daily activities. Physical Therapy Plan Frequency and Duration Frequency of Treatment 2x/Week Plan of Care Start Date 12/30/22 Plan of Care End Date 03/30/23 Therapeutic Interventions Therapeutic Interventions Home Exercise Program,Joint Mobilizations,Manual Therapy, Neuromuscular Re-education, Patient/Caregiver Education, Self-Care/Home Management,Soft Tissue Mobilization, Therapeutic Activities, Therapeutic Exercises Next Visit Focus/Plan Next Note Type Treatment Note Next Visit Plan Hip and core strengthening, activity tolerance, STM of lumbar musculature Plan of Care Dates Plan of Care Start Date 12/30/22 Plan of Care End Date 03/30/23 Electronically Signed by: Leobardo Rashid, PT 01/02/23 1507 If you are in agreement with this Plan of Care, please return a signed and dated copy. I have reviewed this Plan of Care and certify that the skilled therapy services above are required to meet the patient?s needs. Physician Signature Date Printed Name and Credentials Clinical Instructor Signature Printed Name and Credentials
--- NOTE | 2023-02-02 14:30 | PT.OTN ---
Current Diagnoses Spondylosis, unspecified (02/02/23) Low back pain, unspecified (02/02/23) Physical Therapy Treatment Note PT-OP-A Visit Information Start: 12/30/22 16:08 Freq: Status: Active Protocol: Document 02/02/23 13:45 DCW (Rec: 02/02/23 14:30 DCW [id number]) Out-Patient Physical Therapy Visit Information Visit Information Visit Type Treatment Note Visit Start Time 13:45 Visit Stop Time 14:30 Total Visit Minutes 45 Visit Number 2 Number of DENTAL APPLIANCE REPAIRER Visits 0 Evaluation Information Evaluation Date 12/30/22 PT-OP-B Current Condition Start: 12/30/22 16:08 Freq: Status: Active Protocol: Document 12/30/22 11:15 DCW (Rec: 12/30/22 16:51 DCW [id number]) Current Condition History of Current Condition Onset Date Long-standing history Current Complaints Mid- and low-back pain, lumbar stiffness, decreased activity tolerance History of Current Condition Pt is a 62 year old female well known to this clinic presenting with a long- standing history of thoracic and lumbar back pain. 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 Reports pain is constant, she is unable to get any relief. PT-OP-C Subjective Start: 12/30/22 16:08 Freq: Status: Active Protocol: Document 02/02/23 13:45 DCW (Rec: 02/02/23 14:30 DCW [id number]) OP-PT Subjective Patient Comments Patient Comments Pt notes her back hurts a bit more today. PT-OP-E Functional Tests Start: 12/30/22 16:08 Freq: Status: Active Protocol: Document 12/30/22 11:15 DCW (Rec: 12/30/22 16:57 DCW [id number]) Functional Tests Five Times Sit to Stand Test Score 15.00 seconds Comments uncontrolled descent Timed Up and Go (TUG) Score 13.35 Comments Three-trial average (12.50, 13 .22, 14.34) PT-OP-F Manual Assessment Start: 12/30/22 16:08 Freq: Status: Active Protocol: Document 12/30/22 11:15 DCW (Rec: 12/30/22 17:01 DCW [id number]) Manual Assessments Soft Tissue Assessment Soft Tissue Mobility Assessment Tenderness to palpation 3/4: wincing and withdraw along bilateral thoracolumbar paraspinals, QL, glute med PT-OP-K Range of Motion Start: 12/30/22 16:08 Freq: Status: Active Protocol: Document 12/30/22 11:15 DCW (Rec: 12/30/22 16:57 DCW [id number]) Lumbar Spine Range of Motion Lumbar Spine Active Degrees Testing Position Standing Flexion 50 Extension 20 Lateral Flexion Left 43 Lateral Flexion Right 48 ROM Limitations Soft Tissue Tightness,Muscle Tone,Pain Comments Lateral flexion measured in cm from fingertips to floor PT-OP-L Special Tests Start: 12/30/22 16:08 Freq: Status: Active Protocol: Document 12/30/22 11:15 DCW (Rec: 12/30/22 17:01 DCW [id number]) Special Tests Lumbar Spine Special Tests Vertical Spine Loading Test Results Negative CARLOS Test Results Negative Straight Leg Raise Test Results Negative Slump Test Results Negative A-P Shearing Test Results Negative PT-OP-M Strength Start: 12/30/22 16:08 Freq: Status: Active Protocol: Document 12/30/22 11:15 DCW (Rec: 12/30/22 17:01 DCW [id number]) Hip Strength Hip Manual Muscle Testing Right Flexion (L2) 4 Good Extension (S1) 4 Good Abduction 4 Good Adduction 4- Good- External Rotation 4 Good Internal Rotation 4 Good Left Flexion (L2) 4 Good Extension (S1) 4 Good Abduction 4- Good- Adduction 4- Good- External Rotation 4- Good- Internal Rotation 4- Good- Knee Strength Knee Manual Muscle Testing Right Flexion (S2) 4+ Good+ Extension (L3) 4+ Good+ Left Flexion (S2) 4+ Good+ Extension (L3) 4+ Good+ Ankle/Foot Strength Ankle and Foot Manual Muscle Testing Right Dorsiflexion (L4) 5 Normal Left Dorsiflexion (L4) 4+ Good+ PT-OP-Q Treatments Start: 12/30/22 16:08 Freq: Status: Active Protocol: Document 02/02/23 13:45 DCW (Rec: 02/02/23 14:30 DCW [id number]) Cardio Equipment Recumbent Elliptical (Biodex) Duration (Minutes) 5 Resistance 4 Seat Position 7 Gym Equipment Shuttle Recovery Unilateral Squats Resistance 50# Shuttle Recovery Platform Stable Reps/Time x30 Bilateral Squats Resistance 75# Shuttle Recovery Platform Stable Reps/Time x30 Therapeutic Exercises Standing Exercises Hip Extension Standing Exercise Name Hip Extension Side bilateral Resistance Green Pallof Press Standing Exercise Name Pallof Press Side bilateral Resistance Green T-band Other Exercises Resisted Ambulation Other Exercise Name Resisted side-stepping Side bilateral Resistance Green Manual Therapy Treatment Soft Tissue Mobilization Lumbar paraspinals Body Location B Lumbar paraspinals Mobilization Type Sustained Pressure,Trigger Point Release PT-OP-T Assessment and Plan Start: 12/30/22 16:08 Freq: Status: Active Protocol: Document 02/02/23 13:45 DCW (Rec: 02/02/23 14:30 DCW [id number]) Physical Therapy Assessment Impairments Impairments Activity Tolerance,Functional Activities,Functional Mobility ,Pain,Posture,ROM,Soft Tissue Mobility,Strength Goals Four Impairment Pt unable to stand to do dishes longer than 5 minutes Environmental Quality Analyst Goal (LTG) Pt to demonstrate ability to stand for at least 20 minutes without pain while performing house chores like dishes and vacuuming. LTG Duration 03/30/23 Three Impairment Pt presents with hip weakness, left worse than right Prison Goal (LTG) Pt to increase bilateral hip MMT to at least 4/5 in all planes in order to improve stability of her hips and low back LTG Duration 03/30/23 Two Impairment Pt completed a 5x Sit to two way radio installer 15.00 with uncontrolled descent Prison Goal (LTG) Pt to improve 5xStS score by at least 3 seconds to =12 seconds with a controlled descent LTG Duration 03/30/23 One Impairment Pt does not have an appropriate home exercise program Short Term Goal (STG) Pt to be independent and compliant with an appropriate HEP STG Duration 01/30/23 Assessment Summary Assessment Pt tolerated treatment well, moving slightly better at end of session than when she entered clinic. No pain with exercises today, will likely benefit to increase resistance next visit. Physical Therapy Plan Therapeutic Interventions Therapeutic Interventions Home Exercise Program,Joint Mobilizations,Manual Therapy, Neuromuscular Re-education, Patient/Caregiver Education, Self-Care/Home Management,Soft Tissue Mobilization, Therapeutic Activities, Therapeutic Exercises Next Visit Focus/Plan Next Note Type Treatment Note Next Visit Plan Hip and core strengthening, activity tolerance, STM of lumbar musculature
--- NOTE | 2023-02-07 11:46 | PT.OTN ---
Current Diagnoses Spondylosis, unspecified (02/07/23) Low back pain, unspecified (02/07/23) Physical Therapy Treatment Note PT-OP-A Visit Information Start: 12/30/22 16:08 Freq: Status: Active Protocol: Document 02/07/23 11:00 DCW (Rec: 02/07/23 11:46 DCW [id number]) Out-Patient Physical Therapy Visit Information Visit Information Visit Type Treatment Note Visit Start Time 11:00 Visit Stop Time 11:45 Total Visit Minutes 45 Visit Number 3 Number of LOADING MACHINE OPERATOR Visits 0 Evaluation Information Evaluation Date 12/30/22 PT-OP-B Current Condition Start: 12/30/22 16:08 Freq: Status: Active Protocol: Document 12/30/22 11:15 DCW (Rec: 12/30/22 16:51 DCW [id number]) Current Condition History of Current Condition Onset Date Long-standing history Current Complaints Mid- and low-back pain, lumbar stiffness, decreased activity tolerance History of Current Condition Pt is a 62 year old female well known to this clinic presenting with a long- standing history of thoracic and lumbar back pain. 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 Pt reports her back pain has gotten to the point where she is unable to stand to do dishes longer than 5 minutes at a time, and has to take a break every 10- 15 minutes when doing other gripper attacher, like vacuuming or sweeping. Reports pain is constant, she is unable to get any relief. PT-OP-C Subjective Start: 12/30/22 16:08 Freq: Status: Active Protocol: Document 02/07/23 11:00 DCW (Rec: 02/07/23 11:46 DCW [id number]) OP-PT Subjective Patient Comments Patient Comments Pt notes her back pain is there, but it's not too bad. PT-OP-E Functional Tests Start: 12/30/22 16:08 Freq: Status: Active Protocol: Document 12/30/22 11:15 DCW (Rec: 12/30/22 16:57 DCW [id number]) Functional Tests Five Times Sit to Stand Test Score 15.00 seconds Comments uncontrolled descent Timed Up and Go (TUG) Score 13.35 Comments Three-trial average (12.50, 13 .22, 14.34) PT-OP-F Manual Assessment Start: 12/30/22 16:08 Freq: Status: Active Protocol: Document 12/30/22 11:15 DCW (Rec: 12/30/22 17:01 DCW [id number]) Manual Assessments Soft Tissue Assessment Soft Tissue Mobility Assessment Tenderness to palpation 3/4: wincing and withdraw along bilateral thoracolumbar paraspinals, QL, glute med PT-OP-K Range of Motion Start: 12/30/22 16:08 Freq: Status: Active Protocol: Document 12/30/22 11:15 DCW (Rec: 12/30/22 16:57 DCW [id number]) Lumbar Spine Range of Motion Lumbar Spine Active Degrees Testing Position Standing Flexion 50 Extension 20 Lateral Flexion Left 43 Lateral Flexion Right 48 ROM Limitations Soft Tissue Tightness,Muscle Tone,Pain Comments Lateral flexion measured in cm from fingertips to floor PT-OP-L Special Tests Start: 12/30/22 16:08 Freq: Status: Active Protocol: Document 12/30/22 11:15 DCW (Rec: 12/30/22 17:01 DCW [id number]) Special Tests Lumbar Spine Special Tests Vertical Spine Loading Test Results Negative CARLOS Test Results Negative Straight Leg Raise Test Results Negative Slump Test Results Negative A-P Shearing Test Results Negative PT-OP-M Strength Start: 12/30/22 16:08 Freq: Status: Active Protocol: Document 12/30/22 11:15 DCW (Rec: 12/30/22 17:01 DCW [id number]) Hip Strength Hip Manual Muscle Testing Right Flexion (L2) 4 Good Extension (S1) 4 Good Abduction 4 Good Adduction 4- Good- External Rotation 4 Good Internal Rotation 4 Good Left Flexion (L2) 4 Good Extension (S1) 4 Good Abduction 4- Good- Adduction 4- Good- External Rotation 4- Good- Internal Rotation 4- Good- Knee Strength Knee Manual Muscle Testing Right Flexion (S2) 4+ Good+ Extension (L3) 4+ Good+ Left Flexion (S2) 4+ Good+ Extension (L3) 4+ Good+ Ankle/Foot Strength Ankle and Foot Manual Muscle Testing Right Dorsiflexion (L4) 5 Normal Left Dorsiflexion (L4) 4+ Good+ PT-OP-Q Treatments Start: 12/30/22 16:08 Freq: Status: Active Protocol: Document 02/07/23 11:00 DCW (Rec: 02/07/23 11:46 DCW [id number]) Cardio Equipment Recumbent Elliptical (Biodex) Duration (Minutes) 5 Resistance 5 Seat Position 7 Gym Equipment Shuttle Recovery Unilateral Squats Resistance 50# (2 new) Shuttle Recovery Platform Stable Reps/Time x30 Bilateral Squats Resistance 100# (4 new) Shuttle Recovery Platform Stable Reps/Time x30 Therapeutic Exercises Supine Exercises Single KtC Supine Exercise Name S KtC Side bilateral Hamstring Stretch Supine Exercise Name HS stretch Side bilateral Standing Exercises Hip Extension Standing Exercise Name Hip Extension Side bilateral Resistance Green Pallof Press Standing Exercise Name Pallof Press Side bilateral Resistance Green T-band Other Exercises Resisted Ambulation Other Exercise Name Resisted side-stepping Side bilateral Resistance Green Manual Therapy Treatment Soft Tissue Mobilization Lumbar paraspinals Body Location B Lumbar paraspinals Mobilization Type Sustained Pressure,Trigger Point Release PT-OP-T Assessment and Plan Start: 12/30/22 16:08 Freq: Status: Active Protocol: Document 02/07/23 11:00 DCW (Rec: 02/07/23 11:46 [facility] [id number]) Physical Therapy Assessment Impairments Impairments Activity Tolerance,Functional Activities,Functional Mobility ,Pain,Posture,ROM,Soft Tissue Mobility,Strength Goals Four Impairment Pt unable to stand to do dishes longer than 5 minutes Detention Goal (LTG) Pt to demonstrate ability to stand for at least 20 minutes without pain while performing house chores like dishes and vacuuming. 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 Pt did note feeling much better for days after her last visit. Physical Therapy Plan Therapeutic Interventions Therapeutic Interventions Home Exercise Program,Joint Mobilizations,Manual Therapy, Neuromuscular Re-education, Patient/Caregiver Education, Self-Care/Home Management,Soft Tissue Mobilization, Therapeutic Activities, Therapeutic Exercises Next Visit Focus/Plan Next Note Type Treatment Note Next Visit Plan Hip and core strengthening, activity tolerance, STM of lumbar musculature
--- NOTE | 2023-02-10 13:04 | PT.OTN ---
Current Diagnoses Spondylosis, unspecified (02/10/23) Low back pain, unspecified (02/10/23) Physical Therapy Treatment Note PT-OP-A Visit Information Start: 12/30/22 16:08 Freq: Status: Active Protocol: Document 02/10/23 12:15 DCW (Rec: 02/10/23 13:04 DCW [id number]) Out-Patient Physical Therapy Visit Information Visit Information Visit Type Treatment Note Visit Start Time 12:15 Visit Stop Time 13:00 Total Visit Minutes 45 Visit Number 4 Number of TUBING DRIER Visits 0 Evaluation Information Evaluation Date 12/30/22 PT-OP-B Current Condition Start: 12/30/22 16:08 Freq: Status: Active Protocol: Document 12/30/22 11:15 DCW (Rec: 12/30/22 16:51 DCW [id number]) Current Condition History of Current Condition Onset Date Long-standing history Current Complaints Mid- and low-back pain, lumbar stiffness, decreased activity tolerance History of Current Condition Pt is a 62 year old female well known to this clinic presenting with a long- standing history of thoracic and lumbar back pain. 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 Reports pain is constant, she is unable to get any relief. PT-OP-C Subjective Start: 12/30/22 16:08 Freq: Status: Active Protocol: Document 02/10/23 12:15 DCW (Rec: 02/10/23 13:04 DCW [id number]) OP-PT Subjective Patient Comments Patient Comments It's about a 6 today. Worked at her [employer] clothes [employer] yesterday, spent 7 hours on her feet. PT-OP-E Functional Tests Start: 12/30/22 16:08 Freq: Status: Active Protocol: Document 12/30/22 11:15 DCW (Rec: 12/30/22 16:57 DCW [id number]) Functional Tests Five Times Sit to Stand Test Score 15.00 seconds Comments uncontrolled descent Timed Up and Go (TUG) Score 13.35 Comments Three-trial average (12.50, 13 .22, 14.34) PT-OP-F Manual Assessment Start: 12/30/22 16:08 Freq: Status: Active Protocol: Document 12/30/22 11:15 DCW (Rec: 12/30/22 17:01 DCW [id number]) Manual Assessments Soft Tissue Assessment Soft Tissue Mobility Assessment Tenderness to palpation 3/4: wincing and withdraw along bilateral thoracolumbar paraspinals, QL, glute med PT-OP-K Range of Motion Start: 12/30/22 16:08 Freq: Status: Active Protocol: Document 12/30/22 11:15 DCW (Rec: 12/30/22 16:57 DCW [id number]) Lumbar Spine Range of Motion Lumbar Spine Active Degrees Testing Position Standing Flexion 50 Extension 20 Lateral Flexion Left 43 Lateral Flexion Right 48 ROM Limitations Soft Tissue Tightness,Muscle Tone,Pain Comments Lateral flexion measured in cm from fingertips to floor PT-OP-L Special Tests Start: 12/30/22 16:08 Freq: Status: Active Protocol: Document 12/30/22 11:15 DCW (Rec: 12/30/22 17:01 DCW [id number]) Special Tests Lumbar Spine Special Tests Vertical Spine Loading Test Results Negative CARLOS Test Results Negative Straight Leg Raise Test Results Negative Slump Test Results Negative A-P Shearing Test Results Negative PT-OP-M Strength Start: 12/30/22 16:08 Freq: Status: Active Protocol: Document 12/30/22 11:15 DCW (Rec: 12/30/22 17:01 DCW [id number]) Hip Strength Hip Manual Muscle Testing Right Flexion (L2) 4 Good Extension (S1) 4 Good Abduction 4 Good Adduction 4- Good- External Rotation 4 Good Internal Rotation 4 Good Left Flexion (L2) 4 Good Extension (S1) 4 Good Abduction 4- Good- Adduction 4- Good- External Rotation 4- Good- Internal Rotation 4- Good- Knee Strength Knee Manual Muscle Testing Right Flexion (S2) 4+ Good+ Extension (L3) 4+ Good+ Left Flexion (S2) 4+ Good+ Extension (L3) 4+ Good+ Ankle/Foot Strength Ankle and Foot Manual Muscle Testing Right Dorsiflexion (L4) 5 Normal Left Dorsiflexion (L4) 4+ Good+ PT-OP-Q Treatments Start: 12/30/22 16:08 Freq: Status: Active Protocol: Document 02/10/23 12:15 DCW (Rec: 02/10/23 13:04 DCW [id number]) Cardio Equipment Recumbent Elliptical (Biodex) Duration (Minutes) 6 Resistance 5 Seat Position 7 Gym Equipment Shuttle Recovery Unilateral Squats Resistance 62# (2 new) Shuttle Recovery Platform Stable Reps/Time x30 Bilateral Squats Resistance 100# (4 new) Shuttle Recovery Platform Stable Reps/Time x30 Therapeutic Exercises Supine Exercises Single KtC Supine Exercise Name S KtC Side bilateral Hamstring Stretch Supine Exercise Name HS stretch Side bilateral Standing Exercises Hip Extension Standing Exercise Name Hip Extension Side bilateral Resistance Green Pallof Press Standing Exercise Name Pallof Press Side bilateral Resistance Green T-band Other Exercises Resisted Ambulation Other Exercise Name Resisted side-stepping Side bilateral Resistance Green Manual Therapy Treatment Soft Tissue Mobilization Lumbar paraspinals Body Location B Lumbar paraspinals Mobilization Type Sustained Pressure,Trigger Point Release PT-OP-T Assessment and Plan Start: 12/30/22 16:08 Freq: Status: Active Protocol: Document 02/10/23 12:15 DCW (Rec: 02/10/23 13:04 [facility] [id number]) Physical Therapy Assessment Impairments Impairments Activity Tolerance,Functional Activities,Functional Mobility ,Pain,Posture,ROM,Soft Tissue Mobility,Strength Goals Four Impairment Pt unable to stand to do dishes longer than 5 minutes Usp Goal (LTG) Pt to demonstrate ability to stand for at least 20 minutes without pain while performing house chores like dishes and vacuuming. 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 Doing well with HEP. Physical Therapy Plan Frequency and Duration Frequency of Treatment 2x/Week Plan of Care Start Date 12/30/22 Plan of Care End Date 03/30/23 Therapeutic Interventions Therapeutic Interventions Home Exercise Program,Joint Mobilizations,Manual Therapy, Neuromuscular Re-education, Patient/Caregiver Education, Self-Care/Home Management,Soft Tissue Mobilization, Therapeutic Activities, Therapeutic Exercises Next Visit Focus/Plan Next Note Type Treatment Note Next Visit Plan Hip and core strengthening, activity tolerance, STM of lumbar musculature
--- NOTE | 2023-02-14 10:15 | PT.OTN ---
Current Diagnoses Spondylosis, unspecified (02/14/23) Low back pain, unspecified (02/14/23) Physical Therapy Treatment Note PT-OP-A Visit Information Start: 12/30/22 16:08 Freq: Status: Active Protocol: Document 02/14/23 09:32 DCW (Rec: 02/14/23 10:15 DCW [id number]) Out-Patient Physical Therapy Visit Information Visit Information Visit Type Treatment Note Visit Start Time 09:32 Visit Stop Time 10:15 Total Visit Minutes 43 Visit Number 5 Number of PROGRAM STRATEGIST Visits 0 Evaluation Information Evaluation Date 12/30/22 PT-OP-B Current Condition Start: 12/30/22 16:08 Freq: Status: Active Protocol: Document 12/30/22 11:15 DCW (Rec: 12/30/22 16:51 DCW [id number]) Current Condition History of Current Condition Onset Date Long-standing history Current Complaints Mid- and low-back pain, lumbar stiffness, decreased activity tolerance History of Current Condition Pt is a 62 year old female well known to this clinic presenting with a long- standing history of thoracic and lumbar back pain. 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 Reports pain is constant, she is unable to get any relief. PT-OP-C Subjective Start: 12/30/22 16:08 Freq: Status: Active Protocol: Document 02/14/23 09:32 DCW (Rec: 02/14/23 10:15 DCW [id number]) OP-PT Subjective Patient Comments Patient Comments Pt reports she is pretty good today. PT-OP-E Functional Tests Start: 12/30/22 16:08 Freq: Status: Active Protocol: Document 12/30/22 11:15 DCW (Rec: 12/30/22 16:57 DCW [id number]) Functional Tests Five Times Sit to Stand Test Score 15.00 seconds Comments uncontrolled descent Timed Up and Go (TUG) Score 13.35 Comments Three-trial average (12.50, 13 .22, 14.34) PT-OP-F Manual Assessment Start: 12/30/22 16:08 Freq: Status: Active Protocol: Document 12/30/22 11:15 DCW (Rec: 12/30/22 17:01 DCW [id number]) Manual Assessments Soft Tissue Assessment Soft Tissue Mobility Assessment Tenderness to palpation 3/4: wincing and withdraw along bilateral thoracolumbar paraspinals, QL, glute med PT-OP-K Range of Motion Start: 12/30/22 16:08 Freq: Status: Active Protocol: Document 12/30/22 11:15 DCW (Rec: 12/30/22 16:57 DCW [id number]) Lumbar Spine Range of Motion Lumbar Spine Active Degrees Testing Position Standing Flexion 50 Extension 20 Lateral Flexion Left 43 Lateral Flexion Right 48 ROM Limitations Soft Tissue Tightness,Muscle Tone,Pain Comments Lateral flexion measured in cm from fingertips to floor PT-OP-L Special Tests Start: 12/30/22 16:08 Freq: Status: Active Protocol: Document 12/30/22 11:15 DCW (Rec: 12/30/22 17:01 DCW [id number]) Special Tests Lumbar Spine Special Tests Vertical Spine Loading Test Results Negative CARLOS Test Results Negative Straight Leg Raise Test Results Negative Slump Test Results Negative A-P Shearing Test Results Negative PT-OP-M Strength Start: 12/30/22 16:08 Freq: Status: Active Protocol: Document 12/30/22 11:15 DCW (Rec: 12/30/22 17:01 DCW [id number]) Hip Strength Hip Manual Muscle Testing Right Flexion (L2) 4 Good Extension (S1) 4 Good Abduction 4 Good Adduction 4- Good- External Rotation 4 Good Internal Rotation 4 Good Left Flexion (L2) 4 Good Extension (S1) 4 Good Abduction 4- Good- Adduction 4- Good- External Rotation 4- Good- Internal Rotation 4- Good- Knee Strength Knee Manual Muscle Testing Right Flexion (S2) 4+ Good+ Extension (L3) 4+ Good+ Left Flexion (S2) 4+ Good+ Extension (L3) 4+ Good+ Ankle/Foot Strength Ankle and Foot Manual Muscle Testing Right Dorsiflexion (L4) 5 Normal Left Dorsiflexion (L4) 4+ Good+ PT-OP-Q Treatments Start: 12/30/22 16:08 Freq: Status: Active Protocol: Document 02/14/23 09:32 DCW (Rec: 02/14/23 10:15 DCW [id number]) Cardio Equipment Recumbent Elliptical (Biodex) Duration (Minutes) 7 Resistance 5 Seat Position 7 Gym Equipment Shuttle Recovery Unilateral Squats Resistance 62# (2 new) Shuttle Recovery Platform Stable Reps/Time 3x10 Bilateral Squats Resistance 112# (4 new) Shuttle Recovery Platform Stable Reps/Time x30 Therapeutic Exercises Supine Exercises Single KtC Supine Exercise Name S KtC Side bilateral Hamstring Stretch Supine Exercise Name HS stretch Side bilateral Standing Exercises Hip Extension Standing Exercise Name Hip Extension Side bilateral Resistance Green Reps/Minutes x20 Other Exercises BOSU Lunge Other Exercise Name BOSU Lunge Resisted Ambulation Other Exercise Name Resisted side-stepping Side bilateral Resistance Green Manual Therapy Treatment Soft Tissue Mobilization Lumbar paraspinals Body Location B Lumbar paraspinals Mobilization Type Sustained Pressure,Trigger Point Release PT-OP-T Assessment and Plan Start: 12/30/22 16:08 Freq: Status: Active Protocol: Document 02/14/23 09:32 DCW (Rec: 02/14/23 10:15 DCW [id number]) Physical Therapy Assessment Impairments Impairments Activity Tolerance,Functional Activities,Functional Mobility ,Pain,Posture,ROM,Soft Tissue Mobility,Strength Goals Four Impairment Pt unable to stand to do dishes longer than 5 minutes Half-Way Goal (LTG) Pt to demonstrate ability to stand for at least 20 minutes without pain while performing house chores like dishes and vacuuming. 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 Will add stair lunges to HEP. Physical Therapy Plan Frequency and Duration Frequency of Treatment 2x/Week Plan of Care Start Date 12/30/22 Plan of Care End Date 03/30/23 Therapeutic Interventions Therapeutic Interventions Home Exercise Program,Joint Mobilizations,Manual Therapy, Neuromuscular Re-education, Patient/Caregiver Education, Self-Care/Home Management,Soft Tissue Mobilization, Therapeutic Activities, Therapeutic Exercises Next Visit Focus/Plan Next Note Type Treatment Note Next Visit Plan Hip and core strengthening, activity tolerance, STM of lumbar musculature
--- NOTE | 2023-02-17 11:14 | PT.OTN ---
Current Diagnoses Spondylosis, unspecified (02/17/23) Low back pain, unspecified (02/17/23) Physical Therapy Treatment Note PT-OP-A Visit Information Start: 12/30/22 16:08 Freq: Status: Active Protocol: Document 02/17/23 10:30 DCW (Rec: 02/17/23 11:14 DCW [id number]) Out-Patient Physical Therapy Visit Information Visit Information Visit Type Treatment Note Visit Start Time 10:30 Visit Stop Time 11:15 Total Visit Minutes 45 Visit Number 6 Number of INSECTICIDE SUPERVISOR Visits 0 Evaluation Information Evaluation Date 12/30/22 PT-OP-B Current Condition Start: 12/30/22 16:08 Freq: Status: Active Protocol: Document 12/30/22 11:15 DCW (Rec: 12/30/22 16:51 DCW [id number]) Current Condition History of Current Condition Onset Date Long-standing history Current Complaints Mid- and low-back pain, lumbar stiffness, decreased activity tolerance History of Current Condition Pt is a 62 year old female well known to this clinic presenting with a long- standing history of thoracic and lumbar back pain. 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 Pt reports her back pain has gotten to the point where she is unable to stand to do dishes longer than 5 minutes at a time, and has to take a break every 10- 15 minutes when doing other abrasive mixer helper, like vacuuming or sweeping. Reports pain is constant, she is unable to get any relief. PT-OP-C Subjective Start: 12/30/22 16:08 Freq: Status: Active Protocol: Document 02/17/23 10:30 DCW (Rec: 02/17/23 11:14 DCW [id number]) OP-PT Subjective Patient Comments Patient Comments I spent some time stretching before getting out of bed today, my knees feel really tight. PT-OP-E Functional Tests Start: 12/30/22 16:08 Freq: Status: Active Protocol: Document 12/30/22 11:15 DCW (Rec: 12/30/22 16:57 DCW [id number]) Functional Tests Five Times Sit to Stand Test Score 15.00 seconds Comments uncontrolled descent Timed Up and Go (TUG) Score 13.35 Comments Three-trial average (12.50, 13 .22, 14.34) PT-OP-F Manual Assessment Start: 12/30/22 16:08 Freq: Status: Active Protocol: Document 12/30/22 11:15 DCW (Rec: 12/30/22 17:01 DCW [id number]) Manual Assessments Soft Tissue Assessment Soft Tissue Mobility Assessment Tenderness to palpation 3/4: wincing and withdraw along bilateral thoracolumbar paraspinals, QL, glute med PT-OP-K Range of Motion Start: 12/30/22 16:08 Freq: Status: Active Protocol: Document 12/30/22 11:15 DCW (Rec: 12/30/22 16:57 DCW [id number]) Lumbar Spine Range of Motion Lumbar Spine Active Degrees Testing Position Standing Flexion 50 Extension 20 Lateral Flexion Left 43 Lateral Flexion Right 48 ROM Limitations Soft Tissue Tightness,Muscle Tone,Pain Comments Lateral flexion measured in cm from fingertips to floor PT-OP-L Special Tests Start: 12/30/22 16:08 Freq: Status: Active Protocol: Document 12/30/22 11:15 DCW (Rec: 12/30/22 17:01 DCW [id number]) Special Tests Lumbar Spine Special Tests Vertical Spine Loading Test Results Negative CARLOS Test Results Negative Straight Leg Raise Test Results Negative Slump Test Results Negative A-P Shearing Test Results Negative PT-OP-M Strength Start: 12/30/22 16:08 Freq: Status: Active Protocol: Document 12/30/22 11:15 DCW (Rec: 12/30/22 17:01 DCW [id number]) Hip Strength Hip Manual Muscle Testing Right Flexion (L2) 4 Good Extension (S1) 4 Good Abduction 4 Good Adduction 4- Good- External Rotation 4 Good Internal Rotation 4 Good Left Flexion (L2) 4 Good Extension (S1) 4 Good Abduction 4- Good- Adduction 4- Good- External Rotation 4- Good- Internal Rotation 4- Good- Knee Strength Knee Manual Muscle Testing Right Flexion (S2) 4+ Good+ Extension (L3) 4+ Good+ Left Flexion (S2) 4+ Good+ Extension (L3) 4+ Good+ Ankle/Foot Strength Ankle and Foot Manual Muscle Testing Right Dorsiflexion (L4) 5 Normal Left Dorsiflexion (L4) 4+ Good+ PT-OP-Q Treatments Start: 12/30/22 16:08 Freq: Status: Active Protocol: Document 02/17/23 10:30 DCW (Rec: 02/17/23 11:14 DCW [id number]) Cardio Equipment Recumbent Elliptical (Biodex) Duration (Minutes) 6 Resistance 6 Seat Position 7 Gym Equipment Shuttle Recovery Unilateral Squats Resistance 62# (2 new) Shuttle Recovery Platform Stable Reps/Time 3x10 Bilateral Squats Resistance 112# (4 new) Shuttle Recovery Platform Stable Reps/Time x30 Therapeutic Exercises Supine Exercises Single KtC Supine Exercise Name S KtC Side bilateral Hamstring Stretch Supine Exercise Name HS stretch Side bilateral Standing Exercises Hip Extension Standing Exercise Name Hip Extension Side bilateral Resistance Green Reps/Minutes x20 Other Exercises BOSU Lunge Other Exercise Name BOSU Lunge Resisted Ambulation Other Exercise Name Resisted side-stepping Side bilateral Resistance Green Manual Therapy Treatment Soft Tissue Mobilization Lumbar paraspinals Body Location B Lumbar paraspinals Mobilization Type Sustained Pressure,Trigger Point Release PT-OP-T Assessment and Plan Start: 12/30/22 16:08 Freq: Status: Active Protocol: Document 02/17/23 10:30 DCW (Rec: 02/17/23 11:14 DCW [id number]) Physical Therapy Assessment Impairments Impairments Activity Tolerance,Functional Activities,Functional Mobility ,Pain,Posture,ROM,Soft Tissue Mobility,Strength Goals Four Impairment Pt unable to stand to do dishes longer than 5 minutes District Resource Officer Goal (LTG) Pt to demonstrate ability to stand for at least 20 minutes without pain while performing house chores like dishes and vacuuming. LTG Duration 03/30/23 Three Impairment Pt presents with hip weakness, left worse than right District Resource Officer Goal (LTG) Pt to increase bilateral hip MMT to at least 4/5 in all planes in order to improve stability of her hips and low back LTG Duration 03/30/23 Two Impairment Pt completed a 5x Sit to colorer machine 15.00 with uncontrolled descent Long-Term Goal (LTG) Pt to improve 5xStS score by at least 3 seconds to =12 seconds with a controlled descent LTG Duration 03/30/23 One Impairment Pt does not have an appropriate home exercise program Short Term Goal (STG) Pt to be independent and compliant with an appropriate HEP STG Duration 01/30/23 Assessment Summary Assessment Pt's left leg doing better with activity today, felt much stronger and more stable overall. Responding well to strengthening and STM activities. Physical Therapy Plan Frequency and Duration Frequency of Treatment 2x/Week Plan of Care Start Date 12/30/22 Plan of Care End Date 03/30/23 Therapeutic Interventions Therapeutic Interventions Home Exercise Program,Joint Mobilizations,Manual Therapy, Neuromuscular Re-education, Patient/Caregiver Education, Self-Care/Home Management,Soft Tissue Mobilization, Therapeutic Activities, Therapeutic Exercises Next Visit Focus/Plan Next Note Type Treatment Note Next Visit Plan Hip and core strengthening, activity tolerance, STM of lumbar musculature
--- NOTE | 2023-02-21 10:13 | PT.OTN ---
Current Diagnoses Spondylosis, unspecified (02/21/23) Low back pain, unspecified (02/21/23) Physical Therapy Treatment Note PT-OP-A Visit Information Start: 12/30/22 16:08 Freq: Status: Active Protocol: Document 02/21/23 09:30 DCW (Rec: 02/21/23 10:13 DCW [id number]) Out-Patient Physical Therapy Visit Information Visit Information Visit Type Treatment Note Visit Start Time 09:30 Visit Stop Time 10:15 Total Visit Minutes 45 Visit Number 7 Number of PANCAKE PROFESSIONAL Visits 0 Evaluation Information Evaluation Date 12/30/22 PT-OP-B Current Condition Start: 12/30/22 16:08 Freq: Status: Active Protocol: Document 12/30/22 11:15 DCW (Rec: 12/30/22 16:51 DCW [id number]) Current Condition History of Current Condition Onset Date Long-standing history Current Complaints Mid- and low-back pain, lumbar stiffness, decreased activity tolerance History of Current Condition Pt is a 62 year old female well known to this clinic presenting with a long- standing history of thoracic and lumbar back pain. 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 Pt reports her back pain has gotten to the point where she is unable to stand to do dishes longer than 5 minutes at a time, and has to take a break every 10- 15 minutes when doing other vice president compliance, like vacuuming or sweeping. Reports pain is constant, she is unable to get any relief. PT-OP-C Subjective Start: 12/30/22 16:08 Freq: Status: Active Protocol: Document 02/21/23 09:30 DCW (Rec: 02/21/23 10:13 DCW [id number]) OP-PT Subjective Patient Comments Patient Comments I'm fighting off a migraine. PT-OP-E Functional Tests Start: 12/30/22 16:08 Freq: Status: Active Protocol: Document 12/30/22 11:15 DCW (Rec: 12/30/22 16:57 DCW [id number]) Functional Tests Five Times Sit to Stand Test Score 15.00 seconds Comments uncontrolled descent Timed Up and Go (TUG) Score 13.35 Comments Three-trial average (12.50, 13 .22, 14.34) PT-OP-F Manual Assessment Start: 12/30/22 16:08 Freq: Status: Active Protocol: Document 12/30/22 11:15 DCW (Rec: 12/30/22 17:01 DCW [id number]) Manual Assessments Soft Tissue Assessment Soft Tissue Mobility Assessment Tenderness to palpation 3/4: wincing and withdraw along bilateral thoracolumbar paraspinals, QL, glute med PT-OP-K Range of Motion Start: 12/30/22 16:08 Freq: Status: Active Protocol: Document 12/30/22 11:15 DCW (Rec: 12/30/22 16:57 DCW [id number]) Lumbar Spine Range of Motion Lumbar Spine Active Degrees Testing Position Standing Flexion 50 Extension 20 Lateral Flexion Left 43 Lateral Flexion Right 48 ROM Limitations Soft Tissue Tightness,Muscle Tone,Pain Comments Lateral flexion measured in cm from fingertips to floor PT-OP-L Special Tests Start: 12/30/22 16:08 Freq: Status: Active Protocol: Document 12/30/22 11:15 DCW (Rec: 12/30/22 17:01 DCW [id number]) Special Tests Lumbar Spine Special Tests Vertical Spine Loading Test Results Negative CARLOS Test Results Negative Straight Leg Raise Test Results Negative Slump Test Results Negative A-P Shearing Test Results Negative PT-OP-M Strength Start: 12/30/22 16:08 Freq: Status: Active Protocol: Document 12/30/22 11:15 DCW (Rec: 12/30/22 17:01 DCW [id number]) Hip Strength Hip Manual Muscle Testing Right Flexion (L2) 4 Good Extension (S1) 4 Good Abduction 4 Good Adduction 4- Good- External Rotation 4 Good Internal Rotation 4 Good Left Flexion (L2) 4 Good Extension (S1) 4 Good Abduction 4- Good- Adduction 4- Good- External Rotation 4- Good- Internal Rotation 4- Good- Knee Strength Knee Manual Muscle Testing Right Flexion (S2) 4+ Good+ Extension (L3) 4+ Good+ Left Flexion (S2) 4+ Good+ Extension (L3) 4+ Good+ Ankle/Foot Strength Ankle and Foot Manual Muscle Testing Right Dorsiflexion (L4) 5 Normal Left Dorsiflexion (L4) 4+ Good+ PT-OP-Q Treatments Start: 12/30/22 16:08 Freq: Status: Active Protocol: Document 02/21/23 09:30 DCW (Rec: 02/21/23 10:13 DCW [id number]) Cardio Equipment Recumbent Elliptical (Biodex) Duration (Minutes) 6 Resistance 6 Seat Position 7 Gym Equipment Shuttle Recovery Unilateral Squats Resistance 62# (2 new) Shuttle Recovery Platform Stable Reps/Time 3x10 Bilateral Squats Resistance 112# (4 new) Shuttle Recovery Platform Stable Reps/Time x30 Therapeutic Exercises Supine Exercises Single KtC Supine Exercise Name S KtC Side bilateral Hamstring Stretch Supine Exercise Name HS stretch Side bilateral Standing Exercises Hip Extension Standing Exercise Name Hip Extension Side bilateral Resistance Green Reps/Minutes x20 Other Exercises BOSU Lunge Other Exercise Name BOSU Lunge Resisted Ambulation Other Exercise Name Resisted side-stepping Side bilateral Resistance Green Manual Therapy Treatment Soft Tissue Mobilization Lumbar paraspinals Body Location B Lumbar paraspinals Mobilization Type Sustained Pressure,Trigger Point Release PT-OP-T Assessment and Plan Start: 12/30/22 16:08 Freq: Status: Active Protocol: Document 02/21/23 09:30 DCW (Rec: 02/21/23 10:13 DCW [id number]) Physical Therapy Assessment Impairments Impairments Activity Tolerance,Functional Activities,Functional Mobility ,Pain,Posture,ROM,Soft Tissue Mobility,Strength Goals Four Impairment Pt unable to stand to do dishes longer than 5 minutes Linen Supply Load Builder Goal (LTG) Pt to demonstrate ability to stand for at least 20 minutes without pain while performing house chores like dishes and vacuuming. LTG Duration 03/30/23 Three Impairment Pt presents with hip weakness, left worse than right Linen Supply Load Builder Goal (LTG) Pt to increase bilateral hip MMT to at least 4/5 in all planes in order to improve stability of her hips and low back LTG Duration 03/30/23 Two Impairment Pt completed a 5x Sit to canopy inspector 15.00 with uncontrolled descent Penitentiary Goal (LTG) Pt to improve 5xStS score by at least 3 seconds to =12 seconds with a controlled descent LTG Duration 03/30/23 One Impairment Pt does not have an appropriate home exercise program Short Term Goal (STG) Pt to be independent and compliant with an appropriate HEP STG Duration 01/30/23 Assessment Summary Assessment Pt having less leg and back pain today, able to perform leg press with no complaints of pain. Muscle tone significantly improved. Physical Therapy Plan Frequency and Duration Frequency of Treatment 2x/Week Plan of Care Start Date 12/30/22 Plan of Care End Date 03/30/23 Therapeutic Interventions Therapeutic Interventions Home Exercise Program,Joint Mobilizations,Manual Therapy, Neuromuscular Re-education, Patient/Caregiver Education, Self-Care/Home Management,Soft Tissue Mobilization, Therapeutic Activities, Therapeutic Exercises Next Visit Focus/Plan Next Note Type Treatment Note Next Visit Plan Hip and core strengthening, activity tolerance, STM of lumbar musculature
--- NOTE | 2023-02-28 10:15 | PT.OTN ---
Current Diagnoses Spondylosis, unspecified (02/28/23) Low back pain, unspecified (02/28/23) Physical Therapy Treatment Note PT-OP-A Visit Information Start: 12/30/22 16:08 Freq: Status: Active Protocol: Document 02/28/23 09:30 DCW (Rec: 02/28/23 10:15 DCW [id number]) Out-Patient Physical Therapy Visit Information Visit Information Visit Type Treatment Note Visit Start Time 09:30 Visit Stop Time 10:15 Total Visit Minutes 45 Visit Number 8 Number of MEDICAL ESTHETICIAN Visits 0 Evaluation Information Evaluation Date 12/30/22 PT-OP-B Current Condition Start: 12/30/22 16:08 Freq: Status: Active Protocol: Document 12/30/22 11:15 DCW (Rec: 12/30/22 16:51 DCW [id number]) Current Condition History of Current Condition Onset Date Long-standing history Current Complaints Mid- and low-back pain, lumbar stiffness, decreased activity tolerance History of Current Condition Pt is a 62 year old female well known to this clinic presenting with a long- standing history of thoracic and lumbar back pain. 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 Pt reports her back pain has gotten to the point where she is unable to stand to do dishes longer than 5 minutes at a time, and has to take a break every 10- 15 minutes when doing other binder roller, like vacuuming or sweeping. Reports pain is constant, she is unable to get any relief. PT-OP-C Subjective Start: 12/30/22 16:08 Freq: Status: Active Protocol: Document 02/28/23 09:30 DCW (Rec: 02/28/23 10:15 DCW [id number]) OP-PT Subjective Patient Comments Patient Comments Pt reports she is feeling pretty good. Does note that she sprained her ankle last , so she had to cancel her appointment on Monday, but she is feeling better now. PT-OP-E Functional Tests Start: 12/30/22 16:08 Freq: Status: Active Protocol: Document 12/30/22 11:15 DCW (Rec: 12/30/22 16:57 DCW [id number]) Functional Tests Five Times Sit to Stand Test Score 15.00 seconds Comments uncontrolled descent Timed Up and Go (TUG) Score 13.35 Comments Three-trial average (12.50, 13 .22, 14.34) PT-OP-F Manual Assessment Start: 12/30/22 16:08 Freq: Status: Active Protocol: Document 12/30/22 11:15 DCW (Rec: 12/30/22 17:01 DCW [id number]) Manual Assessments Soft Tissue Assessment Soft Tissue Mobility Assessment Tenderness to palpation 3/4: wincing and withdraw along bilateral thoracolumbar paraspinals, QL, glute med PT-OP-K Range of Motion Start: 12/30/22 16:08 Freq: Status: Active Protocol: Document 12/30/22 11:15 DCW (Rec: 12/30/22 16:57 DCW [id number]) Lumbar Spine Range of Motion Lumbar Spine Active Degrees Testing Position Standing Flexion 50 Extension 20 Lateral Flexion Left 43 Lateral Flexion Right 48 ROM Limitations Soft Tissue Tightness,Muscle Tone,Pain Comments Lateral flexion measured in cm from fingertips to floor PT-OP-L Special Tests Start: 12/30/22 16:08 Freq: Status: Active Protocol: Document 12/30/22 11:15 DCW (Rec: 12/30/22 17:01 DCW [id number]) Special Tests Lumbar Spine Special Tests Vertical Spine Loading Test Results Negative CARLOS Test Results Negative Straight Leg Raise Test Results Negative Slump Test Results Negative A-P Shearing Test Results Negative PT-OP-M Strength Start: 12/30/22 16:08 Freq: Status: Active Protocol: Document 12/30/22 11:15 DCW (Rec: 12/30/22 17:01 DCW [id number]) Hip Strength Hip Manual Muscle Testing Right Flexion (L2) 4 Good Extension (S1) 4 Good Abduction 4 Good Adduction 4- Good- External Rotation 4 Good Internal Rotation 4 Good Left Flexion (L2) 4 Good Extension (S1) 4 Good Abduction 4- Good- Adduction 4- Good- External Rotation 4- Good- Internal Rotation 4- Good- Knee Strength Knee Manual Muscle Testing Right Flexion (S2) 4+ Good+ Extension (L3) 4+ Good+ Left Flexion (S2) 4+ Good+ Extension (L3) 4+ Good+ Ankle/Foot Strength Ankle and Foot Manual Muscle Testing Right Dorsiflexion (L4) 5 Normal Left Dorsiflexion (L4) 4+ Good+ PT-OP-Q Treatments Start: 12/30/22 16:08 Freq: Status: Active Protocol: Document 02/28/23 09:30 DCW (Rec: 02/28/23 10:15 DCW [id number]) Cardio Equipment Recumbent Elliptical (Biodex) Duration (Minutes) 7 Resistance 6 Seat Position 7 Gym Equipment Shuttle Recovery Unilateral Squats Resistance 62# (2 new) Shuttle Recovery Platform Stable Reps/Time 3x10 Bilateral Squats Resistance 112# (4 new) Shuttle Recovery Platform Stable Reps/Time x30 Therapeutic Exercises Standing Exercises Hip Extension Standing Exercise Name Hip Extension Side bilateral Resistance Green Reps/Minutes x20 Other Exercises BOSU Lunge Other Exercise Name BOSU Lunge Resisted Ambulation Other Exercise Name Resisted side-stepping Side bilateral Resistance Green Manual Therapy Treatment Soft Tissue Mobilization Lumbar paraspinals Body Location B Lumbar paraspinals Mobilization Type Sustained Pressure,Trigger Point Release PT-OP-T Assessment and Plan Start: 12/30/22 16:08 Freq: Status: Active Protocol: Document 02/28/23 09:30 DCW (Rec: 02/28/23 10:15 DCW [id number]) Physical Therapy Assessment Impairments Impairments Activity Tolerance,Functional Activities,Functional Mobility ,Pain,Posture,ROM,Soft Tissue Mobility,Strength Goals Four Impairment Pt unable to stand to do dishes longer than 5 minutes Warranty Coordinator Goal (LTG) Pt to demonstrate ability to stand for at least 20 minutes without pain while performing house chores like dishes and vacuuming. LTG Duration 03/30/23 Three Impairment Pt presents with hip weakness, left worse than right Warranty Coordinator Goal (LTG) Pt to increase bilateral hip MMT to at least 4/5 in all planes in order to improve stability of her hips and low back LTG Duration 03/30/23 Two Impairment Pt completed a 5x Sit to road machinery inspector 15.00 with uncontrolled descent Warranty Coordinator Goal (LTG) Pt to improve 5xStS score by at least 3 seconds to =12 seconds with a controlled descent LTG Duration 03/30/23 One Impairment Pt does not have an appropriate home exercise program Short Term Goal (STG) Pt to be independent and compliant with an appropriate HEP STG Duration 01/30/23 Assessment Summary Assessment Pt noting some continued difficulty with sit->stand when sitting on a chair without arm rests. Continue to work on leg press and practice sit<->stands in effort to improve this functional mobility. Physical Therapy Plan Frequency and Duration Frequency of Treatment 2x/Week Plan of Care Start Date 12/30/22 Plan of Care End Date 03/30/23 Therapeutic Interventions Therapeutic Interventions Home Exercise Program,Joint Mobilizations,Manual Therapy, Neuromuscular Re-education, Patient/Caregiver Education, Self-Care/Home Management,Soft Tissue Mobilization, Therapeutic Activities, Therapeutic Exercises Next Visit Focus/Plan Next Note Type Treatment Note Next Visit Plan Hip and core strengthening, activity tolerance, STM of lumbar musculature
--- NOTE | 2023-03-03 11:05 | PT.OTN ---
Current Diagnoses Spondylosis, unspecified (03/03/23) Low back pain, unspecified (03/03/23) Physical Therapy Treatment Note PT-OP-A Visit Information Start: 12/30/22 16:08 Freq: Status: Active Protocol: Document 03/03/23 10:20 DCW (Rec: 03/03/23 11:05 DCW [id number]) Out-Patient Physical Therapy Visit Information Visit Information Visit Type Treatment Note Visit Start Time 10:20 Visit Stop Time 11:05 Total Visit Minutes 45 Visit Number 9 Number of CAPSULE FILLING MACHINE OPERATOR Visits 0 Evaluation Information Evaluation Date 12/30/22 PT-OP-B Current Condition Start: 12/30/22 16:08 Freq: Status: Active Protocol: Document 12/30/22 11:15 DCW (Rec: 12/30/22 16:51 DCW [id number]) Current Condition History of Current Condition Onset Date Long-standing history Current Complaints Mid- and low-back pain, lumbar stiffness, decreased activity tolerance History of Current Condition Pt is a 62 year old female well known to this clinic presenting with a long- standing history of thoracic and lumbar back pain. 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 Reports pain is constant, she is unable to get any relief. PT-OP-C Subjective Start: 12/30/22 16:08 Freq: Status: Active Protocol: Document 03/03/23 10:20 DCW (Rec: 03/03/23 11:05 DCW [id number]) OP-PT Subjective Patient Comments Patient Comments Pt reports she is doing well, ankle continues to feel good. Notes her back has been bothering her mostly when doing the dishes. PT-OP-E Functional Tests Start: 12/30/22 16:08 Freq: Status: Active Protocol: Document 12/30/22 11:15 DCW (Rec: 12/30/22 16:57 DCW [id number]) Functional Tests Five Times Sit to Stand Test Score 15.00 seconds Comments uncontrolled descent Timed Up and Go (TUG) Score 13.35 Comments Three-trial average (12.50, 13 .22, 14.34) PT-OP-F Manual Assessment Start: 12/30/22 16:08 Freq: Status: Active Protocol: Document 12/30/22 11:15 DCW (Rec: 12/30/22 17:01 DCW [id number]) Manual Assessments Soft Tissue Assessment Soft Tissue Mobility Assessment Tenderness to palpation 3/4: wincing and withdraw along bilateral thoracolumbar paraspinals, QL, glute med PT-OP-K Range of Motion Start: 12/30/22 16:08 Freq: Status: Active Protocol: Document 12/30/22 11:15 DCW (Rec: 12/30/22 16:57 DCW [id number]) Lumbar Spine Range of Motion Lumbar Spine Active Degrees Testing Position Standing Flexion 50 Extension 20 Lateral Flexion Left 43 Lateral Flexion Right 48 ROM Limitations Soft Tissue Tightness,Muscle Tone,Pain Comments Lateral flexion measured in cm from fingertips to floor PT-OP-L Special Tests Start: 12/30/22 16:08 Freq: Status: Active Protocol: Document 12/30/22 11:15 DCW (Rec: 12/30/22 17:01 DCW [id number]) Special Tests Lumbar Spine Special Tests Vertical Spine Loading Test Results Negative CARLOS Test Results Negative Straight Leg Raise Test Results Negative Slump Test Results Negative A-P Shearing Test Results Negative PT-OP-M Strength Start: 12/30/22 16:08 Freq: Status: Active Protocol: Document 12/30/22 11:15 DCW (Rec: 12/30/22 17:01 DCW [id number]) Hip Strength Hip Manual Muscle Testing Right Flexion (L2) 4 Good Extension (S1) 4 Good Abduction 4 Good Adduction 4- Good- External Rotation 4 Good Internal Rotation 4 Good Left Flexion (L2) 4 Good Extension (S1) 4 Good Abduction 4- Good- Adduction 4- Good- External Rotation 4- Good- Internal Rotation 4- Good- Knee Strength Knee Manual Muscle Testing Right Flexion (S2) 4+ Good+ Extension (L3) 4+ Good+ Left Flexion (S2) 4+ Good+ Extension (L3) 4+ Good+ Ankle/Foot Strength Ankle and Foot Manual Muscle Testing Right Dorsiflexion (L4) 5 Normal Left Dorsiflexion (L4) 4+ Good+ PT-OP-Q Treatments Start: 12/30/22 16:08 Freq: Status: Active Protocol: Document 03/03/23 10:20 DCW (Rec: 03/03/23 11:05 DCW [id number]) Cardio Equipment Recumbent Elliptical (Biodex) Duration (Minutes) 7 Resistance 6 Seat Position 7 Gym Equipment Shuttle Recovery Unilateral Squats Resistance 62# (2 new) Shuttle Recovery Platform Stable Reps/Time 3x10 Bilateral Squats Resistance 112# (4 new) Shuttle Recovery Platform Stable Reps/Time x30 Therapeutic Exercises Supine Exercises Single KtC Supine Exercise Name S KtC Side bilateral Hamstring Stretch Supine Exercise Name HS stretch Side bilateral Standing Exercises Hip Extension Standing Exercise Name Hip Extension Side bilateral Resistance Green Reps/Minutes x20 Other Exercises Resisted Ambulation Other Exercise Name Resisted side-stepping Side bilateral Resistance Green Manual Therapy Treatment Soft Tissue Mobilization Lumbar paraspinals Body Location B Lumbar paraspinals Mobilization Type Sustained Pressure,Trigger Point Release PT-OP-T Assessment and Plan Start: 12/30/22 16:08 Freq: Status: Active Protocol: Document 03/03/23 10:20 DCW (Rec: 03/03/23 11:05 [facility] [id number]) Physical Therapy Assessment Impairments Impairments Activity Tolerance,Functional Activities,Functional Mobility ,Pain,Posture,ROM,Soft Tissue Mobility,Strength Goals Four Impairment Pt unable to stand to do dishes longer than 5 minutes Penitentiary Goal (LTG) Pt to demonstrate ability to stand for at least 20 minutes without pain while performing house chores like dishes and vacuuming. LTG Duration 03/30/23 Three Impairment Pt presents with hip weakness, left worse than right Penitentiary Goal (LTG) Pt to increase bilateral hip MMT to at least 4/5 in all planes in order to improve stability of her hips and low back LTG Duration 03/30/23 Two Impairment Pt completed a 5x Sit to principal technical architect 15.00 with uncontrolled descent Penitentiary Goal (LTG) Pt to improve 5xStS score by at least 3 seconds to =12 seconds with a controlled descent LTG Duration 03/30/23 One Impairment Pt does not have an appropriate home exercise program Short Term Goal (STG) Pt to be independent and compliant with an appropriate HEP STG Duration 01/30/23 Assessment Summary Assessment Pt moving slightly better today, easier sit<->stand. Tolerated treatment well, decreased muscle tone through lumbar paraspinals. Physical Therapy Plan Frequency and Duration Frequency of Treatment 2x/Week Plan of Care Start Date 12/30/22 Plan of Care End Date 03/30/23 Therapeutic Interventions Therapeutic Interventions Home Exercise Program,Joint Mobilizations,Manual Therapy, Neuromuscular Re-education, Patient/Caregiver Education, Self-Care/Home Management,Soft Tissue Mobilization, Therapeutic Activities, Therapeutic Exercises Next Visit Focus/Plan Next Note Type Treatment Note Next Visit Plan Hip and core strengthening, activity tolerance, STM of lumbar musculature
--- NOTE | 2023-03-07 10:13 | PT.OTN ---
Current Diagnoses Spondylosis, unspecified (03/07/23) Low back pain, unspecified (03/07/23) Physical Therapy Treatment Note PT-OP-A Visit Information Start: 12/30/22 16:08 Freq: Status: Active Protocol: Document 03/07/23 09:30 DCW (Rec: 03/07/23 10:13 DCW [id number]) Out-Patient Physical Therapy Visit Information Visit Information Visit Type Treatment Note Visit Start Time 09:30 Visit Stop Time 10:15 Total Visit Minutes 45 Visit Number 10 Number of GLUING MACHINE ADJUSTER Visits 0 Evaluation Information Evaluation Date 12/30/22 PT-OP-B Current Condition Start: 12/30/22 16:08 Freq: Status: Active Protocol: Document 12/30/22 11:15 DCW (Rec: 12/30/22 16:51 DCW [id number]) Current Condition History of Current Condition Onset Date Long-standing history Current Complaints Mid- and low-back pain, lumbar stiffness, decreased activity tolerance History of Current Condition Pt is a 62 year old female well known to this clinic presenting with a long- standing history of thoracic and lumbar back pain. 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 Reports pain is constant, she is unable to get any relief. PT-OP-C Subjective Start: 12/30/22 16:08 Freq: Status: Active Protocol: Document 03/07/23 09:30 DCW (Rec: 03/07/23 10:13 DCW [id number]) OP-PT Subjective Patient Comments Patient Comments I feel pretty good, my right knee is tight, though. PT-OP-E Functional Tests Start: 12/30/22 16:08 Freq: Status: Active Protocol: Document 12/30/22 11:15 DCW (Rec: 12/30/22 16:57 DCW [id number]) Functional Tests Five Times Sit to Stand Test Score 15.00 seconds Comments uncontrolled descent Timed Up and Go (TUG) Score 13.35 Comments Three-trial average (12.50, 13 .22, 14.34) PT-OP-F Manual Assessment Start: 12/30/22 16:08 Freq: Status: Active Protocol: Document 12/30/22 11:15 DCW (Rec: 12/30/22 17:01 DCW [id number]) Manual Assessments Soft Tissue Assessment Soft Tissue Mobility Assessment Tenderness to palpation 3/4: wincing and withdraw along bilateral thoracolumbar paraspinals, QL, glute med PT-OP-K Range of Motion Start: 12/30/22 16:08 Freq: Status: Active Protocol: Document 12/30/22 11:15 DCW (Rec: 12/30/22 16:57 DCW [id number]) Lumbar Spine Range of Motion Lumbar Spine Active Degrees Testing Position Standing Flexion 50 Extension 20 Lateral Flexion Left 43 Lateral Flexion Right 48 ROM Limitations Soft Tissue Tightness,Muscle Tone,Pain Comments Lateral flexion measured in cm from fingertips to floor PT-OP-L Special Tests Start: 12/30/22 16:08 Freq: Status: Active Protocol: Document 12/30/22 11:15 DCW (Rec: 12/30/22 17:01 DCW [id number]) Special Tests Lumbar Spine Special Tests Vertical Spine Loading Test Results Negative CARLOS Test Results Negative Straight Leg Raise Test Results Negative Slump Test Results Negative A-P Shearing Test Results Negative PT-OP-M Strength Start: 12/30/22 16:08 Freq: Status: Active Protocol: Document 12/30/22 11:15 DCW (Rec: 12/30/22 17:01 DCW [id number]) Hip Strength Hip Manual Muscle Testing Right Flexion (L2) 4 Good Extension (S1) 4 Good Abduction 4 Good Adduction 4- Good- External Rotation 4 Good Internal Rotation 4 Good Left Flexion (L2) 4 Good Extension (S1) 4 Good Abduction 4- Good- Adduction 4- Good- External Rotation 4- Good- Internal Rotation 4- Good- Knee Strength Knee Manual Muscle Testing Right Flexion (S2) 4+ Good+ Extension (L3) 4+ Good+ Left Flexion (S2) 4+ Good+ Extension (L3) 4+ Good+ Ankle/Foot Strength Ankle and Foot Manual Muscle Testing Right Dorsiflexion (L4) 5 Normal Left Dorsiflexion (L4) 4+ Good+ PT-OP-Q Treatments Start: 12/30/22 16:08 Freq: Status: Active Protocol: Document 03/07/23 09:30 DCW (Rec: 03/07/23 10:13 DCW [id number]) Cardio Equipment Recumbent Elliptical (Biodex) Duration (Minutes) 7 Resistance 6 Seat Position 7 Gym Equipment Shuttle Recovery Unilateral Squats Resistance 62# (2 new) Shuttle Recovery Platform Stable Reps/Time 3x10 Bilateral Squats Resistance 112# (4 new) Shuttle Recovery Platform Stable Reps/Time x30 Therapeutic Exercises Standing Exercises Hip Extension Standing Exercise Name Hip Extension Side bilateral Resistance Green Reps/Minutes x20 Other Exercises BOSU Lunge Other Exercise Name BOSU Lunge Resisted Ambulation Other Exercise Name Resisted side-stepping Side bilateral Resistance Green Manual Therapy Treatment Soft Tissue Mobilization Lumbar paraspinals Body Location B Lumbar paraspinals Mobilization Type Sustained Pressure,Trigger Point Release PT-OP-T Assessment and Plan Start: 12/30/22 16:08 Freq: Status: Active Protocol: Document 03/07/23 09:30 DCW (Rec: 03/07/23 10:13 DCW [id number]) Physical Therapy Assessment Impairments Impairments Activity Tolerance,Functional Activities,Functional Mobility ,Pain,Posture,ROM,Soft Tissue Mobility,Strength Goals Four Impairment Pt unable to stand to do dishes longer than 5 minutes Building Construction Estimator Goal (LTG) Pt to demonstrate ability to stand for at least 20 minutes without pain while performing house chores like dishes and vacuuming. LTG Duration 03/30/23 Three Impairment Pt presents with hip weakness, left worse than right Senior Living Goal (LTG) Pt to increase bilateral hip MMT to at least 4/5 in all planes in order to improve stability of her hips and low back LTG Duration 03/30/23 Two Impairment Pt completed a 5x Sit to magazine hand 15.00 with uncontrolled descent Senior Living Goal (LTG) Pt to improve 5xStS score by at least 3 seconds to =12 seconds with a controlled descent LTG Duration 03/30/23 One Impairment Pt does not have an appropriate home exercise program Short Term Goal (STG) Pt to be independent and compliant with an appropriate HEP STG Duration 01/30/23 Assessment Summary Assessment Pt continues to show good progress overall, back pain no longer limiting her daily activities. Physical Therapy Plan Frequency and Duration Frequency of Treatment 2x/Week Plan of Care Start Date 12/30/22 Plan of Care End Date 03/30/23 Therapeutic Interventions Therapeutic Interventions Home Exercise Program,Joint Mobilizations,Manual Therapy, Neuromuscular Re-education, Patient/Caregiver Education, Self-Care/Home Management,Soft Tissue Mobilization, Therapeutic Activities, Therapeutic Exercises Next Visit Focus/Plan Next Note Type Treatment Note Next Visit Plan Hip and core strengthening, activity tolerance, STM of lumbar musculature
--- NOTE | 2023-03-10 11:14 | PT.OTN ---
Current Diagnoses Spondylosis, unspecified (03/10/23) Low back pain, unspecified (03/10/23) Physical Therapy Treatment Note PT-OP-A Visit Information Start: 12/30/22 16:08 Freq: Status: Active Protocol: Document 03/10/23 10:33 DCW (Rec: 03/10/23 11:14 DCW [id number]) Out-Patient Physical Therapy Visit Information Visit Information Visit Type Treatment Note Visit Start Time 10:33 Visit Stop Time 11:15 Total Visit Minutes 42 Visit Number 11 Number of MINING ENGINEER Visits 0 Evaluation Information Evaluation Date 12/30/22 PT-OP-B Current Condition Start: 12/30/22 16:08 Freq: Status: Active Protocol: Document 12/30/22 11:15 DCW (Rec: 12/30/22 16:51 DCW [id number]) Current Condition History of Current Condition Onset Date Long-standing history Current Complaints Mid- and low-back pain, lumbar stiffness, decreased activity tolerance History of Current Condition Pt is a 62 year old female well known to this clinic presenting with a long- standing history of thoracic and lumbar back pain. 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 Reports pain is constant, she is unable to get any relief. PT-OP-C Subjective Start: 12/30/22 16:08 Freq: Status: Active Protocol: Document 03/10/23 10:33 DCW (Rec: 03/10/23 11:14 DCW [id number]) OP-PT Subjective Patient Comments Patient Comments My knees are fine today, and I even worked the clothes closet last night. Well, my left knee is a little tight. PT-OP-E Functional Tests Start: 12/30/22 16:08 Freq: Status: Active Protocol: Document 12/30/22 11:15 DCW (Rec: 12/30/22 16:57 DCW [id number]) Functional Tests Five Times Sit to Stand Test Score 15.00 seconds Comments uncontrolled descent Timed Up and Go (TUG) Score 13.35 Comments Three-trial average (12.50, 13 .22, 14.34) PT-OP-F Manual Assessment Start: 12/30/22 16:08 Freq: Status: Active Protocol: Document 12/30/22 11:15 DCW (Rec: 12/30/22 17:01 DCW [id number]) Manual Assessments Soft Tissue Assessment Soft Tissue Mobility Assessment Tenderness to palpation 3/4: wincing and withdraw along bilateral thoracolumbar paraspinals, QL, glute med PT-OP-K Range of Motion Start: 12/30/22 16:08 Freq: Status: Active Protocol: Document 12/30/22 11:15 DCW (Rec: 12/30/22 16:57 DCW [id number]) Lumbar Spine Range of Motion Lumbar Spine Active Degrees Testing Position Standing Flexion 50 Extension 20 Lateral Flexion Left 43 Lateral Flexion Right 48 ROM Limitations Soft Tissue Tightness,Muscle Tone,Pain Comments Lateral flexion measured in cm from fingertips to floor PT-OP-L Special Tests Start: 12/30/22 16:08 Freq: Status: Active Protocol: Document 12/30/22 11:15 DCW (Rec: 12/30/22 17:01 DCW [id number]) Special Tests Lumbar Spine Special Tests Vertical Spine Loading Test Results Negative CARLOS Test Results Negative Straight Leg Raise Test Results Negative Slump Test Results Negative A-P Shearing Test Results Negative PT-OP-M Strength Start: 12/30/22 16:08 Freq: Status: Active Protocol: Document 12/30/22 11:15 DCW (Rec: 12/30/22 17:01 DCW [id number]) Hip Strength Hip Manual Muscle Testing Right Flexion (L2) 4 Good Extension (S1) 4 Good Abduction 4 Good Adduction 4- Good- External Rotation 4 Good Internal Rotation 4 Good Left Flexion (L2) 4 Good Extension (S1) 4 Good Abduction 4- Good- Adduction 4- Good- External Rotation 4- Good- Internal Rotation 4- Good- Knee Strength Knee Manual Muscle Testing Right Flexion (S2) 4+ Good+ Extension (L3) 4+ Good+ Left Flexion (S2) 4+ Good+ Extension (L3) 4+ Good+ Ankle/Foot Strength Ankle and Foot Manual Muscle Testing Right Dorsiflexion (L4) 5 Normal Left Dorsiflexion (L4) 4+ Good+ PT-OP-Q Treatments Start: 12/30/22 16:08 Freq: Status: Active Protocol: Document 03/10/23 10:33 DCW (Rec: 03/10/23 11:14 DCW [id number]) Cardio Equipment Recumbent Elliptical (Biodex) Duration (Minutes) 7 Resistance 6 Seat Position 7 Gym Equipment Shuttle Recovery Unilateral Squats Resistance 62# (2 new) Shuttle Recovery Platform Stable Reps/Time 3x10 Bilateral Squats Resistance 112# (4 new) Shuttle Recovery Platform Stable Reps/Time x30 Therapeutic Exercises Standing Exercises Hip Extension Standing Exercise Name Hip Extension Side bilateral Resistance Green Reps/Minutes x20 Other Exercises BOSU Lunge Other Exercise Name BOSU Lunge Resisted Ambulation Other Exercise Name Resisted side-stepping Side bilateral Resistance Green Manual Therapy Treatment Soft Tissue Mobilization Lumbar paraspinals Body Location B Lumbar paraspinals Mobilization Type Sustained Pressure,Trigger Point Release Intensity/Depth Moderate Body Position Sidelying PT-OP-T Assessment and Plan Start: 12/30/22 16:08 Freq: Status: Active Protocol: Document 03/10/23 10:33 DCW (Rec: 03/10/23 11:14 DCW [id number]) Physical Therapy Assessment Impairments Impairments Activity Tolerance,Functional Activities,Functional Mobility ,Pain,Posture,ROM,Soft Tissue Mobility,Strength Goals Four Impairment Pt unable to stand to do dishes longer than 5 minutes Dockworker Goal (LTG) Pt to demonstrate ability to stand for at least 20 minutes without pain while performing house chores like dishes and vacuuming. LTG Duration 03/30/23 Three Impairment Pt presents with hip weakness, left worse than right Dockworker Goal (LTG) Pt to increase bilateral hip MMT to at least 4/5 in all planes in order to improve stability of her hips and low back LTG Duration 03/30/23 Two Impairment Pt completed a 5x Sit to online affiliate marketing manager 15.00 with uncontrolled descent Custodial Goal (LTG) Pt to improve 5xStS score by at least 3 seconds to =12 seconds with a controlled descent LTG Duration 03/30/23 One Impairment Pt does not have an appropriate home exercise program Short Term Goal (STG) Pt to be independent and compliant with an appropriate HEP STG Duration 01/30/23 Assessment Summary Assessment Pt notes improved ability to stand and do dushes without back pain. Showing good progress with core stabilization and knee strength. Physical Therapy Plan Frequency and Duration Frequency of Treatment 2x/Week Plan of Care Start Date 12/30/22 Plan of Care End Date 03/30/23 Therapeutic Interventions Therapeutic Interventions Home Exercise Program,Joint Mobilizations,Manual Therapy, Neuromuscular Re-education, Patient/Caregiver Education, Self-Care/Home Management,Soft Tissue Mobilization, Therapeutic Activities, Therapeutic Exercises Next Visit Focus/Plan Next Note Type Treatment Note Next Visit Plan Hip and core strengthening, activity tolerance, STM of lumbar musculature
--- NOTE | 2023-03-14 10:16 | PT.OTN ---
Current Diagnoses Spondylosis, unspecified (03/14/23) Low back pain, unspecified (03/14/23) Physical Therapy Treatment Note PT-OP-A Visit Information Start: 12/30/22 16:08 Freq: Status: Active Protocol: Document 03/14/23 09:30 DCW (Rec: 03/14/23 10:16 DCW [id number]) Out-Patient Physical Therapy Visit Information Visit Information Visit Type Treatment Note Visit Start Time 09:30 Visit Stop Time 10:15 Total Visit Minutes 45 Visit Number 12 Number of STUDIO OPERATION ENGINEER Visits 0 Evaluation Information Evaluation Date 12/30/22 PT-OP-B Current Condition Start: 12/30/22 16:08 Freq: Status: Active Protocol: Document 12/30/22 11:15 DCW (Rec: 12/30/22 16:51 DCW [id number]) Current Condition History of Current Condition Onset Date Long-standing history Current Complaints Mid- and low-back pain, lumbar stiffness, decreased activity tolerance History of Current Condition Pt is a 62 year old female well known to this clinic presenting with a long- standing history of thoracic and lumbar back pain. 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 Pt reports her back pain has gotten to the point where she is unable to stand to do dishes longer than 5 minutes at a time, and has to take a break every 10- 15 minutes when doing other business intelligence administrator, like vacuuming or sweeping. Reports pain is constant, she is unable to get any relief. PT-OP-C Subjective Start: 12/30/22 16:08 Freq: Status: Active Protocol: Document 03/14/23 09:30 DCW (Rec: 03/14/23 10:16 DCW [id number]) OP-PT Subjective Patient Comments Patient Comments Pt reports no complaints or pain today. I've been doing dishes without needing to sit down. PT-OP-E Functional Tests Start: 12/30/22 16:08 Freq: Status: Active Protocol: Document 12/30/22 11:15 DCW (Rec: 12/30/22 16:57 DCW [id number]) Functional Tests Five Times Sit to Stand Test Score 15.00 seconds Comments uncontrolled descent Timed Up and Go (TUG) Score 13.35 Comments Three-trial average (12.50, 13 .22, 14.34) PT-OP-F Manual Assessment Start: 12/30/22 16:08 Freq: Status: Active Protocol: Document 12/30/22 11:15 DCW (Rec: 12/30/22 17:01 DCW [id number]) Manual Assessments Soft Tissue Assessment Soft Tissue Mobility Assessment Tenderness to palpation 3/4: wincing and withdraw along bilateral thoracolumbar paraspinals, QL, glute med PT-OP-K Range of Motion Start: 12/30/22 16:08 Freq: Status: Active Protocol: Document 12/30/22 11:15 DCW (Rec: 12/30/22 16:57 DCW [id number]) Lumbar Spine Range of Motion Lumbar Spine Active Degrees Testing Position Standing Flexion 50 Extension 20 Lateral Flexion Left 43 Lateral Flexion Right 48 ROM Limitations Soft Tissue Tightness,Muscle Tone,Pain Comments Lateral flexion measured in cm from fingertips to floor PT-OP-L Special Tests Start: 12/30/22 16:08 Freq: Status: Active Protocol: Document 12/30/22 11:15 DCW (Rec: 12/30/22 17:01 DCW [id number]) Special Tests Lumbar Spine Special Tests Vertical Spine Loading Test Results Negative CARLOS Test Results Negative Straight Leg Raise Test Results Negative Slump Test Results Negative A-P Shearing Test Results Negative PT-OP-M Strength Start: 12/30/22 16:08 Freq: Status: Active Protocol: Document 12/30/22 11:15 DCW (Rec: 12/30/22 17:01 DCW [id number]) Hip Strength Hip Manual Muscle Testing Right Flexion (L2) 4 Good Extension (S1) 4 Good Abduction 4 Good Adduction 4- Good- External Rotation 4 Good Internal Rotation 4 Good Left Flexion (L2) 4 Good Extension (S1) 4 Good Abduction 4- Good- Adduction 4- Good- External Rotation 4- Good- Internal Rotation 4- Good- Knee Strength Knee Manual Muscle Testing Right Flexion (S2) 4+ Good+ Extension (L3) 4+ Good+ Left Flexion (S2) 4+ Good+ Extension (L3) 4+ Good+ Ankle/Foot Strength Ankle and Foot Manual Muscle Testing Right Dorsiflexion (L4) 5 Normal Left Dorsiflexion (L4) 4+ Good+ PT-OP-Q Treatments Start: 12/30/22 16:08 Freq: Status: Active Protocol: Document 03/14/23 09:30 DCW (Rec: 03/14/23 10:16 DCW [id number]) Cardio Equipment Recumbent Elliptical (Biodex) Duration (Minutes) 7 Resistance 6 Seat Position 7 Gym Equipment Shuttle Recovery Unilateral Squats Resistance 62# (2 new) Shuttle Recovery Platform Stable Reps/Time 3x10 Bilateral Squats Resistance 112# (4 new) Shuttle Recovery Platform Stable Reps/Time x30 Therapeutic Exercises Supine Exercises Single KtC Supine Exercise Name S KtC Side bilateral Hamstring Stretch Supine Exercise Name HS stretch Side bilateral Standing Exercises Hip Extension Standing Exercise Name Hip Extension Side bilateral Resistance Green Reps/Minutes x20 Other Exercises BOSU Lunge Other Exercise Name BOSU Lunge Resisted Ambulation Other Exercise Name Resisted side-stepping Side bilateral Resistance Green Manual Therapy Treatment Soft Tissue Mobilization Lumbar paraspinals Body Location B Lumbar paraspinals Mobilization Type Sustained Pressure,Trigger Point Release Intensity/Depth Moderate Body Position Sidelying PT-OP-T Assessment and Plan Start: 12/30/22 16:08 Freq: Status: Active Protocol: Document 03/14/23 09:30 DCW (Rec: 03/14/23 10:16 DCW [id number]) Physical Therapy Assessment Impairments Impairments Activity Tolerance,Functional Activities,Functional Mobility ,Pain,Posture,ROM,Soft Tissue Mobility,Strength Goals Four Impairment Pt unable to stand to do dishes longer than 5 minutes Fisheries Management Biologist Goal (LTG) Pt to demonstrate ability to stand for at least 20 minutes without pain while performing house chores like dishes and vacuuming. LTG Duration 03/30/23 Three Impairment Pt presents with hip weakness, left worse than right Fisheries Management Biologist Goal (LTG) Pt to increase bilateral hip MMT to at least 4/5 in all planes in order to improve stability of her hips and low back LTG Duration 03/30/23 Two Impairment Pt completed a 5x Sit to associate engineer 15.00 with uncontrolled descent Retirement Goal (LTG) Pt to improve 5xStS score by at least 3 seconds to =12 seconds with a controlled descent LTG Duration 03/30/23 One Impairment Pt does not have an appropriate home exercise program Short Term Goal (STG) Pt to be independent and compliant with an appropriate HEP STG Duration 01/30/23 Assessment Summary Assessment Pt progressing well, nearing functional goals, will likely be appropriate for discharge following currently scheduled visits, as long as she continues to progress at the same speed. Physical Therapy Plan Frequency and Duration Frequency of Treatment 2x/Week Plan of Care Start Date 12/30/22 Plan of Care End Date 03/30/23 Therapeutic Interventions Therapeutic Interventions Home Exercise Program,Joint Mobilizations,Manual Therapy, Neuromuscular Re-education, Patient/Caregiver Education, Self-Care/Home Management,Soft Tissue Mobilization, Therapeutic Activities, Therapeutic Exercises Next Visit Focus/Plan Next Note Type Treatment Note Next Visit Plan Hip and core strengthening, activity tolerance, STM of lumbar musculature
--- NOTE | 2023-03-17 11:12 | PT.OTN ---
Current Diagnoses Spondylosis, unspecified (03/17/23) Low back pain, unspecified (03/17/23) Physical Therapy Treatment Note PT-OP-A Visit Information Start: 12/30/22 16:08 Freq: Status: Active Protocol: Document 03/17/23 10:32 DCW (Rec: 03/17/23 11:12 DCW [id number]) Out-Patient Physical Therapy Visit Information Visit Information Visit Type Treatment Note Visit Start Time 10:32 Visit Stop Time 11:15 Total Visit Minutes 43 Visit Number [address] TECHNOLOGIST Visits 0 Evaluation Information Evaluation Date 12/30/22 PT-OP-B Current Condition Start: 12/30/22 16:08 Freq: Status: Active Protocol: Document 12/30/22 11:15 DCW (Rec: 12/30/22 16:51 DCW [id number]) Current Condition History of Current Condition Onset Date Long-standing history Current Complaints Mid- and low-back pain, lumbar stiffness, decreased activity tolerance History of Current Condition Pt is a 62 year old female well known to this clinic presenting with a long- standing history of thoracic and lumbar back pain. 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 Pt reports her back pain has gotten to the point where she is unable to stand to do dishes longer than 5 minutes at a time, and has to take a break every 10- 15 minutes when doing other supportive employment case manager, like vacuuming or sweeping. Reports pain is constant, she is unable to get any relief. PT-OP-C Subjective Start: 12/30/22 16:08 Freq: Status: Active Protocol: Document 03/17/23 10:32 DCW (Rec: 03/17/23 11:12 DCW [id number]) OP-PT Subjective Patient Comments Patient Comments Pt reports she is struggling to wake up today. PT-OP-E Functional Tests Start: 12/30/22 16:08 Freq: Status: Active Protocol: Document 12/30/22 11:15 DCW (Rec: 12/30/22 16:57 DCW [id number]) Functional Tests Five Times Sit to Stand Test Score 15.00 seconds Comments uncontrolled descent Timed Up and Go (TUG) Score 13.35 Comments Three-trial average (12.50, 13 .22, 14.34) PT-OP-F Manual Assessment Start: 12/30/22 16:08 Freq: Status: Active Protocol: Document 12/30/22 11:15 DCW (Rec: 12/30/22 17:01 DCW [id number]) Manual Assessments Soft Tissue Assessment Soft Tissue Mobility Assessment Tenderness to palpation 3/4: wincing and withdraw along bilateral thoracolumbar paraspinals, QL, glute med PT-OP-K Range of Motion Start: 12/30/22 16:08 Freq: Status: Active Protocol: Document 12/30/22 11:15 DCW (Rec: 12/30/22 16:57 DCW [id number]) Lumbar Spine Range of Motion Lumbar Spine Active Degrees Testing Position Standing Flexion 50 Extension 20 Lateral Flexion Left 43 Lateral Flexion Right 48 ROM Limitations Soft Tissue Tightness,Muscle Tone,Pain Comments Lateral flexion measured in cm from fingertips to floor PT-OP-L Special Tests Start: 12/30/22 16:08 Freq: Status: Active Protocol: Document 12/30/22 11:15 DCW (Rec: 12/30/22 17:01 DCW [id number]) Special Tests Lumbar Spine Special Tests Vertical Spine Loading Test Results Negative CARLOS Test Results Negative Straight Leg Raise Test Results Negative Slump Test Results Negative A-P Shearing Test Results Negative PT-OP-M Strength Start: 12/30/22 16:08 Freq: Status: Active Protocol: Document 12/30/22 11:15 DCW (Rec: 12/30/22 17:01 DCW [id number]) Hip Strength Hip Manual Muscle Testing Right Flexion (L2) 4 Good Extension (S1) 4 Good Abduction 4 Good Adduction 4- Good- External Rotation 4 Good Internal Rotation 4 Good Left Flexion (L2) 4 Good Extension (S1) 4 Good Abduction 4- Good- Adduction 4- Good- External Rotation 4- Good- Internal Rotation 4- Good- Knee Strength Knee Manual Muscle Testing Right Flexion (S2) 4+ Good+ Extension (L3) 4+ Good+ Left Flexion (S2) 4+ Good+ Extension (L3) 4+ Good+ Ankle/Foot Strength Ankle and Foot Manual Muscle Testing Right Dorsiflexion (L4) 5 Normal Left Dorsiflexion (L4) 4+ Good+ PT-OP-Q Treatments Start: 12/30/22 16:08 Freq: Status: Active Protocol: Document 03/17/23 10:32 DCW (Rec: 03/17/23 11:12 DCW [id number]) Cardio Equipment Recumbent Elliptical (Biodex) Duration (Minutes) 7 Resistance 6 Seat Position 7 Gym Equipment Shuttle Recovery Unilateral Squats Resistance 62# (2 new) Shuttle Recovery Platform Stable Reps/Time 3x10 Bilateral Squats Resistance 112# (4 new) Shuttle Recovery Platform Stable Reps/Time x30 Therapeutic Exercises Standing Exercises Hip Extension Standing Exercise Name Hip Extension Side bilateral Resistance Blue Reps/Minutes x20 Other Exercises BOSU Lunge Other Exercise Name BOSU Lunge Resisted Ambulation Other Exercise Name Resisted side-stepping Side bilateral Resistance Blue Manual Therapy Treatment Soft Tissue Mobilization Lumbar paraspinals Body Location B Lumbar paraspinals Mobilization Type Sustained Pressure,Trigger Point Release Intensity/Depth Moderate Body Position Sidelying PT-OP-T Assessment and Plan Start: 12/30/22 16:08 Freq: Status: Active Protocol: Document 03/17/23 10:32 DCW (Rec: 03/17/23 11:12 DCW [id number]) Physical Therapy Assessment Impairments Impairments Activity Tolerance,Functional Activities,Functional Mobility ,Pain,Posture,ROM,Soft Tissue Mobility,Strength Goals Four Impairment Pt unable to stand to do dishes longer than 5 minutes Nutrient Management Specialist Goal (LTG) Pt to demonstrate ability to stand for at least 20 minutes without pain while performing house chores like dishes and vacuuming. LTG Duration 03/30/23 Three Impairment Pt presents with hip weakness, left worse than right Fdc Goal (LTG) Pt to increase bilateral hip MMT to at least 4/5 in all planes in order to improve stability of her hips and low back LTG Duration 03/30/23 Two Impairment Pt completed a 5x Sit to hat lining paster 15.00 with uncontrolled descent Nutrient Management Specialist Goal (LTG) Pt to improve 5xStS score by at least 3 seconds to =12 seconds with a controlled descent LTG Duration 03/30/23 One Impairment Pt does not have an appropriate home exercise program Short Term Goal (STG) Pt to be independent and compliant with an appropriate HEP STG Duration 01/30/23 Assessment Summary Assessment Pt continues to progress well, no current complaints. No complaints of lingering aches or pains today, approaching discharge. Physical Therapy Plan Frequency and Duration Frequency of Treatment 2x/Week Plan of Care Start Date 12/30/22 Plan of Care End Date 03/30/23 Therapeutic Interventions Therapeutic Interventions Home Exercise Program,Joint Mobilizations,Manual Therapy, Neuromuscular Re-education, Patient/Caregiver Education, Self-Care/Home Management,Soft Tissue Mobilization, Therapeutic Activities, Therapeutic Exercises Next Visit Focus/Plan Next Note Type Treatment Note Next Visit Plan Hip and core strengthening, activity tolerance, STM of lumbar musculature
--- NOTE | 2023-03-24 12:12 | PT.OTN ---
Current Diagnoses Spondylosis, unspecified (03/24/23) Low back pain, unspecified (03/24/23) Physical Therapy Treatment Note PT-OP-A Visit Information Start: 12/30/22 16:08 Freq: Status: Active Protocol: Document 03/24/23 11:22 NBM (Rec: 03/24/23 12:12 [facility] [id number]) Out-Patient Physical Therapy Visit Information Visit Information Visit Type Treatment Note Visit Start Time 11:30 Visit Stop Time 12:12 Total Visit Minutes 40 Visit Number 14 Number of RADIOLOGICAL DEFENSE OFFICER Visits 1 Evaluation Information Evaluation Date 12/30/22 PT-OP-B Current Condition Start: 12/30/22 16:08 Freq: Status: Active Protocol: Document 12/30/22 11:15 DCW (Rec: 12/30/22 16:51 DCW [id number]) Current Condition History of Current Condition Onset Date Long-standing history Current Complaints Mid- and low-back pain, lumbar stiffness, decreased activity tolerance History of Current Condition Pt is a 62 year old female well known to this clinic presenting with a long- standing history of thoracic and lumbar back pain. 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 Pt reports her back pain has gotten to the point where she is unable to stand to do dishes longer than 5 minutes at a time, and has to take a break every 10- 15 minutes when doing other hardwood flooring specialist, like vacuuming or sweeping. Reports pain is constant, she is unable to get any relief. PT-OP-C Subjective Start: 12/30/22 16:08 Freq: Status: Active Protocol: Document 03/24/23 11:22 NBM (Rec: 03/24/23 12:12 [facility] [id number]) OP-PT Subjective Patient Comments Patient Comments Pt reports she's not on that many muscle relaxants now, and she's been getting better. She goes walking. PT-OP-E Functional Tests Start: 12/30/22 16:08 Freq: Status: Active Protocol: Document 12/30/22 11:15 DCW (Rec: 12/30/22 16:57 DCW [id number]) Functional Tests Five Times Sit to Stand Test Score 15.00 seconds Comments uncontrolled descent Timed Up and Go (TUG) Score 13.35 Comments Three-trial average (12.50, 13 .22, 14.34) PT-OP-F Manual Assessment Start: 12/30/22 16:08 Freq: Status: Active Protocol: Document 12/30/22 11:15 DCW (Rec: 12/30/22 17:01 DCW [id number]) Manual Assessments Soft Tissue Assessment Soft Tissue Mobility Assessment Tenderness to palpation 3/4: wincing and withdraw along bilateral thoracolumbar paraspinals, QL, glute med PT-OP-K Range of Motion Start: 12/30/22 16:08 Freq: Status: Active Protocol: Document 12/30/22 11:15 DCW (Rec: 12/30/22 16:57 DCW [id number]) Lumbar Spine Range of Motion Lumbar Spine Active Degrees Testing Position Standing Flexion 50 Extension 20 Lateral Flexion Left 43 Lateral Flexion Right 48 ROM Limitations Soft Tissue Tightness,Muscle Tone,Pain Comments Lateral flexion measured in cm from fingertips to floor PT-OP-L Special Tests Start: 12/30/22 16:08 Freq: Status: Active Protocol: Document 12/30/22 11:15 DCW (Rec: 12/30/22 17:01 DCW [id number]) Special Tests Lumbar Spine Special Tests Vertical Spine Loading Test Results Negative CARLOS Test Results Negative Straight Leg Raise Test Results Negative Slump Test Results Negative A-P Shearing Test Results Negative PT-OP-M Strength Start: 12/30/22 16:08 Freq: Status: Active Protocol: Document 12/30/22 11:15 DCW (Rec: 12/30/22 17:01 DCW [id number]) Hip Strength Hip Manual Muscle Testing Right Flexion (L2) 4 Good Extension (S1) 4 Good Abduction 4 Good Adduction 4- Good- External Rotation 4 Good Internal Rotation 4 Good Left Flexion (L2) 4 Good Extension (S1) 4 Good Abduction 4- Good- Adduction 4- Good- External Rotation 4- Good- Internal Rotation 4- Good- Knee Strength Knee Manual Muscle Testing Right Flexion (S2) 4+ Good+ Extension (L3) 4+ Good+ Left Flexion (S2) 4+ Good+ Extension (L3) 4+ Good+ Ankle/Foot Strength Ankle and Foot Manual Muscle Testing Right Dorsiflexion (L4) 5 Normal Left Dorsiflexion (L4) 4+ Good+ PT-OP-Q Treatments Start: 12/30/22 16:08 Freq: Status: Active Protocol: Document 03/24/23 11:22 [facility] (Rec: 03/24/23 12:12 [facility] [id number]) Cardio Equipment Recumbent Elliptical (Biodex) Duration (Minutes) 8 Resistance 6 Seat Position 7 Other LEs only>UE/LE Gym Equipment Shuttle Recovery Unilateral Squats Resistance 62# (2 new) Shuttle Recovery Platform Stable Reps/Time 3x10 Bilateral Squats Resistance 112# (4 new) Shuttle Recovery Platform Stable Reps/Time x30 Therapeutic Exercises Sitting Exercises HS stretch Sitting Exercise Name seated hamstring stretch Side bilateral Reps/Minutes 30s ea (3-5 breaths) Standing Exercises Hip Extension Standing Exercise Name Hip Extension Side bilateral Resistance Blue Reps/Minutes x20 ea Comments cues for upright posture Other Exercises BOSU Lunge Other Exercise Name BOSU Lunge Resisted Ambulation Other Exercise Name Resisted side-stepping Side bilateral Resistance Blue Equipment Used handrail Comments cues for toes fwd PT-OP-T Assessment and Plan Start: 12/30/22 16:08 Freq: Status: Active Protocol: Document 03/24/23 11:22 [facility] (Rec: 03/24/23 12:12 [facility] [id number]) Physical Therapy Assessment Impairments Impairments Activity Tolerance,Functional Activities,Functional Mobility ,Pain,Posture,ROM,Soft Tissue Mobility,Strength Goals Four Impairment Pt unable to stand to do dishes longer than 5 minutes Curing Press Maintainer Goal (LTG) Pt to demonstrate ability to stand for at least 20 minutes without pain while performing house chores like dishes and vacuuming. 03/24: MET: pt reports >20min recently to finish dishes without a break. LTG Duration 03/30/23 Three Impairment Pt presents with hip weakness, left worse than right Curing Press Maintainer Goal (LTG) Pt to increase bilateral hip MMT to at least 4/5 in all planes in order to improve stability of her hips and low back LTG Duration 03/30/23 Two Impairment Pt completed a 5x Sit to flaking roll operator 15.00 with uncontrolled descent Curing Press Maintainer Goal (LTG) Pt to improve 5xStS score by at least 3 seconds to =12 seconds with a controlled descent LTG Duration 03/30/23 One Impairment Pt does not have an appropriate home exercise program Short Term Goal (STG) Pt to be independent and compliant with an appropriate HEP STG Duration 01/30/23 Assessment Summary Assessment Ada continues to show progress and meets STG Four to stand greater than 20 minutes for dishes without pain. She requires initial cues for neutral foot position with lateral bandwalks. Physical Therapy Plan Frequency and Duration Frequency of Treatment 2x/Week Plan of Care Start Date 12/30/22 Plan of Care End Date 03/30/23 Therapeutic Interventions Therapeutic Interventions Home Exercise Program,Joint Mobilizations,Manual Therapy, Neuromuscular Re-education, Patient/Caregiver Education, Self-Care/Home Management,Soft Tissue Mobilization, Therapeutic Activities, Therapeutic Exercises Next Visit Focus/Plan Next Note Type Treatment Note Next Visit Plan Hip and core strengthening, activity tolerance, STM of lumbar musculature
--- NOTE | 2023-03-28 17:08 | PT.OTN ---
Current Diagnoses Spondylosis, unspecified (03/28/23) Low back pain, unspecified (03/28/23) Physical Therapy Treatment Note PT-OP-A Visit Information Start: 12/30/22 16:08 Freq: Status: Active Protocol: Document 03/28/23 16:30 DCW (Rec: 03/28/23 17:07 DCW [id number]) Out-Patient Physical Therapy Visit Information Visit Information Visit Type Discharge Summary Visit Start Time 16:30 Visit Stop Time 17:03 Total Visit Minutes 33 Visit Number 15 Number of SHIPPING CLERK PACKING Visits 0 Evaluation Information Evaluation Date 12/30/22 PT-OP-B Current Condition Start: 12/30/22 16:08 Freq: Status: Active Protocol: Document 12/30/22 11:15 DCW (Rec: 12/30/22 16:51 DCW [id number]) Current Condition History of Current Condition Onset Date Long-standing history Current Complaints Mid- and low-back pain, lumbar stiffness, decreased activity tolerance History of Current Condition Pt is a 62 year old female well known to this clinic presenting with a long- standing history of thoracic and lumbar back pain. 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 Reports pain is constant, she is unable to get any relief. PT-OP-C Subjective Start: 12/30/22 16:08 Freq: Status: Active Protocol: Document 03/28/23 16:30 DCW (Rec: 03/28/23 17:07 DCW [id number]) OP-PT Subjective Patient Comments Patient Comments Pt feeling pretty good, looking forward to upcoming vacation to [place].Aagreeable to discharge at this time. PT-OP-E Functional Tests Start: 12/30/22 16:08 Freq: Status: Active Protocol: Document 03/28/23 16:30 DCW (Rec: 03/28/23 17:08 DCW [id number]) Functional Tests Five Times Sit to Stand Test Score 13.48 Timed Up and Go (TUG) Score 11.76 Comments Three-trial average (12.36, 11 .81, 11.10) PT-OP-F Manual Assessment Start: 12/30/22 16:08 Freq: Status: Active Protocol: Document 12/30/22 11:15 DCW (Rec: 12/30/22 17:01 DCW [id number]) Manual Assessments Soft Tissue Assessment Soft Tissue Mobility Assessment Tenderness to palpation 3/4: wincing and withdraw along bilateral thoracolumbar paraspinals, QL, glute med PT-OP-K Range of Motion Start: 12/30/22 16:08 Freq: Status: Active Protocol: Document 12/30/22 11:15 DCW (Rec: 12/30/22 16:57 DCW [id number]) Lumbar Spine Range of Motion Lumbar Spine Active Degrees Testing Position Standing Flexion 50 Extension 20 Lateral Flexion Left 43 Lateral Flexion Right 48 ROM Limitations Soft Tissue Tightness,Muscle Tone,Pain Comments Lateral flexion measured in cm from fingertips to floor PT-OP-L Special Tests Start: 12/30/22 16:08 Freq: Status: Active Protocol: Document 12/30/22 11:15 DCW (Rec: 12/30/22 17:01 DCW [id number]) Special Tests Lumbar Spine Special Tests Vertical Spine Loading Test Results Negative CARLOS Test Results Negative Straight Leg Raise Test Results Negative Slump Test Results Negative A-P Shearing Test Results Negative PT-OP-M Strength Start: 12/30/22 16:08 Freq: Status: Active Protocol: Document 12/30/22 11:15 DCW (Rec: 12/30/22 17:01 DCW [id number]) Hip Strength Hip Manual Muscle Testing Right Flexion (L2) 4 Good Extension (S1) 4 Good Abduction 4 Good Adduction 4- Good- External Rotation 4 Good Internal Rotation 4 Good Left Flexion (L2) 4 Good Extension (S1) 4 Good Abduction 4- Good- Adduction 4- Good- External Rotation 4- Good- Internal Rotation 4- Good- Knee Strength Knee Manual Muscle Testing Right Flexion (S2) 4+ Good+ Extension (L3) 4+ Good+ Left Flexion (S2) 4+ Good+ Extension (L3) 4+ Good+ Ankle/Foot Strength Ankle and Foot Manual Muscle Testing Right Dorsiflexion (L4) 5 Normal Left Dorsiflexion (L4) 4+ Good+ PT-OP-Q Treatments Start: 12/30/22 16:08 Freq: Status: Active Protocol: Document 03/28/23 16:30 DCW (Rec: 03/28/23 17:07 DCW [id number]) Cardio Equipment Recumbent Elliptical (Biodex) Duration (Minutes) 6 Resistance 6 Seat Position 7 Therapeutic Exercises Supine Exercises Single KtC Supine Exercise Name S KtC Side bilateral Hamstring Stretch Supine Exercise Name HS stretch Side bilateral Manual Therapy Treatment Soft Tissue Mobilization Lumbar paraspinals Body Location B Lumbar paraspinals Mobilization Type Sustained Pressure,Trigger Point Release Intensity/Depth Moderate Body Position Sidelying PT-OP-T Assessment and Plan Start: 12/30/22 16:08 Freq: Status: Active Protocol: Document 03/28/23 16:30 DCW (Rec: 03/28/23 17:07 DCW [id number]) Physical Therapy Assessment Goals Four Impairment Pt unable to stand to do dishes longer than 5 minutes Skilled Nursing Goal (LTG) Pt to demonstrate ability to stand for at least 20 minutes without pain while performing house chores like dishes and vacuuming. 03/24: MET: pt reports >20min recently to finish dishes without a break. 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 with uncontrolled descent Railroad Track Inspector Goal (LTG) Pt to improve 5xStS score by at least 3 seconds to =12 seconds with a controlled descent LTG Duration 03/30/23 - improving One Impairment Pt does not have an appropriate home exercise program Short Term Goal (STG) Pt to be independent and compliant with an appropriate HEP STG Duration Met Progress Towards Goals Progress Towards Goals Progressing Toward Goals Assessment Summary Assessment Pt has made good progress, initial complaints of back pain no longer present, pt not limited with any daily activities, appropriate for discharge at this time. Physical Therapy Plan Frequency and Duration Frequency of Treatment 2x/Week Plan of Care Start Date 12/30/22 Plan of Care End Date 03/30/23 Therapeutic Interventions Therapeutic Interventions Home Exercise Program,Joint Mobilizations,Manual Therapy, Neuromuscular Re-education, Patient/Caregiver Education, Self-Care/Home Management,Soft Tissue Mobilization, Therapeutic Activities, Therapeutic Exercises Discharge Physical Therapy Discharge Reasons Plateau in Progress Next Visit Focus/Plan Next Note Type Discharge Summary
== END 2023-03-29 12:42 | disposition home or self-care (01) ==
LOC: PHYS 16:30
PROVIDERS: Family Provider Family Medicine; PCP Family Medicine; Referring Provider Nurse Practitioner; Visit Provider Family Medicine
DX: M54.50 Low back pain, unspecified (principal); M47.9 Spondylosis, unspecified
CPT/HCPCS: 97110; 97140; 97162

== ENCOUNTER 2023-06-14 16:00 | Emergency (ER) | payer MEDICARE, MEDICAID, SELFPAY ==
[2023-06-14 16:04] VITALS: BP 123/69; PULSE 74; RESP 18; TEMP 36.8; O2SAT 95; BMI 41.1
--- NOTE | 2023-06-14 17:27 | PC.NURSE ---
Pt reports she ate a small caesar salad from [employer] and 45 min after felt as if her L shoulder in her trapezium area was swollen and endorses it feels back to baseline at this time. States lips felt tingly however starting to subside. airway intact. denies tongue swelling or difficulty speaking or swallowing. ambulatory, lungs are clear. states my friends made me come
[2023-06-14] MEDS: FAMOTIDINE 20 MG TABLET PO (17:39)
[2023-06-14] MEDS: diphenhydrAMINE 25 MG TABLET 50 MG PO (17:39)
--- NOTE | 2023-06-14 18:10 | ED.ALLEREA ---
HPI - Allergic Reaction General Chief complaint: Allergic Reaction Stated complaint: lt shoulder swelling, lips are numb Time Seen by Provider: 06/14/23 17:56 Source: patient Mode of arrival: Ambulatory History of Present Illness HPI narrative: Patient is a 63-year-old female history of hypothyroid depression presenting today with shoulder pain. She reports that she was sitting when suddenly her shoulder started swelling she felt like her bra strap was too tight. Then she reports that her lips felt numb. At no time did she feel like her throat was swelling tongue was swelling or have hives. She is never had any anaphylaxis or allergic reaction before. She denies being bit or stung by anything. She reports that it is feeling better. No numbness tingling or weakness down her arm. No chest pain palpitations or shortness of breath. Related Data Home Medications Medication Instructions Recorded Confirmed levothyroxine 88 mcg tablet 88 mcg PO DAILY 02/19/19 03/15/23 sumatriptan succinate 50 mg tablet 50 mg PO PRN PRN Migraine Headache 02/19/19 03/15/23 tizanidine 2 mg tablet 02/19/19 03/15/23 paroxetine HCl PO 03/15/23 03/15/23 Previous Rx's Medication Instructions Recorded hydrocodone 5 mg-acetaminophen 325 1 tab PO Q6H PRN pain #10 tabs 08/10/22 mg tablet phenazopyridine 200 mg tablet 200 mg PO TID 6 doses #6 tabs 03/15/23 (Pyridium) Allergies Allergy/AdvReac Type Severity Reaction Status Date / Time codeine AdvReac Mild Verified 03/15/23 13:26 Penicillins AdvReac Mild Nausea Verified 03/15/23 13:26 Review of Systems Review of Systems ROS Unobtainable: All systems reviewed & are unremarkable except as noted in HPI and below Patient History Medical History (Updated 06/14/23 @ 18:18 by Cherrie Maria DO) Hypothyroid Social History Smoking Status: Former smoker Smoking Status: Former smoker alcohol intake frequency: holidays/special occasions only Substance Use Type: does not use Exam Initial Vital Signs Initial Vital Signs: Vital Signs Temperature 98.3 F 06/14/23 16:04 Pulse Rate 74 06/14/23 16:04 Respiratory Rate 18 06/14/23 16:04 Blood Pressure 123/69 06/14/23 16:04 Pulse Oximetry 95 06/14/23 16:04 Oxygen Delivery Method Room Air 06/14/23 16:04 GENERAL: Alert very well-appearing 63-year-old female HEENT: Head atraumatic,EOMI, pupils reactive, face symmetric, moist mucous membranes PHARYNX: No uvula swelling tongue swelling or lip swelling no stridor CARDIOVASCULAR: Regular rate and rhythm without murmurs, rubs or gallops. RESPIRATORY: Breath sounds equal bilaterally, no wheezes rales or rhonchi. EXTREMITIES: Normal range of motion, no clubbing or edema. Neurovascularly intact Left shoulder no bite hives or erythema no obvious swelling full range of motion distal radial pulse intact NEUROLOGICAL: Alert and oriented x4 SKIN: Warm, dry, no laceration, no petechiae, no rashes or lesions. Course Orders Ordered: Discontinued Medications Diphenhydramine HCl (Diphenhydramine 25 Mg Tablet) 50 mg PO NOW ONE Stop: 06/14/23 17:31 Last Admin: 06/14/23 17:39 Dose: 50 mg Documented By: KELLY Famotidine (Famotidine 20 Mg Tablet) 20 mg PO BID FAM Famotidine (Famotidine 20 Mg Tablet) 20 mg PO NOW ONE Stop: 06/14/23 17:35 Last Admin: 06/14/23 17:39 Dose: 20 mg Documented By: CTS Vital Signs Vital signs: Vital Signs - 8 hr 06/14/23 16:04 06/14/23 18:19 Temperature 98.3 F Pulse Rate 74 61 Respiratory Rate 18 Blood Pressure 123/69 132/65 Pulse Oximetry 95 99 Oxygen Delivery Method Room Air Room Air MDM - Allergic Reaction MDM Narrative Medical decision making narrative: Well-appearing 63-year-old female who presents today with left shoulder pain and swelling. No obvious swelling no rash no bite no concern for anaphylaxis or allergic reaction at this time. Difficult to tell why she felt like her bra strap was too tight I have loosened it for her. There was no injury no need for any imaging. Discharge Plan Departure Patient Disposition: Home Clinical Impression: Left shoulder pain Instructions: DI for Shoulder Pain Activity Restrictions/Additional Instructions: *You have been diagnosed with left shoulder pain *What to do: At this time no evidence of an allergic reaction. Unclear what caused your shoulder swelling *Continue to take medications as directed *Follow up with your primary care provider in 2-3 days or call [phone] *Return to ER if you should have increasing pain swelling rash or any new, worsening or concerning symptoms Prescriptions: No Action paroxetine HCl PO phenazopyridine [Pyridium] 200 mg tablet 200 mg PO TID 0 Days Qty: 6 0RF tizanidine 2 mg tablet sumatriptan succinate 50 mg tablet 50 mg PO PRN PRN (Reason: Migraine Headache) levothyroxine 88 mcg tablet 88 mcg PO DAILY hydrocodone-acetaminophen 5-325 mg tablet 1 tab PO Q6H PRN (Reason: pain) Qty: 10 0RF Referrals: Shalom Mari MD [Primary Care Provider] - Stand Alone Forms: Patient Portal/API
[2023-06-14 18:19] VITALS: BP 132/65; PULSE 61; O2SAT 99
== END 2023-06-14 18:22 | disposition home or self-care (01) ==
PROVIDERS: Emergency Provider Emergency Medicine; Family Provider Family Medicine; PCP Family Medicine
DX: M25.512 Pain in left shoulder (principal)
CPT/HCPCS: 99283; A9270

== ENCOUNTER 2024-09-24 16:00 | Outpatient (RCR) | payer MEDICARE, MEDICAID, SELFPAY ==
--- NOTE | 2024-07-08 16:42 | PT.OIE ---
Current Diagnoses Pain in right shoulder (07/08/24) Pain in right knee (07/08/24) Pain in unspecified knee (07/08/24) Stiffness of right shoulder, not elsewhere classified (07/08/24) Stiffness of unspecified knee, not elsewhere classified (07/08/24) Presence of right artificial knee joint (07/08/24) Presence of unspecified artificial knee joint (07/08/24) Past Medical History (Last Reviewed 06/14/23 @ 18:15 by Cherrie Maria DO) Hypothyroid Visit Care Team Role Provider Type STEPHY Hu Primary Care Provider Non-Staff Specialty: Nursing Address: [address] [place] [address], [id number] Email: Shalom Mari MD Family Provider Non-Staff Specialty: Medical Address: [address] [place] [address], [phone] Email: Joce Mackenzie DO Attending Provider Non-Staff Referring Provider Specialty: Family Practice Address: [address] [place] [address], [phone] Email: Physical Therapy Initial Evaluation PT-OP-A Visit Information Start: 07/08/24 15:24 Freq: Status: Active Protocol: Document 07/08/24 09:50 DCW (Rec: 07/08/24 15:30 DCW [id number]) Out-Patient Physical Therapy Visit Information Visit Information Visit Type Initial Evaluation Visit Start Time 09:50 Visit Stop Time 10:30 Visit Number 1 Number of MANAGER SWITCH Visits 0 Evaluation Information Evaluation Date 07/08/24 PT-OP-B Current Condition Start: 07/08/24 15:24 Freq: Status: Active Protocol: Document 07/08/24 09:45 DCW (Rec: 07/08/24 16:30 DCW [id number]) Current Condition History of Current Condition Onset Date Six month history Current Complaints right knee pain, right shoulder pain History of Current Condition Pt is a 64 year old female presenting to skilled therapy with a six month history of right knee and right shoulder pain. Pt notes insidious onset , but notes both have been worsening. Pt does have a remote history of bilateral TKA. Pt reports her right knee is constantly in pain, no real improving or worsening. Does still try to ambulate 10, 000 steps daily, but struggles due to moderate antalgia. Pt ambulates with a 3WW, has used a SPC in the past, but it created worse knee pain. Knee pain has been limiting sleep. Right shoulder bothers her less often, typically when attempting overhead activities . Pain largely located in anterior shoulder. Prior Treatments and Tests Pt is well known to this clinic, has been seen for various injuries and surgeries over the last ~10 years. Treatment Goals Patient/Caregiver Goals Pt's goals are to decrease pain in both the knee and shoulder, to be able to sleep on her right side, and to return to walking with her SPC . PT-OP-C Subjective Start: 07/08/24 15:24 Freq: Status: Active Protocol: Document 07/08/24 09:50 DCW (Rec: 07/08/24 15:30 DCW [id number]) OP-PT Subjective Patient Comments Patient Comments My knee hurts 01/05. My shoulder, if it's resting, it doesn't really hurt, but my knee hurts all the time. Patient Questionnaires Lower Extremity Functional Scale LEFS Score 26/80 = 32.5% Quick Dash- Upper Extremity Quick Dash UE Score 61.36% PT-OP-F Manual Assessment Start: 07/08/24 15:24 Freq: Status: Active Protocol: Document 07/08/24 09:45 DCW (Rec: 07/08/24 16:30 DCW [id number]) Manual Assessments Soft Tissue Assessment Soft Tissue Mobility Assessment Tenderness along right bicipital groove Joint Mobility Assessment Joint Mobility Assessment Increased stiffness and hypomobility with both active and passive knee flexion. PT-OP-K Range of Motion Start: 07/08/24 15:24 Freq: Status: Active Protocol: Document 07/08/24 09:45 DCW (Rec: 07/08/24 16:30 DCW [id number]) Shoulder Goniometric Range of Motion Shoulder Right Active Shoulder ROM WFL No Testing Position Sitting Flexion 135 Abduction 111 External Rotation at 0 degrees Abduction 54 Internal Rotation Behind Back (text) T10 Left Active Shoulder ROM WFL Yes Testing Position Sitting Flexion 180 Abduction 180 External Rotation at 0 degrees Abduction 80 Internal Rotation Behind Back (text) T8 Shoulder ROM Limitations Shoulder ROM Limitations Soft Tissue Tightness,Muscle Weakness,Muscle Tone,Pain Knee Goniometric Range of Motion Knee Right Knee ROM WFL No Patient Position Supine Flexion Active (degrees) 106 Extension Active (degrees) 13 Left Patient Position Supine Flexion Active (degrees) 120 Extension Active (degrees) 0 PT-OP-L Special Tests Start: 07/08/24 16:38 Freq: Status: Active Protocol: Document 07/08/24 09:45 DCW (Rec: 07/08/24 16:41 DCW [id number]) Special Tests Shoulder Special Tests Yergason's Biceps Test Results Positive right Passive ER Rotator Cuff Test Results Negative Lift-Off Rotator Cuff Test Results Negative [place] Impingement Test Results Negative Drop Arm Rotator Cuff Test Results Negative Belly Press Test Results Negative Apprehension Test Test Results Negative AC Joint Compression Test Results Negative Knee Special Tests Varus- 25 Degrees Test Results Negative Valgus- 25 Degrees Test Results Negative Patella Tap Test Results Positive right Anterior Draw Test Results Negative PT-OP-M Strength Start: 07/08/24 15:24 Freq: Status: Active Protocol: Document 07/08/24 09:45 DCW (Rec: 07/08/24 16:30 DCW [id number]) Shoulder Strength Shoulder Manual Muscle Testing Right Flexion 3- Fair- Abduction (C5) 4- Good- External Rotation 3 Fair Internal Rotation 4 Good Left Flexion 4 Good Abduction (C5) 4 Good External Rotation 4 Good Internal Rotation 4 Good PT-OP-T Assessment and Plan Start: 07/08/24 15:24 Freq: Status: Active Protocol: Document 07/08/24 09:45 DCW (Rec: 07/08/24 16:38 DCW [id number]) Physical Therapy Assessment Rehab Potential Rehabilitation Potential Good Evaluation Complexity Number of Personal Factors/Comorbidities 3 or More Number of Body Systems Impaired 4 or More Clinical Presentation at Evaluation Unstable Impairments Impairments Activity Tolerance,Functional Activities,Functional Mobility ,Pain,ROM,Strength,Tone Goals Three Impairment Right knee AROM limited to 13? -106? Jail Goal (LTG) Pt to demonstrate improved right knee AROM to 0?-120? in order to improve ability to successfully ascend and descend stairs. LTG Duration 09/07/24 Two Impairment Pt unable to perform overhead activities at home Jail Goal (LTG) Pt to improve both right shoulder flexion and abduction to 160? in order to improve ability to put away dishes in her upper cabinets. LTG Duration 09/07/24 One Impairment Pt does not have an appropriate home exercise program Short Term Goal (STG) Pt to be independent and compliant with an appropriate HEP STG Duration 08/07/24 Assessment Summary Assessment Pt presents with signs and symptoms consistent with referring diagnosis. Pt right knee demonstrating increased pain, weakness, and stiffness, potentially secondary to after-effects from prior TKA. Pt should benefit from skilled PT focusing on ROM, STM, strengthening, and activity tolerance to allow for return to prior functional level of ambulating using a SPC without increased pain. Additionally, pt's right shoulder pain most suggestive of bicipital tendonitis, with point- specific pain at the bicipital groove and positive biceps testing. Pt should additionally benefit from focus on shoulder mobility, strengthening, and decreasing inflammation along biceps tendon. Physical Therapy Plan Frequency and Duration Frequency of Treatment 2x/Week Plan of Care Start Date 07/08/24 Plan of Care End Date 09/07/24 Therapeutic Interventions Therapeutic Interventions Home Exercise Program,Joint Mobilizations,Manual Therapy, Neuromuscular Re-education, Patient/Caregiver Education, Self-Care/Home Management,Soft Tissue Mobilization, Therapeutic Activities, Therapeutic Exercises Modalities Cold Pack/Ice Massage,Electric Stimulation,Hot Packs Next Visit Focus/Plan Next Note Type Treatment Note Next Visit Plan STM/joint mobs, strengthening, focus on improving AROM/PROM
--- NOTE | 2024-07-08 16:44 | PT.OPPOC ---
Physical, Occupational & Speech Therapy At [facility] Current Diagnoses Pain in right shoulder (07/08/24) Pain in right knee (07/08/24) Pain in unspecified knee (07/08/24) Stiffness of right shoulder, not elsewhere classified (07/08/24) Stiffness of unspecified knee, not elsewhere classified (07/08/24) Presence of right artificial knee joint (07/08/24) Presence of unspecified artificial knee joint (07/08/24) Visit Care Team Role Provider Type STEPHY Hu Primary Care Provider Non-Staff Specialty: Nursing Address: [address] [place] [address], [id number] Email: Shalom Mari MD Family Provider Non-Staff Specialty: Medical Address: [address] [place] [address], [phone] Email: Joce Mackenzie DO Attending Provider Non-Staff Referring Provider Specialty: Family Practice Address: [address] [place] [address], [id number] Email: Plan Of Care PT-OP-B Current Condition Start: 07/08/24 15:24 Freq: Status: Active Protocol: Document 07/08/24 09:45 DCW (Rec: 07/08/24 16:30 DCW [id number]) Current Condition History of Current Condition Onset Date Six month history Current Complaints right knee pain, right shoulder pain History of Current Condition Pt is a 64 year old female presenting to skilled therapy with a six month history of right knee and right shoulder pain. Pt notes insidious onset , but notes both have been worsening. Pt does have a remote history of bilateral TKA. Pt reports her right knee is constantly in pain, no real improving or worsening. Does still try to ambulate 10, 000 steps daily, but struggles due to moderate antalgia. Pt ambulates with a 3WW, has used a SPC in the past, but it created worse knee pain. Knee pain has been limiting sleep. Right shoulder bothers her less often, typically when attempting overhead activities . Pain largely located in anterior shoulder. Prior Treatments and Tests Pt is well known to this clinic, has been seen for various injuries and surgeries over the last ~10 years. Treatment Goals Patient/Caregiver Goals Pt's goals are to decrease pain in both the knee and shoulder, to be able to sleep on her right side, and to return to walking with her SPC . PT-OP-T Assessment and Plan Start: 07/08/24 15:24 Freq: Status: Active Protocol: Document 07/08/24 09:45 DCW (Rec: 07/08/24 16:38 DCW [id number]) Physical Therapy Assessment Rehab Potential Rehabilitation Potential Good Evaluation Complexity Number of Personal Factors/Comorbidities 3 or More Number of Body Systems Impaired 4 or More Clinical Presentation at Evaluation Unstable Impairments Impairments Activity Tolerance,Functional Activities,Functional Mobility ,Pain,ROM,Strength,Tone Goals Three Impairment Right knee AROM limited to 13? -106? Propeller Tester Goal (LTG) Pt to demonstrate improved right knee AROM to 0?-120? in order to improve ability to successfully ascend and descend stairs. LTG Duration 09/07/24 Two Impairment Pt unable to perform overhead activities at home Propeller Tester Goal (LTG) Pt to improve both right shoulder flexion and abduction to 160? in order to improve ability to put away dishes in her upper cabinets. LTG Duration 09/07/24 One Impairment Pt does not have an appropriate home exercise program Short Term Goal (STG) Pt to be independent and compliant with an appropriate HEP STG Duration 08/07/24 Assessment Summary Assessment Pt presents with signs and symptoms consistent with referring diagnosis. Pt right knee demonstrating increased pain, weakness, and stiffness, potentially secondary to after-effects from prior TKA. Pt should benefit from skilled PT focusing on ROM, STM, strengthening, and activity tolerance to allow for return to prior functional level of ambulating using a SPC without increased pain. Additionally, pt's right shoulder pain most suggestive of bicipital tendonitis, with point- specific pain at the bicipital groove and positive biceps testing. Pt should additionally benefit from focus on shoulder mobility, strengthening, and decreasing inflammation along biceps tendon. Physical Therapy Plan Frequency and Duration Frequency of Treatment 2x/Week Plan of Care Start Date 07/08/24 Plan of Care End Date 09/07/24 Therapeutic Interventions Therapeutic Interventions Home Exercise Program,Joint Mobilizations,Manual Therapy, Neuromuscular Re-education, Patient/Caregiver Education, Self-Care/Home Management,Soft Tissue Mobilization, Therapeutic Activities, Therapeutic Exercises Modalities Cold Pack/Ice Massage,Electric Stimulation,Hot Packs Next Visit Focus/Plan Next Note Type Treatment Note Next Visit Plan STM/joint mobs, strengthening, focus on improving AROM/PROM Plan of Care Dates Plan of Care Start Date 07/08/24 Plan of Care End Date 09/07/24 Electronically Signed by: Leobardo Rashid, PT 07/08/24 1865 If you are in agreement with this Plan of Care, please return a signed and dated copy. I have reviewed this Plan of Care and certify that the skilled therapy services above are required to meet the patient?s needs. Physician Signature Date Printed Name and Credentials Clinical Instructor Signature Printed Name and Credentials
--- NOTE | 2024-07-10 12:25 | PT.OTN ---
Current Diagnoses Pain in right shoulder (07/10/24) Pain in right knee (07/10/24) Pain in unspecified knee (07/10/24) Stiffness of right shoulder, not elsewhere classified (07/10/24) Stiffness of unspecified knee, not elsewhere classified (07/10/24) Presence of right artificial knee joint (07/10/24) Presence of unspecified artificial knee joint (07/10/24) Physical Therapy Treatment Note PT-OP-A Visit Information Start: 07/08/24 15:24 Freq: Status: Active Protocol: Document 07/10/24 11:35 DCW (Rec: 07/10/24 12:23 DCW [id number]) Out-Patient Physical Therapy Visit Information Visit Information Visit Type Treatment Note Visit Start Time 11:35 Visit Stop Time 12:25 Visit Number 2 Number of EDGER TAILER Visits 0 Evaluation Information Evaluation Date 07/08/24 PT-OP-B Current Condition Start: 07/08/24 15:24 Freq: Status: Active Protocol: Document 07/08/24 09:45 DCW (Rec: 07/08/24 16:30 DCW [id number]) Current Condition History of Current Condition Onset Date Six month history Current Complaints right knee pain, right shoulder pain History of Current Condition Pt is a 64 year old female presenting to skilled therapy with a six month history of right knee and right shoulder pain. Pt notes insidious onset , but notes both have been worsening. Pt does have a remote history of bilateral TKA. Pt reports her right knee is constantly in pain, no real improving or worsening. Does still try to ambulate 10, 000 steps daily, but struggles due to moderate antalgia. Pt ambulates with a 3WW, has used a SPC in the past, but it created worse knee pain. Knee pain has been limiting sleep. Right shoulder bothers her less often, typically when attempting overhead activities . Pain largely located in anterior shoulder. Prior Treatments and Tests Pt is well known to this clinic, has been seen for various injuries and surgeries over the last ~10 years. Treatment Goals Patient/Caregiver Goals Pt's goals are to decrease pain in both the knee and shoulder, to be able to sleep on her right side, and to return to walking with her SPC . PT-OP-C Subjective Start: 07/08/24 15:24 Freq: Status: Active Protocol: Document 07/10/24 11:35 DCW (Rec: 07/10/24 12:23 DCW [id number]) OP-PT Subjective Patient Comments Patient Comments The pain in my shoulder has eased up. PT-OP-F Manual Assessment Start: 07/08/24 15:24 Freq: Status: Active Protocol: Document 07/08/24 09:45 DCW (Rec: 07/08/24 16:30 DCW [id number]) Manual Assessments Soft Tissue Assessment Soft Tissue Mobility Assessment Tenderness along right bicipital groove Joint Mobility Assessment Joint Mobility Assessment Increased stiffness and hypomobility with both active and passive knee flexion. PT-OP-K Range of Motion Start: 07/08/24 15:24 Freq: Status: Active Protocol: Document 07/08/24 09:45 DCW (Rec: 07/08/24 16:30 DCW [id number]) Shoulder Goniometric Range of Motion Shoulder Right Active Shoulder ROM WFL No Testing Position Sitting Flexion 135 Abduction 111 External Rotation at 0 degrees Abduction 54 Internal Rotation Behind Back (text) T10 Left Active Shoulder ROM WFL Yes Testing Position Sitting Flexion 180 Abduction 180 External Rotation at 0 degrees Abduction 80 Internal Rotation Behind Back (text) T8 Shoulder ROM Limitations Shoulder ROM Limitations Soft Tissue Tightness,Muscle Weakness,Muscle Tone,Pain Knee Goniometric Range of Motion Knee Right Knee ROM WFL No Patient Position Supine Flexion Active (degrees) 106 Extension Active (degrees) 13 Left Patient Position Supine Flexion Active (degrees) 120 Extension Active (degrees) 0 PT-OP-L Special Tests Start: 07/08/24 16:38 Freq: Status: Active Protocol: Document 07/08/24 09:45 DCW (Rec: 07/08/24 16:41 DCW [id number]) Special Tests Shoulder Special Tests Yergason's Biceps Test Results Positive right Passive ER Rotator Cuff Test Results Negative Lift-Off Rotator Cuff Test Results Negative [place] Impingement Test Results Negative Drop Arm Rotator Cuff Test Results Negative Belly Press Test Results Negative Apprehension Test Test Results Negative AC Joint Compression Test Results Negative Knee Special Tests Varus- 25 Degrees Test Results Negative Valgus- 25 Degrees Test Results Negative Patella Tap Test Results Positive right Anterior Draw Test Results Negative PT-OP-M Strength Start: 07/08/24 15:24 Freq: Status: Active Protocol: Document 07/08/24 09:45 DCW (Rec: 07/08/24 16:30 DCW [id number]) Shoulder Strength Shoulder Manual Muscle Testing Right Flexion 3- Fair- Abduction (C5) 4- Good- External Rotation 3 Fair Internal Rotation 4 Good Left Flexion 4 Good Abduction (C5) 4 Good External Rotation 4 Good Internal Rotation 4 Good PT-OP-Q Treatments Start: 07/08/24 15:24 Freq: Status: Active Protocol: Document 07/10/24 11:35 DCW (Rec: 07/10/24 12:23 DCW [id number]) Cardio Equipment Recumbent Elliptical ([employer]) Duration (Minutes) 5 Resistance 4 Seat Position 6 Gym Equipment Shuttle Recovery Unilateral Squats Resistance 50#L, 25# R Shuttle Recovery Platform Stable Reps/Time 3x10 Bilateral Squats Resistance 75# Shuttle Recovery Platform Stable Reps/Time x30 Therapeutic Exercises Sitting Exercises Abduction Sitting Exercise Name Shoulder Abduction Side bilateral Resistance 2# Flexion Sitting Exercise Name Shoulder Flexion Side bilateral Resistance 2# Curls Sitting Exercise Name Curls/Reverse Curls /c PVC Side bilateral Resistance 5# Overhead Press Sitting Exercise Name Overhead Press /c PVC Side bilateral Resistance 5# Standing Exercises Knee Flexion Standing Exercise Name Knee flexion stretch Side right Equipment Used Stairs Manual Therapy Treatment Consent Patient gave verbal consent for manual Yes treatment Joint Mobilizations Patella Joint R PF Direction Sup/Inf/Med/Lat Grade III Body Position Hooklying Knee Joint R Knee Direction P<->A Grade III Body Position Hooklying PT-OP-R Modalities Start: 07/10/24 12:23 Freq: Status: Active Protocol: Document 07/10/24 11:35 DCW (Rec: 07/10/24 12:25 DCW [id number]) Hot Pack/Cold Pack Treatment Cold Pack Location Right Knee, right shoulder Patient Position Hooklying Patient Tolerance Good PT-OP-T Assessment and Plan Start: 07/08/24 15:24 Freq: Status: Active Protocol: Document 07/10/24 11:35 DCW (Rec: 07/10/24 12:23 DCW [id number]) Physical Therapy Assessment Impairments Impairments Activity Tolerance,Functional Activities,Functional Mobility ,Pain,ROM,Strength,Tone Goals Three Impairment Right knee AROM limited to 13? -106? [facility] Goal (LTG) Pt to demonstrate improved right knee AROM to 0?-120? in order to improve ability to successfully ascend and descend stairs. LTG Duration 11/30/24 Two Impairment Pt unable to perform overhead activities at home [facility]ci Goal (LTG) Pt to improve both right shoulder flexion and abduction to 160? in order to improve ability to put away dishes in her upper cabinets. LTG Duration 09/07/24 One Impairment Pt does not have an appropriate home exercise program Short Term Goal (STG) Pt to be independent and compliant with an appropriate HEP STG Duration 08/07/24 Assessment Summary Assessment Pt did well with activities today, increased AROM from 106 ? to 116? following joint mobs . Pt did struggle with leg press on her right knee. Additionally, pt noted increased pain in right shoulder with attempting resisted abduction. Continue to work on knee mobilization, strengthening, and functional mobility. Physical Therapy Plan Frequency and Duration Frequency of Treatment 2x/Week Plan of Care Start Date 07/08/24 Plan of Care End Date 09/07/24 Therapeutic Interventions Therapeutic Interventions Home Exercise Program,Joint Mobilizations,Manual Therapy, Neuromuscular Re-education, Patient/Caregiver Education, Self-Care/Home Management,Soft Tissue Mobilization, Therapeutic Activities, Therapeutic Exercises Modalities Cold Pack/Ice Massage,Electric Stimulation,Hot Packs Next Visit Focus/Plan Next Note Type Treatment Note Next Visit Plan STM/joint mobs, strengthening, focus on improving AROM/PROM
--- NOTE | 2024-07-16 11:35 | PT.OTN ---
Current Diagnoses Pain in right shoulder (07/16/24) Pain in right knee (07/16/24) Pain in unspecified knee (07/16/24) Stiffness of right shoulder, not elsewhere classified (07/16/24) Stiffness of unspecified knee, not elsewhere classified (07/16/24) Presence of right artificial knee joint (07/16/24) Presence of unspecified artificial knee joint (07/16/24) Physical Therapy Treatment Note PT-OP-A Visit Information Start: 07/08/24 15:24 Freq: Status: Active Protocol: Document 07/16/24 10:42 AB (Rec: 07/16/24 11:34 AB [id number]) Out-Patient Physical Therapy Visit Information Visit Information Visit Type Treatment Note Visit Note Access Code: [email or web address] Visit Start Time 10:47 Visit Stop Time 11:31 Visit Number 3 Number of EXHIBITION ORGANISER Visits 1 Evaluation Information Evaluation Date 07/08/24 PT-OP-B Current Condition Start: 07/08/24 15:24 Freq: Status: Active Protocol: Document 07/08/24 09:45 DCW (Rec: 07/08/24 16:30 DCW [id number]) Current Condition History of Current Condition Onset Date Six month history Current Complaints right knee pain, right shoulder pain History of Current Condition Pt is a 64 year old female presenting to skilled therapy with a six month history of right knee and right shoulder pain. Pt notes insidious onset , but notes both have been worsening. Pt does have a remote history of bilateral TKA. Pt reports her right knee is constantly in pain, no real improving or worsening. Does still try to ambulate 10, 000 steps daily, but struggles due to moderate antalgia. Pt ambulates with a 3WW, has used a SPC in the past, but it created worse knee pain. Knee pain has been limiting sleep. Right shoulder bothers her less often, typically when attempting overhead activities . Pain largely located in anterior shoulder. Prior Treatments and Tests Pt is well known to this clinic, has been seen for various injuries and surgeries over the last ~10 years. Treatment Goals Patient/Caregiver Goals Pt's goals are to decrease pain in both the knee and shoulder, to be able to sleep on her right side, and to return to walking with her SPC . PT-OP-C Subjective Start: 07/08/24 15:24 Freq: Status: Active Protocol: Document 07/16/24 10:42 AB (Rec: 07/16/24 11:34 AB [id number]) OP-PT Subjective Patient Comments Patient Comments Patient reports today is a bad day, the knee hurts 6/10 pain start of session right knee. Patient reports the shoulder is OK doesn't hurt that bad. Lacking 0 deg extension to 110 deg flexion AROM right knee start of session. PT-OP-F Manual Assessment Start: 07/08/24 15:24 Freq: Status: Active Protocol: Document 07/08/24 09:45 DCW (Rec: 07/08/24 16:30 DCW [id number]) Manual Assessments Soft Tissue Assessment Soft Tissue Mobility Assessment Tenderness along right bicipital groove Joint Mobility Assessment Joint Mobility Assessment Increased stiffness and hypomobility with both active and passive knee flexion. PT-OP-K Range of Motion Start: 07/08/24 15:24 Freq: Status: Active Protocol: Document 07/08/24 09:45 DCW (Rec: 07/08/24 16:30 DCW [id number]) Shoulder Goniometric Range of Motion Shoulder Right Active Shoulder ROM WFL No Testing Position Sitting Flexion 135 Abduction 111 External Rotation at 0 degrees Abduction 54 Internal Rotation Behind Back (text) T10 Left Active Shoulder ROM WFL Yes Testing Position Sitting Flexion 180 Abduction 180 External Rotation at 0 degrees Abduction 80 Internal Rotation Behind Back (text) T8 Shoulder ROM Limitations Shoulder ROM Limitations Soft Tissue Tightness,Muscle Weakness,Muscle Tone,Pain Knee Goniometric Range of Motion Knee Right Knee ROM WFL No Patient Position Supine Flexion Active (degrees) 106 Extension Active (degrees) 13 Left Patient Position Supine Flexion Active (degrees) 120 Extension Active (degrees) 0 PT-OP-L Special Tests Start: 07/08/24 16:38 Freq: Status: Active Protocol: Document 07/08/24 09:45 DCW (Rec: 07/08/24 16:41 DCW [id number]) Special Tests Shoulder Special Tests Yergason's Biceps Test Results Positive right Passive ER Rotator Cuff Test Results Negative Lift-Off Rotator Cuff Test Results Negative [place] Impingement Test Results Negative Drop Arm Rotator Cuff Test Results Negative Belly Press Test Results Negative Apprehension Test Test Results Negative AC Joint Compression Test Results Negative Knee Special Tests Varus- 25 Degrees Test Results Negative Valgus- 25 Degrees Test Results Negative Patella Tap Test Results Positive right Anterior Draw Test Results Negative PT-OP-M Strength Start: 07/08/24 15:24 Freq: Status: Active Protocol: Document 07/08/24 09:45 DCW (Rec: 07/08/24 16:30 DCW [id number]) Shoulder Strength Shoulder Manual Muscle Testing Right Flexion 3- Fair- Abduction (C5) 4- Good- External Rotation 3 Fair Internal Rotation 4 Good Left Flexion 4 Good Abduction (C5) 4 Good External Rotation 4 Good Internal Rotation 4 Good PT-OP-Q Treatments Start: 07/08/24 15:24 Freq: Status: Active Protocol: Document 07/16/24 10:42 AB (Rec: 07/16/24 11:34 AB [id number]) Therapeutic Exercises Supine Exercises knee flexion Supine Exercise Name 1. on ball 2. AROM HS Side right Reps/Minutes on ball bilateral 3 min HS X 10 Comments verbal cues chest manager social work Supine Exercise Name UE's out stretched T in hooklying position Side bilateral Reps/Minutes 3 min Sitting Exercises long arc quad Sitting Exercise Name band at ankles Side left Resistance level 2 teal band, level one light blue band Reps/Minutes X1 each band Comments verbal cues, not gabriella Seated hip abduction with band Sitting Exercise Name HEP Side bilateral Resistance level 3 [place] band Reps/Minutes X15 X2 and one one minute hold Comments Verbal cues Abduction Sitting Exercise Name Shoulder Abduction Side bilateral Resistance 2# Reps/Minutes X10 Comments verbal cues for thumbs up Flexion Sitting Exercise Name Shoulder Flexion Side bilateral Resistance 2# Reps/Minutes X10 Curls Sitting Exercise Name Curls/Reverse Curls /c PVC Side bilateral Resistance 5# Reps/Minutes X10 Comments Verbal cues to perform slowly Overhead Press Sitting Exercise Name Overhead Press /c PVC Side bilateral Resistance 5# Equipment Used X10 Manual Therapy Treatment Consent Patient gave verbal consent for manual Yes treatment Soft Tissue Mobilization right shoulder Body Location Pec, deltoid area, UT/levator scap Mobilization Type Cross-Friction,Rolling, Sustained Pressure Intensity/Depth Moderate Body Position Hooklying right knee Body Location lat, med, quad and peripatellar Mobilization Type Cross-Friction,Rolling,Other Intensity/Depth Moderate Body Position Hooklying Joint Mobilizations right scapula Joint right scapula Direction into adduction and depression Grade IV Reps/Duration X10 each direction. PT-OP-R Modalities Start: 07/10/24 12:23 Freq: Status: Active Protocol: Document 07/10/24 11:35 DCW (Rec: 07/10/24 12:25 DCW [id number]) Hot Pack/Cold Pack Treatment Cold Pack Location Right Knee, right shoulder Patient Position Hooklying Patient Tolerance Good PT-OP-T Assessment and Plan Start: 07/08/24 15:24 Freq: Status: Active Protocol: Document 07/16/24 10:42 AB (Rec: 07/16/24 11:34 AB [id number]) Physical Therapy Assessment Goals Three Impairment Right knee AROM limited to 13? -106? Jail Goal (LTG) Pt to demonstrate improved right knee AROM to 0?-120? in order to improve ability to successfully ascend and descend stairs. LTG Duration 09/07/24 Two Impairment Pt unable to perform overhead activities at home Freezer Person Goal (LTG) Pt to improve both right shoulder flexion and abduction to 160? in order to improve ability to put away dishes in her upper cabinets. LTG Duration 09/07/24 One Impairment Pt does not have an appropriate home exercise program Short Term Goal (STG) Pt to be independent and compliant with an appropriate HEP STG Duration 08/07/24 Assessment Summary Assessment Patient reports she doesn't have the pain she came in with end of session. Good gabriella to seated shoulder abduction with 2 lb this session reporting pulling sensation, no complaints of pain. Physical Therapy Plan Frequency and Duration Frequency of Treatment 2x/Week Plan of Care Start Date 07/08/24 Plan of Care End Date 09/07/24 Next Visit Focus/Plan Next Note Type Treatment Note Next Visit Plan STM/joint mobs, strengthening, focus on improving AROM/PROM
--- NOTE | 2024-07-18 11:45 | PT.OTN ---
Current Diagnoses Pain in right shoulder (07/18/24) Pain in right knee (07/18/24) Pain in unspecified knee (07/18/24) Stiffness of right shoulder, not elsewhere classified (07/18/24) Stiffness of unspecified knee, not elsewhere classified (07/18/24) Presence of right artificial knee joint (07/18/24) Presence of unspecified artificial knee joint (07/18/24) Physical Therapy Treatment Note PT-OP-A Visit Information Start: 07/08/24 15:24 Freq: Status: Active Protocol: Document 07/18/24 09:39 AB (Rec: 07/18/24 11:44 AB [id number]) Out-Patient Physical Therapy Visit Information Visit Information Visit Type Treatment Note Visit Note Access Code: [email or web address] Visit Start Time 10:45 Visit Stop Time 11:31 Visit Number 4 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 Pt notes insidious onset , but notes both have been worsening. Pt does have a remote history of bilateral TKA. Pt reports her right knee is constantly in pain, no real improving or worsening. Does still try to ambulate 10, 000 steps daily, but struggles due to moderate antalgia. Pt ambulates with a 3WW, has used a SPC in the past, but it created worse knee pain. Knee pain has been limiting sleep. Right shoulder bothers her less often, typically when attempting overhead activities . Pain largely located in anterior shoulder. Prior Treatments and Tests Pt is well known to this clinic, has been seen for various injuries and surgeries over the last ~10 years. Treatment Goals Patient/Caregiver Goals Pt's goals are to decrease pain in both the knee and shoulder, to be able to sleep on her right side, and to return to walking with her SPC . PT-OP-C Subjective Start: 07/08/24 15:24 Freq: Status: Active Protocol: Document 07/18/24 09:39 AB (Rec: 07/18/24 11:44 AB [id number]) OP-PT Subjective Patient Comments Patient Comments Patient rates right knee pain / start of session, reports performing the shoulder exercises and performs right shoulder flexion, abd and horizontal abduction while ambulating into session. Patient ambulates with decreased right knee flexion swing phase using 3 wheeled walker. AROM 0 to 107 deg start of session PT-OP-F Manual Assessment Start: 07/08/24 15:24 Freq: Status: Active Protocol: Document 07/08/24 09:45 DCW (Rec: 07/08/24 16:30 DCW [id number]) Manual Assessments Soft Tissue Assessment Soft Tissue Mobility Assessment Tenderness along right bicipital groove Joint Mobility Assessment Joint Mobility Assessment Increased stiffness and hypomobility with both active and passive knee flexion. PT-OP-K Range of Motion Start: 07/08/24 15:24 Freq: Status: Active Protocol: Document 07/08/24 09:45 DCW (Rec: 07/08/24 16:30 DCW [id number]) Shoulder Goniometric Range of Motion Shoulder Right Active Shoulder ROM WFL No Testing Position Sitting Flexion 135 Abduction 111 External Rotation at 0 degrees Abduction 54 Internal Rotation Behind Back (text) T10 Left Active Shoulder ROM WFL Yes Testing Position Sitting Flexion 180 Abduction 180 External Rotation at 0 degrees Abduction 80 Internal Rotation Behind Back (text) T8 Shoulder ROM Limitations Shoulder ROM Limitations Soft Tissue Tightness,Muscle Weakness,Muscle Tone,Pain Knee Goniometric Range of Motion Knee Right Knee ROM WFL No Patient Position Supine Flexion Active (degrees) 106 Extension Active (degrees) 13 Left Patient Position Supine Flexion Active (degrees) 120 Extension Active (degrees) 0 PT-OP-L Special Tests Start: 07/08/24 16:38 Freq: Status: Active Protocol: Document 07/08/24 09:45 DCW (Rec: 07/08/24 16:41 DCW [id number]) Special Tests Shoulder Special Tests Yergason's Biceps Test Results Positive right Passive ER Rotator Cuff Test Results Negative Lift-Off Rotator Cuff Test Results Negative [place] Impingement Test Results Negative Drop Arm Rotator Cuff Test Results Negative Belly Press Test Results Negative Apprehension Test Test Results Negative AC Joint Compression Test Results Negative Knee Special Tests Varus- 25 Degrees Test Results Negative Valgus- 25 Degrees Test Results Negative Patella Tap Test Results Positive right Anterior Draw Test Results Negative PT-OP-M Strength Start: 07/08/24 15:24 Freq: Status: Active Protocol: Document 07/08/24 09:45 DCW (Rec: 07/08/24 16:30 DCW [id number]) Shoulder Strength Shoulder Manual Muscle Testing Right Flexion 3- Fair- Abduction (C5) 4- Good- External Rotation 3 Fair Internal Rotation 4 Good Left Flexion 4 Good Abduction (C5) 4 Good External Rotation 4 Good Internal Rotation 4 Good PT-OP-Q Treatments Start: 07/08/24 15:24 Freq: Status: Active Protocol: Document 07/18/24 09:39 AB (Rec: 07/18/24 11:44 AB [id number]) Gym Equipment Shuttle Recovery Unilateral Squats Resistance 50#L, 25# R Shuttle Recovery Platform Stable Reps/Time X15 trial of Bilateral Squats Resistance 75# Shuttle Recovery Platform Stable Reps/Time x30 Therapeutic Exercises Supine Exercises knee flexion Supine Exercise Name 1. on ball 2. AROM HS Side right Reps/Minutes on ball bilateral 3 min HS X 10 Comments verbal cues Sidelying Exercises shoulder abduction Side right Reps/Minutes X10 without weight X 10 with 2 # Comments verbal and tactiel cues for thumb up open book Side bilateral Reps/Minutes X5 each side hold for 5 breaths Sitting Exercises Seated hip abduction with band Sitting Exercise Name HEP Side bilateral Resistance level 3 [place] band Reps/Minutes one one minute hold Comments Verbal cues Gait Training Gait Activity with 3 wheeled walker Device Used 3 wheeled walker Level of Assistance I Surface floor Distance/Duration when ambulating into and out of session Treatment Focus Verbal cues to relax right LE during swing phase Manual Therapy Treatment Consent Patient gave verbal consent for manual Yes treatment Soft Tissue Mobilization right shoulder Body Location Pec, deltoid area, UT/levator scap Mobilization Type Cross-Friction,Rolling, Sustained Pressure Intensity/Depth Moderate Body Position Hooklying right knee Body Location lat, med, quad and peripatellar Mobilization Type Cross-Friction,Rolling,Other Intensity/Depth Moderate Body Position Hooklying Joint Mobilizations right scapula Joint right scapula Direction into adduction and depression Grade IV Reps/Duration X10 each direction. Patella Joint R PF Direction Sup/Inf/Med/Lat Grade III Body Position Hooklying PT-OP-R Modalities Start: 07/10/24 12:23 Freq: Status: Active Protocol: Document 07/10/24 11:35 DCW (Rec: 07/10/24 12:25 DCW [id number]) Hot Pack/Cold Pack Treatment Cold Pack Location Right Knee, right shoulder Patient Position Hooklying Patient Tolerance Good PT-OP-T Assessment and Plan Start: 07/08/24 15:24 Freq: Status: Active Protocol: Document 07/18/24 09:39 AB (Rec: 07/18/24 11:44 AB [id number]) Physical Therapy Assessment Goals Three Impairment Right knee AROM limited to 13? -106? Skilled Nursing Goal (LTG) Pt to demonstrate improved right knee AROM to 0?-120? in order to improve ability to successfully ascend and descend stairs. LTG Duration 09/07/24 Two Impairment Pt unable to perform overhead activities at home Skilled Nursing Goal (LTG) Pt to improve both right shoulder flexion and abduction to 160? in order to improve ability to put away dishes in her upper cabinets. LTG Duration 09/07/24 One Impairment Pt does not have an appropriate home exercise program Short Term Goal (STG) Pt to be independent and compliant with an appropriate HEP STG Duration 08/07/24 Assessment Summary Assessment Patient reports having no knee pain end of session, ambulates out of session with increased knee flexion swing phase right LE using 3 wheeled walker. Physical Therapy Plan Frequency and Duration Frequency of Treatment 2x/Week Plan of Care Start Date 07/08/24 Plan of Care End Date 09/07/24 Next Visit Focus/Plan Next Note Type Treatment Note Next Visit Plan STM/joint mobs, strengthening, focus on improving AROM/PROM
--- NOTE | 2024-07-22 13:07 | PT.OTN ---
Current Diagnoses Pain in right shoulder (07/22/24) Pain in right knee (07/22/24) Pain in unspecified knee (07/22/24) Stiffness of right shoulder, not elsewhere classified (07/22/24) Stiffness of unspecified knee, not elsewhere classified (07/22/24) Presence of right artificial knee joint (07/22/24) Presence of unspecified artificial knee joint (07/22/24) Physical Therapy Treatment Note PT-OP-A Visit Information Start: 07/08/24 15:24 Freq: Status: Active Protocol: Document 07/22/24 10:42 AB (Rec: 07/22/24 13:06 AB [id number]) Out-Patient Physical Therapy Visit Information Visit Information Visit Type Treatment Note Visit Note Access Code: [email or web address] Visit Start Time 10:48 Visit Stop Time 10:32 Visit Number 5 Number of OUTSOLE BEVELER Visits 3 Evaluation Information Evaluation Date 07/08/24 PT-OP-B Current Condition Start: 07/08/24 15:24 Freq: Status: Active Protocol: Document 07/08/24 09:45 DCW (Rec: 07/08/24 16:30 DCW [id number]) Current Condition History of Current Condition Onset Date Six month history Current Complaints right knee pain, right shoulder pain History of Current Condition Pt is a 64 year old female presenting to skilled therapy with a six month history of right knee and right shoulder pain. Pt notes insidious onset , but notes both have been worsening. Pt does have a remote history of bilateral TKA. Pt reports her right knee is constantly in pain, no real improving or worsening. Does still try to ambulate 10, 000 steps daily, but struggles due to moderate antalgia. Pt ambulates with a 3WW, has used a SPC in the past, but it created worse knee pain. Knee pain has been limiting sleep. Right shoulder bothers her less often, typically when attempting overhead activities . Pain largely located in anterior shoulder. Prior Treatments and Tests Pt is well known to this clinic, has been seen for various injuries and surgeries over the last ~10 years. Treatment Goals Patient/Caregiver Goals Pt's goals are to decrease pain in both the knee and shoulder, to be able to sleep on her right side, and to return to walking with her SPC . PT-OP-C Subjective Start: 07/08/24 15:24 Freq: Status: Active Protocol: Document 07/22/24 10:42 AB (Rec: 07/22/24 13:06 AB [id number]) OP-PT Subjective Patient Comments Patient Comments Patient reports right knee pain 2/10, no pain shoulder. AROM right knee flexion 111 deg start of session. PT-OP-F Manual Assessment Start: 07/08/24 15:24 Freq: Status: Active Protocol: Document 07/08/24 09:45 DCW (Rec: 07/08/24 16:30 DCW [id number]) Manual Assessments Soft Tissue Assessment Soft Tissue Mobility Assessment Tenderness along right bicipital groove Joint Mobility Assessment Joint Mobility Assessment Increased stiffness and hypomobility with both active and passive knee flexion. PT-OP-K Range of Motion Start: 07/08/24 15:24 Freq: Status: Active Protocol: Document 07/08/24 09:45 DCW (Rec: 07/08/24 16:30 DCW [id number]) Shoulder Goniometric Range of Motion Shoulder Right Active Shoulder ROM WFL No Testing Position Sitting Flexion 135 Abduction 111 External Rotation at 0 degrees Abduction 54 Internal Rotation Behind Back (text) T10 Left Active Shoulder ROM WFL Yes Testing Position Sitting Flexion 180 Abduction 180 External Rotation at 0 degrees Abduction 80 Internal Rotation Behind Back (text) T8 Shoulder ROM Limitations Shoulder ROM Limitations Soft Tissue Tightness,Muscle Weakness,Muscle Tone,Pain Knee Goniometric Range of Motion Knee Right Knee ROM WFL No Patient Position Supine Flexion Active (degrees) 106 Extension Active (degrees) 13 Left Patient Position Supine Flexion Active (degrees) 120 Extension Active (degrees) 0 PT-OP-L Special Tests Start: 07/08/24 16:38 Freq: Status: Active Protocol: Document 07/08/24 09:45 DCW (Rec: 07/08/24 16:41 DCW [id number]) Special Tests Shoulder Special Tests Yergason's Biceps Test Results Positive right Passive ER Rotator Cuff Test Results Negative Lift-Off Rotator Cuff Test Results Negative [place] Impingement Test Results Negative Drop Arm Rotator Cuff Test Results Negative Belly Press Test Results Negative Apprehension Test Test Results Negative AC Joint Compression Test Results Negative Knee Special Tests Varus- 25 Degrees Test Results Negative Valgus- 25 Degrees Test Results Negative Patella Tap Test Results Positive right Anterior Draw Test Results Negative PT-OP-M Strength Start: 07/08/24 15:24 Freq: Status: Active Protocol: Document 07/08/24 09:45 DCW (Rec: 07/08/24 16:30 DCW [id number]) Shoulder Strength Shoulder Manual Muscle Testing Right Flexion 3- Fair- Abduction (C5) 4- Good- External Rotation 3 Fair Internal Rotation 4 Good Left Flexion 4 Good Abduction (C5) 4 Good External Rotation 4 Good Internal Rotation 4 Good PT-OP-Q Treatments Start: 07/08/24 15:24 Freq: Status: Active Protocol: Document 07/22/24 10:42 AB (Rec: 07/22/24 13:06 AB [id number]) Therapeutic Exercises Supine Exercises supine shoulder flexion Supine Exercise Name AROM Side bilateral Reps/Minutes X10 with 5 second hold SLR Supine Exercise Name HEP Side right Reps/Minutes X10 Comments verbal cues knee flexion Supine Exercise Name 1. on ball 2. 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 Supine Exercise Name UE's out stretched T in hooklying position Side bilateral Reps/Minutes 3 min Sidelying Exercises shoulder ER Side right Reps/Minutes X15 without weight X 1 with 2# not gabriella Sitting Exercises Seated hip abduction with band Sitting Exercise Name HEP Side bilateral Resistance level 4 [place] band Reps/Minutes one one minute hold Comments Verbal cues Flexion Sitting Exercise Name Shoulder Flexion Side bilateral Resistance 2# Reps/Minutes X10 Manual Therapy Treatment Soft Tissue Mobilization right shoulder Body Location Pec, deltoid area, UT/levator scap Mobilization Type Cross-Friction,Rolling, Sustained Pressure Intensity/Depth Moderate Body Position Hooklying right knee Body Location lat, med, quad and peripatellar Mobilization Type Cross-Friction,Rolling,Other Intensity/Depth Moderate Body Position Hooklying Joint Mobilizations right scapula Joint right scapula Direction into adduction and depression Grade IV Reps/Duration X10 each direction. PT-OP-R Modalities Start: 07/10/24 12:23 Freq: Status: Active Protocol: Document 07/10/24 11:35 DCW (Rec: 07/10/24 12:25 DCW [id number]) Hot Pack/Cold Pack Treatment Cold Pack Location Right Knee, right shoulder Patient Position Hooklying Patient Tolerance Good PT-OP-T Assessment and Plan Start: 07/08/24 15:24 Freq: Status: Active Protocol: Document 07/22/24 10:42 AB (Rec: 07/22/24 13:06 AB [id number]) Physical Therapy Assessment Goals Three Impairment Right knee AROM limited to 13? -106? Sports Official Goal (LTG) Pt to demonstrate improved right knee AROM to 0?-120? in order to improve ability to successfully ascend and descend stairs. LTG Duration 09/07/24 Two Impairment Pt unable to perform overhead activities at home Sports Official Goal (LTG) Pt to improve both right shoulder flexion and abduction to 160? in order to improve ability to put away dishes in her upper cabinets. LTG Duration 09/07/24 One Impairment Pt does not have an appropriate home exercise program Short Term Goal (STG) Pt to be independent and compliant with an appropriate HEP STG Duration 08/07/24 Assessment Summary Assessment 117 deg AROM right knee flexoin end of session, with [place] rating pain 1/10 right knee ambulating out of session with 3 wheeled walker. Physical Therapy Plan Frequency and Duration Frequency of Treatment 2x/Week Plan of Care Start Date 07/08/24 Plan of Care End Date 09/07/24 Next Visit Focus/Plan Next Note Type Treatment Note Next Visit Plan STM/joint mobs, strengthening, focus on improving AROM/PROM assess right knee ext, possibly focus on extension
--- NOTE | 2024-08-07 11:30 | PT.OTN ---
Current Diagnoses Pain in right shoulder (08/07/24) Pain in right knee (08/07/24) Pain in unspecified knee (08/07/24) Stiffness of right shoulder, not elsewhere classified (08/07/24) Stiffness of unspecified knee, not elsewhere classified (08/07/24) Presence of right artificial knee joint (08/07/24) Presence of unspecified artificial knee joint (08/07/24) Physical Therapy Treatment Note PT-OP-A Visit Information Start: 07/08/24 15:24 Freq: Status: Active Protocol: Document 08/07/24 10:46 SP (Rec: 08/07/24 11:06 SP [id number]) Out-Patient Physical Therapy Visit Information Visit Information Visit Type Treatment Note Visit Start Time 10:46 Visit Stop Time 11:30 Visit Number 7 Number of SKIVER MACHINE Visits 5 Evaluation Information Evaluation Date 07/08/24 PT-OP-B Current Condition Start: 07/08/24 15:24 Freq: Status: Active Protocol: Document 07/08/24 09:45 DCW (Rec: 07/08/24 16:30 DCW [id number]) Current Condition History of Current Condition Onset Date Six month history Current Complaints right knee pain, right shoulder pain History of Current Condition Pt is a 64 year old female presenting to skilled therapy with a six month history of right knee and right shoulder pain. Pt notes insidious onset , but notes both have been worsening. Pt does have a remote history of bilateral TKA. Pt reports her right knee is constantly in pain, no real improving or worsening. Does still try to ambulate 10, 000 steps daily, but struggles due to moderate antalgia. Pt ambulates with a 3WW, has used a SPC in the past, but it created worse knee pain. Knee pain has been limiting sleep. Right shoulder bothers her less often, typically when attempting overhead activities . Pain largely located in anterior shoulder. Prior Treatments and Tests Pt is well known to this clinic, has been seen for various injuries and surgeries over the last ~10 years. Treatment Goals Patient/Caregiver Goals Pt's goals are to decrease pain in both the knee and shoulder, to be able to sleep on her right side, and to return to walking with her SPC . PT-OP-C Subjective Start: 07/08/24 15:24 Freq: Status: Active Protocol: Document 08/07/24 10:46 SP (Rec: 08/07/24 11:06 SP [id number]) OP-PT Subjective Patient Comments Patient Comments Pt reports had a bone scan with contrast recently. Orthopedic radames some fluid from R knee since last tx, not sure what checking for. She has a follow up appt after bone scan for feedback on results. She is compliant with HEP. She stated felt walked better after last tx. She states if shifts knee in certain position and lays on R side to feel better when sleeping. PT-OP-F Manual Assessment Start: 07/08/24 15:24 Freq: Status: Active Protocol: Document 07/08/24 09:45 DCW (Rec: 07/08/24 16:30 DCW [id number]) Manual Assessments Soft Tissue Assessment Soft Tissue Mobility Assessment Tenderness along right bicipital groove Joint Mobility Assessment Joint Mobility Assessment Increased stiffness and hypomobility with both active and passive knee flexion. PT-OP-K Range of Motion Start: 07/08/24 15:24 Freq: Status: Active Protocol: Document 08/07/24 10:46 SP (Rec: 08/07/24 11:15 SP [id number]) Shoulder Goniometric Range of Motion Shoulder Right Active Shoulder ROM WFL No Testing Position Sitting Flexion 136 Abduction 113 External Rotation at 0 degrees Abduction 76 Internal Rotation Behind Back (text) T10 Comments RUE AROMseated: FF gain 1 deg- 136deg ABD gain 2 deg- 113deg ER gain 22 deg- 76 deg Knee Goniometric Range of Motion Knee Right Knee ROM WFL No Patient Position Supine Flexion Active (degrees) 122 Extension Active (degrees) 0 Comments R knee AROM flexion: gain 16 deg, 122 deg extension: gain 13 deg, 0 deg Left Patient Position Supine Flexion Active (degrees) 131 Extension Active (degrees) 0 Comments L knee AROM flexion gain 11 deg to 131 deg PT-OP-L Special Tests Start: 07/08/24 16:38 Freq: Status: Active Protocol: Document 07/08/24 09:45 DCW (Rec: 07/08/24 16:41 DCW [id number]) Special Tests Shoulder Special Tests Yergason's Biceps Test Results Positive right Passive ER Rotator Cuff Test Results Negative Lift-Off Rotator Cuff Test Results Negative [place] Impingement Test Results Negative Drop Arm Rotator Cuff Test Results Negative Belly Press Test Results Negative Apprehension Test Test Results Negative AC Joint Compression Test Results Negative Knee Special Tests Varus- 25 Degrees Test Results Negative Valgus- 25 Degrees Test Results Negative Patella Tap Test Results Positive right Anterior Draw Test Results Negative PT-OP-M Strength Start: 07/08/24 15:24 Freq: Status: Active Protocol: Document 07/08/24 09:45 DCW (Rec: 07/08/24 16:30 DCW [id number]) Shoulder Strength Shoulder Manual Muscle Testing Right Flexion 3- Fair- Abduction (C5) 4- Good- External Rotation 3 Fair Internal Rotation 4 Good Left Flexion 4 Good Abduction (C5) 4 Good External Rotation 4 Good Internal Rotation 4 Good PT-OP-Q Treatments Start: 07/08/24 15:24 Freq: Status: Active Protocol: Document 08/07/24 10:46 SP (Rec: 08/07/24 11:06 SP [id number]) Cardio Equipment Recumbent Elliptical (B[employer]) Duration (Minutes) 4 Resistance 4 Seat Position 6- 40 RPMs, Other reports little tension behind R knee but ok Gym Equipment Shuttle Recovery Unilateral Squats Resistance 50#L, 25# R (navy bands) Shuttle Recovery Platform Stable Reps/Time X15 Bilateral Squats Resistance 75# Shuttle Recovery Platform Stable Reps/Time x30 Therapeutic Exercises Sitting Exercises Abduction Sitting Exercise Name Shoulder Abduction Side bilateral Resistance 2#> AROM Reps/Minutes X10 Comments verbal cues for thumbs up Flexion Sitting Exercise Name Shoulder Flexion Side bilateral Resistance 2#> AROM Reps/Minutes X10 2# DB and TB, over recruitment of UT, improved AROM Comments cued elongated posture, no UT recruitment Manual Therapy Treatment Consent Patient gave verbal consent for manual Yes treatment Soft Tissue Mobilization right shoulder Body Location Pec, deltoid area, bicep, UT/ levator scap Mobilization Type Rolling Intensity/Depth Moderate Body Position Sitting Self-Care/Home Management Treatment Education Patient Education Joint Protection,Pain Management,Posture,Safety Other Education Instruction for performing ex AROM seated FF and overhead press with use mirror due to improvement in reduction UT compensations, better understanding of good form vs strengthening with limited ROM . PT-OP-R Modalities Start: 07/10/24 12:23 Freq: Status: Active Protocol: Document 07/10/24 11:35 DCW (Rec: 07/10/24 12:25 DCW [id number]) Hot Pack/Cold Pack Treatment Cold Pack Location Right Knee, right shoulder Patient Position Hooklying Patient Tolerance Good PT-OP-T Assessment and Plan Start: 07/08/24 15:24 Freq: Status: Active Protocol: Document 08/07/24 10:46 SP (Rec: 08/07/24 11:06 SP [id number]) Physical Therapy Assessment Goals Three Impairment Right knee AROM limited to 13? -106? Chcf Goal (LTG) Pt to demonstrate improved right knee AROM to 0?-120? in order to improve ability to successfully ascend and descend stairs. 08/07/24: GOAL MET: 0-122 deg R knee AROM supine. LTG Duration 09/07/24 GOAL MET 08/07/24 Two Impairment Pt unable to perform overhead activities at home Financial Analyst Accountant Goal (LTG) Pt to improve both right shoulder flexion and abduction to 160? in order to improve ability to put away dishes in her upper cabinets. 08/07/24: progressin deg FF, 113 degABD, 76 deg ER. LTG Duration 09/07/24 progressing 08/07/24 One Impairment Pt does not have an appropriate home exercise program Short Term Goal (STG) Pt to be independent and compliant with an appropriate HEP STG Duration 08/07/24 Progress Towards Goals Progress Towards Goals Progressing Toward Goals Progress Comments R Shoulder AROM seated: FF gain 1 deg- 136deg ABD gain 2 deg- 113deg ER gain 22 deg- 76 deg R knee AROM supine: flexion: gain 16 deg, 122 deg extension: gain 13 deg, 0 deg L knee AROM supine: flexion gain 11 deg to 0-131 deg Assessment Summary Assessment Pt is making gains in ROM of R shld and R knee, see measurements taken. Good tolerance no pain during resisted leg press. She improved demonstration of decreased UT compensations with cuing during ROM measurement taken and ther ex in seated with instruction today reduction of resistance to AROM during ther ex and use of mirror for carryover proper form s during seated Shoulder flexion and overhead press. Pt encouraged continue HEP in sidelying for progress in ROM and will progress resistance there next tx if good form and tolerance. Physical Therapy Plan Frequency and Duration Frequency of Treatment 2x/Week Plan of Care Start Date 07/08/24 Plan of Care End Date 09/07/24 Therapeutic Interventions Therapeutic Interventions Home Exercise Program,Joint Mobilizations,Manual Therapy, Neuromuscular Re-education, Patient/Caregiver Education, Self-Care/Home Management,Soft Tissue Mobilization, Therapeutic Activities, Therapeutic Exercises Modalities Cold Pack/Ice Massage,Electric Stimulation,Hot Packs Next Visit Focus/Plan Next Note Type Treatment Note Next Visit Plan 6th visit with PT needed next tx. STM/joint mobs, strengthening, focus on improving AROM/PROM assess right knee ext, possibly focus on extension
--- NOTE | 2024-08-12 10:33 | PT.OTN ---
Current Diagnoses Pain in right shoulder (08/12/24) Pain in right knee (08/12/24) Pain in unspecified knee (08/12/24) Stiffness of right shoulder, not elsewhere classified (08/12/24) Stiffness of unspecified knee, not elsewhere classified (08/12/24) Presence of right artificial knee joint (08/12/24) Presence of unspecified artificial knee joint (08/12/24) Physical Therapy Treatment Note PT-OP-A Visit Information Start: 07/08/24 15:24 Freq: Status: Active Protocol: Document 08/12/24 08:14 SAK (Rec: 08/12/24 09:02 SAK [id number]) Out-Patient Physical Therapy Visit Information Visit Information Visit Type Treatment Note Visit Start Time 08:15 Visit Stop Time 09:05 Visit Number 8 Number of AIR TECHNICIAN Visits 0 Evaluation Information Evaluation Date 07/08/24 PT-OP-B Current Condition Start: 07/08/24 15:24 Freq: Status: Active Protocol: Document 08/12/24 08:14 SAK (Rec: 08/12/24 09:02 SAK [id number]) Current Condition History of Current Condition Onset Date Six month history Current Complaints right knee pain, right shoulder pain History of Current Condition Pt is a 64 year old female presenting to skilled therapy with a six month history of right knee and right shoulder pain. Pt notes insidious onset , but notes both have been worsening. Pt does have a remote history of bilateral TKA. Pt reports her right knee is constantly in pain, no real improving or worsening. Does still try to ambulate 10, 000 steps daily, but struggles due to moderate antalgia. Pt ambulates with a 3WW, has used a SPC in the past, but it created worse knee pain. Knee pain has been limiting sleep. Right shoulder bothers her less often, typically when attempting overhead activities . Pain largely located in anterior shoulder. Prior Treatments and Tests Pt is well known to this clinic, has been seen for various injuries and surgeries over the last ~10 years. PT-OP-C Subjective Start: 07/08/24 15:24 Freq: Status: Active Protocol: Document 08/12/24 08:14 SAK (Rec: 08/12/24 09:02 SAK [id number]) OP-PT Subjective Patient Comments Patient Comments Right knee has been worse the past few days, unsure why. VEry stiff, can't hardly bend it. Has been icing. Yesterday wore a brace for a few hours but it doesn't fit well. No results from bone scan yet. PT-OP-F Manual Assessment Start: 07/08/24 15:24 Freq: Status: Active Protocol: Document 07/08/24 09:45 DCW (Rec: 07/08/24 16:30 DCW [id number]) Manual Assessments Soft Tissue Assessment Soft Tissue Mobility Assessment Tenderness along right bicipital groove Joint Mobility Assessment Joint Mobility Assessment Increased stiffness and hypomobility with both active and passive knee flexion. PT-OP-K Range of Motion Start: 07/08/24 15:24 Freq: Status: Active Protocol: Document 08/07/24 10:46 SP (Rec: 08/07/24 11:15 SP [id number]) Shoulder Goniometric Range of Motion Shoulder Right Active Shoulder ROM WFL No Testing Position Sitting Flexion 136 Abduction 113 External Rotation at 0 degrees Abduction 76 Internal Rotation Behind Back (text) T10 Comments RUE AROMseated: FF gain 1 deg- 136deg ABD gain 2 deg- 113deg ER gain 22 deg- 76 deg Knee Goniometric Range of Motion Knee Right Knee ROM WFL No Patient Position Supine Flexion Active (degrees) 122 Extension Active (degrees) 0 Comments R knee AROM flexion: gain 16 deg, 122 deg extension: gain 13 deg, 0 deg Left Patient Position Supine Flexion Active (degrees) 131 Extension Active (degrees) 0 Comments L knee AROM flexion gain 11 deg to 131 deg PT-OP-L Special Tests Start: 07/08/24 16:38 Freq: Status: Active Protocol: Document 07/08/24 09:45 DCW (Rec: 07/08/24 16:41 DCW [id number]) Special Tests Shoulder Special Tests Yergason's Biceps Test Results Positive right Passive ER Rotator Cuff Test Results Negative Lift-Off Rotator Cuff Test Results Negative [place] Impingement Test Results Negative Drop Arm Rotator Cuff Test Results Negative Belly Press Test Results Negative Apprehension Test Test Results Negative AC Joint Compression Test Results Negative Knee Special Tests Varus- 25 Degrees Test Results Negative Valgus- 25 Degrees Test Results Negative Patella Tap Test Results Positive right Anterior Draw Test Results Negative PT-OP-M Strength Start: 07/08/24 15:24 Freq: Status: Active Protocol: Document 07/08/24 09:45 DCW (Rec: 07/08/24 16:30 DCW [id number]) Shoulder Strength Shoulder Manual Muscle Testing Right Flexion 3- Fair- Abduction (C5) 4- Good- External Rotation 3 Fair Internal Rotation 4 Good Left Flexion 4 Good Abduction (C5) 4 Good External Rotation 4 Good Internal Rotation 4 Good PT-OP-Q Treatments Start: 07/08/24 15:24 Freq: Status: Active Protocol: Document 08/12/24 08:14 SAK (Rec: 08/12/24 09:02 SAK [id number]) Cardio Equipment Recumbent Elliptical (B[employer]ex[employer]) Duration (Minutes) 7 Resistance 4 Seat Position 6- 40 RPMs, Other reports little tension behind R knee but ok Gym Equipment Shuttle Recovery Unilateral Squats Resistance 50#L, 25# R (navy bands) Shuttle Recovery Platform Stable Reps/Time x20, cues to push through heels Bilateral Squats Resistance 75# Shuttle Recovery Platform Stable Reps/Time x30 Therapeutic Exercises Sitting Exercises HS curl Equipment Used L1 TB Reps/Minutes 10x Seated hip abduction with band Sitting Exercise Name HEP: 1. 1 min hip activation 2 . AROM (clamshell) Side bilateral Resistance level 4 royal blue band Reps/Minutes one one minute hold Abduction Sitting Exercise Name Shoulder Abduction Side bilateral Reps/Minutes X10 Comments cues for thumbs up, mirror for visual feedback Flexion Sitting Exercise Name Shoulder Flexion Side bilateral Resistance AROM Reps/Minutes 10x Comments cued elongated posture, no UT recruitment, mirror for visual fedback Curls Sitting Exercise Name Curls/Reverse Curls /c PVC Side bilateral Resistance 5# Reps/Minutes X10 Comments Verbal cues to perform slowly Overhead Press Sitting Exercise Name Overhead Press /c PVC Side bilateral Resistance 5# Equipment Used X10 Gait Training Gait Activity with 3 wheeled walker Device Used 4 wheeled walker Level of Assistance I Surface floor Distance/Duration when ambulating into and out of session Treatment Focus Verbal cues to relax right LE during swing phase, elongated posture Manual Therapy Treatment Taping posterior left knee Treatment Focus edema and pain reduction Type of Tape KT Skin Inspection intact Comments 1 fan srips crossed in popliteal fossa, paper off tension witn base proxima, Self-Care/Home Management Treatment Education Other Education remove KT tape if irritating, otherwise leave on up to 5 days. PT-OP-R Modalities Start: 07/10/24 12:23 Freq: Status: Active Protocol: Document 08/12/24 08:14 SAK (Rec: 08/12/24 10:33 SAK [id number]) Hot Pack/Cold Pack Treatment Cold Pack Location Right Knee Patient Position Prone Patient Tolerance Good PT-OP-T Assessment and Plan Start: 07/08/24 15:24 Freq: Status: Active Protocol: Document 08/12/24 08:14 SAK (Rec: 08/12/24 09:02 SAK [id number]) Physical Therapy Assessment Goals Three Impairment Right knee AROM limited to 13? -106? Clerk Manager Goal (LTG) Pt to demonstrate improved right knee AROM to 0?-120? in order to improve ability to successfully ascend and descend stairs. 08/07/24: GOAL MET: 0-122 deg R knee AROM supine. LTG Duration 09/07/24 GOAL MET 08/07/24 Two Impairment Pt unable to perform overhead activities at home Clerk Manager Goal (LTG) Pt to improve both right shoulder flexion and abduction to 160? in order to improve ability to put away dishes in her upper cabinets. 08/07/24: progressin deg FF, 113 degABD, 76 deg ER. LTG Duration 09/07/24 progressing 08/07/24 One Impairment Pt does not have an appropriate home exercise program Short Term Goal (STG) Pt to be independent and compliant with an appropriate HEP STG Duration 08/07/24 Assessment Summary Assessment Patient reporting increased pain and stiffness right knee, right shoulder has its moments butr is trying not to use as much. Patient moving right knee minimally with gait and despite using 4WW ambulatecd with antalgic gait. Improves right shoulder mechanics with mirror for visual feedback. Physical Therapy Plan Frequency and Duration Frequency of Treatment 2x/Week Plan of Care Start Date 07/08/24 Plan of Care End Date 09/07/24 Therapeutic Interventions Therapeutic Interventions Home Exercise Program,Joint Mobilizations,Manual Therapy, Neuromuscular Re-education, Patient/Caregiver Education, Self-Care/Home Management,Soft Tissue Mobilization, Therapeutic Activities, Therapeutic Exercises Modalities Cold Pack/Ice Massage,Electric Stimulation,Hot Packs Next Visit Focus/Plan Next Note Type Treatment Note
--- NOTE | 2024-08-14 12:15 | PT.OTN ---
Current Diagnoses Pain in right shoulder (08/14/24) Pain in right knee (08/14/24) Pain in unspecified knee (08/14/24) Stiffness of right shoulder, not elsewhere classified (08/14/24) Stiffness of unspecified knee, not elsewhere classified (08/14/24) Presence of right artificial knee joint (08/14/24) Presence of unspecified artificial knee joint (08/14/24) Physical Therapy Treatment Note PT-OP-A Visit Information Start: 07/08/24 15:24 Freq: Status: Active Protocol: Document 08/14/24 11:35 SP (Rec: 08/14/24 12:22 SP [id number]) Out-Patient Physical Therapy Visit Information Visit Information Visit Type Treatment Note Visit Start Time 11:35 Visit Stop Time 12:15 Visit Number 9 (06/18 with Eval) Number of ENTERPRISE MANAGER Visits 1 Evaluation Information Evaluation Date 07/08/24 PT-OP-B Current Condition Start: 07/08/24 15:24 Freq: Status: Active Protocol: Document 08/12/24 08:14 SAK (Rec: 08/12/24 09:02 SAK [id number]) Current Condition History of Current Condition Onset Date Six month history Current Complaints right knee pain, right shoulder pain History of Current Condition Pt is a 64 year old female presenting to skilled therapy with a six month history of right knee and right shoulder pain. Pt notes insidious onset , but notes both have been worsening. Pt does have a remote history of bilateral TKA. Pt reports her right knee is constantly in pain, no real improving or worsening. Does still try to ambulate 10, 000 steps daily, but struggles due to moderate antalgia. Pt ambulates with a 3WW, has used a SPC in the past, but it created worse knee pain. Knee pain has been limiting sleep. Right shoulder bothers her less often, typically when attempting overhead activities . Pain largely located in anterior shoulder. Prior Treatments and Tests Pt is well known to this clinic, has been seen for various injuries and surgeries over the last ~10 years. PT-OP-C Subjective Start: 07/08/24 15:24 Freq: Status: Active Protocol: Document 08/14/24 11:35 SP (Rec: 08/14/24 12:22 SP [id number]) OP-PT Subjective Patient Comments Patient Comments Pt reports had a bone scan (CT with contrast) since last tx with no results yet. She has been having pain shooting up R leg when driving back from appt last Mon. She states she hasn't been letting R knee bend when walking, afraid will buckle. PT-OP-F Manual Assessment Start: 07/08/24 15:24 Freq: Status: Active Protocol: Document 07/08/24 09:45 DCW (Rec: 07/08/24 16:30 DCW [id number]) Manual Assessments Soft Tissue Assessment Soft Tissue Mobility Assessment Tenderness along right bicipital groove Joint Mobility Assessment Joint Mobility Assessment Increased stiffness and hypomobility with both active and passive knee flexion. PT-OP-K Range of Motion Start: 07/08/24 15:24 Freq: Status: Active Protocol: Document 08/07/24 10:46 SP (Rec: 08/07/24 11:15 SP [id number]) Shoulder Goniometric Range of Motion Shoulder Right Active Shoulder ROM WFL No Testing Position Sitting Flexion 136 Abduction 113 External Rotation at 0 degrees Abduction 76 Internal Rotation Behind Back (text) T10 Comments RUE AROMseated: FF gain 1 deg- 136deg ABD gain 2 deg- 113deg ER gain 22 deg- 76 deg Knee Goniometric Range of Motion Knee Right Knee ROM WFL No Patient Position Supine Flexion Active (degrees) 122 Extension Active (degrees) 0 Comments R knee AROM flexion: gain 16 deg, 122 deg extension: gain 13 deg, 0 deg Left Patient Position Supine Flexion Active (degrees) 131 Extension Active (degrees) 0 Comments L knee AROM flexion gain 11 deg to 131 deg PT-OP-L Special Tests Start: 07/08/24 16:38 Freq: Status: Active Protocol: Document 07/08/24 09:45 DCW (Rec: 07/08/24 16:41 DCW [id number]) Special Tests Shoulder Special Tests Yergason's Biceps Test Results Positive right Passive ER Rotator Cuff Test Results Negative Lift-Off Rotator Cuff Test Results Negative P[place] Impingement Test Results Negative Drop Arm Rotator Cuff Test Results Negative Belly Press Test Results Negative Apprehension Test Test Results Negative AC Joint Compression Test Results Negative Knee Special Tests Varus- 25 Degrees Test Results Negative Valgus- 25 Degrees Test Results Negative Patella Tap Test Results Positive right Anterior Draw Test Results Negative PT-OP-M Strength Start: 07/08/24 15:24 Freq: Status: Active Protocol: Document 07/08/24 09:45 DCW (Rec: 07/08/24 16:30 DCW [id number]) Shoulder Strength Shoulder Manual Muscle Testing Right Flexion 3- Fair- Abduction (C5) 4- Good- External Rotation 3 Fair Internal Rotation 4 Good Left Flexion 4 Good Abduction (C5) 4 Good External Rotation 4 Good Internal Rotation 4 Good PT-OP-Q Treatments Start: 07/08/24 15:24 Freq: Status: Active Protocol: Document 08/14/24 11:35 SP (Rec: 08/14/24 12:22 SP [id number]) Cardio Equipment Recumbent Stepper (Sci-Fit) Duration (Minutes) 8 Resistance 2.5 Seat Position 8 Other BUEs, BLEs 50 RPMs, 1.09 miles Gym Equipment Shuttle Recovery Unilateral Squats Details cued slower pacing, TKE but not locking control Resistance 50#L, 25# R (navy bands) Shuttle Recovery Platform Stable Reps/Time x20, cues to push through heels Bilateral Squats Details cued knees aprat with midfoot Resistance 75# Shuttle Recovery Platform Stable Reps/Time x30 Therapeutic Exercises Sitting Exercises HS curl Side right Equipment Used L2 TB anchored front Reps/Minutes 15x 2 Comments cued eccentric return fwd control long arc quad Sitting Exercise Name band at ankles Side bilateral Resistance Level 1 band under opp LE/ around ankle of other Reps/Minutes x20 reps each LE Comments weakenss R not as far range, pnfree 11/6 Seated hip abduction with band Sitting Exercise Name HEP: 1. 1 min hip activation 2 . AROM (clamshell) Side bilateral Resistance level 4 royal blue band Reps/Minutes one minute hold then 15 reps Comments good form and hip abd tiring. Standing Exercises hamstring curl Standing Exercise Name added to HEP /c HO Side bilateral Resistance AROM Equipment Used support locked 4WW Reps/Minutes x10 Comments cued soft knee PT-OP-R Modalities Start: 07/10/24 12:23 Freq: Status: Active Protocol: Document 08/12/24 08:14 SAK (Rec: 08/12/24 10:33 SAK [id number]) Hot Pack/Cold Pack Treatment Cold Pack Location Right Knee Patient Position Prone Patient Tolerance Good PT-OP-T Assessment and Plan Start: 07/08/24 15:24 Freq: Status: Active Protocol: Document 08/14/24 11:35 SP (Rec: 08/14/24 12:22 SP [id number]) Physical Therapy Assessment Goals Three Impairment Right knee AROM limited to 13? -106? Correction Goal (LTG) Pt to demonstrate improved right knee AROM to 0?-120? in order to improve ability to successfully ascend and descend stairs. 08/07/24: GOAL MET: 0-122 deg R knee AROM supine. LTG Duration 09/07/24 GOAL MET 08/07/24 Two Impairment Pt unable to perform overhead activities at home Correction Goal (LTG) Pt to improve both right shoulder flexion and abduction to 160? in order to improve ability to put away dishes in her upper cabinets. 08/07/24: progressin deg FF, 113 degABD, 76 deg ER. LTG Duration 09/07/24 progressing 08/07/24 One Impairment Pt does not have an appropriate home exercise program Short Term Goal (STG) Pt to be independent and compliant with an appropriate HEP 08/14/24: added seated resisted HS curl and LAQ, standing HS curl AROM. STG Duration 08/07/24 progressing 08/14/24 Assessment Summary Assessment Pt responded well bike warm up and resisted ther ex for R knee to progress strength and ROM to support decreased concern of buckling during gait. It feels good to work my leg muscles and noticing more range too. Cues for slower pacing eccentric control and unlock soft R knee positioning for stability awareness during gait. Physical Therapy Plan Frequency and Duration Frequency of Treatment 2x/Week Plan of Care Start Date 07/08/24 Plan of Care End Date 09/07/24 Therapeutic Interventions Therapeutic Interventions Home Exercise Program,Joint Mobilizations,Manual Therapy, Neuromuscular Re-education, Patient/Caregiver Education, Self-Care/Home Management,Soft Tissue Mobilization, Therapeutic Activities, Therapeutic Exercises Modalities Cold Pack/Ice Massage,Electric Stimulation,Hot Packs Next Visit Focus/Plan Next Note Type Treatment Note Next Visit Plan PN in 2 visits with PT POC: STM/joint mobs, strengthening, focus on improving AROM/PROM assess right knee ext, possibly focus on extension
--- NOTE | 2024-08-21 12:15 | PT.OTN ---
Current Diagnoses Pain in right shoulder (08/21/24) Pain in right knee (08/21/24) Pain in unspecified knee (08/21/24) Stiffness of right shoulder, not elsewhere classified (08/21/24) Stiffness of unspecified knee, not elsewhere classified (08/21/24) Presence of right artificial knee joint (08/21/24) Presence of unspecified artificial knee joint (08/21/24) Physical Therapy Treatment Note PT-OP-A Visit Information Start: 07/08/24 15:24 Freq: Status: Active Protocol: Document 08/21/24 11:37 SP (Rec: 08/21/24 12:36 SP [id number]) Out-Patient Physical Therapy Visit Information Visit Information Visit Type Treatment Note Visit Start Time 11:37 Visit Stop Time 12:15 Visit Number 10 (07/18 with Eval) Number of TELEVISION PRODUCTION TECHNICIAN Visits 2 Evaluation Information Evaluation Date 07/08/24 PT-OP-B Current Condition Start: 07/08/24 15:24 Freq: Status: Active Protocol: Document 08/12/24 08:14 SAK (Rec: 08/12/24 09:02 SAK [id number]) Current Condition History of Current Condition Onset Date Six month history Current Complaints right knee pain, right shoulder pain History of Current Condition Pt is a 64 year old female presenting to skilled therapy with a six month history of right knee and right shoulder pain. Pt notes insidious onset , but notes both have been worsening. Pt does have a remote history of bilateral TKA. Pt reports her right knee is constantly in pain, no real improving or worsening. Does still try to ambulate 10, 000 steps daily, but struggles due to moderate antalgia. Pt ambulates with a 3WW, has used a SPC in the past, but it created worse knee pain. Knee pain has been limiting sleep. Right shoulder bothers her less often, typically when attempting overhead activities . Pain largely located in anterior shoulder. Prior Treatments and Tests Pt is well known to this clinic, has been seen for various injuries and surgeries over the last ~10 years. PT-OP-C Subjective Start: 07/08/24 15:24 Freq: Status: Active Protocol: Document 08/21/24 11:37 SP (Rec: 08/21/24 12:36 SP [id number]) OP-PT Subjective Patient Comments Patient Comments Pt when laying down in bed has best range and feels best motion. She hasn't heard back from bone scan and fluid drawn from her R knee about 1.5- almost 2 weeks ago. She reports having pain up side and back of R leg when got back from surgeon's office 2 weeks ago when driving back from appt, shoot pain foot dropped off gas pedal and again 2 days ago when just sitting. PT-OP-F Manual Assessment Start: 07/08/24 15:24 Freq: Status: Active Protocol: Document 07/08/24 09:45 DCW (Rec: 07/08/24 16:30 DCW [id number]) Manual Assessments Soft Tissue Assessment Soft Tissue Mobility Assessment Tenderness along right bicipital groove Joint Mobility Assessment Joint Mobility Assessment Increased stiffness and hypomobility with both active and passive knee flexion. PT-OP-K Range of Motion Start: 07/08/24 15:24 Freq: Status: Active Protocol: Document 08/07/24 10:46 SP (Rec: 08/07/24 11:15 SP [id number]) Shoulder Goniometric Range of Motion Shoulder Right Active Shoulder ROM WFL No Testing Position Sitting Flexion 136 Abduction 113 External Rotation at 0 degrees Abduction 76 Internal Rotation Behind Back (text) T10 Comments RUE AROMseated: FF gain 1 deg- 136deg ABD gain 2 deg- 113deg ER gain 22 deg- 76 deg Knee Goniometric Range of Motion Knee Right Knee ROM WFL No Patient Position Supine Flexion Active (degrees) 122 Extension Active (degrees) 0 Comments R knee AROM flexion: gain 16 deg, 122 deg extension: gain 13 deg, 0 deg Left Patient Position Supine Flexion Active (degrees) 131 Extension Active (degrees) 0 Comments L knee AROM flexion gain 11 deg to 131 deg PT-OP-L Special Tests Start: 07/08/24 16:38 Freq: Status: Active Protocol: Document 07/08/24 09:45 DCW (Rec: 07/08/24 16:41 DCW [id number]) Special Tests Shoulder Special Tests Yergason's Biceps Test Results Positive right Passive ER Rotator Cuff Test Results Negative Lift-Off Rotator Cuff Test Results Negative [place] Impingement Test Results Negative Drop Arm Rotator Cuff Test Results Negative Belly Press Test Results Negative Apprehension Test Test Results Negative AC Joint Compression Test Results Negative Knee Special Tests Varus- 25 Degrees Test Results Negative Valgus- 25 Degrees Test Results Negative Patella Tap Test Results Positive right Anterior Draw Test Results Negative PT-OP-M Strength Start: 07/08/24 15:24 Freq: Status: Active Protocol: Document 07/08/24 09:45 DCW (Rec: 07/08/24 16:30 DCW [id number]) Shoulder Strength Shoulder Manual Muscle Testing Right Flexion 3- Fair- Abduction (C5) 4- Good- External Rotation 3 Fair Internal Rotation 4 Good Left Flexion 4 Good Abduction (C5) 4 Good External Rotation 4 Good Internal Rotation 4 Good PT-OP-Q Treatments Start: 07/08/24 15:24 Freq: Status: Active Protocol: Document 08/21/24 11:37 SP (Rec: 08/21/24 12:36 SP [id number]) Cardio Equipment Recumbent Stepper (Sci-Fit) Duration (Minutes) 8 Resistance 3.8 Seat Position 9 Other BUEs, BLEs 47 RPMs Recumbent Bicycle Resistance 0- 1 reps Seat Position 1- appropriate for pt height Other pain R HS during full revolution control- stopped Gym Equipment Shuttle Recovery Unilateral Squats Details cued slower pacing, TKE but not locking control Resistance 25# R (navy bands)- 125 deg flexion Shuttle Recovery Platform Stable Reps/Time x20 pause into ext, cues to push through heels Bilateral Squats Details improved knees apart with midfoot Resistance 75# 3 navy Shuttle Recovery Platform Stable Reps/Time x30 Therapeutic Exercises Supine Exercises knee flexion Supine Exercise Name 126 deg Side right Resistance AROM Comments end tx supine on table Sitting Exercises HS curl Sitting Exercise Name HEP Side right Equipment Used L2 TB anchored front Reps/Minutes 2x20 Comments cued eccentric return fwd control long arc quad Sitting Exercise Name HEP Side bilateral Resistance Level 1 band under opp LE/ around ankle of other Reps/Minutes x20 reps each LE Comments weakenss R not as far range, pnfree 11/6 Standing Exercises step up Standing Exercise Name trialed PT Side right Equipment Used 2 step, min UE support on 4WW , unable > height Reps/Minutes x10 Comments cued TKE and allow bend to floor Gait Training Gait Activity 4WW Device Used 4WW Distance/Duration around clinic Comments cues R knee flexion heel toe, improves soft knee positioning with cuing during stance time . R knee tends lock to support stability. PT-OP-R Modalities Start: 07/10/24 12:23 Freq: Status: Active Protocol: Document 08/12/24 08:14 SAK (Rec: 08/12/24 10:33 SAK [id number]) Hot Pack/Cold Pack Treatment Cold Pack Location Right Knee Patient Position Prone Patient Tolerance Good PT-OP-T Assessment and Plan Start: 07/08/24 15:24 Freq: Status: Active Protocol: Document 08/21/24 11:37 SP (Rec: 08/21/24 12:36 SP [id number]) Physical Therapy Assessment Goals Three Impairment Right knee AROM limited to 13? -106? Jail Goal (LTG) Pt to demonstrate improved right knee AROM to 0?-120? in order to improve ability to successfully ascend and descend stairs. 08/07/24: GOAL MET: 0-122 deg R knee AROM supine. 08/21/24: progressing 126 deg LTG Duration 09/07/24 GOAL MET 08/07/24 but progress 08/21/24 Two Impairment Pt unable to perform overhead activities at home Jail Goal (LTG) Pt to improve both right shoulder flexion and abduction to 160? in order to improve ability to put away dishes in her upper cabinets. 08/07/24: progressin deg FF, 113 degABD, 76 deg ER. 08/21/24: GOAL MET: RUE AROM Seated: 175deg FF, 165deg ABD, 70 deg ER, IR behind back T10 unchanged LTG Duration 09/07/24 GOAL MET 08/21/24 One Impairment Pt does not have an appropriate home exercise program Short Term Goal (STG) Pt to be independent and compliant with an appropriate HEP 08/14/24: added seated resisted HS curl and LAQ, standing HS curl AROM. STG Duration 08/07/24 progressing 08/14/24 Assessment Summary Assessment Pt tolerates recumbent bike stepper, not tolerated recumbent bike revolutions with pain in HS. Good feedback effort ther ex with range against resistance for progression strength to stabilize R knee stance time. Continues to progress range R knee 126 AROM today and R shld 165 FF, Trialed small height step ups with UE support able to perform but nervous of it buckling. Progressing in AROM R shld see goal measurements taken. Pt continues to lack R knee strength during gait, utilized BUE WB on 4WW, cues for R knee flexion heel toe for feedback normalizing gait important perform and decrease stiff knee extension hiphiking, improved end tx vs arrival. Physical Therapy Plan Frequency and Duration Frequency of Treatment 2x/Week Plan of Care Start Date 07/08/24 Plan of Care End Date 09/07/24 Therapeutic Interventions Therapeutic Interventions Home Exercise Program,Joint Mobilizations,Manual Therapy, Neuromuscular Re-education, Patient/Caregiver Education, Self-Care/Home Management,Soft Tissue Mobilization, Therapeutic Activities, Therapeutic Exercises Modalities Cold Pack/Ice Massage,Electric Stimulation,Hot Packs Next Visit Focus/Plan Next Note Type Treatment Note Next Visit Plan PN with PT next appt. POC: STM/joint mobs, strengthening, focus on improving AROM/PROM assess right knee ext, possibly focus on extension
--- NOTE | 2024-08-23 10:25 | PT.OTN ---
Current Diagnoses Pain in right shoulder (08/23/24) Pain in right knee (08/23/24) Pain in unspecified knee (08/23/24) Stiffness of right shoulder, not elsewhere classified (08/23/24) Stiffness of unspecified knee, not elsewhere classified (08/23/24) Presence of right artificial knee joint (08/23/24) Presence of unspecified artificial knee joint (08/23/24) Physical Therapy Treatment Note PT-OP-A Visit Information Start: 07/08/24 15:24 Freq: Status: Active Protocol: Document 08/23/24 09:49 DCW (Rec: 08/23/24 10:25 DCW [id number]) Out-Patient Physical Therapy Visit Information Visit Information Visit Type Progress Note Visit Start Time 09:49 Visit Stop Time 10:30 Visit Number 11 Number of FAST BRIM POUNCER Visits 0 Evaluation Information Evaluation Date 07/08/24 PT-OP-B Current Condition Start: 07/08/24 15:24 Freq: Status: Active Protocol: Document 08/12/24 08:14 SAK (Rec: 08/12/24 09:02 SAK [id number]) Current Condition History of Current Condition Onset Date Six month history Current Complaints right knee pain, right shoulder pain History of Current Condition Pt is a 64 year old female presenting to skilled therapy with a six month history of right knee and right shoulder pain. Pt notes insidious onset , but notes both have been worsening. Pt does have a remote history of bilateral TKA. Pt reports her right knee is constantly in pain, no real improving or worsening. Does still try to ambulate 10, 000 steps daily, but struggles due to moderate antalgia. Pt ambulates with a 3WW, has used a SPC in the past, but it created worse knee pain. Knee pain has been limiting sleep. Right shoulder bothers her less often, typically when attempting overhead activities . Pain largely located in anterior shoulder. Prior Treatments and Tests Pt is well known to this clinic, has been seen for various injuries and surgeries over the last ~10 years. PT-OP-C Subjective Start: 07/08/24 15:24 Freq: Status: Active Protocol: Document 08/23/24 09:49 DCW (Rec: 08/23/24 10:25 DCW [id number]) OP-PT Subjective Patient Comments Patient Comments Pt admits that her knee is really bothering her today, limiting her ability to walk. Ambulates with limited right knee flexion PT-OP-F Manual Assessment Start: 07/08/24 15:24 Freq: Status: Active Protocol: Document 08/23/24 09:49 DCW (Rec: 08/23/24 10:15 DCW [id number]) Manual Assessments Soft Tissue Assessment Soft Tissue Mobility Assessment Mild tenderness along right bicipital groove Joint Mobility Assessment Joint Mobility Assessment Increased stiffness and hypomobility with both active and passive knee flexion. PT-OP-K Range of Motion Start: 07/08/24 15:24 Freq: Status: Active Protocol: Document 08/23/24 09:49 DCW (Rec: 08/23/24 10:15 DCW [id number]) Shoulder Goniometric Range of Motion Shoulder Right Active Shoulder ROM WFL No Testing Position Sitting Flexion 180 Abduction 134 External Rotation at 0 degrees Abduction 72 Internal Rotation Behind Back (text) T8 Knee Goniometric Range of Motion Knee Right Knee ROM WFL No Patient Position Supine Flexion Active (degrees) 117 Flexion Passive (degrees) 123 Extension Active (degrees) 0 PT-OP-L Special Tests Start: 07/08/24 16:38 Freq: Status: Active Protocol: Document 08/23/24 09:49 DCW (Rec: 08/23/24 10:15 DCW [id number]) Special Tests Shoulder Special Tests Felipe's Biceps Test Results Mildly positive right PT-OP-M Strength Start: 07/08/24 15:24 Freq: Status: Active Protocol: Document 08/23/24 09:49 DCW (Rec: 08/23/24 10:15 DCW [id number]) Shoulder Strength Shoulder Manual Muscle Testing Right Flexion 3+ Fair+ Abduction (C5) 4- Good- External Rotation 3+ Fair+ Internal Rotation 4+ Good+ Left Flexion 4+ Good+ Abduction (C5) 4 Good External Rotation 4 Good Internal Rotation 4+ Good+ PT-OP-Q Treatments Start: 07/08/24 15:24 Freq: Status: Active Protocol: Document 08/23/24 09:49 DCW (Rec: 08/23/24 10:25 DCW [id number]) Gym Equipment Shuttle Recovery Unilateral Squats Resistance 25# R Shuttle Recovery Platform Stable Reps/Time x20 pause into ext Bilateral Squats Resistance 75# Shuttle Recovery Platform Stable Reps/Time x30 PT-OP-R Modalities Start: 07/10/24 12:23 Freq: Status: Active Protocol: Document 08/12/24 08:14 SAK (Rec: 08/12/24 10:33 SAK [id number]) Hot Pack/Cold Pack Treatment Cold Pack Location Right Knee Patient Position Prone Patient Tolerance Good PT-OP-T Assessment and Plan Start: 07/08/24 15:24 Freq: Status: Active Protocol: Document 08/23/24 09:49 DCW (Rec: 08/23/24 10:25 DCW [id number]) Physical Therapy Assessment Impairments Impairments Activity Tolerance,Functional Activities,Functional Mobility ,Pain,ROM,Strength,Tone Goals Three Impairment Right knee AROM limited to 13? -106? Long-Term Goal (LTG) Pt to demonstrate improved right knee AROM to 0?-120? in order to improve ability to successfully ascend and descend stairs. 08/07/24: GOAL MET: 0-122 deg R knee AROM supine. 08/21/24: progressing 126 deg LTG Duration 10/23/24 One Impairment Pt does not have an appropriate home exercise program Short Term Goal (STG) Pt to be independent and compliant with an appropriate HEP 08/14/24: added seated resisted HS curl and LAQ, standing HS curl AROM. STG Duration 09/22/24 Assessment Summary Assessment Pt showing very good improvement in her shoulder, significant increase in active ROM with minimal pain. Pt continues to be very limited with her knee mobility, while ROM has shown some improvement , pain still impacts her gait and her functional mobility. Ambulates with her right knee nearly fully extended, although able to increase flexion with verbal cues. Will likely benefit from continued focus on joint mobs, STM, LE strengthening, gait training, balance, and increased activity tolerance. Physical Therapy Plan Frequency and Duration Frequency of Treatment 2x/Week Plan of Care Start Date 08/23/24 Plan of Care End Date 10/23/24 Therapeutic Interventions Therapeutic Interventions Home Exercise Program,Joint Mobilizations,Manual Therapy, Neuromuscular Re-education, Patient/Caregiver Education, Self-Care/Home Management,Soft Tissue Mobilization, Therapeutic Activities, Therapeutic Exercises Modalities Cold Pack/Ice Massage,Electric Stimulation,Hot Packs Next Visit Focus/Plan Next Note Type Treatment Note Next Visit Plan POC: STM/joint mobs, strengthening, focus on improving AROM/PROM assess right knee ext, possibly focus on extension
--- NOTE | 2024-08-23 10:25 | PT.OPPOC ---
Physical, Occupational & Speech Therapy At [facility] Current Diagnoses Pain in right shoulder (08/23/24) Pain in right knee (08/23/24) Pain in unspecified knee (08/23/24) Stiffness of right shoulder, not elsewhere classified (08/23/24) Stiffness of unspecified knee, not elsewhere classified (08/23/24) Presence of right artificial knee joint (08/23/24) Presence of unspecified artificial knee joint (08/23/24) Visit Care Team Role Provider Type [facility] Primary Care Provider Non-Staff Specialty: Nursing Address: [address] [place] [address], [phone] Email: Shalom Mari MD Family Provider Non-Staff Specialty: Medical Address: [address] [place] [address], [phone] Email: Joce Mackenzie DO Attending Provider Non-Staff Referring Provider Specialty: Family Practice Address: [address] [place] [address], [phone] Email: Plan Of Care PT-OP-B Current Condition Start: 07/08/24 15:24 Freq: Status: Active Protocol: Document 08/12/24 08:14 [facility] (Rec: 08/12/24 09:02 [facility] [id number]) Current Condition History of Current Condition Onset Date Six month history Current Complaints right knee pain, right shoulder pain History of Current Condition Pt is a 64 year old female presenting to skilled therapy with a six month history of right knee and right shoulder pain. Pt notes insidious onset , but notes both have been worsening. Pt does have a remote history of bilateral TKA. Pt reports her right knee is constantly in pain, no real improving or worsening. Does still try to ambulate 10, 000 steps daily, but struggles due to moderate antalgia. Pt ambulates with a 3WW, has used a SPC in the past, but it created worse knee pain. Knee pain has been limiting sleep. Right shoulder bothers her less often, typically when attempting overhead activities . Pain largely located in anterior shoulder. Prior Treatments and Tests Pt is well known to this clinic, has been seen for various injuries and surgeries over the last ~10 years. PT-OP-T Assessment and Plan Start: 07/08/24 15:24 Freq: Status: Active Protocol: Document 08/23/24 09:49 DCW (Rec: 08/23/24 10:25 DCW [id number]) Physical Therapy Assessment Impairments Impairments Activity Tolerance,Functional Activities,Functional Mobility ,Pain,ROM,Strength,Tone Goals Three Impairment Right knee AROM limited to 13? -106? Scraper Meat Goal (LTG) Pt to demonstrate improved right knee AROM to 0?-120? in order to improve ability to successfully ascend and descend stairs. 08/07/24: GOAL MET: 0-122 deg R knee AROM supine. 08/21/24: progressing 126 deg LTG Duration 10/23/24 One Impairment Pt does not have an appropriate home exercise program Short Term Goal (STG) Pt to be independent and compliant with an appropriate HEP 08/14/24: added seated resisted HS curl and LAQ, standing HS curl AROM. STG Duration 09/22/24 Assessment Summary Assessment Pt showing very good improvement in her shoulder, significant increase in active ROM with minimal pain. Pt continues to be very limited with her knee mobility, while ROM has shown some improvement , pain still impacts her gait and her functional mobility. Ambulates with her right knee nearly fully extended, although able to increase flexion with verbal cues. Will likely benefit from continued focus on joint mobs, STM, LE strengthening, gait training, balance, and increased activity tolerance. Physical Therapy Plan Frequency and Duration Frequency of Treatment 2x/Week Plan of Care Start Date 08/23/24 Plan of Care End Date 10/23/24 Therapeutic Interventions Therapeutic Interventions Home Exercise Program,Joint Mobilizations,Manual Therapy, Neuromuscular Re-education, Patient/Caregiver Education, Self-Care/Home Management,Soft Tissue Mobilization, Therapeutic Activities, Therapeutic Exercises Modalities Cold Pack/Ice Massage,Electric Stimulation,Hot Packs Next Visit Focus/Plan Next Note Type Treatment Note Next Visit Plan POC: STM/joint mobs, strengthening, focus on improving AROM/PROM assess right knee ext, possibly focus on extension Plan of Care Dates Plan of Care Start Date 08/23/24 Plan of Care End Date 10/23/24 Electronically Signed by: Leobardo Rashid, PT 08/23/24 1025 If you are in agreement with this Plan of Care, please return a signed and dated copy. I have reviewed this Plan of Care and certify that the skilled therapy services above are required to meet the patient?s needs. Physician Signature Date Printed Name and Credentials Clinical Instructor Signature Printed Name and Credentials
--- NOTE | 2024-08-26 11:31 | PT.OTN ---
Current Diagnoses Pain in right shoulder (08/26/24) Pain in right knee (08/26/24) Pain in unspecified knee (08/26/24) Stiffness of right shoulder, not elsewhere classified (08/26/24) Stiffness of unspecified knee, not elsewhere classified (08/26/24) Presence of right artificial knee joint (08/26/24) Presence of unspecified artificial knee joint (08/26/24) Physical Therapy Treatment Note PT-OP-A Visit Information Start: 07/08/24 15:24 Freq: Status: Active Protocol: Document 08/26/24 10:48 SP (Rec: 08/26/24 11:38 SP [id number]) Out-Patient Physical Therapy Visit Information Visit Information Visit Type Treatment Note Visit Start Time 10:48 Visit Stop Time 11:31 Visit Number 12 (11/18 with PN) Number of SINGING WAITER OR WAITRESS Visits 1 Evaluation Information Evaluation Date 07/08/24 PT-OP-B Current Condition Start: 07/08/24 15:24 Freq: Status: Active Protocol: Document 08/12/24 08:14 SAK (Rec: 08/12/24 09:02 SAK [id number]) Current Condition History of Current Condition Onset Date Six month history Current Complaints right knee pain, right shoulder pain History of Current Condition Pt is a 64 year old female presenting to skilled therapy with a six month history of right knee and right shoulder pain. Pt notes insidious onset , but notes both have been worsening. Pt does have a remote history of bilateral TKA. Pt reports her right knee is constantly in pain, no real improving or worsening. Does still try to ambulate 10, 000 steps daily, but struggles due to moderate antalgia. Pt ambulates with a 3WW, has used a SPC in the past, but it created worse knee pain. Knee pain has been limiting sleep. Right shoulder bothers her less often, typically when attempting overhead activities . Pain largely located in anterior shoulder. Prior Treatments and Tests Pt is well known to this clinic, has been seen for various injuries and surgeries over the last ~10 years. PT-OP-C Subjective Start: 07/08/24 15:24 Freq: Status: Active Protocol: Document 08/26/24 10:48 SP (Rec: 08/26/24 11:38 SP [id number]) OP-PT Subjective Patient Comments Patient Comments Pt reports having alot pain over R quad and behind R knee when sitting. And R shoulder. She Dec ortho appt. Got a call to come in next week but can't due to being OOT see familly. PT-OP-F Manual Assessment Start: 07/08/24 15:24 Freq: Status: Active Protocol: Document 08/23/24 09:49 DCW (Rec: 08/23/24 10:15 DCW [id number]) Manual Assessments Soft Tissue Assessment Soft Tissue Mobility Assessment Mild tenderness along right bicipital groove Joint Mobility Assessment Joint Mobility Assessment Increased stiffness and hypomobility with both active and passive knee flexion. PT-OP-K Range of Motion Start: 07/08/24 15:24 Freq: Status: Active Protocol: Document 08/23/24 09:49 DCW (Rec: 08/23/24 10:15 DCW [id number]) Shoulder Goniometric Range of Motion Shoulder Right Active Shoulder ROM WFL No Testing Position Sitting Flexion 180 Abduction 134 External Rotation at 0 degrees Abduction 72 Internal Rotation Behind Back (text) T8 Knee Goniometric Range of Motion Knee Right Knee ROM WFL No Patient Position Supine Flexion Active (degrees) 117 Flexion Passive (degrees) 123 Extension Active (degrees) 0 PT-OP-L Special Tests Start: 07/08/24 16:38 Freq: Status: Active Protocol: Document 08/23/24 09:49 DCW (Rec: 08/23/24 10:15 DCW [id number]) Special Tests Shoulder Special Tests Yergason's Biceps Test Results Mildly positive right PT-OP-M Strength Start: 07/08/24 15:24 Freq: Status: Active Protocol: Document 08/23/24 09:49 DCW (Rec: 08/23/24 10:15 DCW [id number]) Shoulder Strength Shoulder Manual Muscle Testing Right Flexion 3+ Fair+ Abduction (C5) 4- Good- External Rotation 3+ Fair+ Internal Rotation 4+ Good+ Left Flexion 4+ Good+ Abduction (C5) 4 Good External Rotation 4 Good Internal Rotation 4+ Good+ PT-OP-Q Treatments Start: 07/08/24 15:24 Freq: Status: Active Protocol: Document 08/26/24 10:48 SP (Rec: 08/26/24 11:38 SP [id number]) Gym Equipment Shuttle Recovery Unilateral Squats Details good form Resistance 25# R (navy) Shuttle Recovery Platform Stable Reps/Time x20 Bilateral Squats Resistance 75# (3 navy) Shuttle Recovery Platform Stable Reps/Time x30 Therapeutic Exercises Sidelying Exercises shoulder abduction Side right Resistance AROM (2# DB home) Comments verbal and tactile cues for thumb up open book Side bilateral Resistance AROM Reps/Minutes X5 each side Comments no pain Sitting Exercises HS curl Sitting Exercise Name HEP Side right Equipment Used L2 TB anchored front Reps/Minutes 2x20 Comments cued eccentric return fwd control long arc quad Sitting Exercise Name HEP Side bilateral Resistance AROM Reps/Minutes x20 reps each LE Comments just little tension in HS, pnfree anterior Standing Exercises calf stretch Side bilateral Equipment Used bottom step Reps/Minutes 30 SH x2 Comments good feedback stretch Manual Therapy Treatment Consent Patient gave verbal consent for manual Yes treatment Soft Tissue Mobilization right shoulder Body Location Pec, deltoid area, bicep, UT/ levator scap Mobilization Type Rolling Intensity/Depth Moderate Body Position Sitting right knee Body Location lat, med, quad and peripatellar, HS, calf Mobilization Type Cross-Friction,Rolling,Other Intensity/Depth Moderate Body Position Hooklying Joint Mobilizations R GH jt Joint R Grade II Comments posterior and inferior glide then PROM R FF- no pain Patella Joint R PF Direction Sup/Inf/Med/Lat Grade III Body Position Hooklying Knee Joint R Knee Direction P<->A Grade III Body Position Hooklying Comments flex AP hooklying extended PA supine Neuro Re-Education Treatment Balance Activities rocker board Details fwd/bwd/lateral Equipment outside shuttle balance rail PRN support Comments wt shift and head turns PT-OP-R Modalities Start: 07/10/24 12:23 Freq: Status: Active Protocol: Document 08/12/24 08:14 SAK (Rec: 08/12/24 10:33 SAK [id number]) Hot Pack/Cold Pack Treatment Cold Pack Location Right Knee Patient Position Prone Patient Tolerance Good PT-OP-T Assessment and Plan Start: 07/08/24 15:24 Freq: Status: Active Protocol: Document 08/26/24 10:48 SP (Rec: 08/26/24 11:38 SP [id number]) Physical Therapy Assessment Goals Three Impairment Right knee AROM limited to 13? -106? Longterm Goal (LTG) Pt to demonstrate improved right knee AROM to 0?-120? in order to improve ability to successfully ascend and descend stairs. 08/07/24: GOAL MET: 0-122 deg R knee AROM supine. 08/21/24: progressing 126 deg LTG Duration 10/23/24 One Impairment Pt does not have an appropriate home exercise program Short Term Goal (STG) Pt to be independent and compliant with an appropriate HEP 08/14/24: added seated resisted HS curl and LAQ, standing HS curl AROM. STG Duration 09/22/24 Assessment Summary Assessment Pt reports improved R knee and R shoulder mobility post manual and ther ex. Cues for R knee flexion during wt shift to allow TKE and HS engagement WB with education carryover gait mechanics, pt tends to guard R TKE during swing through and over UE WB on 4WW. Improved WB tolerance R LE with no UE support without pain R knee during balance activity. Physical Therapy Plan Frequency and Duration Frequency of Treatment 2x/Week Plan of Care Start Date 08/23/24 Plan of Care End Date 10/23/24 Therapeutic Interventions Therapeutic Interventions Home Exercise Program,Joint Mobilizations,Manual Therapy, Neuromuscular Re-education, Patient/Caregiver Education, Self-Care/Home Management,Soft Tissue Mobilization, Therapeutic Activities, Therapeutic Exercises Modalities Cold Pack/Ice Massage,Electric Stimulation,Hot Packs Next Visit Focus/Plan Next Note Type Treatment Note Next Visit Plan POC: STM/joint mobs, strengthening, focus on improving AROM/PROM assess right knee
--- NOTE | 2024-08-28 11:31 | PT.OTN ---
Current Diagnoses Pain in right shoulder (08/28/24) Pain in right knee (08/28/24) Pain in unspecified knee (08/28/24) Stiffness of right shoulder, not elsewhere classified (08/28/24) Stiffness of unspecified knee, not elsewhere classified (08/28/24) Presence of right artificial knee joint (08/28/24) Presence of unspecified artificial knee joint (08/28/24) Physical Therapy Treatment Note PT-OP-A Visit Information Start: 07/08/24 15:24 Freq: Status: Active Protocol: Document 08/28/24 10:49 DCW (Rec: 08/28/24 11:31 DCW [id number]) Out-Patient Physical Therapy Visit Information Visit Information Visit Type Treatment Note Visit Start Time 10:49 Visit Stop Time 11:30 Visit Number 13 (3 with PN) Number of JUNIOR PROGRAMMER ANALYST Visits 0 Evaluation Information Evaluation Date 07/08/24 PT-OP-B Current Condition Start: 07/08/24 15:24 Freq: Status: Active Protocol: Document 08/12/24 08:14 SAK (Rec: 08/12/24 09:02 SAK [id number]) Current Condition History of Current Condition Onset Date Six month history Current Complaints right knee pain, right shoulder pain History of Current Condition Pt is a 64 year old female presenting to skilled therapy with a six month history of right knee and right shoulder pain. Pt notes insidious onset , but notes both have been worsening. Pt does have a remote history of bilateral TKA. Pt reports her right knee is constantly in pain, no real improving or worsening. Does still try to ambulate 10, 000 steps daily, but struggles due to moderate antalgia. Pt ambulates with a 3WW, has used a SPC in the past, but it created worse knee pain. Knee pain has been limiting sleep. Right shoulder bothers her less often, typically when attempting overhead activities . Pain largely located in anterior shoulder. Prior Treatments and Tests Pt is well known to this clinic, has been seen for various injuries and surgeries over the last ~10 years. PT-OP-C Subjective Start: 07/08/24 15:24 Freq: Status: Active Protocol: Document 08/28/24 10:49 DCW (Rec: 08/28/24 11:31 DCW [id number]) OP-PT Subjective Patient Comments Patient Comments Pt has had some fluid drained from her knee and underwent testing. Synovial fluid at the time of the draw was orange, per paperwork. Fluid was sent to the lab, and was not found to have bacteria upon testing, however report does note increased white blood cell. Recent bone scan shows concern for infection. Pt reports she saw Dr Carreon yesterday, notes that he is expecting a TKA revision will be required. Did draw more fluid yesterday to resend to the lab. PT-OP-F Manual Assessment Start: 07/08/24 15:24 Freq: Status: Active Protocol: Document 08/23/24 09:49 DCW (Rec: 08/23/24 10:15 DCW [id number]) Manual Assessments Soft Tissue Assessment Soft Tissue Mobility Assessment Mild tenderness along right bicipital groove Joint Mobility Assessment Joint Mobility Assessment Increased stiffness and hypomobility with both active and passive knee flexion. PT-OP-K Range of Motion Start: 07/08/24 15:24 Freq: Status: Active Protocol: Document 08/23/24 09:49 DCW (Rec: 08/23/24 10:15 DCW [id number]) Shoulder Goniometric Range of Motion Shoulder Right Active Shoulder ROM WFL No Testing Position Sitting Flexion 180 Abduction 134 External Rotation at 0 degrees Abduction 72 Internal Rotation Behind Back (text) T8 Knee Goniometric Range of Motion Knee Right Knee ROM WFL No Patient Position Supine Flexion Active (degrees) 117 Flexion Passive (degrees) 123 Extension Active (degrees) 0 PT-OP-L Special Tests Start: 07/08/24 16:38 Freq: Status: Active Protocol: Document 08/23/24 09:49 DCW (Rec: 08/23/24 10:15 DCW [id number]) Special Tests Shoulder Special Tests Yergason's Biceps Test Results Mildly positive right PT-OP-M Strength Start: 07/08/24 15:24 Freq: Status: Active Protocol: Document 08/23/24 09:49 DCW (Rec: 08/23/24 10:15 DCW [id number]) Shoulder Strength Shoulder Manual Muscle Testing Right Flexion 3+ Fair+ Abduction (C5) 4- Good- External Rotation 3+ Fair+ Internal Rotation 4+ Good+ Left Flexion 4+ Good+ Abduction (C5) 4 Good External Rotation 4 Good Internal Rotation 4+ Good+ PT-OP-Q Treatments Start: 07/08/24 15:24 Freq: Status: Active Protocol: Document 08/28/24 10:49 DCW (Rec: 08/28/24 11:31 DCW [id number]) Cardio Equipment Recumbent Stepper (Sci-Fit) Duration (Minutes) 10 Resistance 3 Seat Position 9 Gym Equipment Shuttle Recovery Unilateral Squats Resistance 25# R (navy) Shuttle Recovery Platform Stable Reps/Time x20 Bilateral Squats Resistance 75# (3 navy) Shuttle Recovery Platform Stable Reps/Time x30 Manual Therapy Treatment Consent Patient gave verbal consent for manual Yes treatment Soft Tissue Mobilization right knee Body Location lat, med, quad and peripatellar, HS, calf Mobilization Type Cross-Friction,Rolling,Other Intensity/Depth Moderate Body Position Hooklying Joint Mobilizations Patella Joint R PF Direction Sup/Inf/Med/Lat Grade III Body Position Hooklying Knee Joint R Knee Direction P<->A Grade III Body Position Hooklying Comments flex AP hooklying extended PA supine PT-OP-R Modalities Start: 07/10/24 12:23 Freq: Status: Active Protocol: Document 08/12/24 08:14 SAK (Rec: 08/12/24 10:33 SAK [id number]) Hot Pack/Cold Pack Treatment Cold Pack Location Right Knee Patient Position Prone Patient Tolerance Good PT-OP-T Assessment and Plan Start: 07/08/24 15:24 Freq: Status: Active Protocol: Document 08/28/24 10:49 DCW (Rec: 08/28/24 11:31 DCW [id number]) Physical Therapy Assessment Impairments Impairments Activity Tolerance,Functional Activities,Functional Mobility ,Pain,ROM,Strength,Tone Goals Three Impairment Right knee AROM limited to 13? -106? Poultry Feed Supervisor Goal (LTG) Pt to demonstrate improved right knee AROM to 0?-120? in order to improve ability to successfully ascend and descend stairs. 08/07/24: GOAL MET: 0-122 deg R knee AROM supine. 08/21/24: progressing 126 deg LTG Duration 10/23/24 One Impairment Pt does not have an appropriate home exercise program Short Term Goal (STG) Pt to be independent and compliant with an appropriate HEP 08/14/24: added seated resisted HS curl and LAQ, standing HS curl AROM. STG Duration 09/22/24 Assessment Summary Assessment Pt continues to struggle with knee flexion and gait. Will wait to see results of recent fluid draw/lab testing to determine best path forward. Will likely be referring back to surgeon for next step. Physical Therapy Plan Frequency and Duration Frequency of Treatment 2x/Week Plan of Care Start Date 08/23/24 Plan of Care End Date 10/23/24 Therapeutic Interventions Therapeutic Interventions Home Exercise Program,Joint Mobilizations,Manual Therapy, Neuromuscular Re-education, Patient/Caregiver Education, Self-Care/Home Management,Soft Tissue Mobilization, Therapeutic Activities, Therapeutic Exercises Modalities Cold Pack/Ice Massage,Electric Stimulation,Hot Packs Next Visit Focus/Plan Next Note Type Treatment Note Next Visit Plan POC: STM/joint mobs, strengthening, focus on improving AROM/PROM assess right knee
--- NOTE | 2024-09-24 16:33 | PT.OTN ---
Current Diagnoses Pain in right shoulder (09/24/24) Pain in right knee (09/24/24) Pain in unspecified knee (09/24/24) Stiffness of right shoulder, not elsewhere classified (09/24/24) Stiffness of unspecified knee, not elsewhere classified (09/24/24) Presence of right artificial knee joint (09/24/24) Presence of unspecified artificial knee joint (09/24/24) Physical Therapy Treatment Note PT-OP-A Visit Information Start: 07/08/24 15:24 Freq: Status: Active Protocol: Document 09/24/24 16:00 DCW (Rec: 09/24/24 16:33 DCW [id number]) Out-Patient Physical Therapy Visit Information Visit Information Visit Type Discharge Summary Visit Start Time 16:00 Visit Stop Time 16:30 Visit Number 14 Number of COSMETICIAN Visits 0 Evaluation Information Evaluation Date 07/08/24 PT-OP-B Current Condition Start: 07/08/24 15:24 Freq: Status: Active Protocol: Document 08/12/24 08:14 SAK (Rec: 08/12/24 09:02 SAK [id number]) Current Condition History of Current Condition Onset Date Six month history Current Complaints right knee pain, right shoulder pain History of Current Condition Pt is a 64 year old female presenting to skilled therapy with a six month history of right knee and right shoulder pain. Pt notes insidious onset , but notes both have been worsening. Pt does have a remote history of bilateral TKA. Pt reports her right knee is constantly in pain, no real improving or worsening. Does still try to ambulate 10, 000 steps daily, but struggles due to moderate antalgia. Pt ambulates with a 3WW, has used a SPC in the past, but it created worse knee pain. Knee pain has been limiting sleep. Right shoulder bothers her less often, typically when attempting overhead activities . Pain largely located in anterior shoulder. Prior Treatments and Tests Pt is well known to this clinic, has been seen for various injuries and surgeries over the last ~10 years. PT-OP-C Subjective Start: 07/08/24 15:24 Freq: Status: Active Protocol: Document 09/24/24 16:00 DCW (Rec: 09/24/24 16:33 DCW [id number]) OP-PT Subjective Patient Comments Patient Comments It's really hard to bend my knee. And for me to get up and down is a killer. PT-OP-F Manual Assessment Start: 07/08/24 15:24 Freq: Status: Active Protocol: Document 08/23/24 09:49 DCW (Rec: 08/23/24 10:15 DCW [id number]) Manual Assessments Soft Tissue Assessment Soft Tissue Mobility Assessment Mild tenderness along right bicipital groove Joint Mobility Assessment Joint Mobility Assessment Increased stiffness and hypomobility with both active and passive knee flexion. PT-OP-K Range of Motion Start: 07/08/24 15:24 Freq: Status: Active Protocol: Document 08/23/24 09:49 DCW (Rec: 08/23/24 10:15 DCW [id number]) Shoulder Goniometric Range of Motion Shoulder Right Active Shoulder ROM WFL No Testing Position Sitting Flexion 180 Abduction 134 External Rotation at 0 degrees Abduction 72 Internal Rotation Behind Back (text) T8 Knee Goniometric Range of Motion Knee Right Knee ROM WFL No Patient Position Supine Flexion Active (degrees) 117 Flexion Passive (degrees) 123 Extension Active (degrees) 0 PT-OP-L Special Tests Start: 07/08/24 16:38 Freq: Status: Active Protocol: Document 08/23/24 09:49 DCW (Rec: 08/23/24 10:15 DCW [id number]) Special Tests Shoulder Special Tests Michaelrgason's Biceps Test Results Mildly positive right PT-OP-M Strength Start: 07/08/24 15:24 Freq: Status: Active Protocol: Document 08/23/24 09:49 DCW (Rec: 08/23/24 10:15 DCW [id number]) Shoulder Strength Shoulder Manual Muscle Testing Right Flexion 3+ Fair+ Abduction (C5) 4- Good- External Rotation 3+ Fair+ Internal Rotation 4+ Good+ Left Flexion 4+ Good+ Abduction (C5) 4 Good External Rotation 4 Good Internal Rotation 4+ Good+ PT-OP-Q Treatments Start: 07/08/24 15:24 Freq: Status: Active Protocol: Document 09/24/24 16:00 DCW (Rec: 09/24/24 16:33 DCW [id number]) Manual Therapy Treatment Consent Patient gave verbal consent for manual Yes treatment Soft Tissue Mobilization right knee Body Location lat, med, quad and peripatellar, HS, calf Mobilization Type Cross-Friction,Rolling,Other Intensity/Depth Moderate Body Position Hooklying Joint Mobilizations Patella Joint R PF Direction Sup/Inf/Med/Lat Grade III Body Position Hooklying Knee Joint R Knee Direction P<->A Grade III Body Position Hooklying Comments flex AP hooklying extended PA supine PT-OP-R Modalities Start: 07/10/24 12:23 Freq: Status: Active Protocol: Document 08/12/24 08:14 SAK (Rec: 08/12/24 10:33 SAK [id number]) Hot Pack/Cold Pack Treatment Cold Pack Location Right Knee Patient Position Prone Patient Tolerance Good PT-OP-T Assessment and Plan Start: 07/08/24 15:24 Freq: Status: Active Protocol: Document 09/24/24 16:00 DCW (Rec: 09/24/24 16:33 DCW [id number]) Physical Therapy Assessment Assessment Summary Assessment Pt continues to struggle with gait and knee mobility. Overall unchanged past few weeks. Pt has largely plateaued, agreeable to discharge from skilled therapy , pt agreeable to return to surgeon for follow-up. Physical Therapy Plan Frequency and Duration Frequency of Treatment 2x/Week Plan of Care Start Date 08/23/24 Plan of Care End Date 10/23/24 Therapeutic Interventions Therapeutic Interventions Home Exercise Program,Joint Mobilizations,Manual Therapy, Neuromuscular Re-education, Patient/Caregiver Education, Self-Care/Home Management,Soft Tissue Mobilization, Therapeutic Activities, Therapeutic Exercises Modalities Cold Pack/Ice Massage,Electric Stimulation,Hot Packs Discharge Physical Therapy Discharge Reasons Plateau in Progress Next Visit Focus/Plan Next Note Type Discharge Summary
== END 2024-10-17 13:22 | disposition home or self-care (01) ==
LOC: PHYS 16:00
PROVIDERS: Family Provider Family Medicine; PCP Nurse Practitioner; Referring Provider Family Medicine; Visit Provider Family Medicine
DX: M25.511 Pain in right shoulder (principal); Z96.659 Presence of unspecified artificial knee joint; M25.561 Pain in right knee; M25.669 Stiffness of unspecified knee, not elsewhere classified; M25.569 Pain in unspecified knee; Z96.651 Presence of right artificial knee joint; M25.611 Stiffness of right shoulder, not elsewhere classified
CPT/HCPCS: 97110; 97116; 97140; 97163

== ENCOUNTER 2024-10-27 12:46 | Emergency (ER) | payer MEDICARE, MEDICAID, SELFPAY ==
[2024-10-27] VITALS (14 sets, daily range): BP systolic 127–146; BP diastolic 60–83; PULSE 57–73; RESP 17–27; TEMP 36.2; O2SAT 93–99; BMI 41.0
--- NOTE | 2024-10-27 12:50 | EKG_ITS ---
[facility] [address] [address] Test Date: 2024-10-27 Pat Name: Ada Iverson Department: [facility] Room: Gender: Female Lab Aid: FADY : 1960 Requested By: Order Number: [id number] Reading MD: Dewayne Escamilla MD Measurements Intervals [place] Rate: 74 P: -24 MT: 148 QRS: -2 QRSD: 72 T: 20 QT: 368 QTc: 408 Interpretive Statements Normal sinus rhythm Electronically Signed On 10-28-2024 13:38:45 PST by Dewayne Escamilla MD
--- NOTE | 2024-10-27 12:50 | DI.RAD.S_ITS ---
PROCEDURE: XR CHEST 1V INDICATIONS: chest pain TECHNIQUE: One view of the chest was acquired. COMPARISON: [facility], , XR CHEST 1V, 11/07/2019, 16:27. [facility], , CHEST 1 VIEW, 04/24/2017, 0:31. FINDINGS: Surgical changes and devices: None. Lungs and pleura: Lungs are hypoinflated but clear. No pleural effusions or pneumothorax. Mediastinum: Mediastinal contours appear normal. Heart size is normal. Bones and chest wall: No suspicious bony lesions. Overlying soft tissues appear unremarkable. IMPRESSION: No acute cardiopulmonary abnormality is seen. Dictated by: Magdalena Silva M.D. on 10/27/2024 at 12:18 Approved by: Magdalena Silva M.D. on 10/27/2024 at 12:19
[2024-10-27 13:15] LABS: INR 1.1 (0.9-1.3); Prothrombin Time 12.1 SECONDS (9.4-12.5)
[2024-10-27] MEDS: ASPIRIN 81 MG CHEW TAB 324 MG PO (13:17)
[2024-10-27 13:18] LABS: PTT Partial Thromboplastin Tim 35 SECONDS (25.1-36.5)
[2024-10-27 13:19] LABS: Alanine Aminotransferase 38 IU/L (<35); Albumin 4.6 g/dL (3.5-5.0); Albumin Globulin Ratio 1.4 (1.0-2.8); Alkaline Phosphatase 55 U/L (38-126); Aspartate Aminotransferase 40 IU/L (14-36); Bilirubin Total 1.1 mg/dL (0.2-1.3); Blood Urea Nitrogen 20 mg/dL (7-17); Calcium 9.7 mg/dL (8.4-10.2); Carbon Dioxide 30 mmol/L (22-32); Chloride 105 mmol/L (98-107); Creatine Kinase 95 U/L (30-135); Estimated Glomerular Filt Rate > 60 mL/min (>60); Globulin 3.3 g/dL (1.7-4.1); Glucose 73 mg/dL (80-110); HEMOLYSIS 30 (0-50); Lipase 109 U/L (23-300); Magnesium 1.8 mg/dL (1.6-2.3); Sodium 141 mmol/L (137-145); Total Protein 7.9 g/dL (6.3-8.2)
[2024-10-27 13:23] LABS: Add Manual Diff / Slide Review SLIDE REVIEW; Basophils Absolute Auto 300 /uL (0-100); Basophils Percent Auto 2.9 % (0-2); Eosinophils Absolute Auto 200 /uL (0-450); Eosinophils Percent Auto 2.6 % (2-4); Hematocrit 44.3 % (36-46); Hemoglobin 14.7 g/dL (12.0-16.0); Lymphocytes Absolute Auto 2700 /uL (1100-4500); Lymphocytes Percent Auto 30.3 % (25-40); Mean Corpuscular HGB Conc 33.2 % (30-36); Mean Corpuscular Hemoglobin 29.5 PG (26-34); Mean Corpuscular Volume 88.9 fL (80-100); Monocytes Absolute Auto 900 /uL (0-900); Monocytes Percent Auto 10.4 % (3-14); Neutrophils Absolute Auto 4800 /uL (1500-7000); Neutrophils Percent Auto 53.8 % (50-75); Platelet Count 243 X10^3/uL (150-400); Red Blood Cell Count 4.99 X10^6/uL (4.0-5.2); Red Cell Distribution Width 13.7 % (11.6-14.8); White Blood Cell Count 8.9 X10^3/uL (4.5-11.0)
[2024-10-27 13:31] LABS: NT-proBNP (BNP-Adult 18+) 23 pg/mL (<125); Troponin I < 0.012 ng/mL (0.01-0.034)
--- NOTE | 2024-10-27 13:55 | DI.CT.S_ITS ---
PROCEDURE: CT ANGIO HEAD AND NECK INDICATIONS: dizzy TECHNIQUE: After the administration of intravenous contrast, 1 mm thick sections acquired from the aortic arch through the [place]. 3-dimensional jjnfyuv-rezhsgniq-caivbomyig (MIP) and/or volume rendering reformats were acquired of the central intracranial vasculature and neck separately. For radiation dose reduction, the following was used: automated exposure control, adjustment of mA and/or kV according to patient size. COMPARISON: None. FINDINGS: Image quality: Diagnostic. BRAIN: CSF spaces: Ventricles are normal in size and shape. Basal cisterns are patent. No extra-axial fluid collections. Brain: No significant abnormality of the brain can be seen. Skull and face: Calvarium and facial bones appear intact, without suspicious lesions. Orbits appear normal. Sinuses: Sinuses and mastoids are clear. HEAD CT ANGIOGRAPHY: Anterior circulation: Intracranial internal carotid arteries are normal in size and flow. The flow within the paired anterior cerebral arteries is normal and symmetric. The flow within the middle cerebral arteries is normal and symmetric. The anterior communicating artery is seen. No aneurysms are seen. Posterior circulation: Visualized portions of the vertebral arteries demonstrate normal caliber, and join to form a normal appearing basilar artery. Flow within the posterior cerebral arteries is normal and symmetric. No aneurysms are seen. NECK CT ANGIOGRAPHY: Carotid system: The great vessels demonstrate a conventional anatomy as they arise from the aortic arch. The origins of the common carotid arteries appear patent. The common carotid arteries demonstrate normal caliber and courses. The bifurcation regions are both widely patent. The internal carotid arteries demonstrate normal calibers and courses. Posterior circulation: The origins of the vertebral arteries both appear widely patent. The more superior extracranial portions of both vertebral arteries also demonstrate normal courses and calibers. They join to form a normal appearing basilar artery. Soft tissues: Visualized neck soft tissues demonstrate no suspicious abnormalities. Bones: No suspicious bony lesions. Visualized cervical spine appears normally aligned. IMPRESSION: No significant intracranial arterial abnormality is seen. No significant abnormality is seen within the arteries of the neck. Any quantitative measurements of stenosis were performed using NASCET criteria. Dictated by: Magdalena Silva M.D. on 10/27/2024 at 14:14 Approved by: Magdalena Silva M.D. on 10/27/2024 at 14:19
--- NOTE | 2024-10-27 14:08 | DI.CT.S_ITS ---
PROCEDURE: CT HEAD/BRAIN WO CON INDICATIONS: balance issues TECHNIQUE: Noncontrast 4.5 mm thick angled axial sections acquired from the foramen magnum to the vertex, with coronal and sagittal reformats. For radiation dose reduction, the following was used: automated exposure control, adjustment of mA and/or kV according to patient size. COMPARISON: [facility], CT, CT HEAD/BRAIN WO CON, 02/15/2021, 5:50. FINDINGS: Image quality: Diagnostic. CSF spaces: Basal cisterns are patent. No extra-axial fluid collections. Ventricles are normal in size and shape. Brain: No midline shift. No intracranial masses or hemorrhage. Dozier-white matter interface is normal. Skull and face: Calvarium and visualized facial bones are intact, without suspicious lesions. Sinuses: Visualized sinuses and mastoids are clear. IMPRESSION: No acute intracranial pathology. Dictated by: Magdalena Silva M.D. on 10/27/2024 at 14:20 Approved by: Magdalena Silva M.D. on 10/27/2024 at 14:21
[2024-10-27 14:10] LABS: RBC Morphology Normal Morphology
--- NOTE | 2024-10-27 14:46 | ED.DIZZY ---
HPI - Dizziness General Chief Complaint: Weakness Stated Complaint: Dizzyness/Balance Issues Time Seen by Provider: 10/27/24 13:06 Source: patient Mode of arrival: Ambulatory History of Present Illness HPI Narrative: Patient is a 64-year-old female history of hypothyroid depression presenting today with ongoing dizziness. She reports that she has had dizziness for the last 4 days it comes and goes. She started having some trouble with balance she said that she was just standing still and feels like he is going to fall over but denies any kind of room spinning. She has no numbness tingling or weakness no visual changes. Denies any fever chills no chest pain or palpitations. She has had vertigo in the past but this feels different Related Data Home Medications Medication Instructions Recorded Confirmed levothyroxine 88 mcg tablet 88 mcg PO DAILY 02/19/19 03/15/23 sumatriptan succinate 50 mg tablet 50 mg PO PRN PRN Migraine Headache 02/19/19 03/15/23 tizanidine 2 mg tablet 02/19/19 03/15/23 paroxetine HCl PO 03/15/23 03/15/23 Previous Rx's Medication Instructions Recorded hydrocodone 5 mg-acetaminophen 325 1 tab PO Q6H PRN pain #10 tabs 08/10/22 mg tablet phenazopyridine 200 mg tablet 200 mg PO TID 6 doses #6 tabs 03/15/23 (Pyridium) Allergies Allergy/AdvReac Type Severity Reaction Status Date / Time codeine AdvReac Mild Verified 03/15/23 13:26 Penicillins AdvReac Mild Nausea Verified 03/15/23 13:26 Patient History Medical History (Updated 10/27/24 @ 16:56 by Cherrie Maria DO) Hypothyroid Social History Smoking Status: Former smoker Smoking Status: Former smoker alcohol intake frequency: holidays/special occasions only Exam Initial Vital Signs Initial Vital Signs: Vital Signs Temperature 97.1 F L 10/27/24 12:56 Pulse Rate 72 10/27/24 12:56 Respiratory Rate 18 10/27/24 12:56 Blood Pressure 133/71 10/27/24 12:56 Pulse Oximetry 99 10/27/24 12:56 Oxygen Delivery Method Room Air 10/27/24 12:56 GENERAL: Alert pleasant well-appearing 64-year-old female and in no acute distress. HEENT: Head atraumatic,EOMI, pupils reactive, face symmetric, moist mucous membranes CARDIOVASCULAR: Regular rate and rhythm without murmurs, rubs or gallops. RESPIRATORY: Breath sounds equal bilaterally, no wheezes rales or rhonchi. ABDOMEN: Soft, nontender. Normoactive bowel sounds all 4 quadrants. No guarding or rebound. EXTREMITIES: Normal range of motion, no clubbing or edema. Neurovascularly intact NEUROLOGICAL: Alert and oriented x4.Normal gait and speech. Cranial nerves II through XII grossly intact. Good dhfnmp-hc-szzr, good [id number], strength equal bilaterally, no dysarthria or aphasia, sensation in tact to soft touch bilaterally, no visual changes, no facial droop SKIN: Warm, dry, no laceration, no petechiae, no rashes or lesions. Scores NIH Stroke Scale Level of Conciousness: Alert, keenly responsive Ask month/age: Answers both questions correctly. Open/close eyes, close hand: Performs both tasks correctly Best gaze horizontal: Normal Visual srinivasan: No visual loss Facial palsy: Normal symetrical movement Left arm drift: No drift for full 10 sec Right arm drift: No drift for full 10 sec Left leg drift: No drift for full 5 sec Right leg drift: No drift for full 5 sec Limb ataxia: Absent Sensory on face/arms/legs: Normal, no sensory loss Best language: No aphasia, normal Dysarthria: Normal Extinction or inattention: No abnormality Total NIH Stroke scale score: 0 Course Orders Ordered: ED Orders 10/27/24 12:50 XR chest 1V Stat EKG-12 Lead Stat 10/27/24 12:55 Complete Blood Count AUTO DIFF Stat Comprehensive Metabolic Panel Stat Lipase Stat Magnesium Stat NT-proBNP (BNP-Adult 18+) Stat PTT Partial Thromboplastin [place] Stat Prothrombin Time INR Stat Troponin & CK Cardiac Panel Stat 10/27/24 13:55 CT angio head and neck Stat 10/27/24 14:08 CT head/brain wo con Stat 10/27/24 16:21 Urine Microscopic Stat Discontinued Medications Aspirin (Aspirin 81 Mg Chew Tab) 324 mg PO NOW ONE Stop: 10/27/24 12:50 Last Admin: 10/27/24 13:17 Dose: 324 mg Documented By: SB Meclizine HCl (Meclizine Hcl 12.5 Mg Tablet) 25 mg PO NOW ONE Stop: 10/27/24 14:48 Last Admin: 10/27/24 15:40 Dose: 25 mg Documented By: RB Vital Signs Vital signs: Vital Signs - 8 hr 10/27/24 12:56 10/27/24 12:57 10/27/24 13:00 Temperature 97.1 F L Pulse Rate 72 73 Respiratory Rate 18 Blood Pressure 133/71 127/60 Pulse Oximetry 99 98 Oxygen Delivery Method Room Air 10/27/24 13:00 10/27/24 13:30 10/27/24 13:31 Temperature Pulse Rate 73 66 71 Respiratory Rate 26 H 24 24 Blood Pressure Pulse Oximetry 99 95 94 Oxygen Delivery Method 10/27/24 13:31 10/27/24 14:00 10/27/24 14:00 Temperature Pulse Rate 67 Respiratory Rate 25 H Blood Pressure 145/64 H 133/63 Pulse Oximetry 95 Oxygen Delivery Method 10/27/24 15:42 10/27/24 15:43 10/27/24 15:43 Temperature Pulse Rate 61 63 Respiratory Rate 19 Blood Pressure 142/83 H Pulse Oximetry 98 98 Oxygen Delivery Method 10/27/24 16:00 10/27/24 16:01 10/27/24 16:01 Temperature Pulse Rate 60 57 L Respiratory Rate 24 26 H Blood Pressure 139/65 Pulse Oximetry 98 98 Oxygen Delivery Method 10/27/24 16:21 10/27/24 16:21 10/27/24 16:32 Temperature Pulse Rate 65 69 Respiratory Rate 19 Blood Pressure 146/67 H Pulse Oximetry 93 96 Oxygen Delivery Method 10/27/24 16:33 10/27/24 16:33 10/27/24 17:00 Temperature Pulse Rate 67 Respiratory Rate 17 Blood Pressure 146/67 H 130/73 Pulse Oximetry 97 Oxygen Delivery Method 10/27/24 17:00 Temperature Pulse Rate 62 Respiratory Rate 27 H Blood Pressure Pulse Oximetry 95 Oxygen Delivery Method MDM - Dizziness Lab Data 10/27/24 12:55 10/27/24 12:55 Labs: Lab Results 10/27/24 10/27/24 Range/Units 12:55 16:21 WBC 8.9 (4.5-11.0) X10^3/uL RBC 4.99 (4.0-5.2) X10^6/uL Hgb 14.7 (12.0-16.0) g/dL Hct 44.3 (36-46) % MCV 88.9 (80-100) fL MCH 29.5 (26-34) PG MCHC 33.2 (30-36) % RDW 13.7 (11.6-14.8) % Plt Count 243 (150-400) X10^3/uL Neut % (Auto) 53.8 (50-75) % Lymph % (Auto) 30.3 (25-40) % [place] % (Auto) 10.4 (3-14) % Eos % (Auto) 2.6 (2-4) % Baso % (Auto) 2.9 H (0-2) % Neut # (Auto) 4800 (9067-2642) /uL Lymph # (Auto) 2700 (1178-5463) /uL [place] # (Auto) 900 (0-900) /uL Eos # (Auto) 200 (0-450) /uL Baso # (Auto) 300 H (0-100) /uL RBC Morphology Normal morphology PT 12.1 (9.4-12.5) SECONDS INR 1.1 (0.9-1.3) APTT 35 (25.1-36.5) SECONDS Sodium 141 (137-145) mmol/L Potassium 4.0 (3.4-5.1) mmol/L Chloride 105 (98-107) mmol/L Carbon Dioxide 30 (22-32) mmol/L BUN 20 H (7-17) mg/dL Creatinine 0.77 (0.52-1.04) mg/dL Estimated GFR > 60 (>60) mL/min BUN/Creatinine Ratio 26.0 H (6-22) Glucose 73 L (80-110) mg/dL Calcium 9.7 (8.4-10.2) mg/dL Magnesium 1.8 (1.6-2.3) mg/dL Total Bilirubin 1.1 (0.2-1.3) mg/dL AST 40 H (14-36) IU/L ALT 38 H (<35) IU/L Alkaline Phosphatase 55 (38-126) U/L Total Creatine Kinase 95 (30-135) U/L Troponin I < 0.012 (0.01-0.034) ng/mL NT-Pro-B Natriuret Pep 23 (<125) pg/mL Total Protein 7.9 (6.3-8.2) g/dL Albumin 4.6 (3.5-5.0) g/dL Globulin 3.3 (1.7-4.1) g/dL Albumin/Globulin Ratio 1.4 (1.0-2.8) Lipase 109 (23-300) U/L Urine RBC None seen (0-5/HPF) Urine WBC None seen (0-5/HPF) Ur Squamous Epith Cells None seen (0-5/HPF) Urine Bacteria None seen (None) Ur Culture Indicated? Cult not indicated Vol Urine Centrifuged 10ml (spun) Urine Dip Bedside Urine Glucose Negative Bedside Urine Bilirubin - Negative Bedside Urine Ketone - Negative Urine Specific [place] 1.010 Bedside Urine Occult Blood +/- Bedside Urine pH 5.5 Bedside Urine Protein - Negative Bedside Urine Urobilinogen - Negative Bedside Urine Nitrite - Negative Bedside Urine Leukocytes - Negative Esterase Imaging Data CTA - brain/neck: Radiologist's Impression: PROCEDURE: CT ANGIO HEAD AND NECK INDICATIONS: dizzy TECHNIQUE: After the administration of intravenous contrast, 1 mm thick sections acquired from the aortic arch through the [place]. 3-dimensional fewdoyt-hwuqozvwo-dchbhxpndy (MIP) and/or volume rendering reformats were acquired of the central intracranial vasculature and neck separately. For radiation dose reduction, the following was used: automated exposure control, adjustment of mA and/or kV according to patient size. COMPARISON: None. FINDINGS: Image quality: Diagnostic. BRAIN: CSF spaces: Ventricles are normal in size and shape. Basal cisterns are patent. No extra-axial fluid collections. Brain: No significant abnormality of the brain can be seen. Skull and face: Calvarium and facial bones appear intact, without suspicious lesions. Orbits appear normal. Sinuses: Sinuses and mastoids are clear. HEAD CT ANGIOGRAPHY: Anterior circulation: Intracranial internal carotid arteries are normal in size and flow. The flow within the paired anterior cerebral arteries is normal and symmetric. The flow within the middle cerebral arteries is normal and symmetric. The anterior communicating artery is seen. No aneurysms are seen. Posterior circulation: Visualized portions of the vertebral arteries demonstrate normal caliber, and join to form a normal appearing basilar artery. Flow within the posterior cerebral arteries is normal and symmetric. No aneurysms are seen. NECK CT ANGIOGRAPHY: Carotid system: The great vessels demonstrate a conventional anatomy as they arise from the aortic arch. The origins of the common carotid arteries appear patent. The common carotid arteries demonstrate normal caliber and courses. The bifurcation regions are both widely patent. The internal carotid arteries demonstrate normal calibers and courses. Posterior circulation: The origins of the vertebral arteries both appear widely patent. The more superior extracranial portions of both vertebral arteries also demonstrate normal courses and calibers. They join to form a normal appearing basilar artery. Soft tissues: Visualized neck soft tissues demonstrate no suspicious abnormalities. Bones: No suspicious bony lesions. Visualized cervical spine appears normally aligned. IMPRESSION: No significant intracranial arterial abnormality is seen. No significant abnormality is seen within the arteries of the neck. Any quantitative measurements of stenosis were performed using NASCET criteria. Dictated by: Magdalena Silva M.D. on 10/27/2024 at 14:14 CT scan - head: Radiologist's Impression: PROCEDURE: CT HEAD/BRAIN WO CON INDICATIONS: balance issues TECHNIQUE: Noncontrast 4.5 mm thick angled axial sections acquired from the foramen magnum to the vertex, with coronal and sagittal reformats. For radiation dose reduction, the following was used: automated exposure control, adjustment of mA and/or kV according to patient size. COMPARISON: [facility], CT, CT HEAD/BRAIN WO CON, 02/15/2021, 5:50. FINDINGS: Image quality: Diagnostic. CSF spaces: Basal cisterns are patent. No extra-axial fluid collections. Ventricles are normal in size and shape. Brain: No midline shift. No intracranial masses or hemorrhage. [place]-white matter interface is normal. Skull and face: Calvarium and visualized facial bones are intact, without suspicious lesions. Sinuses: Visualized sinuses and mastoids are clear. IMPRESSION: No acute intracranial pathology. Dictated by: Magdalena Silva M.D. on 10/27/2024 at 14:20 Approved by: Magdalena Silva M.D. on 10/27/2024 at 14:21 Chest x-ray: Radiologist's Impression: PROCEDURE: XR CHEST 1V INDICATIONS: chest pain TECHNIQUE: One view of the chest was acquired. COMPARISON: [facility], CR, XR CHEST 1V, 11/07/2019, 16:27. [facility], , CHEST 1 VIEW, 04/24/2017, 0:31. FINDINGS: Surgical changes and devices: None. Lungs and pleura: Lungs are hypoinflated but clear. No pleural effusions or pneumothorax. Mediastinum: Mediastinal contours appear normal. Heart size is normal. Bones and chest wall: No suspicious bony lesions. Overlying soft tissues appear unremarkable. IMPRESSION: No acute cardiopulmonary abnormality is seen. Dictated by: Magdalena Silva M.D. on 10/27/2024 at 12:18 Approved by: Magdalena Silva M.D. on 10/27/2024 at 12:19 ECG Data Attestation: I personally reviewed and interpreted this ECG as follows: Prior ECG tracings: available for review Interpretation: Normal sinus rhythm rate 74 SD interval 148 QRS [address] changes similar to prior MDM Narrative Medical decision making narrative: MDM CC: Dizziness Complicating co-morbidities: History of vertigo hypothyroid Medical records reviewed: Differential considered: Vertigo non vestibular neuritis many years posterior CVA Exam documented above, pertinent findings include: Awake alert 64-year-old female no nystagmus NIH 0 Lab Test results independently reviewed as above. Pertinent findings: WBC 8.9 hemoglobin 14.7 hematocrit 44.3 platelets 243 Sodium 141 potassium 4.0 chloride 105 carbon dioxide 30 BUN 20 creatinine 0.7 glucose 73 Bili 1.1 AST 40 ALT 38 lipase 109 Troponin negative Independently reviewed EKG as above no ischemia Imaging studies independently reviewed: Head CT no acute intracranial abnormality CT angio no abnormalities Chest x-ray no acute cardiopulmonary process Consultations: none Treatments: Meclizine Re-evaluations: Patient got up she was the restroom she did need a wheelchair but overall felt a lot better. Now eating crackers Discussion: 64-year-old female does have history of vertigo presenting today with dizziness ongoing 4 days. No nausea or vomiting no weakness NIH stroke scale 0. Imaging today is overall reassuring blood work today also does not show any significant abnormality. No concern for infection. She did receive meclizine which may have had some improvement but she does not want a prescription for it says that she will not take it. Discharge Plan Departure Patient Disposition: Home Clinical Impression: Vertigo Instructions: DI for Vertigo Activity Restrictions/Additional Instructions: *You have been diagnosed with vertigo *What to do: At this time please follow-up with your regular doctor go home and sleep. Hopefully this gets better 40 *Continue to take medications as directed *Follow up with your primary care provider in 2-3 days or call [phone] *Return to ER if you should have persistent dizziness nausea vomiting weakness or any new, worsening or concerning symptoms Prescriptions: No Action paroxetine HCl PO phenazopyridine [Pyridium] 200 mg tablet 200 mg PO TID 0 Days Qty: 6 0RF tizanidine 2 mg tablet sumatriptan succinate 50 mg tablet 50 mg PO PRN PRN (Reason: Migraine Headache) levothyroxine 88 mcg tablet 88 mcg PO DAILY hydrocodone-acetaminophen 5-325 mg tablet 1 tab PO Q6H PRN (Reason: pain) Qty: 10 0RF Referrals: Ehsan Gerber FNP-C [Primary Care Provider] - Stand Alone Forms: Patient Portal/API/Survey
[2024-10-27] MEDS: MECLIZINE HCL 12.5 MG TABLET 25 MG PO (15:40)
--- NOTE | 2024-10-27 16:38 | PC.NURSE ---
[facility] COACH Note: Ambulated patient with her walker around the department. Patient denied any dizzy spells, shortness of breath or difficulty walking. Reported to provider and nurse.
[2024-10-27 16:47] LABS: Bacteria Urine None Seen; RBC Urine None Seen (0-5/HPF); Squamous Epithelial Cell Urine None Seen (0-5/HPF); Urine Volume 10mL (spun); WBC Urine None Seen (0-5/HPF)
[2024-10-27 16:48] LABS: Culture Indicated Urine Cult Not Indicated
== END 2024-10-27 17:27 | disposition home or self-care (01) ==
PROVIDERS: Emergency Provider Emergency Medicine; Family Provider Family Medicine; PCP Nurse Practitioner
DX: R42 Dizziness and giddiness (principal); R07.9 Chest pain, unspecified
CPT/HCPCS: 36415; 70450; 70496; 70498; 71045; 80053; 81003; 81015; 82550; 83690; 83735; 83880; 84484; 85025; 85610; 85730; 93005; 93010; 99284; Q9967

== ENCOUNTER 2025-08-25 00:53 | Emergency (ER) | payer MEDICARE, MEDICAID, SELFPAY ==
[2025-08-25 01:06] VITALS: BP 131/78; PULSE 102; RESP 20; TEMP 36.1; O2SAT 94; BMI 43.8
[2025-08-25 01:34] LABS: Strep Grp A by PCR Rapid Negative (Negative)
--- NOTE | 2025-08-25 01:44 | ED.URI ---
HPI - URI/Sore Throat General Chief Complaint: Upper Respiratory Symptoms Stated Complaint: Poss strep throat, Pain in throat, headache Time Seen by Provider: 08/25/25 00:59 Source: patient Mode of arrival: Ambulatory History of Present Illness HPI Narrative: 65y F recently had knee replaced on Cefprozil for prevention of infection presents with sore throat headache difficulty swallowing for the past day. She is up-to-date on her shots for COVID but not flu denies any sick contacts. Denies fever, chills, bodyaches, urinary symptoms, cough, nausea, vomiting, diarrhea, abdominal pain, chest pain, shortness of breath, dyspnea on exertion. Other than what is stated 14 point review of system is negative. Related Data Home Medications ?Medication ?Instructions ?Recorded ?Confirmed levothyroxine 88 mcg tablet 88 mcg PO DAILY 02/19/19 06/18/25 sumatriptan succinate 50 mg tablet 50 mg PO PRN PRN Migraine Headache 02/19/19 06/18/25 tizanidine 2 mg tablet 02/19/19 06/18/25 cephalexin 500 mg capsule 500 mg PO 4XD 06/18/25 06/18/25 diclofenac sodium 1 % topical gel 4 g topical 4XD 06/18/25 06/18/25 paroxetine HCl 40 mg tablet 40 mg PO QAM 06/18/25 06/18/25 apixaban 2.5 mg tablet (Eliquis) 2.5 mg PO BID 08/25/25 08/25/25 cefadroxil 500 mg capsule 500 mg PO BID 08/25/25 08/25/25 cholecalciferol (vitamin D3) 125 125 mcg PO DAILY 08/25/25 08/25/25 mcg (5,000 unit) capsule hydroxyzine HCl .ROUTE 08/25/25 levothyroxine 88 mcg capsule 88 mcg PO DAILY 08/25/25 08/25/25 paroxetine HCl 40 mg tablet 40 mg PO QAM 08/25/25 08/25/25 Previous Rx's ?Medication ?Instructions ?Recorded hydrocodone 5 mg-acetaminophen 325 1 tab PO Q6H PRN pain #10 tabs 08/10/22 mg tablet nystatin 100,000 unit/mL oral 4 ml buccal QID 14 days #224 mL 08/25/25 suspension Allergies Allergy/AdvReac Type Severity Reaction Status Date / Time codeine AdvReac Mild Verified 08/25/25 01:06 Penicillins AdvReac Mild Nausea Verified 08/25/25 01:06 Review of Systems Review of Systems ROS Unobtainable: All systems reviewed & are unremarkable except as noted in HPI and below Patient History Medical History (Updated 08/25/25 @ 01:58 by Dewayne Washington DO) Spider bite wound Hypothyroid Surgical History (Updated 06/18/25 @ 11:46 by Daniel Howe DO) History of bilateral knee arthroplasty alcohol intake frequency: holidays/special occasions only Exam Narrative Exam Narrative: GENERAL: [65] year old patient appears stated age. Well-developed patient, in mild distress. HEAD: Atraumatic. Normocephalic. EYES: Pupils equal round and reactive. Extraocular motions intact. No scleral icterus. No injection or drainage. ENT: Nose without bleeding, purulent drainage. Throat erythema with tongue thrush, tonsillar hypertrophy or exudate. Airway patent. NECK: Trachea midline. Non tender CARDIOVASCULAR: Regular rate and rhythm without murmurs, gallops, or rubs. RESPIRATORY: Clear to auscultation. Breath sounds equal bilaterally. No wheezes, rales, or rhonchi. EXTREMITIES: No edema or joint tenderness. BACK: Nontender without deformity or crepitance. No flank tenderness. NEURO: AOx3. SKIN: No rash or erythema of visible areas Initial Vital Signs Initial Vital Signs: Vital Signs Temperature 97 F L 08/25/25 01:06 Pulse Rate 102 H 08/25/25 01:06 Respiratory Rate 20 08/25/25 01:06 Blood Pressure 131/78 08/25/25 01:06 Pulse Oximetry 94 08/25/25 01:06 Oxygen Delivery Method Room Air 08/25/25 01:06 Course Orders Ordered: ED Orders 08/25/25 01:20 Strep Grp A by PCR Rapid Stat Vital Signs Vital signs: Vital Signs - 8 hr 08/25/25 01:06 Temperature 97 F L Pulse Rate 102 H Respiratory Rate 20 Blood Pressure 131/78 Pulse Oximetry 94 Oxygen Delivery Method Room Air MDM - URI/Sore Throat Lab Data Labs: Lab Results 08/25/25 Range/Units 01:20 Group A Strep (PCR) Negative (Negative) MDM Narrative Medical decision making narrative: All lab work, vital signs, nurse triage note, medication list, previous ER visits, and all imaging studies reviewed. Strep negative. Thrush we will send home on swish and swallow rx. Differential diagnosis strep COVID flu RSV candidiasis. Discharge Plan Departure Patient Disposition: Home Clinical Impression: Candidiasis of mouth Instructions: DI for Thrush Activity Restrictions/Additional Instructions: Return with new or worsening symptoms. Take medicine as directed. Follow up PCP in 1-2 weeks if no improvement in symptoms. Prescriptions: New nystatin 100,000 unit/mL suspension 4 ml buccal QID 14 Days Qty: 224 0RF Rx Instructions: administer 1/2 of dose in each side of the mouth No Action tizanidine 2 mg tablet sumatriptan succinate 50 mg tablet 50 mg PO PRN PRN (Reason: Migraine Headache) levothyroxine 88 mcg tablet 88 mcg PO DAILY hydrocodone-acetaminophen 5-325 mg tablet 1 tab PO Q6H PRN (Reason: pain) Qty: 10 0RF Eliquis 2.5 mg tablet 2.5 mg PO BID cefadroxil 500 mg capsule 500 mg PO BID paroxetine HCl 40 mg tablet 40 mg PO QAM cholecalciferol (vitamin D3) 125 mcg (5,000 unit) capsule 125 mcg PO DAILY levothyroxine 88 mcg capsule 88 mcg PO DAILY hydroxyzine HCl .ROUTE cephalexin 500 mg capsule 500 mg PO 4XD paroxetine HCl 40 mg tablet 40 mg PO QAM diclofenac sodium 1 % gel 4 g topical 4XD Referrals: Marin Monteiro MD [Primary Care Provider, Family Practice] Stand Alone Forms: Patient Portal/API
== END 2025-08-25 02:11 | disposition home or self-care (01) ==
PROVIDERS: Emergency Provider Family Medicine; PCP Student in an Organized Health Care Education/Training Program
DX: B37.0 Candidal stomatitis (principal)
CPT/HCPCS: 87651; 99281; 99282